=== PATIENT | female | born 1935 | race Caucasian/White ===

== ENCOUNTER → 2016-08-27 | Outpatient (CLI) | payer OTHER ==
[~2016-08-27] MED LIST: AMLO5TAB2 PO; LEVO25TA PO; OMEP20CA9 PO; PRD/1 PO; PRED-301 PO; PRED1SUS3; TRAM-453 PO
--- NOTE | 2016-08-29 08:28 | MAMMOGRAPHY REPORT ---
BILATERAL DIGITAL DIAGNOSTIC MAMMOGRAM TOMOSYNTHESIS AND TARGETED RIGHT ULTRASOUND: 08/27/2016 CLINICAL HISTORY: 80-year-old woman called back from screening mammography for left breast microcalc ifications and right breast nodular asymmetry. TECHNIQUE: Spot compression CC and MLO 2-D digital and tomosynthesis images of the right breast; spo t magnification left CC and ML views were obtained. COMPARISON: Comparison is made to exams dated: 08/20/2016 mammogram, 07/31/2014 mammogram, 08/01/2015 mammogram, 07/27/2013 mammogram, 07/26/2012 mammogram, and 07/21/2011 mammogram - [facility]. BREAST COMPOSITION: There are scattered areas of fibroglandular density in both breasts. FINDINGS: There are moderate vascular calcifications in the breasts. There is near complete effacem ent of the nodular asymmetry in the medial right breast with the additional spot compression tomosyn thesis image. The 2-D spot compression right cc view appears very similar in pattern to the 2014 mammograms, suggesting it represents the patient's baseline. Further evaluation with ult rasound was performed. No focal architectural distortion or suspicious cluster of microcalcificatio ns is identified in the right breast. There is an increasingly conspicuous 2.6 mm cluster of round and punctate microcalcifications in the lower inner posterior left breast. This is indeterminate, and further evaluation with a stereotact ic guided biopsy is recommended. A looser grouping of punctate and linear microcalcifications is se en in the 12:00 middle one third of the left breast measuring up to 2.7 cm. Although this could rep resent early vascular calcification, definitive characterization with tissue sampling is also recomm ended. No obvious new mass or focal architectural distortion is identified in the visualized left b reast. There are a few benign rim calcifications. IMPRESSION: ACR BI-RADS CATEGORY 4B: INTERMEDIATE SUSPICION FOR MALIGNANCY, TARGETED ULTRASOUND ACR BI-RADS CATEGORY 4B: INTERMEDIATE SUSPICION FOR MALIGNANCY 1. Left breast stereotactic guided biopsy x 2 is recommended for a 2.6 mm cluster of punctate and r ound microcalcifications in the lower inner posterior breast, and for a 2.7 cm cluster of punctate a nd linear microcalcifications in the 12:00 breast. 2. Effacement of the nodular asymmetry in the medial right breast, no suspicious sonographic correl ate. This most likely represented normal overlapping fibroglandular tissue. No further close follo w-up is needed at this time. These results and recommendations were discussed with the patient at the time of the exam. She tenta tively scheduled the left breast biopsy prior to leaving our department. Approximately 10% of breast cancers are not detected with mammography. A negative mammographic repor t should not delay biopsy if a clinically suggestive mass is present. Kendal Pearson M.D. ay/:08/27/2016 12:14:12 Molder Hand: Mey Tinoco RT(R)(M), [facility] letter sent: Abnormal 4/5 BI-RADS Code: ACR BI-RADS Category 4B: Intermediate Suspicion For Malignancy Ultrasound BI-RADS: AC R BI-RADS Category 4B: Intermediate Suspicion For Malignancy
== END | disposition home or self-care (01) ==
LOC: C.MAMM 11:18
PROVIDERS: ATTEND Internal Medicine
DX: R92.0 Mammographic microcalcification found on diagnostic imaging of breast (principal)

== ENCOUNTER → 2016-09-03 | Outpatient (CLI) | payer OTHER ==
--- NOTE | 2016-09-03 14:01 | Discharge Instructions ---
Discharge Instructions Procedure Procedure Date: Sep 03, 2016. Reason for visit: Left Calcs X2. Discharge Discharge Date: Sep 03, 2016. Discharge Diagnosis: post left breast stereotactic guided biopsy x 2 Instructions Activity Recommendations: Additional Limitations (see below) Return to School/Work: no limitations Recommended Home Diet: No Limitations Provider Instructions: ACTIVITY RECOMMENDATIONS: * No lifting, pushing, pulling or exercising the affected side for three days. RETURN TO SCHOOL/WORK: * You may return to work/school after the procedure, but do not perform any strenuous activities for 24 to 48 hours. MEDICATIONS: * Tylenol (two 325 mg) every four to six hours if needed for mild pain (if not allergic to Tylenol). DIET: * Resume previous diet. SPECIAL CARE INSTRUCTIONS: * Keep biopsy site dry for 24 hours. May shower after 24 hours, but do not soak (bathe) incision. * May remove Tegaderm (plastic patch) tomorrow AFTER showering. * Leave the steri-strips on for one week. Allow the steri-strips to fall off by themselves. If not off after one week, you may remove them. You may place a Bandaid crosswise over the strips, if desired. * Apply ice 10 minutes on and 10 minutes off as needed. * Wear a bra at bedtime to sleep more comfortably for 2-3 days. * Your referring physician should have the results after approximately 5 to 7 business days. * Call for unusual bleeding, fever, drainage, etc or if you have any questions call [phone] during normal business hours or after hours call Dr Pearson, . FOLLOW UP VISIT: Follow-up with Referring Physician as scheduled. Allergies Coded Allergies: Aspirin (Unverified Allergy, Mild, 06/20/15) Sulfa Drugs (Unverified Allergy, Mild, 06/20/15) Dottie Mondragon Recommendations: Call your doctor if: * Temperature above 101 degrees * Pain not relieved by pain medicine ordered * There is increased drainage or redness from any incision * You have any unanswered questions or concerns. Your Doctors Instructions noted above were prepared by provider Kendal Pearson. Patient Signature Section: Patient Instructions Signature Page Rosi Wills Patient (or Guardian) Signature/Date: I have read and understand the instructions given to me by my caregivers. Caregiver/RN/Doctor Signature/Date: The above-named patient and/or guardian has received patient instructions on this date. + Original Patient Signature Page (only) stays with chart. Please make copy for patient.
--- NOTE | 2016-09-03 15:47 | MAMMOGRAPHY REPORT ---
STEREOTACTIC GUIDED BIOPSY: 09/03/2016 CLINICAL HISTORY: 2 separate groupings of indeterminate microcalcifications within the left breast, in the upper outer middle one third of the breast, and lower inner posterior breast. Patient presen neha for stereotactic biopsy 2. Please refer to the report from left breast stereotactic guided biopsy performed at the same time fo r full detail. IMPRESSION: STEREOTACTIC GUIDED BIOPSY Please refer to the report from left breast stereotactic guided biopsy performed at the same time fo r full detail. Kendal Pearson M.D. ay/:09/03/2016 15:33:47 Cabin Supervisor: Vance RAMIREZ(Delio)(M), [facility]
--- NOTE | 2016-09-03 15:48 | MAMMOGRAPHY REPORT ---
UNILATERAL LEFT DIGITAL DIAGNOSTIC MAMMOGRAM: 09/03/2016 CLINICAL HISTORY: Status post stereotactic guided biopsy 2 within the left breast. Please refer to the report from left breast stereotactic guided biopsy performed at the same time fo r full detail. IMPRESSION: POST PROCEDURE IMAGING FOR MARKER PLACEMENT Please refer to the report from left breast stereotactic guided biopsy performed at the same time fo r full detail. Approximately 10% of breast cancers are not detected with mammography. A negative mammographic repor t should not delay biopsy if a clinically suggestive mass is present. Kendal Pearson M.D. ay/:09/03/2016 15:32:55 Rotary Planer Set Up Operator: Vance Solorzano RT(R)(M), [facility] BI-RADS Code: Post Procedure Imaging For Marker Placement
--- NOTE | 2016-09-03 17:00 | MAMMOGRAPHY REPORT ---
MULTIPLE STEREOTACTIC GUIDED BIOPSIES LEFT BREAST: 09/03/2016 CLINICAL HISTORY: Indeterminate loosely grouped amorphous microcalcifications in the upper outer mid dle one third of the left breast, and grouped punctate microcalcifications in the lower inner doughnut dough mixer ior left breast. Patient presents for left breast stereotactic biopsy 2. PATIENT CONSENT: After explaining the risks, benefits and alternatives of the procedure to the patie nt, informed consent was obtained both verbally and in writing. Specific risks include: Bleeding, i nfection, puncture of adjacent structure, nontarget biopsy, sampling error and medication reaction. PROCEDURE DESCRIPTION: A time-out was performed and the left breast was confirmed as the site of bio psy. The patient was placed prone on the stereotactic biopsy table and the breast was placed in CC f rom below compression. A low altitude air defense gunner image was obtained that demonstrated the clustered microcalcification s in question, within the lower inner posterior breast. They are amenable to sterotactic biopsy. Th en +15 and -15 stereo pair images were obtained. The calcifications were targeted utilizing the co ordinates obtained by the computer. The skin was prepped with Betadine. 1% Lidocaine with and witho ut epinipherine was administered as local anesthesia. A small skin incision was made. Through the i ncision, the needle was inserted to the depth determined by the computer. 10 samples were obtained u sing a [employer] Eviva 9-gauge vacuum-assisted biopsy device. The specimen radiograph demonstrated several underwriting account representative microcalcifications, therefore, a dumbbell shaped metallic marker was placed at the biopsy site. There was no immediate complication. Hemostasis was achieved after several kayode rk of manual compression. The samples were sent to pathology in an appropriately labeled container . Then the left breast was placed in CC from above positioning. A low altitude air defense gunner image was obtained that demon strated the faint, loosely grouped pleomorphic microcalcifications in question, within the upper out er middle one third of the left breast. They are amenable to sterotactic biopsy. Then +15 and -15 stereo pair images were obtained. The calcifications were targeted utilizing the coordinates obtain ed by the computer. The skin was prepped with Betadine. 1% Lidocaine with and without epinipherine was administered as local anesthesia. A small skin incision was made. Through the incision, the nee dle was inserted to the depth determined by the computer. 12 samples were obtained using a [employer] os Eviva 9-gauge vacuum-assisted biopsy device. The specimen radiograph demonstrated several represe ntative microcalcifications, therefore, a dumbbell shaped metallic marker was placed at the biopsy s ite. There was no immediate complication. Hemostasis was achieved after several minutes of manual co mpression. The samples were sent to pathology in an appropriately labeled container. Postprocedure CC and ML views of the left breast demonstrates a new dumbbell shaped metallic biopsy marker in the lower inner posterior breast, and T-shaped biopsy marker in the upper outer middle one third of the left breast. No significant postbiopsy hematoma is seen. Pathology is pending. IMPRESSION: STEREOTACTIC GUIDED BIOPSY Status post stereotactic biopsy 2 in the left breast, with biopsy markers placed at each site. The patient will receive notification of the biopsy results from her referring physician. Kendal Pearson M.D. ay/:09/03/2016 15:54:25 [place] Laborer: Vance THORPE)(Susie), [facility]
== END | disposition home or self-care (01) ==
LOC: C.MAMM 12:25
PROVIDERS: ATTEND Internal Medicine
DX: R92.1 Mammographic calcification found on diagnostic imaging of breast (principal)

== ENCOUNTER → 2017-09-22 | Outpatient (CLI) | payer OTHER ==
--- NOTE | 2017-09-23 15:23 | MAMMOGRAPHY REPORT ---
BILATERAL DIGITAL SCREENING MAMMOGRAM TOMOSYNTHESIS WITH CAD: 09/22/2017 CLINICAL HISTORY: Routine screening. Patient has no complaints. TECHNIQUE: Breast tomosynthesis in addition to standard 2D mammography was performed. Current study was also evaluated with a Computer Aided Detection (CAD) system. COMPARISON: Comparison is made to exams dated: 09/03/2016 mammogram, 08/27/2016 mammogram, 08/20/2016 m ammogram, 08/01/2015 mammogram, 07/31/2014 mammogram, and 07/27/2013 mammogram - [facility] enter. BREAST COMPOSITION: There are scattered areas of fibroglandular density in both breasts. FINDINGS: No suspicious masses, calcifications, or areas of architectural distortion are noted in ei ther breast. There has been no significant interval change compared to prior exams. Scattered bilate ral benign-appearing calcifications are noted. A biopsy marker clip is noted in the left medial post erior breast. IMPRESSION: ACR BI-RADS CATEGORY 2: BENIGN There is no mammographic evidence of malignancy. A 1 year screening mammogram is recommended. The pa tient will receive written notification of the results. Approximately 10% of breast cancers are not detected with mammography. A negative mammographic report should not delay biopsy if a clinically suggestive mass is present. Dalia Ragland M.D. /:09/22/2017 14:52:11 Data Migration Consultant: Audra RAMIREZ(Delio)(Susie)(BD), [facility] letter sent: Normal 1/2 BI-RADS Code: ACR BI-RADS Category 2: Benign
== END | disposition home or self-care (01) ==
LOC: C.MAMM 14:07
PROVIDERS: ATTEND Internal Medicine
DX: Z12.31 Encounter for screening mammogram for malignant neoplasm of breast (principal)

== ENCOUNTER → 2017-11-24 | Outpatient (CLI) | payer OTHER | END | disposition home or self-care (01) | LOC: C.PATHSPEC 17:58 | PROVIDERS: ATTEND Physician Assistant | DX: C44.311 Basal cell carcinoma of skin of nose (principal); C44.320 Squamous cell carcinoma of skin of unspecified parts of face; C44.612 Basal cell carcinoma of skin of right upper limb, including shoulder ==

== ENCOUNTER 2019-01-05 21:47 | Inpatient (IN) ==
[2019-01-05 22:13] LABS: Basophils # (auto) 0.01 K/uL (0-0.2); Basophils % (auto) 0.1 %; Hematocrit (blood only) 30.2 % (37-47); Hemoglobin 10.7 g/dL (12.0-16.0); Immature Granulocytes # (auto) 0.03 K/uL (0.00-0.02); Immature Granulocytes % (auto) 0.4 %; Lymphocytes # (auto) 0.97 K/uL (1.2-3.4); Lymphocytes % (auto) 13.9 %; Mean Corpuscular Hgb Conc 35.4 g/dL (32-36); Mean Platelet Volume 7.9 fL (7.4-10.4); Monocytes # (auto) 0.65 K/uL (0.11-0.59); Monocytes % (auto) 9.3 %; Neutrophils # (auto) 5.31 K/uL (1.4-6.5); Neutrophils % (auto) 76.3 %; Platelet Count 343 K/uL (130-400); RDW Coefficient of Variation 12.3 % (11.5-14.5); RDW Standard Deviation 41.2 fL (36.4-46.3); Red Blood Count 3.32 M/uL (4.2-5.4); White Blood Count 6.97 K/uL (4.8-10.8)
[2019-01-05] MEDS: HYDROmorphone INJ 0.5 MG/0.5 ML SYR IV PRN ×2 (22:16→22:52)
[2019-01-05 22:21] LABS: Partial Thromboplastin Ratio 1.1; Partial Thromboplastin Time 29.5 Seconds (21.0-31.0); Prothrombin Time 10.2 Seconds (9.0-12.0)
[2019-01-05 22:43] LABS: BUN Creatinine Ratio 15.4 (10-20); Calcium 9.1 mg/dl (8.5-10.1); Creatinine Clr Calc Pharmacy 21.1 ml/min; Est GFR (African American) 34.2; Est GFR (Non-African American) 29.5
--- NOTE | 2019-01-05 22:49 | XRay Report ---
XR pelvis 1-2V routine CLINICAL HISTORY: Left hip pain status post trauma COMPARISON: None DISCUSSION: There is a basicervical left hip fracture. The fracture is mildly displaced. There is no dislocation. IMPRESSION: Acute basicervical left hip fracture. Electronically signed by: Alek Daly M.D. 01/05/2019 10:48 PM
--- NOTE | 2019-01-05 22:50 | XRay Report ---
XR femur LT 2V routine CLINICAL HISTORY: Pain status post trauma COMPARISON: None. DISCUSSION: There is displaced basicervical left hip fracture. No additional femoral fractures are ev ident. IMPRESSION: Acute basicervical left hip fracture Electronically signed by: Alek Daly M.D. 01/05/2019 10:49 PM
--- NOTE | 2019-01-05 22:51 | XRay Report ---
XR chest 1V portable CLINICAL HISTORY: Preop chest. Hip fracture. COMPARISON STUDY: No previous studies for comparison. FINDINGS: The heart is at the upper limits of normal in size. The study is rotated. There is no failu re. There is no lobar consolidation. There are no pleural effusions. There is interstitial thickening with a subpleural distribution, likely chronic[ IMPRESSION: 1. Interstitial thickening, likely chronic. 2. No evidence of acute parenchymal consolidation Electronically signed by: Alek Daly M.D. 01/05/2019 10:50 PM
[2019-01-05] MEDS ORDERED: ACETAMINOPHEN 1,000 MG/100 ML VIAL IV STA (22:57)
[2019-01-05] MEDS ORDERED: SODIUM CHLORIDE 0.9% 1000ML 500 ML IV ONE (22:59)
[2019-01-05] MEDS ORDERED: ONDANSETRON INJ 2 MG/ML 2 ML VIAL IV STA (22:59)
[2019-01-05 23:03] LABS: Appearance Urine Clear (Clear); Bilirubin Urine Negative (Negative); Blood Urine Negative (Negative); Color Urine Yellow; Glucose Urine UA Negative (Negative); Ketones Urine Negative (Negative); Leukocyte Esterase Urine Negative (Negative); Nitrite Urine Negative (Negative); Protein Urine Negative (Negative); Specific Gravity Urine 1.019 (1.000-1.030); Urobilinogen Urine Negative (Negative)
[2019-01-05] MEDS ORDERED: dilTIAZem HCL 240 MG CAPCR PO STA (23:25)
[2019-01-06] MEDS: HYDROmorphone INJ 0.5 MG/0.5 ML SYR IV PRN (00:01)
[2019-01-06 00:04] LABS: Magnesium 1.7 mg/dl (1.8-2.4)
--- NOTE | 2019-01-06 00:33 | Emergency Department Note ---
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 The patient is complaining of left hip pain. She rates her pain a 10/10 in severity. She states she did not hit her head and denies loss of consciousness. Home Medications Home Medications Medication Instructions Recorded Confirmed Type Iron Vitamin C 65 - 125 mg PO DAILY 01/05/19 01/05/19 History acetaminophen 500 mg PO BID 01/05/19 01/05/19 History ascorbic acid (vitamin C) [Vitamin 500 mg PO TID 01/05/19 01/05/19 History C] aspirin 81 mg PO DAILY 01/05/19 01/05/19 History calcitriol 0.25 mcg PO 3XWK 01/05/19 01/05/19 History cod liver oil 1 cap PO DAILY 01/05/19 01/05/19 History coenzyme Q10 50 mg PO DAILY 01/05/19 01/05/19 History diltiazem HCl 240 mg PO DAILY 01/05/19 01/05/19 History flaxseed oil 1,000 mg PO BID 01/05/19 01/05/19 History garlic-parsley 1 tab PO BID 01/05/19 01/05/19 History levothyroxine 25 mcg PO DAILY 01/05/19 01/05/19 History multivitamin 1 tab PO DAILY 01/05/19 01/05/19 History omeprazole magnesium [Prilosec OTC] 20 mg PO HS 01/05/19 01/05/19 History prednisone 2 mg PO DAILY 01/05/19 01/05/19 History prednisone 5 mg PO DAILY 01/05/19 01/05/19 History tramadol 50 mg PO Q8H PRN 01/05/19 01/05/19 History Allergies Allergy/AdvReac Type Severity Reaction Status Date / Time aspirin Allergy Mild Unknown Unverified 05/15/19 23:41 Sulfa (Sulfonamide Allergy Mild Rash Unverified 01/05/19 23:41 Antibiotics) Past Med/Surg History Medical History Fibromyalgia Osteoporosis Social History Feels Safe at Home: Yes Smoking Status: Never smoker Review of Systems See HPI for pertinent positives & negatives. and A total of 10 systems reviewed and were otherwise negative Physical Exam Vital Signs Vital Signs - 24 hr 01/05/19 21:49 01/05/19 21:51 01/05/19 21:53 Temperature 36.7 C Temperature Source Oral Sepsis Recent Fever Within 48 Hours No Sepsis Action Taken by Nursing No Action Required Pulse Rate 109 H 109 H 109 H Pulse Rhythm Regular Pulse Strength Normal Respiratory Rate 32 H 19 33 H Respiratory Effort / Characteristics Non-Labored Respiratory Depth Normal Respiratory Pattern Regular Blood Pressure 144/61 H 144/61 H Blood Pressure Mean 88 88 Blood Pressure Position Lying Pulse Oximetry 95 95 95 Oxygen Delivery Method Room Air Oxygen Flow Rate 01/05/19 22:00 01/05/19 22:51 01/05/19 22:55 Temperature Temperature Source Sepsis Recent Fever Within 48 Hours Sepsis Action Taken by Nursing Pulse Rate 107 H 105 H 104 H Pulse Rhythm Regular Pulse Strength Respiratory Rate 21 37 H Respiratory Effort / Characteristics Respiratory Depth Respiratory Pattern Blood Pressure 161/73 H Blood Pressure Mean 102 Blood Pressure Position Pulse Oximetry 95 88 L Oxygen Delivery Method Room Air Oxygen Flow Rate 01/05/19 22:56 01/05/19 23:00 01/05/19 23:30 Temperature Temperature Source Sepsis Recent Fever Within 48 Hours Sepsis Action Taken by Nursing Pulse Rate 104 H 104 H 97 H Pulse Rhythm Pulse Strength Respiratory Rate 26 H 23 24 Respiratory Effort / Characteristics Respiratory Depth Respiratory Pattern Blood Pressure 161/73 H Blood Pressure Mean 102 Blood Pressure Position Pulse Oximetry 100 100 100 Oxygen Delivery Method Nasal Cannula Oxygen Flow Rate 2 01/06/19 00:00 Temperature Temperature Source Sepsis Recent Fever Within 48 Hours Sepsis Action Taken by Nursing Pulse Rate 105 H Pulse Rhythm Pulse Strength Respiratory Rate 12 Respiratory Effort / Characteristics Respiratory Depth Respiratory Pattern Blood Pressure Blood Pressure Mean Blood Pressure Position Pulse Oximetry 97 Oxygen Delivery Method Oxygen Flow Rate GENERAL: Awake, alert, well-appearing, in no acute distress. Obvious discomfort. HENT: Normocephalic, atraumatic. Oropharynx unremarkable. EYES: Normal conjunctiva. Sclera non-icteric. NECK: Supple. No nuchal rigidity. FROM. No JVD. RESPIRATORY: Clear to auscultation. CARDIAC: Regular rate, normal rhythm. Extremities warm and well perfused. Pulses equal. ABDOMEN: Soft, non-distended. No tenderness to palpation. No rebound or guarding. No masses. RECTAL: Deferred. MUSCULOSKELETAL: Chest examination reveals no tenderness. The back is symmetrical on inspection without obvious abnormality. There is no CVA t enderness to palpation. No joint edema. Unable to move left hip. LOWER EXTREMITIES: Calves are equal size bilaterally and non-tender. No edema. No discoloration. NEURO: Normal sensorium. No sensory or motor deficits noted. SKIN: No rash or jaundice noted. Course 2202: Past medical records reviewed. The patient was evaluated in room C4. A co mplete history and physical exam was performed. 5: I discussed the patient's case with Dr. Garcia [facility]. He agrees to evaluate the patient for further management and care. 2305: I spoke with Dr. Quesada, Orthopedics. He is aware of the patient. Consultations Consultation #1: I discussed the patient's case with Dr. Garcia [facility]. He agrees to evaluate the patient for further management and care. Time: 22:55 Consultation #2: I spoke with Dr. Quesada, Orthopedics. He is aware of the patient. Time: 23:05 Administered Medications Hydromorphone HCl (Dilaudid) 0.5 mg IV Q20M PRN PRN Reason: Severe Pain (Rating 7,8,9,10) Stop: 01/19/19 22:04 Last Admin: 01/06/19 00:01 Dose: 0.5 mg Documented by: [id number] Admin: 01/05/19 22:52 Dose: 0.5 mg Documented by: [id number] Admin: 01/05/19 22:16 Dose: 0.5 mg Documented by: [id number] Discontinued Medications Diltiazem HCl (Cardizem Cd) 240 mg PO NOW STA Stop: 01/05/19 23:26 Last Admin: 01/06/19 00:01 Dose: 240 mg Documented by: [id number] Acetaminophen (Ofirmev) 1,000 mg in 100 mls @ 400 mls/hr IV NOW STA Stop: 01/05/19 23:11 Last Infusion: 01/05/19 23:16 Dose: 0 mls/hr Documented by: [id number] Admin: 01/05/19 23:01 Dose: 400 mls/hr Documented by: [id number] Sodium Chloride (Nss 1000ml) 500 mls @ 999 mls/hr IV .Q31M ONE Stop: 01/05/19 23:29 Last Infusion: 01/05/19 23:40 Dose: 0 mls/hr Documented by: [id number] Admin: 01/05/19 23:06 Dose: 999 mls/hr Documented by: [id number] Ondansetron HCl (Zofran) 4 mg IV NOW STA Stop: 01/05/19 23:00 Last Admin: 01/05/19 23:06 Dose: 4 mg Documented by: [id number] Medical Decision Making Differential Diagnosis Etiologies such as fracture, dislocation, intra-abdominal, pneumothorax, intrathoracic , intracranial, neurologic, as well as other traumatic pathologies were entertained. Medical Records Attestation: I reviewed the patient's medical records. Home Medications Current Medication List: was personally reviewed by me Laboratory Data Attestation: I reviewed the patient's lab results. Result diagrams: 01/05/19 22:00 01/05/19 22:00 Lab Results 01/05/19 01/05/19 01/05/19 Range/Units 22:00 22:00 22:00 WBC 6.97 (4.8-10.8) K/uL RBC 3.32 L (4.2-5.4) M/uL Hgb 10.7 L (12.0-16.0) g/dL Hct 30.2 L (37-47) % MCV 91.0 (80-100) fL MCH 32.2 (25-34) pg MCHC 35.4 (32-36) g/dL RDW Std Deviation 41.2 (36.4-46.3) fL RDW Coeff of Caitlin 12.3 (11.5-14.5) % Plt Count 343 (130-400) K/uL MPV 7.9 (7.4-10.4) fL Immature Gran % (Auto) 0.4 % Neut % (Auto) 76.3 % Lymph % (Auto) 13.9 % [place] % (Auto) 9.3 % Eos % (Auto) 0.0 % Baso % (Auto) 0.1 % Immature Gran # (Auto) 0.03 H (0.00-0.02) K/uL Neut # (Auto) 5.31 (1.4-6.5) K/uL Lymph # (Auto) 0.97 L (1.2-3.4) K/uL [place] # (Auto) 0.65 H (0.11-0.59) K/uL Eos # (Auto) 0.00 (0-0.5) K/uL Baso # (Auto) 0.01 (0-0.2) K/uL PT 10.2 (9.0-12.0) Seconds INR 1.0 (0.9-1.1) APTT 29.5 (21.0-31.0) Seconds PTT Ratio 1.1 Sodium 128 L (136-145) mmol/L Potassium 4.0 (3.5-5.1) mmol/L Chloride 97 L (98-107) mmol/L Carbon Dioxide 18 L (21-32) mmol/L Anion Gap 13.0 H (3-11) BUN 25 H (7-18) mg/dl Creatinine 1.60 H (0.6-1.2) mg/dl Est Cr Clr Drug Dosing 21.1 ml/min Est GFR ( Amer) 34.2 Est GFR (Non-Af Amer) 29.5 BUN/Creatinine Ratio 15.4 (10-20) Glucose 112 H (70-99) mg/dl Osmolality (280-300) mOsm/kg Calcium 9.1 (8.5-10.1) mg/dl Magnesium 1.7 L (1.8-2.4) mg/dl TSH 1.200 (0.300-4.500) uIu/ml Urine Color Urine Appearance (Clear) Urine pH (4.5-7.5) Ur Specific [place] (1.000-1.030) Urine Protein (Negative) Urine Glucose (UA) (Negative) Urine Ketones (Negative) Urine Blood (Negative) Urine Nitrite (Negative) Urine Bilirubin (Negative) Urine Urobilinogen (Negative) Ur Leukocyte Esterase (Negative) Blood Type Rho(D) Type Antibody Screen 01/05/19 01/05/19 01/05/19 Range/Units 22:00 22:16 22:55 WBC (4.8-10.8) K/uL RBC (4.2-5.4) M/uL Hgb (12.0-16.0) g/dL Hct (37-47) % MCV (80-100) fL MCH (25-34) pg MCHC (32-36) g/dL RDW Std Deviation (36.4-46.3) fL RDW Coeff of Caitlin (11.5-14.5) % Plt Count (130-400) K/uL MPV (7.4-10.4) fL Immature Gran % (Auto) % Neut % (Auto) % Lymph % (Auto) % [place] % (Auto) % Eos % (Auto) % Baso % (Auto) % Immature Gran # (Auto) (0.00-0.02) K/uL Neut # (Auto) (1.4-6.5) K/uL Lymph # (Auto) (1.2-3.4) K/uL [place] # (Auto) (0.11-0.59) K/uL Eos # (Auto) (0-0.5) K/uL Baso # (Auto) (0-0.2) K/uL PT (9.0-12.0) Seconds INR (0.9-1.1) APTT (21.0-31.0) Seconds PTT Ratio Sodium (136-145) mmol/L Potassium (3.5-5.1) mmol/L Chloride (98-107) mmol/L Carbon Dioxide (21-32) mmol/L Anion Gap (3-11) BUN (7-18) mg/dl Creatinine (0.6-1.2) mg/dl Est Cr Clr Drug Dosing ml/min Est GFR ( Amer) Est GFR (Non-Af Amer) BUN/Creatinine Ratio (10-20) Glucose (70-99) mg/dl Osmolality 316 H (280-300) mOsm/kg Calcium (8.5-10.1) mg/dl Magnesium (1.8-2.4) mg/dl TSH (0.300-4.500) uIu/ml Urine Color Yellow Urine Appearance Clear (Clear) Urine pH 5.0 (4.5-7.5) Ur Specific [place] 1.019 (1.000-1.030) Urine Protein Negative (Negative) Urine Glucose (UA) Negative (Negative) Urine Ketones Negative (Negative) Urine Blood Negative (Negative) Urine Nitrite Negative (Negative) Urine Bilirubin Negative (Negative) Urine Urobilinogen Negative (Negative) Ur Leukocyte Esterase Negative (Negative) Blood Type Cancelled Rho(D) Type Cancelled Antibody Screen Cancelled 01/05/19 Range/Units 23:07 WBC (4.8-10.8) K/uL RBC (4.2-5.4) M/uL Hgb (12.0-16.0) g/dL Hct (37-47) % MCV (80-100) fL MCH (25-34) pg MCHC (32-36) g/dL RDW Std Deviation (36.4-46.3) fL RDW Coeff of Caitlin (11.5-14.5) % Plt Count (130-400) K/uL MPV (7.4-10.4) fL Immature Gran % (Auto) % Neut % (Auto) % Lymph % (Auto) % [place] % (Auto) % Eos % (Auto) % Baso % (Auto) % Immature Gran # (Auto) (0.00-0.02) K/uL Neut # (Auto) (1.4-6.5) K/uL Lymph # (Auto) (1.2-3.4) K/uL [place] # (Auto) (0.11-0.59) K/uL Eos # (Auto) (0-0.5) K/uL Baso # (Auto) (0-0.2) K/uL PT (9.0-12.0) Seconds INR (0.9-1.1) APTT (21.0-31.0) Seconds PTT Ratio Sodium (136-145) mmol/L Potassium (3.5-5.1) mmol/L Chloride (98-107) mmol/L Carbon Dioxide (21-32) mmol/L Anion Gap (3-11) BUN (7-18) mg/dl Creatinine (0.6-1.2) mg/dl Est Cr Clr Drug Dosing ml/min Est GFR ( Amer) Est GFR (Non-Af Amer) BUN/Creatinine Ratio (10-20) Glucose (70-99) mg/dl Osmolality (280-300) mOsm/kg Calcium (8.5-10.1) mg/dl Magnesium (1.8-2.4) mg/dl TSH (0.300-4.500) uIu/ml Urine Color Urine Appearance (Clear) Urine pH (4.5-7.5) Ur Specific [place] (1.000-1.030) Urine Protein (Negative) Urine Glucose (UA) (Negative) Urine Ketones (Negative) Urine Blood (Negative) Urine Nitrite (Negative) Urine Bilirubin (Negative) Urine Urobilinogen (Negative) Ur Leukocyte Esterase (Negative) Blood Type O Positive Rho(D) Type Antibody Screen NEGATIVE Imaging Data Radiologist's Impression: Radiology results as stated below per my review and t he radiologist's interpretation: XR pelvis 1-2V routine CLINICAL HISTORY: Left hip pain status post trauma COMPARISON: None DISCUSSION: There is a basicervical left hip fracture. The fracture is mildly displaced. There is no dislocation. IMPRESSION: Acute basicervical left hip fracture. Electronically signed by: Alek Daly M.D. 01/05/2019 10:48 PM. XR femur LT 2V routine CLINICAL HISTORY: Pain status post trauma COMPARISON: None. DISCUSSION: There is displaced basicervical left hip fracture. No additional femoral fractures are evident. IMPRESSION: Acute basicervical left hip fracture Electronically signed by: Alek Daly M.D. 01/05/2019 10:49 PM. XR chest 1V portable CLINICAL HISTORY: Preop chest. Hip fracture. COMPARISON STUDY: No previous studies for comparison. FINDINGS: The heart is at the upper limits of normal in size. The study is rotated. There is no failure. There is no lobar consolidation. There are no pleural effusions. There is interstitial thickening with a subpleural distribution, likely chronic[ IMPRESSION: 1. Interstitial thickening, likely chronic. 2. No evidence of acute parenchymal consolidation Electronically signed by: Alek Daly M.D. 01/05/2019 10:50 PM ECG Data Attestation: I personally reviewed and interpreted this ECG as follows: Indication: other (fall) Rate (beats per minute): 100 Rhythm: normal sinus Findings: no ST depression and no ST elevation Blood Pressure Blood Pressure Findings: Elevated blood pressure Blood Pressure Disposition: further management by hospitalist FAYE Narrative This is a 83-year-old female who presents emergency department complaining of hip pain. The patient appears to have a left hip deformity. Because of this an IV was established, the patient is given Dilaudid as well as IV Tylenol for her pain. She was sent for x-rays of her chest pelvis and femur. These are concerning for a left hip fracture. Based on this I did discuss the case with the hospitalist service as well as Dr. Lee patient and family were in agreement with the treatment plan.[email or web address]. Impression & Plan Fall, Hip fracture Discharge Plan Visit Data Chief Complaint: Hip Pain Stated Complaint: fall/ L hip pain ED Provider: Kody Gauthier Discharge Problem: Fall, Hip fracture Patient Disposition: Being Evaluated by Hospitalist Forms Stand Alone Forms: My [facility] Prescriptions Prescriptions: No Action levothyroxine 25 mcg Tablet 25 mcg PO DAILY RF: 0 tramadol 50 mg Tablet 50 mg PO Q8H PRN (Reason: Pain) RF: 0 diltiazem HCl 240 mg Capsule,Extended Release 24hr 240 mg PO DAILY RF: 0 prednisone 1 mg Tablet 2 mg PO DAILY RF: 0 calcitriol 0.25 mcg Capsule 0.25 mcg PO 3XWK RF: 0 prednisone 5 mg Tablet 5 mg PO DAILY RF: 0 acetaminophen 500 mg Tablet 500 mg PO BID RF: 0 aspirin 81 mg Tablet,Delayed Release (Dr/Ec) 81 mg PO DAILY RF: 0 coenzyme Q10 50 mg Capsule 50 mg PO DAILY RF: 0 Iron Vitamin C 65 - 125 mg PO DAILY RF: 0 cod liver oil Capsule 1 cap PO DAILY RF: 0 garlic-parsley Tablet 1 tab PO BID RF: 0 ascorbic acid (vitamin C) [Vitamin C] 500 mg Tablet 500 mg PO TID RF: 0 flaxseed oil 1,000 mg Capsule 1,000 mg PO BID RF: 0 multivitamin Tablet 1 tab PO DAILY RF: 0 Prilosec OTC 20 mg Tablet,Delayed Release (Dr/Ec) 20 mg PO HS RF: 0 Referrals Referrals: Irvin Huggins DO [Primary Care Provider] - Discharge Problem: Fall Qualifiers: Encounter type: initial encounter Qualified Code(s): W19.XXXA - Unspecified fall, initial encounter Hip fracture Qualifiers: Encounter type: initial encounter Fracture type: closed Laterality: left Qualified Code(s): S72.002A - Fracture of unspecified part of neck of left femur, initial encounter for closed fracture The scribe's documentation has been prepared under my direction and personally reviewed by me in its entirety. I confirm that the note above accurately reflects all work, treatment, procedures, and medical decision making performed by me.
--- NOTE | 2019-01-06 00:49 | History & Physical Report ---
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 Quesada.) Careful correction of sodium, hyponatremia work-up Analgesia, facilitate home BP meds, may need titration Final preop medical evaluation pending repeat sodium levels and Orthopedics evaluation/management recommendations. Check hemoglobin A1c DT precautions Anemia work-up (NB : Patient is a [employer].) DVT prophylaxis. SCDs RE possible surgery (Recommend pharmacologic anticoagulation pending evaluation by Orthopedics.) Full code Patient son requesting updates from providers. Mr. Manuel Wills, contact #[phone]. History of Present Illness Chief Complaint: Left hip pain Primary Care Provider: Irvin Huggins, History obtained from patient, family, and records. Medical history significant for hypertension, hyperlipidemia, PMR on chronic steroid Rx, CRI baseline creatinine 1.6, GERD, daily alcohol intake. Patient was at home last night when she stumbled and fell landing on her left side. Patient subsequently noted excruciating left hip pain worse on trying to get up. No head trauma, no LOC, no syncope, no chest pain, no S OB. 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, [employer] Functionality: Still able to do light housework without exertional chest pain, S OB Allergies Allergy/AdvReac Type Severity Reaction Status Date / Time aspirin Allergy Mild Unknown Unverified 01/05/19 23:41 Sulfa (Sulfonamide Allergy Mild Rash Unverified 01/05/19 23:41 Antibiotics) Home Medications Home Medications Medication Instructions Recorded Confirmed Type Iron Vitamin C 65 - 125 mg PO DAILY 01/05/19 01/05/19 History acetaminophen 500 mg PO BID 01/05/19 01/05/19 History ascorbic acid (vitamin C) [Vitamin 500 mg PO TID 01/05/19 01/05/19 History C] aspirin 81 mg PO DAILY 01/05/19 01/05/19 History calcitriol 0.25 mcg PO 3XWK 01/05/19 01/05/19 History cod liver oil 1 cap PO DAILY 01/05/19 01/05/19 History coenzyme Q10 50 mg PO DAILY 01/05/19 01/05/19 History diltiazem HCl 240 mg PO DAILY 01/05/19 01/05/19 History flaxseed oil 1,000 mg PO BID 01/05/19 01/05/19 History garlic-parsley 1 tab PO BID 01/05/19 01/05/19 History levothyroxine 25 mcg PO DAILY 01/05/19 01/05/19 History multivitamin 1 tab PO DAILY 01/05/19 01/05/19 History omeprazole magnesium [Prilosec OTC] 20 mg PO HS 01/05/19 01/05/19 History prednisone 2 mg PO DAILY 01/05/19 01/05/19 History prednisone 5 mg PO DAILY 01/05/19 01/05/19 History tramadol 50 mg PO Q8H PRN 01/05/19 01/05/19 History Past Med/Surg History Medical History Fibromyalgia Osteoporosis Anemia GERD (gastroesophageal reflux disease) HTN (hypertension) Hyponatremia Hypothyroid Rheumatoid arthritis Surgical History S/P appendectomy S/P cataract extraction S/P tonsillectomy Social History Preferred Language: [place] Communication Ability: Effective Compliance Mgr Required: No Beliefs That Will Affect Care: Latter-Day Latter-Day Beliefs: Jehovah Witness, No blood products. Current Living Situation: Other Current Living Situation Comment: Son lives w/ patient Other Information That Helps Us Care for You: No Feels Safe at Home: Yes Safety Concerns: Feels Safe At This Time Smoking Status: Former smoker Smoking End Date: Quit 30 plus years ago. Hx Alcohol Use: Yes Alcohol type: hard liquor Hx Substance Use: No Review of Systems Review of Systems: As per HPI, all 10 systems reviewed, all other ROS negative Physical Exam Physical Exam: GENERAL: Comfortable, alcoholic fetor, no respiratory distress SKIN: Pallor, warm HEENT: Pale palpebral conjunctivae, no ptosis, dry buccal mucosa, nasal cannula in place NECK : Supple, no tenderness CHEST : Decreased breath sounds, no tenderness HEART : Tachycardic, no obvious murmurs ABDOMEN: Some distention, nontender EXTREMITIES : Left hip tenderness, no LE swelling, no other conspicuous deformities noted NEUROLOGIC : Coherent, no facial asymmetry, no other gross focality Results & Data Vital Signs (Past 12 Hours) Vital Signs Temp Pulse Resp BP Pulse Ox 01/06/19 00:00 105 H 12 97 01/05/19 23:30 97 H 24 100 01/05/19 23:00 104 H 23 100 01/05/19 22:56 104 H 26 H 161/73 H 100 01/05/19 22:55 104 H 88 L 01/05/19 22:51 105 H 37 H 161/73 H 95 01/05/19 22:00 107 H 21 01/05/19 21:53 109 H 33 H 95 01/05/19 21:51 36.7 C 109 H 19 144/61 H 95 01/05/19 21:49 109 H 32 H 144/61 H 95 Laboratory Results Laboratory Results WBC 6.97 K/uL (4.8-10.8) 01/05/19 22:00 RBC 3.32 M/uL (4.2-5.4) L 01/05/19 22:00 Hgb 10.7 g/dL (12.0-16.0) L 01/05/19 22:00 Hct 30.2 % (37-47) L 01/05/19 22:00 MCV 91.0 fL (80-100) 01/05/19 22:00 MCH 32.2 pg (25-34) 01/05/19 22:00 MCHC 35.4 g/dL (32-36) 01/05/19 22:00 RDW Std Deviation 41.2 fL (36.4-46.3) 01/05/19 22:00 RDW Coeff of Caitlin 12.3 % (11.5-14.5) 01/05/19 22:00 Plt Count 343 K/uL (130-400) 01/05/19 22:00 MPV 7.9 fL (7.4-10.4) 01/05/19 22:00 Immature Gran % (Auto) 0.4 % 01/05/19 22:00 Neut % (Auto) 76.3 % 01/05/19 22:00 Lymph % (Auto) 13.9 % 01/05/19 22:00 [place] % (Auto) 9.3 % 01/05/19 22:00 Eos % (Auto) 0.0 % 01/05/19 22:00 Baso % (Auto) 0.1 % 01/05/19 22:00 Immature Gran # (Auto) 0.03 K/uL (0.00-0.02) H 01/05/19 22:00 Neut # (Auto) 5.31 K/uL (1.4-6.5) 01/05/19 22:00 Lymph # (Auto) 0.97 K/uL (1.2-3.4) L 01/05/19 22:00 [place] # (Auto) 0.65 K/uL (0.11-0.59) H 01/05/19 22:00 Eos # (Auto) 0.00 K/uL (0-0.5) 01/05/19 22:00 Baso # (Auto) 0.01 K/uL (0-0.2) 01/05/19 22:00 PT 10.2 Seconds (9.0-12.0) 01/05/19 22:00 INR 1.0 (0.9-1.1) 01/05/19 22:00 APTT 29.5 Seconds (21.0-31.0) 01/05/19 22:00 PTT Ratio 1.1 01/05/19 22:00 Sodium 128 mmol/L (136-145) L 01/05/19 22:00 Potassium 4.0 mmol/L (3.5-5.1) 01/05/19 22:00 Chloride 97 mmol/L (98-107) L 01/05/19 22:00 Carbon Dioxide 18 mmol/L (21-32) L 01/05/19 22:00 13.0 (3-11) H 01/05/19 22:00 BUN 25 mg/dl (7-18) H 01/05/19 22:00 1.60 mg/dl (0.6-1.2) H 01/05/19 22:00 Est Cr Clr Drug Dosing 21.1 ml/min 01/05/19 22:00 Est GFR ( Amer) 34.2 01/05/19 22:00 Est GFR (Non-Af Amer) 29.5 01/05/19 22:00 15.4 (10-20) 01/05/19 22:00 Glucose 112 mg/dl (70-99) H 01/05/19 22:00 316 mOsm/kg (280-300) H 01/05/19 22:00 Calcium 9.1 mg/dl (8.5-10.1) 01/05/19 22:00 Magnesium 1.7 mg/dl (1.8-2.4) L 01/05/19 22:00 TSH 1.200 uIu/ml (0.300-4.500) 01/05/19 22:00 Yellow 01/05/19 22:55 Clear (Clear) 01/05/19 22:55 5.0 (4.5-7.5) 01/05/19 22:55 Ur Specific [place] 1.019 (1.000-1.030) 01/05/19 22:55 Negative (Negative) 01/05/19 22:55 Negative (Negative) 01/05/19 22:55 Negative (Negative) 01/05/19 22:55 Negative (Negative) 01/05/19 22:55 Negative (Negative) 01/05/19 22:55 Negative (Negative) 01/05/19 22:55 Negative (Negative) 01/05/19 22:55 Ur Leukocyte Esterase Negative (Negative) 01/05/19 22:55 Blood Type O Positive 01/05/19 23:07 Rho(D) Type Cancelled 01/05/19 22:16 Antibody Screen NEGATIVE 01/05/19 23:07 Diagnostic Findings Chest x-ray showed 1. Interstitial thickening, likely chronic. 2. No evidence of acute parenchymal consolidation EKG as per my interpretation : Rate 100 NSR, no ischemia Left femur x-ray: Acute basicervical left hip fracture
[2019-01-06 01:20] LABS: Reticulocyte % 1.2 % (0.5-2.0); Reticulocytes # 0.04 10^6/uL (0.02-0.10)
[2019-01-06 01:43] LABS: Ferritin 41.6 ng/ml (8-388)
[2019-01-06 01:49] LABS: Folate (Folic Acid) 11.82 ng/ml (>5.38)
[2019-01-06] MEDS ORDERED: LORazepam 2 MG/4 ML VIAL IV PRN (02:31)
[2019-01-06] MEDS ORDERED: BISACODYL 10 MG SUPP PR PRN (02:31)
[2019-01-06] MEDS ORDERED: ATIVAN IV ALCOHOL WITHDRAWL IV SCH (02:31)
[2019-01-06] MEDS ORDERED: MAGNESIUM SULFATE / D5W 1 GM/100 ML BAG IV ONE (02:31)
[2019-01-06] MEDS ORDERED: GABAPENTIN 600 MG TAB PO SCH (02:31)
[2019-01-06] MEDS ORDERED: ACETAMINOPHEN 325 MG TAB PO PRN (02:31)
[2019-01-06] MEDS ORDERED: GABAPENTIN 1200MG ALCOHOL WITHDRAWAL LOAD PO STA (02:31)
[2019-01-06] MEDS ORDERED: LORazepam 3 MG/6 ML VIAL IV PRN (02:31)
[2019-01-06] MEDS ORDERED: LORazepam 1 MG/2 ML VIAL IV PRN (02:31)
[2019-01-06] MEDS ORDERED: NALOXONE HCL 0.4 MG/1 ML VIAL/CARP IV PRN ×2 (02:31→17:06)
[2019-01-06] MEDS ORDERED: NITROGLYCERIN SL 0.4 MG/TAB TAB SL PRN (02:31)
[2019-01-06] MEDS ORDERED: THIAMINE HCL 100 MG in SYRINGE 9 ML IV STA (02:31)
[2019-01-06] MEDS ORDERED: MAGNESIUM HYDROXIDE SUSP 30 ML UDC PO PRN (02:31)
[2019-01-06] MEDS ORDERED: HYDROmorphone INJ 0.5 MG/0.5 ML SYR IV PRN ×3 (02:31→17:06)
[2019-01-06] MEDS ORDERED: SODIUM CHLORIDE 0.9% 1000ML 1,000 ML IV SCH (03:15)
[2019-01-06] MEDS: OXYCODONE HCL IR 5 MG TAB (IMMEDIATE RELEASE) PO PRN ×2 (03:20→21:31)
[2019-01-06] MEDS: LEVOTHYROXINE SODIUM 25 MCG TABLET PO SCH (06:13)
[2019-01-06 06:23] LABS: Basophils # (auto) 0.02 K/uL (0-0.2); Basophils % (auto) 0.2 %; Eosinophils # (auto) 0.06 K/uL (0-0.5); Eosinophils % (auto) 0.5 %; Hematocrit (blood only) 29.6 % (37-47); Hemoglobin 10.3 g/dL (12.0-16.0); Immature Granulocytes # (auto) 0.05 K/uL (0.00-0.02); Immature Granulocytes % (auto) 0.4 %; Lymphocytes # (auto) 1.71 K/uL (1.2-3.4); Lymphocytes % (auto) 14.7 %; Mean Corpuscular Hgb Conc 34.8 g/dL (32-36); Mean Corpuscular Volume 91.6 fL (80-100); Mean Platelet Volume 7.8 fL (7.4-10.4); Monocytes # (auto) 1.38 K/uL (0.11-0.59); Monocytes % (auto) 11.8 %; Neutrophils # (auto) 8.44 K/uL (1.4-6.5); Neutrophils % (auto) 72.4 %; Platelet Count 307 K/uL (130-400); RDW Coefficient of Variation 12.2 % (11.5-14.5); RDW Standard Deviation 41.4 fL (36.4-46.3); Red Blood Count 3.23 M/uL (4.2-5.4); White Blood Count 11.66 K/uL (4.8-10.8)
[2019-01-06] MEDS ORDERED: HYDROmorphone INJ 0.5 MG/0.5 ML SYR IV STA (06:41)
--- NOTE | 2019-01-06 06:50 | Anesthesiology Consultation ---
Date of Service January 06, 2019 Assessment & Plan (1) Encounter for pre-operative examination: Chart Review Chart Review: Acceptable Risk for Surgery Consults Requested none History Surgery Operation Date: 01/06/19 07:00 Proposed Procedures p Left Bipolar Hip Prosthesis - Sidney Garcia DO Height/Weight Height: 5 ft 1 in Weight: 53.1 kg Allergies Allergy/AdvReac Type Severity Reaction Status Date / Time aspirin Allergy Mild Unknown Unverified 01/05/19 23:41 Sulfa (Sulfonamide Allergy Mild Rash Unverified 01/05/19 23:41 Antibiotics) Medications Home Medications Medication Instructions Recorded Confirmed Last Taken Iron Vitamin C 65 - 125 mg PO DAILY 01/05/19 01/05/19 Unknown acetaminophen 500 mg PO BID 01/05/19 01/05/19 Unknown ascorbic acid (vitamin C) [Vitamin 500 mg PO TID 01/05/19 01/05/19 Unknown C] aspirin 81 mg PO DAILY 01/05/19 01/05/19 Unknown calcitriol 0.25 mcg PO 3XWK 01/05/19 01/05/19 Unknown cod liver oil 1 cap PO DAILY 01/05/19 01/05/19 Unknown coenzyme Q10 50 mg PO DAILY 01/05/19 01/05/19 Unknown diltiazem HCl 240 mg PO DAILY 01/05/19 01/05/19 Unknown flaxseed oil 1,000 mg PO BID 01/05/19 01/05/19 Unknown garlic-parsley 1 tab PO BID 01/05/19 01/05/19 Unknown levothyroxine 25 mcg PO DAILY 01/05/19 01/05/19 Unknown multivitamin 1 tab PO DAILY 01/05/19 01/05/19 Unknown omeprazole magnesium [Prilosec OTC] 20 mg PO HS 01/05/19 01/05/19 Unknown prednisone 2 mg PO DAILY 01/05/19 01/05/19 Unknown prednisone 5 mg PO DAILY 01/05/19 01/05/19 Unknown tramadol 50 mg PO Q8H PRN 01/05/19 01/05/19 Unknown Active Medications Generic Name Dose Route Start Last Admin Trade Name Freq PRN Reason Stop Dose Admin Sodium Chloride 1,000 mls @ 60 mls/hr 01/06/19 03:15 01/06/19 03:19 Nss 1000ml IV 02/05/19 03:14 60 mls/hr .[id number] DINORA Administration Levothyroxine Sodium 25 mcg 01/06/19 06:30 01/06/19 06:13 Synthroid PO 02/05/19 06:29 25 mcg DAILYBB DINORA Administration Oxycodone HCl 5 mg 01/06/19 02:31 01/06/19 03:20 Roxicodone Immediate Rel PO 01/20/19 02:30 5 mg Q4H PRN Administration Pain Past Medical History Medical History Fibromyalgia Osteoporosis Anemia GERD (gastroesophageal reflux disease) HTN (hypertension) Hyponatremia Hypothyroid Rheumatoid arthritis Exercise / Class Metabolic Activity III < 4 Walking/Shop/Light housework Past Surgical History Surgical History S/P appendectomy S/P cataract extraction S/P tonsillectomy Social History Smoking Status: Former smoker Smoking End Date: Quit 30 plus years ago. Hx Alcohol Use: Yes Alcohol type: hard liquor alcohol intake frequency: 0-2 drinks per day Alcohol Intake Frequency Comment: 2 drinks daily Hx Substance Use: No Physical Exam Vital Signs Last Vital Signs Temp 98.6 F 01/06/19 07:40 Pulse 95 H 01/06/19 07:45 Resp 20 01/06/19 07:40 BP 166/70 H 01/06/19 07:40 Pulse Ox 96 01/06/19 07:40 Testing Electrocardiogram Date: 01/05/19 Normal sinus rhythm, rate [address] abnormality Abnormal ECG No previous ECGs available Chest X-Ray Date: 01/05/19 IMPRESSION: 1. Interstitial thickening, likely chronic. 2. No evidence of acute parenchymal consolidation Echocardiogram Date: 05/12/16 Small LV chamber size with mild concentric LVH. Hyperdynamic LV systolic function, EF >70%. No segmental left ventricular wall motion abnormalities are noted. Grade II diastolic dysfunction. Aortic valve sclerosis mild, without significant aortic valvular stenosis. Laboratory Results 01/06/19 06:04 01/06/19 06:04 PT 10.2 Seconds (9.0-12.0) 01/05/19 22:00 INR 1.0 (0.9-1.1) 01/05/19 22:00 APTT 29.5 Seconds (21.0-31.0) 01/05/19 22:00 5.7 % (4.5-5.6) H 01/06/19 06:04 Yellow 01/05/19 22:55 Clear (Clear) 01/05/19 22:55 5.0 (4.5-7.5) 01/05/19 22:55 Ur Specific [place] 1.019 (1.000-1.030) 01/05/19 22:55 Negative (Negative) 01/05/19 22:55 Negative (Negative) 01/05/19 22:55 Negative (Negative) 01/05/19 22:55 Negative (Negative) 01/05/19 22:55 Ur Leukocyte Esterase Negative (Negative) 01/05/19 22:55 Blood Type O Positive 01/05/19 23:07 Rho(D) Type Cancelled 01/05/19 22:16 Antibody Screen NEGATIVE 01/05/19 23:07
[2019-01-06 06:51] LABS: BUN Creatinine Ratio 15.3 (10-20); Calcium 8.6 mg/dl (8.5-10.1); Creatinine Clr Calc Pharmacy 24.6 ml/min; Est GFR (African American) 43.5; Est GFR (Non-African American) 37.6; Magnesium 2.1 mg/dl (1.8-2.4); Potassium 4.1 mmol/L (3.5-5.1)
[2019-01-06 07:14] LABS: Estimated Average Glucose 117 mg/dl; Hemoglobin A1C 5.7 % (4.5-5.6)
--- NOTE | 2019-01-06 08:46 | Orthopedic Consultation ---
Date of Consultation January 06, 2019 Assessment & Plan (1) Closed left hip fracture: In speaking with the patient, she is a community ambulator and uses a quad cane. She no longer drives but her son does take her to the grocery store etc. She will need a bipolar hemiarthroplasty versus total hip replacement. This will be at the discretion of Dr Garcia. Plan for OR today. The patient is a 83-year-old female with displaced left femoral neck fracture sustained after a fall from standing height. The patient was medically stabilized on 01/06/2019. I indicated the patient for left hip hemiarthroplasty. The patient and family member was informed of the risks and benefits of surgery, which include but not limited to infection, bleeding, blood clots, damage to nerves, vessels, bone and soft tissue, dislocation, leg length discrepancy, need for additional surgery and . The patient and family collectively chose to move forward with surgical intervention and informed consent was obtained. Antibiotics hydro station operator to OR N.p.o. Bedrest Nonweightbearing left lower Hold anticoagulation History of Present Illness Reason for Consultation: Left displaced femoral neck fracture Attending Physician: Quoc Clark MD History of Present Illness Patient is an 83-year-old female who states she had a mechanical fall yesterday evening. She states that she loses her balance often and uses a cane while ambulating. She denies any shortness of breath, chest pain, lightheadedness prior to the fall or after the fall. She denies loss of consciousness. He states that she simply lost her balance while at home and fell onto her left side. She had immediate pain in her left hip and groin and was unable to ambulate. She was brought to the emergency room and x-rays were taken and found that she had a displaced femoral neck fracture. [facility] we have been asked to take care of her hip fracture. Allergies Allergy/AdvReac Type Severity Reaction Status Date / Time aspirin Allergy Mild Unknown Unverified 01/05/19 23:41 Sulfa (Sulfonamide Allergy Mild Rash Unverified 01/05/19 23:41 Antibiotics) Home Medications Home Medications Medication Instructions Recorded Confirmed Type Iron Vitamin C 65 - 125 mg PO DAILY 01/05/19 01/05/19 History acetaminophen 500 mg PO BID 01/05/19 01/05/19 History ascorbic acid (vitamin C) [Vitamin 500 mg PO TID 01/05/19 01/05/19 History C] aspirin 81 mg PO DAILY 01/05/19 01/05/19 History calcitriol 0.25 mcg PO 3XWK 01/05/19 01/05/19 History cod liver oil 1 cap PO DAILY 01/05/19 01/05/19 History coenzyme Q10 50 mg PO DAILY 01/05/19 01/05/19 History diltiazem HCl 240 mg PO DAILY 01/05/19 01/05/19 History flaxseed oil 1,000 mg PO BID 01/05/19 01/05/19 History garlic-parsley 1 tab PO BID 01/05/19 01/05/19 History levothyroxine 25 mcg PO DAILY 01/05/19 01/05/19 History multivitamin 1 tab PO DAILY 01/05/19 01/05/19 History omeprazole magnesium [Prilosec OTC] 20 mg PO HS 01/05/19 01/05/19 History prednisone 2 mg PO DAILY 01/05/19 01/05/19 History prednisone 5 mg PO DAILY 01/05/19 01/05/19 History tramadol 50 mg PO Q8H PRN 01/05/19 01/05/19 History Patient History Medical History Fibromyalgia Osteoporosis Anemia GERD (gastroesophageal reflux disease) HTN (hypertension) Hyponatremia Hypothyroid Rheumatoid arthritis Surgical History S/P appendectomy S/P cataract extraction S/P tonsillectomy Social History Preferred Language: Macedonian Communication Ability: Effective Conveyor Belt Installer Required: No Beliefs That Will Affect Care: Jainism Jainism Beliefs: Jehovah Witness, No blood products. Current Living Situation: Other Current Living Situation Comment: Son lives w/ patient Other Information That Helps Us Care for You: No Feels Safe at Home: Yes Safety Concerns: Feels Safe At This Time Smoking Status: Former smoker Smoking End Date: Quit 30 plus years ago. Hx Alcohol Use: Yes Alcohol type: hard liquor Hx Substance Use: No Review of Systems Review of Systems: All systems reviewed & are unremarkable except as noted in HPI & below Constitutional: as per Subjective / HPI Physical Exam Physical Exam: Upon entering the room, the patient is awake and alert and or iented. She complains of left hip pain at this time. Focusing the exam on the left lower extremity, it is shortened and externally rotated compared to the right. No attempts are made to do range of motion of the left hip due to fracture. Her left knee is nontender on palpation but range of motion is deferred due to fracture in the hip. Left ankle is nontender and has good range of motion at this time. Right lower extremity is unaffected and is nontender at the hip knee and ankle and range of motion is intact. Upper extremities are benign at this time with good range of motion. She is nontender at the shoulders elbows and wrists. She denies neck pain on palpation and range of motion is adequate. She denies thoracic or lumbar pain at this time. Distal pulses are equal bilaterally of the upper and lower extremities. There is no gross motor or sensory loss seen at this time. LLE NVSI +EHL/FHL/TA/GS SILT grossly, +2 DP pulse, compartments soft NT, short, int rot Constitutional: WD/WN, vitals as above Results & Data Vital Signs (Past 12 Hours) Vital Signs Temp Pulse Pulse Resp BP BP Pulse Ox 01/06/19 07:45 95 H 01/06/19 07:40 37.0 C 98 H 20 166/70 H 96 01/06/19 04:23 36.8 C 101 H 20 164/70 H 96 01/06/19 02:47 36.8 C 105 H 101 H 18 173/73 H 91 01/06/19 01:49 101 H 19 137/73 96 01/06/19 00:00 105 H 12 97 01/05/19 23:30 97 H 24 100 01/05/19 23:00 104 H 23 100 01/05/19 22:56 104 H 26 H 161/73 H 100 01/05/19 22:55 104 H 88 L 01/05/19 22:51 105 H 37 H 161/73 H 95 01/05/19 22:00 107 H 21 01/05/19 21:53 109 H 33 H 95 01/05/19 21:51 36.7 C 109 H 19 144/61 H 95 01/05/19 21:49 109 H 32 H 144/61 H 95 Diagnostic Findings XR femur LT 2V routine CLINICAL HISTORY: Pain status post trauma COMPARISON: None. DISCUSSION: There is displaced basicervical left hip fracture. No additional femoral fractures are evident. IMPRESSION: Acute basicervical left hip fracture
[2019-01-06] MEDS ORDERED: LIDOCAINE HCL 2% 2 ML VIAL/AMP(20MG/ML) INFIL ONE (12:11)
[2019-01-06] MEDS ORDERED: PROPOFOL IV EMULSION 10 MG/ML 20 ML VIAL IV ONE (12:11)
[2019-01-06] MEDS ORDERED: MIDAZOLAM HCL 1 MG/ML 2ML VIAL ONE (12:11)
[2019-01-06] MEDS ORDERED: ORTHO JOINT ANESTHETIC ONE (12:13)
[2019-01-06] MEDS ORDERED: POVIDONE-IODINE OP SOLN 30 ML BTL ONE (12:13)
[2019-01-06] MEDS ORDERED: BACITRACIN INJ 50,000 UNIT VIAL ONE (12:14)
[2019-01-06] MEDS ORDERED: HYDROmorphone INJ 1 MG/ML SYRINGE IV PRN (12:57)
[2019-01-06] MEDS ORDERED: ATROPINE SULFATE 0.1 MG/ML 10ML SYR IV PRN (12:57)
[2019-01-06] MEDS ORDERED: ePHEDrine sulfate 50 MG/ML AMP IV PRN (12:57)
[2019-01-06] MEDS ORDERED: ROPIVACAINE 0.5% HCL/PF 150 MG, BUPIVACAINE 0.5% MPF 30 ML, EPINEPHrine 30MG/30ML (OR U... INFIL SCH ×2 (13:00→14:15)
--- NOTE | 2019-01-06 13:00 | History & Physical Bridge Note ---
Date of Service January 06, 2019 History & Physical Bridge Note I have examined the patient, reviewed the History & Physical and in the interval since the performance of the History & Physical I have noted the following changes of clinical significance: no changes noted
[2019-01-06] MEDS: predniSONE 5 MG TAB PO SCH (13:07)
[2019-01-06] MEDS: FOLIC ACID 1 MG TAB PO SCH (13:07)
[2019-01-06] MEDS: predniSONE 1 MG TAB PO SCH (13:07)
[2019-01-06] MEDS: MULTIVITAMIN TAB PO SCH (13:07)
[2019-01-06] MEDS: GABAPENTIN 600 MG TAB PO SCH ×3 (13:07→21:32)
[2019-01-06] MEDS ORDERED: fentaNYL citrate 100 MCG/2 ML VIAL ONE (13:13)
[2019-01-06] MEDS ORDERED: CEFAZOLIN 2,000 MG/15 ML IV PUSH IV ONE (13:19)
[2019-01-06] MEDS ORDERED: BUPIVACAINE 0.5 % 5 MG/1 ML PF 10ML VIAL ONE (13:22)
--- NOTE | 2019-01-06 15:34 | Post Operative Brief Note ---
Immediate Post Op Note v1 Date of Surgery January 06, 2019 Pre & Post Diagnosis Operation Date: 01/06/19 13:00 Pre-Op Diagnosis: Left Hip Fracture Post-Op Diagnosis: Left Hip Fracture Procedure Operation Date: 01/06/19 13:00 Actual Procedures p Left Bipolar Hip Prosthesis, cemented (Left) - Sidney Garcia DO Surgeon Sidney Garcia DO Freelance Writer Alfonzo Alfaro Estimated Blood Loss 150 Findings Consistent with Post-Op Diagnosis Fluids 1000 cc LR Specimens femoral head Drains Hemovac Drain Anesthesia Type Spinal MAC Complications none Disposition Disposition: Recovery Room Overlapping Procedure I was present for: the critical portions of procedure. I was immediately available: during the entire case. Back up surgeon: was not required during procedure.
--- NOTE | 2019-01-06 15:53 | Operative Report ---
Post Operative Report Pre & Post Diagnosis Operation Date: 01/06/19 13:00 Pre-Op Diagnosis: Left Hip Fracture Post-Op Diagnosis: Left Hip Fracture Procedure Operation Date: 01/06/19 13:00 Actual Procedures p Left Bipolar Hip Prosthesis, cemented (Left) - Sidney Garcia DO Surgeon Sidney Garcia DO Child Protective Services Specialist Alfonzo Alfaro Estimated Blood Loss 150 Findings Consistent with Post-Op Diagnosis Fluids 1000 cc LR Specimens femoral head Anesthesia Type Spinal MAC Complications none Disposition Disposition: Recovery Room Indications The patient is a 83-year-old female with displaced left femoral neck fracture sustained after a fall from standing height. The patient was medically stabilized on 01/06/2019. I indicated the patient for left hip hemiarthroplasty. The patient and family was informed of the risks and benefits of surgery, which include but not limited to infection, bleeding, blood clots, damage to nerves, vessels, bone and soft tissue, dislocation, leg length discrepancy, need for ad ditional surgery and . The patient and collectively chose to move forward with surgical intervention and informed consent was obtained. Description of Procedure Following induction of adequate spine anesthesia, the patient was transferred to the OR table and placed in the lateral decubitus position with right hip down. The left hip was prepped and draped in usual sterile manner. A posterior incision was made. Subcutaneous tissue was sharply dissected. Electro cautery was used for hemostasis. Fascia was incised throughout the length of the wound and the piriformis was identified. A #1 Vicryl suture was used to tage the piriformis. The short external rotators were divided from the posterior aspect of the femur and a capsulotomy was performed. A second #1 Vicryl suture was used to tag the capsule. Next, I turned my attention to the femoral neck fracture. The fracture was relatively high on the calcar and decision was made to proceed with the oscillating saw and create the calcar osteotomy. This bone fragment was removed. Following this, tenaculum and cob elevater was utilized to remove the femoral head. The head was measured on the back table and the 44 mm femoral head was chosen as the size to be used. Next, attention was turned to the acetabulum which was found to have no significant arthritis. All bony debris was removed. A sponge was placed in the acetabulum. Attention was then turned to the proximal femur where box osteotome was used to gain access to the femoral canal. A canal finder and power lateralizing reamer were utilized to further open. Sequential raspings were taken up to a size 12, which was sunk completely and trial reduction was carried out and a 28+3.5 mm femoral head was chosen the size to be used with the 44 bipolar cup. Following a trial reduction, the hip was found to be stable to 45 degrees of internal rotation and 90 degrees of flexion with equal leg lengths. The calcar reamer was utilized to smooth the calcar and the instruments and trial components were removed. The hip was thoroughly irrigated with pulsatile irrigation. The canal was irrigated and dried, cement restrictor was placed and [place] cement was mixed. The size 12 low demand fracture stem was placed with a 11 mm centralizer and this was held in position well. All excess cement was removed and cement hardened. Following insertion of final stem component another trial reduction was carried out and again a +3.5 neck size was chosen as the size to be used. The final head and neck was impacted into position and the hip was reduced and stablity assess and was found to be stable to 45 degrees of internal rotation and 90 degrees of flexion. The wound was again irrigated. Gissell-incisional soft tissue was injected with the [place] Orthomix which includes a combination of Ropivicaine 0.5% 150mg, Bupivicaine 0.5%/Epinephrine 1:200,000 30ml, Toradol 30mg, Dexamethasone 4mg, Ketamine 10mg, Clonidine 100mcg and NSS 30ml solution. The capsulebwas repaired using #5 fiberwire sutures through drill holes. Following this, the short external rotators were reapproximated to the posterior aspect of the femur also through drill holes and these were tied. Once again the wound was copiously irrigated with sterile saline solution with bacitracin. Fascia was closed using #1 Vicryl [id number] sutures, subcutaneous tissue was closed using 2-0 vicryl, and skin was closed with ana lilia. Sterile dressings Silverlon and abduction pillow placed between the legs. The patient tolerated the procedure well and was taken to recovery room in stable condition. Due to the complex nature of the procedure, the entire surgery was performed with the operational assistance of Alfonzo Alfaro PA-C. The assistant professor of criminal justice, under direct supervision, was involved in the actual performance of all aspects of the surgical procedure including patient positioning, hemostasis, tissue retraction, instrument management and wound closure. I attest to the content of the Intraoperative Record and any orders documented therein. Any exceptions are noted below.
--- NOTE | 2019-01-06 16:29 | Orthopedic Progress Note ---
Date of Service January 06, 2019 Assessment & Plan (1) Closed left hip fracture: Status post left hip hemiarthroplasty -Ancef x24 -DVT prophylaxis SCDs, teds, Lovenox 30 mg subcu daily -Weight-bear as tolerates left lower extremity -Posterior hip precaution -Abduction pillow in bed -PT/OT when medically stable -Postoperative x-ray pending -A.m. lab Subjective Post Operative Progress Note Patient seen in PACU, comfortable, denies complaints, pain well controlled, no acute issues. Still feeling the effects of spinal anesthesia. Review of Systems Review of Systems: All systems reviewed & are unremarkable except as noted in HPI & below Constitutional: as per Subjective / HPI Physical Exam Physical Exam: Left lower extremity exam limited secondary to spinal anesthesia, +2 dorsalis pedis pulse, compartment soft nontender, dressing clean dry and intact, SCDs in place. Abduction pillow in place. Constitutional: WD/WN, vitals as above Results & Data Vital Signs (Past 12 Hours) Vital Signs Temp Pulse Pulse Pulse Resp BP BP 01/06/19 16:15 99 H 18 153/76 H 01/06/19 16:05 109 H 18 163/65 H 01/06/19 15:55 36.8 C 103 H 13 148/110 H 01/06/19 12:58 36.9 C 117 H 171/81 H 01/06/19 11:28 37.3 C 109 H 20 156/77 H 01/06/19 07:45 95 H 01/06/19 07:40 37.0 C 98 H 20 166/70 H Pulse Ox 01/06/19 16:15 96 01/06/19 16:05 98 01/06/19 15:55 94 01/06/19 12:58 91 01/06/19 11:28 93 01/06/19 07:45 01/06/19 07:40 96
--- NOTE | 2019-01-06 16:29 | Anesthesiology Progress Note ---
Date of Service January 06, 2019 Anesthesia Post Procedure Vital Signs Vital Signs: Temp Pulse Pulse Pulse Resp BP BP 01/06/19 16:15 99 H 18 01/06/19 16:05 109 H 18 01/06/19 15:55 36.8 C 103 H 13 01/06/19 12:58 36.9 C 117 H 171/81 H 01/06/19 11:28 37.3 C 109 H 20 156/77 H 01/06/19 07:45 95 H 01/06/19 07:40 37.0 C 98 H 20 166/70 H 01/06/19 04:23 36.8 C 101 H 20 164/70 H 01/06/19 02:47 36.8 C 105 H 101 H 18 173/73 H 01/06/19 01:49 101 H 19 137/73 01/06/19 00:00 105 H 12 01/05/19 23:30 97 H 24 01/05/19 23:00 104 H 23 01/05/19 22:56 104 H 26 H 161/73 H 01/05/19 22:55 104 H 01/05/19 22:51 105 H 37 H 161/73 H 01/05/19 22:00 107 H 21 01/05/19 21:53 109 H 33 H 01/05/19 21:51 36.7 C 109 H 19 144/61 H 01/05/19 21:49 109 H 32 H 144/61 H BP Pulse Ox 01/06/19 16:15 153/76 H 96 01/06/19 16:05 163/65 H 98 01/06/19 15:55 148/110 H 94 01/06/19 12:58 91 01/06/19 11:28 93 01/06/19 07:45 01/06/19 07:40 96 01/06/19 04:23 96 01/06/19 02:47 91 01/06/19 01:49 96 01/06/19 00:00 97 01/05/19 23:30 100 01/05/19 23:00 100 01/05/19 22:56 100 01/05/19 22:55 88 L 01/05/19 22:51 95 01/05/19 22:00 01/05/19 21:53 95 01/05/19 21:51 95 01/05/19 21:49 95 Pain Intensity Left Hip: Pain Intensity: 3 Transfer of Care Handoff Completed per policy Notes Mental Status: alert / awake / arousable Patient Amnestic to Procedure: Yes Nausea / Vomiting: adequately controlled Pain: adequately controlled Airway Patency, RR, SpO2: stable & adequate BP & HR: stable & adequate Hydration State: stable & adequate Anesthetic Complications: no major complications apparent and Pt Satisfied with anesthetic care
[2019-01-06] MEDS ORDERED: ONDANSETRON INJ 2 MG/ML 2 ML VIAL IV PRN (17:06)
--- NOTE | 2019-01-06 17:14 | XRay Report ---
XR hip LT min 2V CLINICAL HISTORY: Post-Operative implant position COMPARISON: 01/05/2019 DISCUSSION: There are postsurgical changes of a bipolar left hip arthroplasty. There is no dislocatio n. The femoral spike appears well seated. Overlying skin ana lilia are evident. There is air within the soft tissues consistent with recent surgery. IMPRESSION: Bipolar left hip arthroplasty. No evidence of dislocation. Electronically signed by: Alek Daly M.D. 01/06/2019 5:13 PM
[2019-01-06] MEDS: SODIUM CHLORIDE 0.9% 1000ML 1,000 ML IV SCH (17:27)
[2019-01-06] MEDS ORDERED: METOPROLOL TARTRATE 25 MG TAB PO STA (17:45)
--- NOTE | 2019-01-06 17:52 | Hospitalist Progress Note ---
Date of Service January 06, 2019 Assessment & Plan (1) Closed left hip fracture: -Secondary to mechanical fall -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; post-operative state Hyponatremia -serum sodium 128 on admission as opposed to normal serum sodium levels in outpatient labs in 2018 -will continue IV fluids as normal saline -will trend serum sodium levels Tachycardia -continue pain control medications -continue home dose diltiazem -adding metoprolol tartrate BID hypertension -likely due to pain -continue to monitor Polymyalgia rheumatica -continue home dose prednisone -Hemoglobin A1c prior to surgery is 5.7 and shows relatively good glucose control Anemia -Hgb 10 before the surgery -Patient is a Sikhism and would not want blood transfusions -monitor CBC Hypothyroidism -continue home dose Levothyroxine 25 mcg daily Alcohol use -drinks jf wine regularly with dinner at home -continue alcohol withdrawal protocol as precaution while in the hospital DVT prophylaxis SCDs, teds, Lovenox 30 mg subcu daily Full code Patient son Manuel Wills, contact #[phone]. Patient daughter [phone] Subjective Patient seen and examined at the bedside after the left hip surgery. awake and alert and cooperative. patient and family at bedside report they want to try the regular diet. Patient speaking well. denies acute pain. on nasal cannula. left hip in dressing and ice pack. heart rate tachycardic. patient denies p alpitations Physical Exam Constitutional: cooperative Eyes: PERRL, conjunctivae normal, anicteric sclerae EOM intact bilaterally ENMT: external ear and nose normal, oropharynx normal Respiratory: normal respiratory effort, lungs clear to auscultation Cardiovascular: Rate/Rhythm: regular rhythm and + tachycardic Gastrointestinal (Abdomen): normal bowel sounds, soft, nontender, no hepatosplenomegaly Musculoskeletal: Head/Neck/Chest: normocephalic and head atraumatic left hip in dressing and has ice pack, patient able to wiggle the toes bilaterally Neurologic: PERRL, EOMI, accommodation nl, no face palsy, no dysarthria CN's II-XI intact bilaterally Psychiatric: A+Ox3, euthymic affect Results & Data Vital Signs (Past 12 Hours) Vital Signs Temp Pulse Pulse Pulse Pulse Resp BP 01/06/19 17:30 36.5 C 112 H 16 01/06/19 17:00 36.4 C L 108 H 20 01/06/19 16:45 99 H 17 01/06/19 16:35 36.8 C 105 H 16 01/06/19 16:25 111 H 17 01/06/19 16:15 99 H 18 01/06/19 16:05 109 H 18 01/06/19 15:55 36.8 C 103 H 13 01/06/19 12:58 36.9 C 117 H 171/81 H 01/06/19 11:28 37.3 C 109 H 20 156/77 H 01/06/19 07:45 95 H 01/06/19 07:40 37.0 C 98 H 20 166/70 H BP Pulse Ox 01/06/19 17:30 147/51 H 96 01/06/19 17:00 162/77 H 96 01/06/19 16:45 155/72 H 93 01/06/19 16:35 143/80 H 92 01/06/19 16:25 156/82 H 97 01/06/19 16:15 153/76 H 96 01/06/19 16:05 163/65 H 98 01/06/19 15:55 148/110 H 94 01/06/19 12:58 91 01/06/19 11:28 93 01/06/19 07:45 01/06/19 07:40 96
[2019-01-06] MEDS: ACETAMINOPHEN 325 MG TAB PO PRN (18:51)
[2019-01-06] MEDS: SENNA 8.6 MG TAB PO SCH (21:31)
[2019-01-06] MEDS: CEFAZOLIN 1000MG 1,000 MG/7.5 ML SYR IV SCH (21:31)
[2019-01-06] MEDS: PANTOprazole 40 MG TAB PO SCH (21:31)
[2019-01-07] MEDS: SODIUM CHLORIDE 0.9% 1000ML 1,000 ML IV SCH ×3 (04:25→16:41)
[2019-01-07] MEDS: CEFAZOLIN 1000MG 1,000 MG/7.5 ML SYR IV SCH (04:26)
[2019-01-07 06:02] LABS: Hemoglobin 9.2 g/dL (12.0-16.0); Mean Corpuscular Hgb Conc 34.1 g/dL (32-36); Mean Corpuscular Volume 93.4 fL (80-100); Mean Platelet Volume 7.9 fL (7.4-10.4); Platelet Count 275 K/uL (130-400); RDW Coefficient of Variation 12.3 % (11.5-14.5); RDW Standard Deviation 42.3 fL (36.4-46.3); Red Blood Count 2.89 M/uL (4.2-5.4); White Blood Count 14.68 K/uL (4.8-10.8)
[2019-01-07] MEDS: LEVOTHYROXINE SODIUM 25 MCG TABLET PO SCH (06:20)
[2019-01-07] MEDS: GABAPENTIN 600 MG TAB PO SCH ×2 (06:20→12:49)
[2019-01-07 06:36] LABS: Albumin Level 2.5 gm/dl (3.4-5.0); BUN Creatinine Ratio 13.6 (10-20); Calcium 8.3 mg/dl (8.5-10.1); Creatinine Clr Calc Pharmacy 20.2 ml/min; Echinocytes 1+; Eosinophils # (auto) 0.01 K/uL (0-0.5); Eosinophils % (auto) 0.1 %; Est GFR (African American) 34.4; Est GFR (Non-African American) 29.7; Immature Granulocytes # (auto) 0.03 K/uL (0.00-0.02); Immature Granulocytes % (auto) 0.2 %; Lymphocytes # (auto) 0.69 K/uL (1.2-3.4); Lymphocytes % (auto) 4.7 %; Monocytes # (auto) 0.87 K/uL (0.11-0.59); Monocytes % (auto) 5.9 %; Neutrophils # (auto) 13.08 K/uL (1.4-6.5); Neutrophils % (auto) 89.1 %; Potassium 4.9 mmol/L (3.5-5.1)
[2019-01-07 06:43] LABS: Albumin Globulin Ratio 0.7 (0.9-2); Bilirubin,Total 0.3 mg/dl (0.2-1); Globulin 3.4 gm/dl (2.5-4.0); Total Protein 5.9 gm/dl (6.4-8.2)
[2019-01-07] MEDS: predniSONE 1 MG TAB PO SCH (08:47)
[2019-01-07] MEDS: THIAMINE HCL 100 MG TAB PO SCH (08:47)
[2019-01-07] MEDS: MULTIVITAMIN TAB PO SCH (08:47)
[2019-01-07] MEDS: predniSONE 5 MG TAB PO SCH (08:48)
[2019-01-07] MEDS: dilTIAZem HCL 240 MG CAPCR PO SCH (08:48)
[2019-01-07] MEDS: FOLIC ACID 1 MG TAB PO SCH (08:48)
[2019-01-07] MEDS: ENOXAPARIN INJ 30 MG/0.3 ML SYR SQ SCH (08:48)
[2019-01-07] MEDS ORDERED: METOPROLOL TARTRATE 25 MG TAB PO SCH (09:00)
--- NOTE | 2019-01-07 09:07 | Orthopedic Progress Note ---
Date of Service January 07, 2019 Assessment & Plan (1) Closed left hip fracture: Status post left hip hemiarthroplasty -Ancef x24, then dc. -DVT prophylaxis SCDs, teds, Lovenox 30 mg subcu daily -Weight-bear as tolerates left lower extremity -Posterior hip precaution -Abduction pillow in bed -PT/OT when medically stable -A.m. lab as noted above. Patient seen and examined, agree with above assessment plan. Subjective Pt awake and alert this AM. Family present. Pt without complaints this AM. Comfortable. Pain controlled. Denies SOB,CP,LH. States she was up ambulating with a walker in the room last night without difficulty. Review of Systems Review of Systems: All systems reviewed & are unremarkable except as noted in HPI & below Constitutional: as per Subjective / HPI Physical Exam Physical Exam: Silverlon dressing intact. Mild drainage in dressing window. Calves soft, NT. NV intact. Toes mobile. Leg lengths appear equal. LLE NVSI +EHL/FHL/TA/GS SILT grossly, +2 DP pulse, compartments soft NT, dressing cdi. Constitutional: WD/WN, vitals as above Results & Data Vital Signs (Past 12 Hours) Vital Signs Temp Pulse Resp BP Pulse Ox 01/07/19 07:10 36.6 C 91 H 16 154/72 H 90 01/07/19 03:07 36.4 C L 72 16 136/78 97 01/06/19 23:12 36.7 C 80 16 108/66 97 Laboratory Results Laboratory Results WBC 14.68 K/uL (4.8-10.8) H 01/07/19 05:35 RBC 2.89 M/uL (4.2-5.4) L 01/07/19 05:35 Hgb 9.2 g/dL (12.0-16.0) L 01/07/19 05:35 Hct 27.0 % (37-47) L 01/07/19 05:35 MCV 93.4 fL (80-100) 01/07/19 05:35 MCH 31.8 pg (25-34) 01/07/19 05:35 MCHC 34.1 g/dL (32-36) 01/07/19 05:35 RDW Std Deviation 42.3 fL (36.4-46.3) 01/07/19 05:35 RDW Coeff of Caitlin 12.3 % (11.5-14.5) 01/07/19 05:35 Plt Count 275 K/uL (130-400) 01/07/19 05:35 MPV 7.9 fL (7.4-10.4) 01/07/19 05:35 Immature Gran % (Auto) 0.2 % 01/07/19 05:35 Neut % (Auto) 89.1 % 01/07/19 05:35 Lymph % (Auto) 4.7 % 01/07/19 05:35 [place] % (Auto) 5.9 % 01/07/19 05:35 Eos % (Auto) 0.1 % 01/07/19 05:35 Baso % (Auto) 0.0 % 01/07/19 05:35 Reticulocyte % (Auto) 1.2 % (0.5-2.0) 01/06/19 01:01 Immature Gran # (Auto) 0.03 K/uL (0.00-0.02) H 01/07/19 05:35 Neut # (Auto) 13.08 K/uL (1.4-6.5) H 01/07/19 05:35 Lymph # (Auto) 0.69 K/uL (1.2-3.4) L 01/07/19 05:35 [place] # (Auto) 0.87 K/uL (0.11-0.59) H 01/07/19 05:35 Eos # (Auto) 0.01 K/uL (0-0.5) 01/07/19 05:35 Baso # (Auto) 0.00 K/uL (0-0.2) 01/07/19 05:35 Reticulocyte # 0.04 10^6/uL (0.02-0.10) 01/06/19 01:01 1+ 01/07/19 05:35 PT 10.2 Seconds (9.0-12.0) 01/05/19 22:00 INR 1.0 (0.9-1.1) 01/05/19 22:00 APTT 29.5 Seconds (21.0-31.0) 01/05/19 22:00 PTT Ratio 1.1 01/05/19 22:00 Sodium 132 mmol/L (136-145) L 01/07/19 05:35 Potassium 4.9 mmol/L (3.5-5.1) D 01/07/19 05:35 Chloride 104 mmol/L (98-107) 01/07/19 05:35 Carbon Dioxide 22 mmol/L (21-32) 01/07/19 05:35 6.0 (3-11) 01/07/19 05:35 BUN 22 mg/dl (7-18) H 01/07/19 05:35 1.59 mg/dl (0.6-1.2) H 01/07/19 05:35 Est Cr Clr Drug Dosing 20.2 ml/min 01/07/19 05:35 Est GFR ( Amer) 34.4 01/07/19 05:35 Est GFR (Non-Af Amer) 29.7 01/07/19 05:35 13.6 (10-20) 01/07/19 05:35 Glucose 133 mg/dl (70-99) H 01/07/19 05:35 Estimat Average Glucose 117 mg/dl 01/06/19 06:04 5.7 % (4.5-5.6) H 01/06/19 06:04 316 mOsm/kg (280-300) H 01/05/19 22:00 Calcium 8.3 mg/dl (8.5-10.1) L 01/07/19 05:35 Magnesium 2.1 mg/dl (1.8-2.4) 01/06/19 06:04 Iron 28 mcg/dl (35-150) L 01/06/19 01:01 TIBC 292 mcg/dl (250-450) 01/06/19 01:01 233 mg/dl (200-360) 01/06/19 01:01 41.6 ng/ml (8-388) 01/06/19 01:01 0.3 mg/dl (0.2-1) 01/07/19 05:35 AST 24 U/L (15-37) 01/07/19 05:35 ALT 14 U/L (12-78) 01/07/19 05:35 63 U/L (45-117) 01/07/19 05:35 5.9 gm/dl (6.4-8.2) L 01/07/19 05:35 2.5 gm/dl (3.4-5.0) L 01/07/19 05:35 3.4 gm/dl (2.5-4.0) 01/07/19 05:35 0.7 (0.9-2) L 01/07/19 05:35 Vitamin B12 272 pg/ml (211-911) 01/06/19 01:01 11.82 ng/ml (>5.38) 01/06/19 01:01 TSH 1.200 uIu/ml (0.300-4.500) 01/05/19 22:00 Yellow 01/05/19 22:55 Clear (Clear) 01/05/19 22:55 5.0 (4.5-7.5) 01/05/19 22:55 Ur Specific [place] 1.019 (1.000-1.030) 01/05/19 22:55 Negative (Negative) 01/05/19 22:55 Negative (Negative) 01/05/19 22:55 Negative (Negative) 01/05/19 22:55 Negative (Negative) 01/05/19 22:55 Negative (Negative) 01/05/19 22:55 Negative (Negative) 01/05/19 22:55 Negative (Negative) 01/05/19 22:55 Ur Leukocyte Esterase Negative (Negative) 01/05/19 22:55 425 mOsm/kg (500-800) L 01/05/19 23:00 Ur Random Sodium 49 mmol/L 01/05/19 23:00 98.0 mg/dl (0-3) H 01/06/19 01:01 Blood Type O Positive 01/05/19 23:07 Rho(D) Type Cancelled 01/05/19 22:16 Antibody Screen NEGATIVE 01/05/19 23:07
[2019-01-07] MEDS: ACETAMINOPHEN 325 MG TAB PO PRN ×2 (09:36→21:39)
--- NOTE | 2019-01-07 11:45 | Hospitalist Progress Note ---
Date of Service January 07, 2019 Assessment & Plan (1) Closed left hip fracture: -Secondary to mechanical fall -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; post-operative state Hyponatremia -serum sodium 128 on admission as opposed to normal serum sodium levels in outpatient labs in 2018 -will continue IV fluids as normal saline -serum sodium levels improving to 132 while on IV fluids, will continue IV fluids for now Chronic kidney disease stage 3 -outpatient labs in 2018 with creatinine of 1.6 to 1.8 -continue to monitor renal function hypertension -likely due to pain -continue to monitor Tachycardia -heart rate controlled by 01/07/19 -metoprolol was considered on 01/06/19 but not initiated as heart rates were better -continue home dose diltiazem -continue pain control medications Polymyalgia rheumatica -continue home dose prednisone -Hemoglobin A1c prior to surgery is 5.7 and shows relatively good glucose control Anemia -Hgb 10 before the surgery -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 Patient daughter [phone] Subjective Patient reports she feel she is doing well. denies palpitations. no chest pain. no shortness of breath. no abdomen pain. no vomiting. left hip and leg pain controlled. denies lightheadedness or dizziness Physical Exam Constitutional: cooperative Eyes: PERRL, conjunctivae normal, anicteric sclerae EOM intact bilaterally ENMT: external ear and nose normal, oropharynx normal Neck: trachea midline, no thyromegaly normal visual inspection Respiratory: normal respiratory effort, lungs clear to auscultation Cardiovascular: Rate/Rhythm: regular rate and regular rhythm Gastrointestinal (Abdomen): normal bowel sounds, soft, nontender, no hepatosplenomegaly Musculoskeletal: Head/Neck/Chest: normocephalic and head atraumatic dressing over left thigh, ice over left thigh Neurologic: PERRL, EOMI, accommodation nl, no face palsy, no dysarthria CN's II-XI intact bilaterally Psychiatric: A+Ox3, euthymic affect Results & Data Vital Signs (Past 12 Hours) Vital Signs Temp Pulse Resp BP Pulse Ox 01/07/19 10:12 93 01/07/19 07:10 36.6 C 91 H 16 154/72 H 90 01/07/19 03:07 36.4 C L 72 16 136/78 97
[2019-01-07] MEDS: OXYCODONE HCL IR 5 MG TAB (IMMEDIATE RELEASE) PO PRN ×2 (14:17→21:39)
[2019-01-07] MEDS: PANTOprazole 40 MG TAB PO SCH (21:39)
[2019-01-07] MEDS: SENNA 8.6 MG TAB PO SCH (21:40)
[2019-01-08] MEDS: GABAPENTIN 600 MG TAB PO SCH ×2 (03:26→12:41)
[2019-01-08] MEDS: SODIUM CHLORIDE 0.9% 1000ML 1,000 ML IV SCH (04:41)
[2019-01-08] MEDS: OXYCODONE HCL IR 5 MG TAB (IMMEDIATE RELEASE) PO PRN ×4 (05:05→22:12)
[2019-01-08] MEDS: LEVOTHYROXINE SODIUM 25 MCG TABLET PO SCH (05:06)
[2019-01-08 07:33] LABS: BUN Creatinine Ratio 16.3 (10-20); Calcium 8.4 mg/dl (8.5-10.1); Creatinine Clr Calc Pharmacy 21.2 ml/min; Est GFR (African American) 36.4; Est GFR (Non-African American) 31.4; Potassium 4.3 mmol/L (3.5-5.1)
[2019-01-08] MEDS: ACETAMINOPHEN 325 MG TAB PO PRN (07:35)
--- NOTE | 2019-01-08 08:10 | Hospitalist Progress Note ---
Date of Service January 08, 2019 Assessment & Plan (1) Closed left hip fracture: -Secondary to mechanical fall -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; post-operative state Hyponatremia -serum sodium 128 on admission as opposed to normal serum sodium levels in outpatient labs in 2018 -will continue IV fluids as normal saline -serum sodium levels improving to 136 while on IV fluids and will stop IV fluids as of 01/08/19 and monitor serum sodium levels without IV fluids Chronic kidney disease stage 3 -outpatient labs in 2018 with creatinine of 1.6 to 1.8 -renal function stable hypertension -start carvedilol BID on 01/08/19 Tachycardia -fast heart rate with exertion -start carvedilol BID starting on 01/08/19 -continue home dose diltiazem -continue pain control medications Polymyalgia rheumatica -continue home dose prednisone -Hemoglobin A1c prior to surgery is 5.7 and shows relatively good glucose control Anemia -Hgb 10 before the surgery -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 Patient daughter [phone] Disposition: awaiting placement to inpatient physical rehabilitation or long term facility Subjective Patient ambulated from bathroom to the bed for the physical exam. mildly tachycardic with exertion. patient had bowel movement yesterday. denies chest pain. denies shortness of breath. no abdomen pain. no vomiting. continues to have dressing over the left hip Physical Exam Constitutional: cooperative Eyes: PERRL, conjunctivae normal, anicteric sclerae EOM intact bilaterally ENMT: external ear and nose normal, oropharynx normal Neck: trachea midline, no thyromegaly normal visual inspection Respiratory: normal respiratory effort, lungs clear to auscultation Cardiovascular: Rate/Rhythm: regular rate and + tachycardic Gastrointestinal (Abdomen): normal bowel sounds, soft, nontender, no hepatosplenomegaly Musculoskeletal: Head/Neck/Chest: normocephalic and head atraumatic dressing over the left hip Neurologic: PERRL, EOMI, accommodation nl, no face palsy, no dysarthria CN's II-XI intact bilaterally Psychiatric: A+Ox3, euthymic affect Results & Data Vital Signs (Past 12 Hours) Vital Signs Temp Pulse Resp BP Pulse Ox 01/08/19 07:44 36.6 C 102 H 17 171/75 H 96 01/07/19 22:57 36.8 C 93 H 19 133/74 93
[2019-01-08] MEDS: dilTIAZem HCL 240 MG CAPCR PO SCH (08:43)
[2019-01-08] MEDS: predniSONE 1 MG TAB PO SCH (08:43)
[2019-01-08] MEDS: FOLIC ACID 1 MG TAB PO SCH (08:43)
[2019-01-08] MEDS: MULTIVITAMIN TAB PO SCH (08:43)
[2019-01-08] MEDS: predniSONE 5 MG TAB PO SCH (08:43)
[2019-01-08] MEDS: THIAMINE HCL 100 MG TAB PO SCH (08:43)
[2019-01-08] MEDS: ENOXAPARIN INJ 30 MG/0.3 ML SYR SQ SCH (08:43)
[2019-01-08] MEDS: CARVEDILOL 3.125 MG TAB PO SCH ×2 (08:43→20:42)
[2019-01-08] MEDS ORDERED: FERROUS SULFATE 325 MG/7.4 ML UDP PO SCH (09:00)
--- NOTE | 2019-01-08 10:40 | Orthopedic Progress Note ---
Date of Service January 08, 2019 Assessment & Plan (1) Closed left hip fracture: POD 2 Status post left hip hemiarthroplasty -Ancef x24, then dc. -DVT prophylaxis SCDs, teds, Lovenox 30 mg subcu daily -Weight-bear as tolerates left lower extremity -Posterior hip precaution -Abduction pillow in bed -PT/OT when medically stable DC plans - to SNF/Rehab when approved. Patient seen and examined, agree with above assessment plan. Subjective Pt sitting up in her chair at bedside. Family present and state she ambulated 60' this AM. Pt without complaints at the moment. Denies SOB,CP,LH. Pain controlled. Has some mild pain with ambulation. Review of Systems Review of Systems: All systems reviewed & are unremarkable except as noted in HPI & below Constitutional: as per Subjective / HPI Physical Exam Physical Exam: Silverlon dressing intact with mild drainage in window. Calves soft, NT. NV intact. Hip located. Results & Data Vital Signs (Past 12 Hours) Vital Signs Temp Pulse Resp BP Pulse Ox 01/08/19 07:44 36.6 C 102 H 17 171/75 H 96 01/07/19 22:57 36.8 C 93 H 19 133/74 93 Laboratory Results Laboratory Results WBC 14.68 K/uL (4.8-10.8) H 01/07/19 05:35 RBC 2.89 M/uL (4.2-5.4) L 01/07/19 05:35 Hgb 9.2 g/dL (12.0-16.0) L 01/07/19 05:35 Hct 27.0 % (37-47) L 01/07/19 05:35 MCV 93.4 fL (80-100) 01/07/19 05:35 MCH 31.8 pg (25-34) 01/07/19 05:35 MCHC 34.1 g/dL (32-36) 01/07/19 05:35 RDW Std Deviation 42.3 fL (36.4-46.3) 01/07/19 05:35 RDW Coeff of Caitlin 12.3 % (11.5-14.5) 01/07/19 05:35 Plt Count 275 K/uL (130-400) 01/07/19 05:35 MPV 7.9 fL (7.4-10.4) 01/07/19 05:35 Immature Gran % (Auto) 0.2 % 01/07/19 05:35 Neut % (Auto) 89.1 % 01/07/19 05:35 Lymph % (Auto) 4.7 % 01/07/19 05:35 [place] % (Auto) 5.9 % 01/07/19 05:35 Eos % (Auto) 0.1 % 01/07/19 05:35 Baso % (Auto) 0.0 % 01/07/19 05:35 Reticulocyte % (Auto) 1.2 % (0.5-2.0) 01/06/19 01:01 Immature Gran # (Auto) 0.03 K/uL (0.00-0.02) H 01/07/19 05:35 Neut # (Auto) 13.08 K/uL (1.4-6.5) H 01/07/19 05:35 Lymph # (Auto) 0.69 K/uL (1.2-3.4) L 01/07/19 05:35 [place] # (Auto) 0.87 K/uL (0.11-0.59) H 01/07/19 05:35 Eos # (Auto) 0.01 K/uL (0-0.5) 01/07/19 05:35 Baso # (Auto) 0.00 K/uL (0-0.2) 01/07/19 05:35 Reticulocyte # 0.04 10^6/uL (0.02-0.10) 01/06/19 01:01 1+ 01/07/19 05:35 PT 10.2 Seconds (9.0-12.0) 01/05/19 22:00 INR 1.0 (0.9-1.1) 01/05/19 22:00 APTT 29.5 Seconds (21.0-31.0) 01/05/19 22:00 PTT Ratio 1.1 01/05/19 22:00 Sodium 136 mmol/L (136-145) 01/08/19 06:40 Potassium 4.3 mmol/L (3.5-5.1) 01/08/19 06:40 Chloride 108 mmol/L (98-107) H 01/08/19 06:40 Carbon Dioxide 20 mmol/L (21-32) L 01/08/19 06:40 8.0 (3-11) 01/08/19 06:40 BUN 25 mg/dl (7-18) H 01/08/19 06:40 1.52 mg/dl (0.6-1.2) H 01/08/19 06:40 Est Cr Clr Drug Dosing 21.2 ml/min 01/08/19 06:40 Est GFR ( Amer) 36.4 01/08/19 06:40 Est GFR (Non-Af Amer) 31.4 01/08/19 06:40 16.3 (10-20) 01/08/19 06:40 Glucose 116 mg/dl (70-99) H 01/08/19 06:40 Estimat Average Glucose 117 mg/dl 01/06/19 06:04 5.7 % (4.5-5.6) H 01/06/19 06:04 316 mOsm/kg (280-300) H 01/05/19 22:00 Calcium 8.4 mg/dl (8.5-10.1) L 01/08/19 06:40 Magnesium 2.1 mg/dl (1.8-2.4) 01/06/19 06:04 Iron 28 mcg/dl (35-150) L 01/06/19 01:01 TIBC 292 mcg/dl (250-450) 01/06/19 01:01 233 mg/dl (200-360) 01/06/19 01:01 41.6 ng/ml (8-388) 01/06/19 01:01 0.3 mg/dl (0.2-1) 01/07/19 05:35 AST 24 U/L (15-37) 01/07/19 05:35 ALT 14 U/L (12-78) 01/07/19 05:35 63 U/L (45-117) 01/07/19 05:35 5.9 gm/dl (6.4-8.2) L 01/07/19 05:35 2.5 gm/dl (3.4-5.0) L 01/07/19 05:35 3.4 gm/dl (2.5-4.0) 01/07/19 05:35 0.7 (0.9-2) L 01/07/19 05:35 Vitamin B12 272 pg/ml (211-911) 01/06/19 01:01 11.82 ng/ml (>5.38) 01/06/19 01:01 TSH 1.200 uIu/ml (0.300-4.500) 01/05/19 22:00 Yellow 01/05/19 22:55 Clear (Clear) 01/05/19 22:55 5.0 (4.5-7.5) 01/05/19 22:55 Ur Specific [place] 1.019 (1.000-1.030) 01/05/19 22:55 Negative (Negative) 01/05/19 22:55 Negative (Negative) 01/05/19 22:55 Negative (Negative) 01/05/19 22:55 Negative (Negative) 01/05/19 22:55 Negative (Negative) 01/05/19 22:55 Negative (Negative) 01/05/19 22:55 Negative (Negative) 01/05/19 22:55 Ur Leukocyte Esterase Negative (Negative) 01/05/19 22:55 425 mOsm/kg (500-800) L 01/05/19 23:00 Ur Random Sodium 49 mmol/L 01/05/19 23:00 98.0 mg/dl (0-3) H 01/06/19 01:01 Blood Type O Positive 01/05/19 23:07 Rho(D) Type Cancelled 01/05/19 22:16 Antibody Screen NEGATIVE 01/05/19 23:07
[2019-01-08] MEDS: PANTOprazole 40 MG TAB PO SCH (20:42)
[2019-01-08] MEDS: SENNA 8.6 MG TAB PO SCH (20:43)
[2019-01-09 05:41] LABS: Hematocrit (blood only) 22.4 % (37-47); Hemoglobin 7.7 g/dL (12.0-16.0); Mean Corpuscular Hgb Conc 34.4 g/dL (32-36); Mean Corpuscular Volume 94.1 fL (80-100); Mean Platelet Volume 8.1 fL (7.4-10.4); Platelet Count 311 K/uL (130-400); RDW Coefficient of Variation 12.6 % (11.5-14.5); RDW Standard Deviation 43.1 fL (36.4-46.3); Red Blood Count 2.38 M/uL (4.2-5.4); White Blood Count 13.05 K/uL (4.8-10.8)
[2019-01-09] MEDS: LEVOTHYROXINE SODIUM 25 MCG TABLET PO SCH (05:49)
[2019-01-09 06:07] LABS: BUN Creatinine Ratio 17.8 (10-20); Calcium 8.6 mg/dl (8.5-10.1); Creatinine Clr Calc Pharmacy 20.5 ml/min; Est GFR (Non-African American) 30.2; Potassium 4.5 mmol/L (3.5-5.1)
[2019-01-09] MEDS: IRON SUCROSE 200 MG in 0.9 % SODIUM CHLORIDE 100 ML IV SCH (07:45)
[2019-01-09] MEDS: MULTIVITAMIN TAB PO SCH (08:45)
[2019-01-09] MEDS: CARVEDILOL 3.125 MG TAB PO SCH ×2 (08:45→20:18)
[2019-01-09] MEDS: dilTIAZem HCL 240 MG CAPCR PO SCH (08:45)
[2019-01-09] MEDS: predniSONE 5 MG TAB PO SCH (08:45)
[2019-01-09] MEDS: FOLIC ACID 1 MG TAB PO SCH (08:46)
[2019-01-09] MEDS: THIAMINE HCL 100 MG TAB PO SCH (08:46)
[2019-01-09] MEDS: predniSONE 1 MG TAB PO SCH (08:46)
--- NOTE | 2019-01-09 08:58 | Hospitalist Progress Note ---
Date of Service January 09, 2019 Assessment & Plan (1) Closed left hip fracture: -Secondary to mechanical fall -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 Hyponatremia -serum sodium 128 on admission as opposed to normal serum sodium levels in outpatient labs in 2018 -will continue IV fluids as normal saline -serum sodium levels improving to 136 while on IV fluids and stopped IV fluids as of 01/08/19 -serum sodium is 138 on 01/09/19 Chronic kidney disease stage 3 -outpatient labs in 2018 with creatinine of 1.6 to 1.8 -renal function stable hypertension -start carvedilol BID on 01/08/19 Tachycardia -fast heart rate with exertion -start carvedilol BID starting on 01/08/19, continue -continue home dose diltiazem -continue pain control medications Anemia -Hgb 10 before the surgery -Patient is a Faith and would not want blood transfusions -Hgb is 9.2 on 01/07/19 so no acute blood loss anemia at this time -gave oral iron supplements on 01/08/19 -01/09/19: discussed with patient that hemoglobin is low 7.7 and perhaps some contribution to tachycardia and blood pressure. But patient confirm's that as Faith, she would absolutely decline any blood transfusion. Patient already got the IV venofer as ordered today. Lovenox held today. Patient denies blood in stool but agrees to do fecal occult blood testing. The surgical site of left hip in dressing without obvious swelling of hematoma. decrease in blood count may be due to inadequate blood Erythropoiesis and loss of blood from lab draws. Discussed with patient that the plan would be to do CBC tomorrow as repeat unless patient has drop in blood pressure or feels lightheaded. Patient agrees Hypothyroidism -continue home dose Levothyroxine 25 mcg daily Alcohol use -drinks jf wine regularly with dinner at home -continue alcohol withdrawal protocol as precaution while in the hospital Polymyalgia rheumatica -continue home dose prednisone -Hemoglobin A1c prior to surgery is 5.7 and shows relatively good glucose control DVT prophylaxis SCDs, TEDs; hold Lovenox 30 mg on 01/09/19 due to anemia Full code Patient son Manuel Wills, contact #[phone]. Patient daughter [phone] Disposition: awaiting placement to inpatient physical rehabilitation or jail facility Subjective Patient seen and examined at bedside. Mild tachycardia of heart rate 105 bpm. patient denies lightheadedness or dizziness. no chest pain. no shortness of breath. blood pressure noted to be 169/78. but patient reports she feels well. discussed with patient that hemoglobin is low 7.7 and perhaps some contribution to tachycardia and blood pressure. But patient confirm's that as Faith, she would absolutely decline any blood transfusion. Patient already got the IV venofer as ordered today. Lovenox held today. Patient denies blood in stool but agrees to do fecal occult blood testing. The surgical site of left hip in dressing without obvious swelling of hematoma. decrease in blood count may be due to inadequate blood Erythropoiesis and loss of blood from lab draws. Discussed with patient that the plan would be to do CBC tomorrow as repeat unless patient has drop in blood pressure or feels lightheaded. Patient agrees. Physical Exam Constitutional: cooperative Eyes: PERRL, conjunctivae normal, anicteric sclerae EOM intact bilaterally ENMT: external ear and nose normal, oropharynx normal Neck: trachea midline, no thyromegaly normal visual inspection Respiratory: normal respiratory effort, lungs clear to auscultation Cardiovascular: Rate/Rhythm: regular rate and + tachycardic Gastrointestinal (Abdomen): normal bowel sounds, soft, nontender, no hepatosplenomegaly Musculoskeletal: Head/Neck/Chest: normocephalic and head atraumatic Neurologic: PERRL, EOMI, accommodation nl, no face palsy, no dysarthria CN's II-XI intact bilaterally Psychiatric: A+Ox3, euthymic affect Results & Data Vital Signs (Past 12 Hours) Vital Signs Temp Pulse Resp BP Pulse Ox 01/09/19 08:40 105 H 169/78 H 01/09/19 07:18 36.7 C 104 H 19 157/80 H 95 01/08/19 23:31 36.8 C 98 H 15 165/68 H 97 01/08/19 23:04 100 H 18 161/82 H 93
[2019-01-09] MEDS: OXYCODONE HCL IR 5 MG TAB (IMMEDIATE RELEASE) PO PRN (11:06)
--- NOTE | 2019-01-09 11:13 | Orthopedic Progress Note ---
Date of Service January 09, 2019 Assessment & Plan (1) Closed left hip fracture: POD 2 Status post left hip hemiarthroplasty Acute Blood Loss Anemia -patient refusing blood products at this time due to being a Mosque. Patient's hemoglobin was 10 prior to surgery and dropped down to 7.7. Not an unusual amount for surgery. Patient is adamant about receiving blood. -DVT prophylaxis SCDs, teds, Lovenox 30 mg subcu daily -Weight-bear as tolerates left lower extremity -Posterior hip precaution -Abduction pillow in bed -PT/OT when medically stable DC plans - to SNF/Rehab when approved. Orthopedic discharge instructions placed in EMR. Subjective Patient sitting up in chair at the bedside. She has no complaints this morning. He is having her normal discomfort in the operative hip with getting in and out of bed etc. Denies any new complaints. Pain currently is controlled. She denies shortness of breath, chest pain, lightheadedness. Hemoglobin this morning was 7.[address] Clark was hoping to transfuse her. Patient is Mosque and is refusing any kind of blood products. She feels asymptomatic at this time. Latest blood pressure this morning earlier was 169/78 and pulse was 105. Physical Exam Physical Exam: Silverlon dressing is clean, dry and intact. Thigh is soft and has no overt bruising or erythema noted around the incision. Calves are soft nontender. Neurovascular is intact. Toes are mobile. Hip is located. Results & Data Vital Signs (Past 12 Hours) Vital Signs Temp Pulse Resp BP Pulse Ox 01/09/19 08:40 105 H 169/78 H 01/09/19 07:18 36.7 C 104 H 19 157/80 H 95 01/08/19 23:31 36.8 C 98 H 15 165/68 H 97
[2019-01-09] MEDS: ACETAMINOPHEN 325 MG TAB PO PRN (14:13)
[2019-01-09] MEDS ORDERED: GABAPENTIN 600 MG TAB PO SCH (14:30)
[2019-01-09] MEDS: SENNA 8.6 MG TAB PO SCH (20:18)
[2019-01-09] MEDS: PANTOprazole 40 MG TAB PO SCH (20:18)
[2019-01-09 21:51] LABS: Appearance Urine Clear (Clear); Bilirubin Urine Negative (Negative); Blood Urine Negative (Negative); Color Urine Yellow; Glucose Urine UA Negative (Negative); Ketones Urine Negative (Negative); Leukocyte Esterase Urine Negative (Negative); Nitrite Urine Negative (Negative); Protein Urine Negative (Negative); Specific Gravity Urine 1.011 (1.000-1.030); Urobilinogen Urine Negative (Negative); pH Urine 5.5 (4.5-7.5)
[2019-01-10] MEDS ORDERED: cloNIDine HCl 0.1 MG TAB PO ONE (01:15)
[2019-01-10] MEDS: LEVOTHYROXINE SODIUM 25 MCG TABLET PO SCH (06:04)
[2019-01-10 06:33] LABS: Basophils # (auto) 0.04 K/uL (0-0.2); Basophils % (auto) 0.4 %; Eosinophils # (auto) 0.26 K/uL (0-0.5); Eosinophils % (auto) 2.5 %; Hematocrit (blood only) 23.2 % (37-47); Hemoglobin 8.1 g/dL (12.0-16.0); Immature Granulocytes # (auto) 0.13 K/uL (0.00-0.02); Immature Granulocytes % (auto) 1.2 %; Lymphocytes # (auto) 2.61 K/uL (1.2-3.4); Lymphocytes % (auto) 24.6 %; Mean Corpuscular Hgb Conc 34.9 g/dL (32-36); Mean Corpuscular Volume 93.9 fL (80-100); Monocytes # (auto) 1.45 K/uL (0.11-0.59); Monocytes % (auto) 13.7 %; Neutrophils # (auto) 6.11 K/uL (1.4-6.5); Neutrophils % (auto) 57.6 %; Nucleated RBC # (auto) 0.04 K/uL (0-0); Nucleated RBC % (auto) 0.4 %; Platelet Count 349 K/uL (130-400); RDW Coefficient of Variation 12.8 % (11.5-14.5); RDW Standard Deviation 43.4 fL (36.4-46.3); Red Blood Count 2.47 M/uL (4.2-5.4)
[2019-01-10] MEDS: predniSONE 1 MG TAB PO SCH (08:18)
[2019-01-10] MEDS: CARVEDILOL 3.125 MG TAB PO SCH (08:19)
[2019-01-10] MEDS: MULTIVITAMIN TAB PO SCH (08:19)
[2019-01-10] MEDS: FOLIC ACID 1 MG TAB PO SCH (08:19)
[2019-01-10] MEDS: THIAMINE HCL 100 MG TAB PO SCH (08:19)
[2019-01-10] MEDS: dilTIAZem HCL 240 MG CAPCR PO SCH (08:19)
[2019-01-10] MEDS: predniSONE 5 MG TAB PO SCH (08:20)
[2019-01-10] MEDS: OXYCODONE HCL IR 5 MG TAB (IMMEDIATE RELEASE) PO PRN (08:23)
[2019-01-10] MEDS: IRON SUCROSE 200 MG in 0.9 % SODIUM CHLORIDE 100 ML IV SCH (08:23)
[2019-01-10] MEDS: ACETAMINOPHEN 325 MG TAB PO PRN ×2 (11:06→20:09)
--- NOTE | 2019-01-10 11:45 | Hospitalist Progress Note ---
Date of Service January 10, 2019 Assessment & Plan (1) Closed left hip fracture: -Secondary to mechanical fall -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 Hyponatremia -serum sodium 128 on admission as opposed to normal serum sodium levels in outpatient labs in 2018 -will continue IV fluids as normal saline -serum sodium levels improving to 136 while on IV fluids and stopped IV fluids as of 01/08/19 -serum sodium is 138 on 01/09/19 Chronic kidney disease stage 3 -outpatient labs in 2018 with creatinine of 1.6 to 1.8 -renal function stable hypertension -started carvedilol BID on 01/08/19 as 3.125 BID -01/10/19 increase carvedilol to 6.25 mg BID Tachycardia -fast heart rate with exertion -continue home dose diltiazem -continue pain control medications -increase carvedilol to 6.25 mg BID from 3.125 mg BID starting on 01/10/19 Anemia -Hgb 10 before the surgery -Patient is a Am[employer] and would not want blood transfusions -Hgb is 9.2 on 01/07/19 -gave oral iron supplements on 01/08/19 -01/09/19: discussed with patient that hemoglobin is low 7.7 and perhaps some contribution to tachycardia and blood pressure. But patient confirm's that as Amish, she would absolutely decline any blood transfusion. Patient already got the IV venofer as ordered today. Lovenox held today. Patient denies blood in stool but agrees to do fecal occult blood testing. The surgical site of left hip in dressing without obvious swelling of hematoma. decrease in blood count may be due to inadequate blood Erythropoiesis and loss of blood from lab draws. -01/10/19 Hgb vinay as 8.1, will continue with daily iron. will resume Lovenox 30 mg daily Hypothyroidism -continue home dose Levothyroxine 25 mcg daily Alcohol use -drinks jf wine regularly with dinner at home -no evidence of alcohol withdrawal Polymyalgia rheumatica -continue home dose prednisone -Hemoglobin A1c prior to surgery is 5.7 and shows relatively good glucose control DVT prophylaxis SCDs, TEDs; will resume Lovenox 30 mg as anemia is stable Full code Patient son Manuel Wills, contact #[phone]. Patient daughter [phone] Disposition: awaiting placement to inpatient physical rehabilitation or halfway facility Subjective Patient denies chest pain. no palpitations. no shortness of breath. no dizziness. no vomiting. patient comfortable with SCDs Physical Exam Constitutional: cooperative Eyes: PERRL, conjunctivae normal, anicteric sclerae EOM intact bilaterally ENMT: external ear and nose normal, oropharynx normal Neck: trachea midline, no thyromegaly normal visual inspection Respiratory: normal respiratory effort, lungs clear to auscultation Cardiovascular: Rate/Rhythm: regular rate and + tachycardic (mild tacycardia in high 90s to low 100s) Gastrointestinal (Abdomen): normal bowel sounds, soft, nontender, no hepatosplenomegaly Musculoskeletal: Head/Neck/Chest: normocephalic and head atraumatic dressing over left hip intact Neurologic: PERRL, EOMI, accommodation nl, no face palsy, no dysarthria CN's II-XI intact bilaterally Psychiatric: A+Ox3, euthymic affect Results & Data Vital Signs (Past 12 Hours) Vital Signs Temp Pulse Resp BP Pulse Ox Pulse Ox 01/10/19 09:52 157/73 H 01/10/19 08:00 36.9 C 110 H 18 182/84 H 92 01/10/19 02:40 152/74 H 01/10/19 00:05 186/80 H 96
[2019-01-10] MEDS: FERROUS SULFATE 325 MG TAB PO SCH (13:13)
[2019-01-10] MEDS: PANTOprazole 40 MG TAB PO SCH (20:09)
[2019-01-10] MEDS: SENNA 8.6 MG TAB PO SCH (20:09)
[2019-01-10] MEDS: CARVEDILOL 6.25 MG TAB PO SCH (20:09)
[2019-01-11] MEDS: LEVOTHYROXINE SODIUM 25 MCG TABLET PO SCH (05:49)
[2019-01-11 06:05] LABS: Basophils # (auto) 0.03 K/uL (0-0.2); Basophils % (auto) 0.4 %; Eosinophils # (auto) 0.31 K/uL (0-0.5); Eosinophils % (auto) 4.1 %; Hematocrit (blood only) 23.3 % (37-47); Hemoglobin 7.7 g/dL (12.0-16.0); Immature Granulocytes # (auto) 0.17 K/uL (0.00-0.02); Immature Granulocytes % (auto) 2.2 %; Lymphocytes # (auto) 1.74 K/uL (1.2-3.4); Lymphocytes % (auto) 22.7 %; Mean Corpuscular Volume 95.5 fL (80-100); Mean Platelet Volume 8.2 fL (7.4-10.4); Monocytes # (auto) 1.16 K/uL (0.11-0.59); Monocytes % (auto) 15.2 %; Neutrophils # (auto) 4.24 K/uL (1.4-6.5); Neutrophils % (auto) 55.4 %; Nucleated RBC # (auto) 0.04 K/uL (0-0); Nucleated RBC % (auto) 0.5 %; Platelet Count 367 K/uL (130-400); RDW Coefficient of Variation 12.9 % (11.5-14.5); RDW Standard Deviation 44.6 fL (36.4-46.3); Red Blood Count 2.44 M/uL (4.2-5.4); White Blood Count 7.65 K/uL (4.8-10.8)
[2019-01-11 06:35] LABS: RBC Morphology Unremarkable
[2019-01-11] MEDS: OXYCODONE HCL IR 5 MG TAB (IMMEDIATE RELEASE) PO PRN (07:18)
[2019-01-11] MEDS: predniSONE 1 MG TAB PO SCH (08:28)
[2019-01-11] MEDS: dilTIAZem HCL 240 MG CAPCR PO SCH (08:28)
[2019-01-11] MEDS: THIAMINE HCL 100 MG TAB PO SCH (08:28)
[2019-01-11] MEDS: MULTIVITAMIN TAB PO SCH (08:28)
[2019-01-11] MEDS: FOLIC ACID 1 MG TAB PO SCH (08:28)
[2019-01-11] MEDS: IRON SUCROSE 200 MG in 0.9 % SODIUM CHLORIDE 100 ML IV SCH (08:28)
[2019-01-11] MEDS: predniSONE 5 MG TAB PO SCH (08:29)
[2019-01-11] MEDS: CARVEDILOL 6.25 MG TAB PO SCH (08:29)
[2019-01-11] MEDS ORDERED: ENOXAPARIN INJ 30 MG/0.3 ML SYR SQ SCH (09:00)
--- NOTE | 2019-01-11 12:27 | Hospitalist Progress Note ---
Date of Service January 11, 2019 Assessment & Plan (1) Closed left hip fracture: -Secondary to mechanical fall -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 -Discharge to [facility] PDMP was checked and patient has supply of tramadol 50 mg last fi lled on 12/08/18. Patient may continue her home dose of tramadol every 8 hours as need for pain Patient may take acetaminophen 325 mg every 4 hours as needed for mild pain for the next 5 days Patient may take oxycodone 5 mg every 6 hours as needed for severe pain Patient will need to be seen by primary care doctor in 1 week to check repeat CBC and basic metabolic panel as patient is expected to be on Lovenox 30 mg daily for the next 4 weeks Hyponatremia -serum sodium 128 on admission as opposed to normal serum sodium levels in outpatient labs in 2018 -will continue IV fluids as normal saline -serum sodium levels improving to 136 while on IV fluids and stopped IV fluids as of 01/08/19 -serum sodium is 138 on 01/09/19 Chronic kidney disease stage 3 -outpatient labs in 2018 with creatinine of 1.6 to 1.8 -renal function stable hypertension -started carvedilol BID on 01/08/19 as 3.125 BID -01/10/19 increase carvedilol to 6.25 mg BID Tachycardia -fast heart rate with exertion -continue home dose diltiazem -continue pain control medications -increase carvedilol to 6.25 mg BID from 3.125 mg BID starting on 01/10/19 -Patient should continue carvedilol 6.25 mg BID with hold parameters when blood pressure is 90/60 or lower or if heart rate in the 60s Anemia -Hgb 10 before the surgery -Patient is a [employer] and would not want blood transfusions -Hgb is 9.2 on 01/07/19 -gave oral iron supplements on 01/08/19 -01/09/19: discussed with patient that hemoglobin is low 7.7 and perhaps some contribution to tachycardia and blood pressure. But patient confirm's that as [employer], she would absolutely decline any blood transfusion. Patient already got the IV venofer as ordered today. Lovenox held today. Patient denies blood in stool but agrees to do fecal occult blood testing. The surgical site of left hip in dressing without obvious swelling of hematoma. decrease in blood count may be due to inadequate blood Erythropoiesis and loss of blood from lab draws. -01/10/19 Hgb vinay as 8.1, will continue with daily iron. will resume Lovenox 30 mg daily -Patient will need to be seen by primary care doctor in 1 week to check repeat C BC and basic metabolic panel as patient is expected to be on Lovenox 30 mg daily for the next 4 weeks Hypothyroidism -continue home dose Levothyroxine 25 mcg daily Alcohol use -drinks jf wine regularly with dinner at home -no evidence of alcohol withdrawal Polymyalgia rheumatica -continue home dose prednisone -Hemoglobin A1c prior to surgery is 5.7 and shows relatively good glucose control DVT prophylaxis SCDs, TEDs; will resume Lovenox 30 mg as anemia is stable Full code Patient son Manuel Wills, contact #[phone]. Patient daughter [phone] Discharge Instructions: Closed left hip fracture Secondary to mechanical fall, 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; Hyponatremia; Chronic kidney disease stage 3, Anemia, Hypothyrodism, Polymyalgia rheumatica on chronic steroids, Hypertension, Tachycardia Discharge to [facility] was checked and patient has supply of tramadol 50 mg last filled on 12/08/18. Patient may continue her home dose of tramadol every 8 hours as need for pain Patient may take acetaminophen 325 mg every 4 hours as needed for mild pain for the next 5 days Patient may take oxycodone 5 mg every 6 hours as needed for severe pain Patient will need to be seen by primary care doctor in 1 week to check repeat CBC and basic metabolic panel as patient is expected to be on Lovenox 30 mg daily for the next 4 weeks Patient should take iron supplements daily Patient should take daily senna to prevent constipation Patient should continue carvedilol 6.25 mg BID with hold parameters when blood pressure is 90/60 or lower or if heart rate in the 60s ACTIVITY RECOMMENDATIONS: SELF CARE INSTRUCTIONS AFTER TOTAL HIP REPLACEMENT Until the incision and soft tissues around your hip have healed, there is a possibility that the hip prosthesis could dislocate. A. Observe the following precautions to prevent dislocation: 1. Don't bend your hip greater than 90 degrees. 2. Avoid crossing your legs or ankles while standing or lying. 3. Sit with your feet placed 6 inches apart. 4. When sitting, keep your knees below your hips. Sit on a firm surface, avoid deep, soft chairs and couches. Use an elevated toilet seat in the bathroom. 5. Don't bend over at the waist. Use a long handled shoehorn and a sock aid to help you put on your shoes and socks. A gambling broker can help you picking crew supervisor objects that are too high or too low to reach. 6. Keep car riding to a minimum for at least one month after surgery. B. Your balance may be shaky for a while. Use crutches or a walker until directed by your doctor. C. Use hand rails when walking on stairs. D. Wear low heeled shoes with non-slip soles. E. Be sure that your floors are free of things that could trip you - throw rugs, electrical cords, small objects. Avoid wet and waxed floors, especially with crutches and canes. F. Try to walk several times a day with rest periods between. G. Continue with all the exercises taught to you in the hospital. Again, make walking a part of your daily routine. SPECIAL CARE INSTRUCTIONS: VERY IMPORTANT TO READ AND REVIEW A. You may still be at risk for phlebitis and blood clots. 1. Wear surgical stockings (EVAN hose) for 2 weeks after surgery to improve circulation and reduce swelling. 2. Take LOVENOX 30MG SQ daily for 4 weeks or as directed by your doctor. This is your blood thinner. 3. High risk patients may be prescribed a stronger blood thinner if necessary. 4. If you are on Coumadin normally, your family doctor/cut off machine operator should monitor your blood work. Expect a phone call the day of or the day after bloodwork is drawn to adjust your dosage. B. You must take antibiotics before having dental work, bladder, bowel and other surgery. Your doctor will provide you with a permanent card to carry describing precautions. C. Call [facility] [place] if you have a fever, redness or swelling around the incision, cloudy drainage from incision, or sudden increase in pain in your hip, not relieved by your regular pain medication. D. Please call the office at if you have any concerns or questions about your operation or recovery. * YOU MAY SHOWER, NO TUB BATHS UNTIL CLEARED BY YOUR DOCTOR. * WEAR EVAN HOSE 20 HOURS PER DAY FOR 2 WEEKS. * YOU SHOULD USE A WALKER OR CRUTCHES FOR 2-4 WEEKS. THIS WILL HELP PREVENT STRAIN ON YOUR HIP MUSCLE AND ALLOW IT TO HEAL PROPERLY. YOU MAY WEAN TO A CANE TOLERATED. * MOST PATIENTS WILL HAVE HOME NURSING FOR THERAPY. IF YOU DECIDE TO DO OUTPATIENT PHYSICAL THERAPY, PLEASE SCHEDULE THIS 3 TIMES PER WEEK. * Silverlon- This is a large adhesive bandage that contains silver ions. This helps your incision heal by fighting off bacteria and protecting it from the outside environment. You are permitted to shower with this dressing. This will remain on your incision for 7 days and then should be removed. Some visible blood or drainage through the dressing window is normal. If there is significant drainage or leaking noted before the 7 days notify your doctor's office immediately. Once removed, keep incision clean and dry. If there is any drainage or redness noted, please call your surgeon. . FOLLOW UP VISIT: If appointment is not already scheduled: Please call [facility] [place] to make a follow-up appointment for 2 weeks after your surgery at . Subjective Patient's blood pressure and heart rate stable. Patient sitting up in chair. no lightheadedness. no headache. denies chest pain. no shortness of breath. no abdomen pain. left thigh not hurting too much as per patient. we discussed the discharge plans Physical Exam Constitutional: cooperative Eyes: PERRL, conjunctivae normal, anicteric sclerae EOM intact bilaterally ENMT: external ear and nose normal, oropharynx normal Neck: trachea midline, no thyromegaly normal visual inspection Respiratory: normal respiratory effort, lungs clear to auscultation Cardiovascular: Rate/Rhythm: regular rate and regular rhythm Gastrointestinal (Abdomen): normal bowel sounds, soft, nontender, no hepatosplenomegaly Musculoskeletal: Head/Neck/Chest: normocephalic and head atraumatic Neurologic: PERRL, EOMI, accommodation nl, no face palsy, no dysarthria CN's II-XI intact bilaterally Psychiatric: A+Ox3, euthymic affect Results & Data Vital Signs (Past 12 Hours) Vital Signs Temp Pulse Resp BP Pulse Ox 01/11/19 10:21 86 106/63 01/11/19 07:29 36.6 C 108 H 18 175/82 H 94
--- NOTE | 2019-01-11 12:30 | Discharge Summary ---
Date of Service January 11, 2019 Admission HPI Per Admitting Provider History obtained from patient, family, and records. Medical history significant for hypertension, hyperlipidemia, PMR on chronic steroid Rx, CRI baseline creatinine 1.6, GERD, daily alcohol intake. Patient was at home last night when she stumbled and fell landing on her left side. Patient subsequently noted excruciating left hip pain worse on trying to get up. No head trauma, no LOC, no syncope, no chest pain, no S OB. 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, Catholic Functionality: Still able to do light housework without exertional chest pain, S OB Admission Exam Per Admitting Provider GENERAL: Comfortable, alcoholic fetor, no respiratory distress SKIN: Pallor, warm HEENT: Pale palpebral conjunctivae, no ptosis, dry buccal mucosa, nasal cannula in place NECK : Supple, no tenderness CHEST : Decreased breath sounds, no tenderness HEART : Tachycardic, no obvious murmurs ABDOMEN: Some distention, nontender EXTREMITIES : Left hip tenderness, no LE swelling, no other conspicuous deformities noted NEUROLOGIC : Coherent, no facial asymmetry, no other gross focality Principal Diagnosis Closed left hip fracture Secondary to mechanical fall, 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; Hyponatremia; Chronic kidney disease stage 3, Anemia, Hypothyrodism, Polymyalgia rheumatica on chronic steroids, Hypertension, Tachycardia Discharge Exam Constitutional cooperative Eyes PERRL, conjunctivae normal, anicteric sclerae EOM intact bilaterally ENMT external ear and nose normal, oropharynx normal Neck trachea midline, no thyromegaly normal visual inspection Respiratory normal respiratory effort, lungs clear to auscultation Cardiovascular Rate/Rhythm: regular rate and regular rhythm Gastrointestinal (Abdomen) normal bowel sounds, soft, nontender, no hepatosplenomegaly Musculoskeletal Head/Neck/Chest: normocephalic and head atraumatic Neurologic PERRL, EOMI, accommodation nl, no face palsy, no dysarthria CN's II-XI intact bilaterally Psychiatric A+Ox3, euthymic affect Discharge Data Allergies Allergy/AdvReac Type Severity Reaction Status Date / Time aspirin Allergy Mild Unknown Unverified 05/15/19 23:41 Sulfa (Sulfonamide Allergy Mild Rash Unverified 01/05/19 23:41 Antibiotics) Consultations 01/05/19 22:06 Consult Case Management - Discharge Planning Routine 01/05/19 22:57 ED Decision to Admit Stat 01/05/19 23:04 Consult Orthopedic Surgery Stat 01/06/19 02:31 Consult Case Management - Discharge Planning Routine 01/06/19 17:06 Consult Case Management - Discharge Planning Routine Procedures Performed Operation Date: 01/06/19 13:00 Actual Procedures p Left Bipolar Hip Prosthesis, cemented (Left) - Sidney Garcia DO Hospital Course (1) Closed left hip fracture: -Secondary to mechanical fall -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 PDMP was checked and patient has supply of tramadol 50 mg last filled on 12/08/18. Patient may continue her home dose of tramadol every 8 hours as need for pain Patient may take acetaminophen 325 mg every 4 hours as needed for mild pain for the next 5 days Patient may take oxycodone 5 mg every 6 hours as needed for severe pain Patient will need to be seen by primary care doctor in 1 week to check repeat CBC and basic metabolic panel as patient is expected to be on Lovenox 30 mg da [place] for the next 4 weeks Hyponatremia -serum sodium 128 on admission as opposed to normal serum sodium levels in outpatient labs in 2018 -will continue IV fluids as normal saline -serum sodium levels improving to 136 while on IV fluids and stopped IV fluids as of 01/08/19 -serum sodium is 138 on 01/09/19 Chronic kidney disease stage 3 -outpatient labs in 2018 with creatinine of 1.6 to 1.8 -renal function stable hypertension -started carvedilol BID on 01/08/19 as 3.125 BID -01/10/19 increase carvedilol to 6.25 mg BID Tachycardia -fast heart rate with exertion -continue home dose diltiazem -continue pain control medications -increase carvedilol to 6.25 mg BID from 3.125 mg BID starting on 01/10/19 -Patient should continue carvedilol 6.25 mg BID with hold parameters when blood pressure is 90/60 or lower or if heart rate in the 60s Anemia -Hgb 10 before the surgery -Patient is a Catholic and would not want blood transfusions -Hgb is 9.2 on 01/07/19 -gave oral iron supplements on 01/08/19 -01/09/19: discussed with patient that hemoglobin is low 7.7 and perhaps some contribution to tachycardia and blood pressure. But patient confirm's that as Catholic, she would absolutely decline any blood transfusion. Patient already got the IV venofer as ordered today. Lovenox held today. Patient denies blood in stool but agrees to do fecal occult blood testing. The surgical site of left hip in dressing without obvious swelling of hematoma. decrease in blood count may be due to inadequate blood Erythropoiesis and loss of blood from lab draws. -01/10/19 Hgb vinay as 8.1, will continue with daily iron. will resume Lovenox 30 mg daily -Patient will need to be seen by primary care doctor in 1 week to check repeat CBC and basic metabolic panel as patient is expected to be on Lovenox 30 mg daily for the next 4 weeks Hypothyroidism -continue home dose Levothyroxine 25 mcg daily Alcohol use -drinks jf wine regularly with dinner at home -no evidence of alcohol withdrawal Polymyalgia rheumatica -continue home dose prednisone -Hemoglobin A1c prior to surgery is 5.7 and shows relatively good glucose control DVT prophylaxis SCDs, TEDs; will resume Lovenox 30 mg as anemia is stable Full code Patient son Manuel Wills, contact #[phone]. 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 PDMP was checked and patient has supply of tramadol 50 mg last filled on 12/08/18. Patient may continue her home dose of tramadol every 8 hours as need for pain Patient may take acetaminophen 325 mg every 4 hours as needed for mild pain for the next 5 days Patient may take oxycodone 5 mg every 6 hours as needed for severe pain Patient will need to be seen by primary care doctor in 1 week to check repeat CBC and basic metabolic panel as patient is expected to be on Lovenox 30 mg daily for the next 4 weeks Patient should take iron supplements daily Patient should take daily senna to prevent constipation Patient should continue carvedilol 6.25 mg BID with hold parameters when blood pressure is 90/60 or lower or if heart rate in the 60s ACTIVITY RECOMMENDATIONS: SELF CARE INSTRUCTIONS AFTER TOTAL HIP REPLACEMENT Until the incision and soft tissues around your hip have healed, there is a possibility that the hip prosthesis could dislocate. A. Observe the following precautions to prevent dislocation: 1. Don't bend your hip greater than 90 degrees. 2. Avoid crossing your legs or ankles while standing or lying. 3. Sit with your feet placed 6 inches apart. 4. When sitting, keep your knees below your hips. Sit on a firm surface, avoid deep, soft chairs and couches. Use an elevated toilet seat in the bathroom. 5. Don't bend over at the waist. Use a long handled shoehorn and a sock aid to help you put on your shoes and socks. A mobile nurse can help you picker and sorter load and unload objects that are too high or too low to reach. 6. Keep car riding to a minimum for at least one month after surgery. B. Your balance may be shaky for a while. Use crutches or a walker until directed by your doctor. C. Use hand rails when walking on stairs. D. Wear low heeled shoes with non-slip soles. E. Be sure that your floors are free of things that could trip you - throw rugs, electrical cords, small objects. Avoid wet and waxed floors, especially with crutches and canes. F. Try to walk several times a day with rest periods between. G. Continue with all the exercises taught to you in the hospital. Again, make walking a part of your daily routine. SPECIAL CARE INSTRUCTIONS: VERY IMPORTANT TO READ AND REVIEW A. You may still be at risk for phlebitis and blood clots. 1. Wear surgical stockings (EVAN hose) for 2 weeks after surgery to improve circulation and reduce swelling. 2. Take LOVENOX 30MG SQ daily for 4 weeks or as directed by your doctor. This is your blood thinner. 3. High risk patients may be prescribed a stronger blood thinner if necessary. 4. If you are on Coumadin normally, your family doctor/pole framer machine should monitor your blood work. Expect a phone call the day of or the day after bloodwork is drawn to adjust your dosage. B. You must take antibiotics before having dental work, bladder, bowel and o ther surgery. Your doctor will provide you with a permanent card to carry describing precautions. C. Call [facility] if you have a fever, redness or swelling around the incision, cloudy drainage from incision, or sudden increase in pain in your hip, not relieved by your regular pain medication. D. Please call the office at if you have any concerns or questions about your operation or recovery. * YOU MAY SHOWER, NO TUB BATHS UNTIL CLEARED BY YOUR DOCTOR. * WEAR EVAN HOSE 20 HOURS PER DAY FOR 2 WEEKS. * YOU SHOULD USE A WALKER OR CRUTCHES FOR 2-4 WEEKS. THIS WILL HELP PREVENT STRAIN ON YOUR HIP MUSCLE AND ALLOW IT TO HEAL PROPERLY. YOU MAY WEAN TO A CANE TOLERATED. * MOST PATIENTS WILL HAVE HOME NURSING FOR THERAPY. IF YOU DECIDE TO DO OUTPATIENT PHYSICAL THERAPY, PLEASE SCHEDULE THIS 3 TIMES PER WEEK. * Silverlon- This is a large adhesive bandage that contains silver ions. This helps your incision heal by fighting off bacteria and protecting it from the outside environment. You are permitted to shower with this dressing. This will remain on your incision for 7 days and then should be removed. Some visible blood or drainage through the dressing window is normal. If there is significant drainage or leaking noted before the 7 days notify your doctor's office immediately. Once removed, keep incision clean and dry. If there is any drainage or redness noted, please call your surgeon. . FOLLOW UP VISIT: If appointment is not already scheduled: Please call [facility] to make a follow-up appointment for 2 weeks after your surgery at . 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 PDMP was checked and patient has supply of tramadol 50 mg last filled on 12/08/18. Patient may continue her home dose of tramadol every 8 hours as need for pain Patient may take acetaminophen 325 mg every 4 hours as needed for mild pain for the next 5 days Patient may take oxycodone 5 mg every 6 hours as needed for severe pain Patient will need to be seen by primary care doctor in 1 week to check repeat CBC and basic metabolic panel as patient is expected to be on Lovenox 30 mg daily for the next 4 weeks Patient should take iron supplements daily Patient should take daily senna to prevent constipation Patient should continue carvedilol 6.25 mg BID with hold parameters when blood pressure is 90/60 or lower or if heart rate in the 60s ACTIVITY RECOMMENDATIONS: SELF CARE INSTRUCTIONS AFTER TOTAL HIP REPLACEMENT Until the incision and soft tissues around your hip have healed, there is a possibility that the hip prosthesis could dislocate. A. Observe the following precautions to prevent dislocation: 1. Don't bend your hip greater than 90 degrees. 2. Avoid crossing your legs or ankles while standing or lying. 3. Sit with your feet placed 6 inches apart. 4. When sitting, keep your knees below your hips. Sit on a firm surface, avoid deep, soft chairs and couches. Use an elevated toilet seat in the bathroom. 5. Don't bend over at the waist. Use a long handled shoehorn and a sock aid to help you put on your shoes and socks. A mobile nurse can help you picker and sorter load and unload objects that are too high or too low to reach. 6. Keep car riding to a minimum for at least one month after surgery. B. Your balance may be shaky for a while. Use crutches or a walker until directed by your doctor. C. Use hand rails when walking on stairs. D. Wear low heeled shoes with non-slip soles. E. Be sure that your floors are free of things that could trip you - throw rugs, electrical cords, small objects. Avoid wet and waxed floors, especially with crutches and canes. F. Try to walk several times a day with rest periods between. G. Continue with all the exercises taught to you in the hospital. Again, make walking a part of your daily routine. SPECIAL CARE INSTRUCTIONS: VERY IMPORTANT TO READ AND REVIEW A. You may still be at risk for phlebitis and blood clots. 1. Wear surgical stockings (EVAN hose) for 2 weeks after surgery to improve circulation and reduce swelling. 2. Take LOVENOX 30MG SQ daily for 4 weeks or as directed by your doctor. This is your blood thinner. 3. High risk patients may be prescribed a stronger blood thinner if necessary. 4. If you are on Coumadin normally, your family doctor/pole framer machine should monitor your blood work. Expect a phone call the day of or the day after bloodwork is drawn to adjust your dosage. B. You must take antibiotics before having dental work, bladder, bowel and other surgery. Your doctor will provide you with a permanent card to carry describing precautions. C. Call [facility] if you have a fever, redness or swelling around the incision, cloudy drainage from incision, or sudden increase in pain in your hip, not relieved by your regular pain medication. D. Please call the office at if you have any concerns or questions about your operation or recovery. * YOU MAY SHOWER, NO TUB BATHS UNTIL CLEARED BY YOUR DOCTOR. * WEAR EVAN HOSE 20 HOURS PER DAY FOR 2 WEEKS. * YOU SHOULD USE A WALKER OR CRUTCHES FOR 2-4 WEEKS. THIS WILL HELP PREVENT STRAIN ON YOUR HIP MUSCLE AND ALLOW IT TO HEAL PROPERLY. YOU MAY WEAN TO A CANE TOLERATED. * MOST PATIENTS WILL HAVE HOME NURSING FOR THERAPY. IF YOU DECIDE TO DO OUTPATIENT PHYSICAL THERAPY, PLEASE SCHEDULE THIS 3 TIMES PER WEEK. * Silverlon- This is a large adhesive bandage that contains silver ions. This helps your incision heal by fighting off bacteria and protecting it from the outside environment. You are permitted to shower with this dressing. This will remain on your incision for 7 days and then should be removed. Some visible blood or drainage through the dressing window is normal. If there is significant drainage or leaking noted before the 7 days notify your doctor's office immediately. Once removed, keep incision clean and dry. If there is any drainage or redness noted, please call your surgeon. . FOLLOW UP VISIT: If appointment is not already scheduled: Please call [facility] to make a follow-up appointment for 2 weeks after your surgery at . Prescriptions: New sennosides [Senokot] 8.6 mg Tablet 8.6 mg PO DAILY 30 Days Qty: 30 RF: 0 acetaminophen [Mapap (acetaminophen)] 325 mg Tablet 325 mg PO Q4H PRN (Reason: mild pain) 5 Days Qty: 30 RF: 0 carvedilol 6.25 mg Tablet 6.25 mg PO BID 30 Days Qty: 60 RF: 0 ferrous sulfate 325 mg (65 mg iron) Tablet,Delayed Release (Dr/Ec) 325 mg PO DAILY@1100 30 Days Qty: 30 RF: 0 oxycodone 5 mg Tablet 5 mg PO Q6H PRN (Reason: severe pain) 4 Days Qty: 16 RF: 0 enoxaparin [Lovenox] 30 mg/0.3 mL Syringe 30 mg subcut QAM 28 Days Qty: 8.4 RF: 0 Continued levothyroxine 25 mcg Tablet 25 mcg PO DAILY RF: 0 tramadol 50 mg Tablet 50 mg PO Q8H PRN (Reason: Pain) RF: 0 diltiazem HCl 240 mg Capsule,Extended Release 24hr 240 mg PO DAILY RF: 0 prednisone 1 mg Tablet 2 mg PO DAILY RF: 0 calcitriol 0.25 mcg Capsule 0.25 mcg PO 3XWK RF: 0 prednisone 5 mg Tablet 5 mg PO DAILY RF: 0 aspirin 81 mg Tablet,Delayed Release (Dr/Ec) 81 mg PO DAILY RF: 0 coenzyme Q10 50 mg Capsule 50 mg PO DAILY RF: 0 cod liver oil Capsule 1 cap PO DAILY RF: 0 garlic-parsley Tablet 1 tab PO BID RF: 0 ascorbic acid (vitamin C) [Vitamin C] 500 mg Tablet 500 mg PO TID RF: 0 flaxseed oil 1,000 mg Capsule 1,000 mg PO BID RF: 0 multivitamin Tablet 1 tab PO DAILY RF: 0 Prilosec OTC 20 mg Tablet,Delayed Release (Dr/Ec) 20 mg PO HS RF: 0 Discontinued acetaminophen 500 mg Tablet 500 mg PO BID RF: 0 Iron Vitamin C 65 - 125 mg PO DAILY RF: 0 Stand-Alone Forms: [facility]charge Orders: Discharge Order (Routine); Ordered 01/11/19 Ordered By: Quoc Clark Skilled Items Patient informed of condition?: Yes DNR: No Discharge Level of Care: Skilled Communicable Disease: No Discharge Prognosis: Stable Admission Data Admit Date/Time: 01/06/19 00:53 Attending Provider: Quoc Clark Admit Provider: Delbert Garcia Primary Care Provider: Irvin Huggins Other Providers: Delbert Garcia ; Frederick Quesada Service: Surgical Services
[2019-01-11] MEDS: FERROUS SULFATE 325 MG TAB PO SCH (13:10)
[2019-01-11] MEDS: ACETAMINOPHEN 325 MG TAB PO PRN (14:00)
== END 2019-01-11 14:25 | DRG 470 ==
LOC: ED 21:47 → 2N 01-06 00:53 → 3E 01-06 15:37

== ENCOUNTER 2020-08-05 17:49 | Inpatient (IN) ==
[2020-08-05] MEDS ORDERED: ONDANSETRON INJ 2 MG/ML 2 ML VIAL IV STA (17:58)
[2020-08-05] MEDS ORDERED: ACETAMINOPHEN 1,000 MG/100 ML VIAL IV STA (17:58)
[2020-08-05] MEDS ORDERED: dilTIAZem HCl 5 MG/ML 5 ML VIAL IV STA (17:59)
--- NOTE | 2020-08-05 18:06 | Emergency Department Note ---
History of Present Illness General Chief complaint: Cardiac Assessment Stated complaint: AB PAIN, TACHYCARDIA Time Seen by Provider: 08/05/20 17:52 Source: patient, EMS, RN notes reviewed and old records reviewed Mode of arrival: EMS Limitations: no limitations History of Present Illness Provider complaint: Tachycardia Onset (ago): day(s) 3 Location: abdomen Radiation: back Severity: moderate Pain Consistency: + constant Current Pain Intensity: 0 Quality: + aching Relieved By: + immobilization and + other (vomiting) Exacerbated By: + movement Associated symptoms: + nausea/vomiting; no chest pain, no diaphoresis, no fever/chills and no shortness of breath Treatments prior to arrival: other (zofran) This is an 84-year-old female who presents the emergency department complaining of nausea and vomiting as well as abdominal pain that has been ongoing for the past 3 days. The patient reports she has been unable to keep her medicines down for her atrial fibrillation. She has not gotten up off her couch for the past 3 days and EMS was summoned. EMS was directed via medical command to give morphine as well as Zofran for her abdominal pain and rapid heart rate however the patient refused this. Upon arrival to the emergency department the patient is complaining of abdominal pain which she describes as a burning sensation made better volume vomiting. She reports immobilization also makes the pain better. She reports movement and eating makes the pain worse. She has not taken anything for the pain. Home Medications Medication Instructions Recorded Confirmed Type ascorbic acid (vitamin C) [Vitamin 500 mg PO TID 01/05/19 08/05/20 History C] aspirin 81 mg PO DAILY 01/05/19 08/05/20 History cod liver oil 1 cap PO DAILY 01/05/19 08/05/20 History coenzyme Q10 50 mg PO DAILY 01/05/19 08/05/20 History diltiazem HCl 240 mg PO DAILY 01/05/19 08/05/20 History flaxseed oil 1,000 mg PO BID 01/05/19 08/05/20 History garlic-parsley 1 tab PO BID 01/05/19 08/05/20 History levothyroxine 25 mcg PO DAILYBB 01/05/19 08/05/20 History multivitamin 1 tab PO DAILY 01/05/19 08/05/20 History omeprazole magnesium [Prilosec OTC] 20 mg PO QDD 01/05/19 08/05/20 History prednisone 2 mg PO DAILY 01/05/19 08/05/20 History prednisone 5 mg PO DAILY 01/05/19 08/05/20 History tramadol 50 mg PO Q8H PRN 01/05/19 08/05/20 History acetaminophen [Tylenol Extra 500 mg PO BID 08/05/20 08/05/20 History Strength] carvedilol 6.25 mg PO BIDM 08/05/20 08/05/20 History ferrous sulfate [Feosol] 325 mg PO QAM 08/05/20 08/05/20 History mirabegron [Myrbetriq] 25 mg PO DAILY 08/05/20 08/05/20 History syakxwlbgf-qjko-inug-vinegar 1 tab PO DIRECTED 08/05/20 08/05/20 History torsemide 10 mg PO DAILY 08/05/20 08/05/20 History Allergies Allergy/AdvReac Type Severity Reaction Status Date / Time aspirin Allergy Mild Unknown Verified 08/05/20 19:33 Sulfa (Sulfonamide Allergy Mild Rash Verified 08/05/20 19:33 Antibiotics) Past Med/Surg History Medical History (Updated 08/06/20 @ 23:24 by Kody Gauthier MD) Anemia Fibromyalgia GERD (gastroesophageal reflux disease) HTN (hypertension) Hyponatremia Hypothyroid Osteoporosis Rheumatoid arthritis Surgical History S/P appendectomy S/P cataract extraction S/P tonsillectomy Social History Smoking Status: Former smoker Hx Alcohol Use: Yes Alcohol type: hard liquor Hx Substance Use: No Preferred Language: Kazakh Communication Ability: Effective Latex Dipper Required: No Beliefs That Will Affect Care: None marital status: / Current Living Situation: Family Current Living Situation Comment: Son lives w/ patient Other Information That Helps Us Care for You: No Feels Safe at Home: Yes Safety Concerns: Feels Safe At This Time Assistive Devices: None Review of Systems A total of 10 systems reviewed and were otherwise negative Physical Exam VITAL SIGNS - Vital signs and nursing notes were reviewed. GENERAL - 84-year-old female appearing stated age who is in no acute distress. Communicates well with provider and answers questions appropriately. SKIN - Without rashes. HEAD - NC/AT. EYES - PERRL with EOMI bilaterally. Sclera anicteric. Palpebral conjunctiva pink and moist with no injection noted. EARS - No deformities of external structures noted on gross examination bilaterally. No pain elicited with palpation of the tragus bilaterally. External auditory canals without discharge or otorrhea. Tympanic membranes pearly may without retraction or bulging. No fluid or purulent material visualized behind the TM. Handle of malleus, umbo, cone of light, pars tensa/flaccid all easily visualized. NOSE - Midline and without cyanosis. No epistaxis or purulent drainage noted. Septum midline without deviation or septal hematoma noted. MOUTH/OROPHARYNX - Without perioral cyanosis. Buccal mucosa pink and moist and without leukoplakia. Tongue midline with equal elevation of palate bilaterally. No tonsillar hypertrophy, erythema, or exudates noted. dentition noted. NECK - Neck with FROM. Supple to palpation. lymphadenopathy noted. No nuchal rigidity. LUNGS - Chest wall symmetric without accessory muscle use, intercostals retractions, or central cyanosis. Normal vesicular breath sounds CTA B/L. No wheezes, rales, or rhonchi appreciated. CARDIAC - RRR with S1/S2. No murmur, rubs, or gallops appreciated. ABDOMEN - Abdominal contour without pulsations or visible masses. BS normoactive all four quadrants. No tenderness, palpable masses, hepatosplenomegaly, or ascites noted. EXTREMITIES - No clubbing or peripheral cyanosis. No pretibial edema present. +3/5 radial, posterior tibial, and dorsalis pedis pulses palpated throughout. +5/5 strength noted in UE/LE bilaterally. NEUROLOGIC - Cranial nerves II through XII grossly intact. Sensory intact to light touch throughout. Patellar reflexes +2/4. PSYCH - A&Ox3 and cooperates fully with examiner. Pt is very pleasant and interacts well with examiner. Course Administered Medications Acetaminophen (Acetaminophen 500 Mg Tab) 500 mg PO BID [facility] Stop: 09/04/20 22:22 Last Admin: 08/06/20 21:06 Dose: 500 mg Documented by: [id number] Admin: 08/06/20 09:20 Dose: 500 mg Documented by: [id number] Admin: 08/05/20 23:58 Dose: 500 mg Documented by: [id number] Ascorbic Acid (Ascorbic Acid 500 Mg Tab) 500 mg PO TID [facility] Stop: 09/04/20 22:22 Last Admin: 08/06/20 21:07 Dose: Not Given Documented by: [id number] Admin: 08/06/20 14:38 Dose: 500 mg Documented by: [id number] Admin: 08/06/20 09:20 Dose: 500 mg Documented by: [id number] Admin: 08/05/20 23:58 Dose: Not Given Documented by: [id number] Aspirin (Aspirin 81 Mg Ectab) 81 mg PO DAILY [facility] Stop: 09/05/20 08:59 Last Admin: 08/06/20 09:21 Dose: 81 mg Documented by: [id number] Heparin Sodium/Dextrose (Heparin Sodium/Dextrose) 25,000 units in 500 mls @ 11 mls/hr IV .Q24H [facility]; Protocol Stop: 09/04/20 22:22 Last Titration: 08/06/20 19:19 Dose: 550 units/hr, 11 mls/hr Documented by: [id number] Cosigned by: [id number] Titration: 08/06/20 19:14 Dose: 600 units/hr, 12 mls/hr Documented by: [id number] Cosigned by: [id number] Titration: 08/06/20 11:49 Dose: 600 units/hr, 12 mls/hr Documented by: [id number] Cosigned by: [id number] Titration: 08/06/20 07:16 Dose: 0 units/hr, 0 mls/hr Documented by: [id number] Cosigned by: [id number] Titration: 08/06/20 06:24 Dose: 0 units/hr, 0 mls/hr Documented by: [id number] Cosigned by: [id number] Admin: 08/05/20 23:59 Dose: 850 units/hr, 17 mls/hr Documented by: [id number] Cosigned by: [id number] Dextrose/Sodium Chloride (D5w And Nss) 1,000 mls @ 60 mls/hr IV .[id number] [facility] Stop: 09/04/20 22:22 Last Admin: 08/06/20 14:38 Dose: 100 mls/hr Documented by: [id number] Infusion: 08/06/20 14:38 Dose: 100 mls/hr Documented by: [id number] Infusion: 08/06/20 05:59 Dose: 100 mls/hr Documented by: [id number] Admin: 08/06/20 05:08 Dose: 125 mls/hr Documented by: [id number] Infusion: 08/06/20 05:08 Dose: 125 mls/hr Documented by: [id number] Admin: 08/05/20 22:44 Dose: 125 mls/hr Documented by: [id number] Pantoprazole Sodium 40 mg/ (Syringe) 10 mls @ 5 mls/min IV DAILY@1100 [facility] Stop: 09/05/20 10:59 Last Admin: 08/06/20 11:35 Dose: 5 mls/min Documented by: [id number] Methylprednisolone 20 mg/ (Syringe) 0.32 mls @ 1.5 mls/min IV DAILY [facility] Stop: 09/04/20 22:44 Last Admin: 08/06/20 09:20 Dose: 1.5 mls/min Documented by: [id number] Admin: 08/05/20 23:57 Dose: 1.5 mls/min Documented by: [id number] Insulin Aspart (Insulin Aspart 100 Units/Ml 3 Ml Pen) 0 units SC Q6 [facility] Stop: 09/04/20 22:22 Last Admin: 08/06/20 18:27 Dose: 2 units Documented by: [id number] Cosigned by: [id number] Admin: 08/06/20 12:44 Dose: 1 units Documented by: [id number] Cosigned by: [id number] Admin: 08/06/20 06:11 Dose: 1 units Documented by: [id number] Cosigned by: [id number] Admin: 08/06/20 00:17 Dose: Not Given Documented by: [id number] Cosigned by: [id number] Admin: 08/05/20 23:30 Dose: Not Given Documented by: [id number] Cosigned by: [id number] Levothyroxine Sodium (Levothyroxine Sodium 25 Mcg Tablet) 25 mcg PO DAILYBB [facility] Stop: 09/05/20 06:29 Last Admin: 08/06/20 05:53 Dose: 25 mcg Documented by: [id number] Metoprolol Tartrate (Metoprolol Tartrate 1 Mg/Ml Vial) 5 mg IV Q6 [facility] Stop: 09/04/20 20:49 Last Admin: 08/06/20 18:22 Dose: 5 mg Documented by: [id number] Admin: 08/06/20 11:35 Dose: 5 mg Documented by: [id number] Admin: 08/06/20 05:08 Dose: 5 mg Documented by: [id number] Admin: 08/06/20 00:22 Dose: 5 mg Documented by: [id number] Admin: 08/05/20 22:43 Dose: 5 mg Documented by: [id number] Mirabegron (Mirabegron Er 25 Mg Tab) 25 mg PO DAILY [facility] Stop: 09/05/20 08:59 Last Admin: 08/06/20 09:21 Dose: 25 mg Documented by: [id number] Ondansetron HCl (Ondansetron Inj 2 Mg/Ml 2 Ml Vial) 4 mg IV Q6H PRN PRN Reason: Nausea Stop: 09/04/20 22:22 Last Admin: 08/06/20 00:02 Dose: 4 mg Documented by: [id number] Discontinued Medications Al Hydrox/Mg Hydrox/Simethicone (Aluminum/Magnesium/Simeth (Maalox Max) 30 Ml Udc) 30 ml PO NOW STA Stop: 08/06/20 20:50 Last Admin: 08/06/20 21:06 Dose: 30 ml Documented by: [id number] Diltiazem HCl (Diltiazem Hcl 5 Mg/Ml 5 Ml Vial) 20 mg IV NOW STA Stop: 08/05/20 18:00 Last Admin: 08/05/20 18:15 Dose: 20 mg Documented by: [id number] Cosigned by: [id number] Heparin Sodium/Dextrose (Heparin Iv Standard *No* Bolus) 1 ea IV Q15M [facility]; Protocol Stop: 09/04/20 22:22 Last Admin: 08/06/20 00:37 Dose: Not Given Documented by: [id number] Admin: 08/06/20 00:37 Dose: Not Given Documented by: [id number] Admin: 08/06/20 00:37 Dose: Not Given Documented by: [id number] Admin: 08/06/20 00:37 Dose: Not Given Documented by: [id number] Admin: 08/06/20 00:36 Dose: Not Given Documented by: [id number] Admin: 08/06/20 00:35 Dose: 1 ea Documented by: [id number] Acetaminophen (Ofirmev) 1,000 mg in 100 mls @ 400 mls/hr IV NOW STA Stop: 08/05/20 18:12 Last Infusion: 12/13/20 23:18 Dose: 0 mls/hr Documented by: [id number] Admin: 08/05/20 18:18 Dose: 400 mls/hr Documented by: [id number] Sodium Chloride (Nss 1000ml) 1,000 mls @ 999 mls/hr IV .Q1H1M ONE Stop: 08/05/20 20:30 Last Infusion: 08/05/20 23:18 Dose: 0 mls/hr Documented by: [id number] Admin: 08/05/20 20:37 Dose: 999 mls/hr Documented by: [id number] Ondansetron HCl (Ondansetron Inj 2 Mg/Ml 2 Ml Vial) 4 mg IV NOW STA Stop: 08/05/20 17:59 Last Admin: 08/05/20 18:18 Dose: 4 mg Documented by: [id number] Critical Care Time I have personally spent greater than 30 minutes of critical care time in the direct management of this patient. This includes bedside care, interpretation of diagnostic studies, and testing, discussion with consultants, patient, and family members, and other required patient management activities. This 30 minutes is in excess of all separately billable procedures. Medical Decision Making Differential Diagnosis Appendicitis, ovarian cyst, ovarian torsion, ectopic , TOA, PID, infections, diverticulitis, UTI, obstruction, mesenteric ischemia, aortic pathology, inflammatory bowel disease, renal colic, PUD, pancreatitis, biliary pathology, hernia, volvulus, constipation, as well as other pathologies. Medical Records Attestation: I reviewed the patient's medical records. Home Medications Current Medication List: was personally reviewed by me Laboratory Data Attestation: I reviewed the patient's lab results. Result diagrams: 08/06/20 05:21 08/06/20 05:21 Lab Results 08/05/20 08/05/20 08/05/20 Range/Units 18:10 18:10 18:10 WBC 8.56 (4.8-10.8) K/uL RBC 3.98 L (4.2-5.4) M/uL Hgb 13.0 (12.0-16.0) g/dL Hct 39.5 (37-47) % MCV 99.2 (80-100) fL MCH 32.7 (25-34) pg MCHC 32.9 (32-36) g/dL RDW Std Deviation 51.1 H (36.4-46.3) fL RDW Coeff of Caitlin 14.2 (11.5-14.5) % Plt Count 211 (130-400) K/uL MPV 10.7 H (7.4-10.4) fL Immature Gran % (Auto) 0.5 % Neut % (Auto) 72.3 % Lymph % (Auto) 14.3 % Bacon % (Auto) 12.4 % Eos % (Auto) 0.1 % Baso % (Auto) 0.4 % Neut # (Auto) 6.20 (1.4-6.5) K/uL Lymph # (Auto) 1.22 (1.2-3.4) K/uL Bacon # (Auto) 1.06 H (0.11-0.59) K/uL Eos # (Auto) 0.01 (0-0.5) K/uL Baso # (Auto) 0.03 (0-0.2) K/uL Immature Gran # (Auto) 0.04 H (0.00-0.02) K/uL Absolute Nucleated RBC 0.11 H (0-0) K/uL Nucleated RBC % (auto) 1.3 % PT 13.9 H (9.0-12.0) Seconds INR 1.3 H (0.9-1.1) APTT 30.2 (21.0-31.0) Seconds PTT Ratio 1.1 Sodium 142 (136-145) mmol/L Potassium 4.6 (3.5-5.1) mmol/L Chloride 110 H (98-107) mmol/L Carbon Dioxide 20 L (21-32) mmol/L Anion Gap 12.0 H (3-11) BUN 57 H (7-18) mg/dl Creatinine 3.02 H (0.6-1.2) mg/dl Est Cr Clr Drug Dosing 10.3 ml/min Est GFR ( Amer) 15.7 Est GFR (Non-Af Amer) 13.6 BUN/Creatinine Ratio 18.9 (10-20) Glucose 118 H (70-99) mg/dl Calcium 9.4 (8.5-10.1) mg/dl Total Bilirubin 0.9 (0.2-1) mg/dl AST 104 H (15-37) U/L ALT 65 (12-78) U/L Alkaline Phosphatase 194 H (45-117) U/L Total Creatine Kinase 65 (26-192) U/L CK-MB (CK-2) 2.4 (0.5-3.6) ng/ml CK/CKMB % Calc 3.7 H (0-3.0) Troponin I 1.200 H* (0-0.045) ng/ml Total Protein 6.8 (6.4-8.2) gm/dl Albumin 3.2 L (3.4-5.0) gm/dl Globulin 3.6 (2.5-4.0) gm/dl Albumin/Globulin Ratio 0.9 (0.9-2) Lipase 90 (73-393) U/L Random Cortisol mcg/dl Cortisol PM Sample (3.1-16.6) mcg/dl COVID-19 Eval Order SARS-CoV-2, RNA, NAAT (NEGATIVE) 08/05/20 08/05/20 08/05/20 Range/Units 18:10 18:15 18:15 WBC (4.8-10.8) K/uL RBC (4.2-5.4) M/uL Hgb (12.0-16.0) g/dL Hct (37-47) % MCV (80-100) fL MCH (25-34) pg MCHC (32-36) g/dL RDW Std Deviation (36.4-46.3) fL RDW Coeff of Caitlin (11.5-14.5) % Plt Count (130-400) K/uL MPV (7.4-10.4) fL Immature Gran % (Auto) % Neut % (Auto) % Lymph % (Auto) % Bacon % (Auto) % Eos % (Auto) % Baso % (Auto) % Neut # (Auto) (1.4-6.5) K/uL Lymph # (Auto) (1.2-3.4) K/uL Bacon # (Auto) (0.11-0.59) K/uL Eos # (Auto) (0-0.5) K/uL Baso # (Auto) (0-0.2) K/uL Immature Gran # (Auto) (0.00-0.02) K/uL Absolute Nucleated RBC (0-0) K/uL Nucleated RBC % (auto) % PT (9.0-12.0) Seconds INR (0.9-1.1) APTT (21.0-31.0) Seconds PTT Ratio Sodium (136-145) mmol/L Potassium (3.5-5.1) mmol/L Chloride (98-107) mmol/L Carbon Dioxide (21-32) mmol/L Anion Gap (3-11) BUN (7-18) mg/dl Creatinine (0.6-1.2) mg/dl Est Cr Clr Drug Dosing ml/min Est GFR ( Amer) Est GFR (Non-Af Amer) BUN/Creatinine Ratio (10-20) Glucose (70-99) mg/dl Calcium (8.5-10.1) mg/dl Total Bilirubin (0.2-1) mg/dl AST (15-37) U/L ALT (12-78) U/L Alkaline Phosphatase (45-117) U/L Total Creatine Kinase (26-192) U/L CK-MB (CK-2) (0.5-3.6) ng/ml CK/CKMB % Calc (0-3.0) Troponin I (0-0.045) ng/ml Total Protein (6.4-8.2) gm/dl Albumin (3.4-5.0) gm/dl Globulin (2.5-4.0) gm/dl Albumin/Globulin Ratio (0.9-2) Lipase (73-393) U/L Random Cortisol 33.59 mcg/dl Cortisol PM Sample 33.59 H (3.1-16.6) mcg/dl COVID-19 Eval Order Covid19 IDNow [facility] SARS-CoV-2, RNA, NAAT NEGATIVE (NEGATIVE) Imaging Data Radiologist's Impression: [facility], [phone] CT Scan Report Patient: Yazmin PRINCE Date: 08/05/20MR#: [id number]: [address] [facility]:[id number]: [address]: [facility] [id number]: 84Location: 2SSex: FRoom/Bed: [id number] Phy: Navid Arrieta MDDiagnosis: N/V, ABDOMINAL PAINPri Phy: Irvin Huggins, DOService Date: 08/05/20Fa Phy:Interpreting Phy: Milton Jacques [facility] Phy: Zana Evans MD Ordering Phy: Kody Gauthier MD cc: ~ CT OF THE ABDOMEN AND PELVIS WITHOUT CONTRAST CLINICAL HISTORY: Acute renal failure. Abdominal cramping. Vomiting. COMPARISON STUDY: No previous studies for comparison. TECHNIQUE: Axial images of the abdomen and pelvis were obtained without IV contrast. Images were reviewed in the axial, sagittal, and coronal planes. Automated exposure control was utilized for the study. A dose lowering technique was utilized adhering to the principles of ALARA. FINDINGS: Visualized portions of the lower chest reveal small to moderate bilateral pleural effusions with associated airspace opacities favor atelectasis. There is a large hiatal hernia with partially intrathoracic stomach. Evaluation of the abdomen and pelvis is suboptimal on this unenhanced examination. The spleen is irregular. A portion of the spleen extends into the hiatal hernia. There are calcifications within each renal sinus. These could be vascular or reflect nonobstructing renal calculi. There is no biliary or pancreatic ductal dilatation. Equivocal mild gallbladder wall thickening. There is no evidence for a bowel obstruction. Extensive colonic diverticulosis is noted without evidence for acute diverticulitis. Left hip arthroplasty is noted. No lymphadenopathy is present. There is no ascites. There is extensive calcified plaque of the abdominal aorta which is normal in caliber. No biliary or pancreatic ductal dilatation is noted. No acute fracture or suspicious lesion is identified within visualized skeletal structures. IMPRESSION: 1. No acute process within the abdomen or pelvis on unenhanced exam. 2. Extensive colonic diverticulosis without evidence for acute diverticulitis. No bowel obstruction. 3. Small to moderate bilateral pleural effusions, partially imaged on this exam. 4. Large hiatal hernia. 5. Calcifications within each renal sinus. The majority of these reflect vascular calcifications however small nonobstructing renal calculi would be difficult to exclude. No ureteral calculi or hydronephrosis. ACT 112: Negative or not required by law. Electronically signed by: Milton Jacques M.D. 08/06/2020 9:20 AM Dictated: 08/06/20911Transcribed: 08/06/20911 [facility] [id number] CT Scan Report Patient: ALMAZ PRINCEEAdmbibi Date: 08/05/20#: [id number]: Sudheer MIMSAcct ID:[id number]: [address]Birth Date: [birth year]City Zip: [place], [place] [address]Iuj: 84Location: 2SSex: FRoom/Bed: [id number] Phy: Navid Arrieta MDDiagnosis: N/V, ABDOMINAL PAINPri Phy: Irvin Huggins, DOService Date: 08/05/20Fam Phy:Interpreting Phy: Carlos Mario [facility] Phy: Zana Evans MD Ordering Phy: Kody Gauthier MD cc: ~ CT SCAN OF THE BRAIN WITHOUT IV CONTRAST CLINICAL HISTORY: Change in mental status. Vomiting. COMPARISON STUDY: No priors. TECHNIQUE: Unenhanced axial CT scan of the brain is performed from the vertex to the skull base. A dose lowering technique was utilized adhering to the principles of ALARA. FINDINGS: Brain parenchyma: There are age-related involutional changes noting mild to moderate subcortical and periventricular microangiopathic change. There is no hemorrhage, mass effect, or evidence of acute territorial ischemia by CT criteria. May-white matter differentiation is preserved. No extra-axial fluid collection is seen. Mineralization is noted in the basal ganglia. Ventricles, sulci, cisterns: Prominent secondary to involutional change. Intracranial vasculature: There is atherosclerotic calcification of the cavernous carotid and vertebral arteries. Calvarium: Unremarkable. Sinuses and mastoids: The visualized paranasal sinuses are clear. The mastoid air cells are well pneumatized. Orbits: The bony orbits are grossly intact. There are bilateral ocular lens implants. IMPRESSION: There is no hemorrhage, mass effect, or evidence of acute territorial ischemia by CT criteria. ACT 112: Negative or not required by law. Electronically signed by: Carlos Mario M.D. 08/06/2020 7:20 AM Dictated: 08/06/20717Transcribed: 08/06/2018 [facility], [id number] XRay Report Patient: ALMAZ PRINCEEAdmit Date: 08/05/20#: [id number]: [address] [facility]t ID:[id number]: [address] Zip: [place] [address]Lav: 84Location: EDSex: FRoom/Bed:Att Phy:Diagnosis: AB PAIN, TACHYCARDIAPri Phy: Irvin Huggins, DOService Date: 08/05/20Fam Phy:Interpreting Phy: Etienne Redman MDAdmit Phy: Ordering Phy: Kody Gauthier MD cc: ~ XR chest 1V portable HISTORY: Atypical Chest Pain COMPARISON: Chest 01/05/2019. FINDINGS: No pneumothorax. The heart is mildly enlarged. There is mild interstitial and vascular thickening suggestive of congestive change. This is slightly progressed. There are small bilateral pleural effusions. Bibasilar densities favor atelectasis. IMPRESSION: Cardiomegaly, mild congestive change, and small bilateral pleural effusions. ACT 112: Negative or not required by law. Electronically signed by: Etienne Redman M.D. 08/05/2020 7:14 PM Dictated: 08/05/201911Transcribed: 08/05/201911 ECG Data Attestation: I personally reviewed and interpreted this ECG as follows: Indication: + weakness Rate (beats per minute): 163 Rhythm: + atrial fibrillation (with RVR) ECG [place]: + Normal ECG ST segments: no ST depression and no ST elevation Comparison ECG Date: from (01/05/2019) Change: the following changes noted (a fib has replced sinus rythym) MDM Narrative Patient was seen and evaluated as above in room B5. Review was performed of nursing notes and vital signs. I did review pertinent previous visits and patient history. After obtaining a thorough history and physical examination the above work up was performed. This is an 84-year-old female who presents emergency department complaining of generalized weakness. Patient reports she has been unable to keep any of her medicines down for the past 3 days. She is complaining of nausea and vomiting. Here in the emergency department patient had an IV established she was given a normal saline bolus. She was given Cardizem here in the emergency department. Her troponin was found to be elevated. An order was placed for continuous cardiac monitoring. The monitor shows a rate of 150 with Afib rhythm. The patient was evaluated during a period of high volume and high acuity while [facility] was at overcapacity during the global COVID-19 pandemic, and that diagnosis was suspected/considered upon their initial presentation. Their evaluation, treatment and testing was consistent with current guidelines for patients who present with complaints or symptoms that may be related to COVID- 19. Impression & Plan Atrial fibrillation with rapid ventricular response, Acute kidney injury superimposed on CKD, Polymyalgia rheumatica, Elevated troponin Discharge Plan Visit Data Chief Complaint: Cardiac Assessment Stated Complaint: AB PAIN, TACHYCARDIA ED Provider: Kody Gauthier Discharge Problem: Atrial fibrillation with rapid ventricular response, Acute kidney injury superimposed on CKD, Polymyalgia rheumatica, Elevated troponin Patient Disposition: Admitted As Inpatient Discharge Instructions Interventions: ED Discharge Assessment Last Done: 08/05/20 21:41
[2020-08-05 18:38] LABS: Basophils # (auto) 0.03 K/uL (0-0.2); Basophils % (auto) 0.4 %; Eosinophils # (auto) 0.01 K/uL (0-0.5); Eosinophils % (auto) 0.1 %; Hematocrit (blood only) 39.5 % (37-47); Immature Granulocytes # (auto) 0.04 K/uL (0.00-0.02); Immature Granulocytes % (auto) 0.5 %; Lymphocytes # (auto) 1.22 K/uL (1.2-3.4); Lymphocytes % (auto) 14.3 %; Mean Corpuscular Hemoglobin 32.7 pg (25-34); Mean Corpuscular Hgb Conc 32.9 g/dL (32-36); Mean Corpuscular Volume 99.2 fL (80-100); Mean Platelet Volume 10.7 fL (7.4-10.4); Monocytes # (auto) 1.06 K/uL (0.11-0.59); Monocytes % (auto) 12.4 %; Neutrophils % (auto) 72.3 %; Nucleated RBC # (auto) 0.11 K/uL (0-0); Nucleated RBC % (auto) 1.3 %; Platelet Count 211 K/uL (130-400); RDW Coefficient of Variation 14.2 % (11.5-14.5); RDW Standard Deviation 51.1 fL (36.4-46.3); Red Blood Count 3.98 M/uL (4.2-5.4); White Blood Count 8.56 K/uL (4.8-10.8)
[2020-08-05 18:54] LABS: INR 1.3 (0.9-1.1); Partial Thromboplastin Ratio 1.1; Partial Thromboplastin Time 30.2 Seconds (21.0-31.0); Prothrombin Time 13.9 Seconds (9.0-12.0)
[2020-08-05 19:02] LABS: Albumin Level 3.2 gm/dl (3.4-5.0); BUN Creatinine Ratio 18.9 (10-20); Calcium 9.4 mg/dl (8.5-10.1); Creatinine Clr Calc Pharmacy 10.3 ml/min; Est GFR (African American) 15.7; Est GFR (Non-African American) 13.6; Potassium 4.6 mmol/L (3.5-5.1)
[2020-08-05 19:10] LABS: Cortisol Random 33.59 mcg/dl
[2020-08-05 19:14] LABS: Albumin Globulin Ratio 0.9 (0.9-2); Bilirubin,Total 0.9 mg/dl (0.2-1); Creatine Kinase MB 2.4 ng/ml (0.5-3.6); Globulin 3.6 gm/dl (2.5-4.0); Total Protein 6.8 gm/dl (6.4-8.2); Troponin I 1.2 ng/ml (0-0.045)
--- NOTE | 2020-08-05 19:15 | XRay Report ---
XR chest 1V portable HISTORY: Atypical Chest Pain COMPARISON: Chest 01/05/2019. FINDINGS: No pneumothorax. The heart is mildly enlarged. There is mild interstitial and vascular thic kening suggestive of congestive change. This is slightly progressed. There are small bilateral pleura l effusions. Bibasilar densities favor atelectasis. IMPRESSION: Cardiomegaly, mild congestive change, and small bilateral pleural effusions. ACT 112: Negative or not required by law. Electronically signed by: Etienne Rdeman M.D. 08/05/2020 7:14 PM
[2020-08-05] MEDS ORDERED: SODIUM CHLORIDE 0.9% 1000ML 1,000 ML IV ONE (19:30)
[2020-08-05] MEDS ORDERED: ACETAMINOPHEN 325 MG TAB PO PRN (22:23)
[2020-08-05] MEDS ORDERED: NITROGLYCERIN SL 0.4 MG/TAB TAB SL PRN (22:23)
[2020-08-05] MEDS: METOPROLOL TARTRATE 1 MG/ML VIAL IV SCH (22:43)
[2020-08-05] MEDS: D5W AND NSS 1,000 ML IV SCH (22:44)
--- NOTE | 2020-08-05 23:02 | History and Physical Report ---
DATE OF ADMISSION: 08/05/2020 CHIEF COMPLAINT: Nausea, vomiting, abdominal pain. HISTORY OF PRESENT ILLNESS: This 84-year-old female with past medical history significant for hypothyroidism, hyperlipidemia, prediabetes, chronic kidney disease stage IV, polymyalgia rheumatica, general osteoarthrosis, senile osteoporosis, iron deficiency anemia, history of long-term use of systemic steroids, who lives with her son, ambulates without any support, but needs to hold door knobs, comes because of nausea, vomiting and abdominal pain going on for last 3 days. She says she could not take her pills. She could not drink anything. She whatever drinking she is vomiting out. She had a somewhat normal bowel movement, small amount in the morning. Denies any blood in the stool or black stools. Denies any cough, no fever. Denies any chest pain, but she is getting short of breath easily. She could not get up and feeling weak and tired and once in a while feeling palpitations. Denies any headache, no blurred visions, no earache, no runny nose, no sore throat, no dysphagia. No rash. Normal bladder movements. Currently, resting comfortably. ALLERGIES: ASPIRIN, NSAIDS, SULFA ANTIBIOTICS. PAST MEDICAL HISTORY: As mentioned above. PAST SURGICAL HISTORY: Colonoscopy with biopsy, EGD with biopsy, appendectomy, removal of ovarian cyst, tonsillectomy, cataract surgery, small bowel endoscopy with biopsy, left total hip replacement. MEDICATIONS: The patient is on Tylenol 500 mg p.o. b.i.d., vitamin C 500 mg p.o. bid, aspirin 81 mg p.o. daily, Coreg 6.25 mg p.o. b.i.d., cod liver oil 1 capsule p.o. daily, Coenzyme Q10 50 mg p.o. daily, diltiazem 240 mg p.o. daily, ferrous sulfate 325 mg p.o. a.m., flaxseed oil 1000 mg p.o. b.i.d., garlic parsley 1 tablet p.o. b.i.d., levothyroxine 25 mcg p.o. daily, Myrbetriq 25 mg p.o. daily, multivitamin 1 tablet p.o. daily, omeprazole 20 mg p.o. daily, prednisone 7 mg p.o. daily, torsemide 10 mg p.o. daily, tramadol 50 mg p.o. q. 8 hours p.r.n. FAMILY HISTORY: Significant for brother has heart disorder, hypertension. Father has arthritis. Mother has thyroid disease, gallstones. SOCIAL HISTORY: , lives with her son. Former smoker, quit in 1984. Smoked 1 pack a day for 20 years. Alcohol, 2 standard drinks of alcohol per week as per Epic, no drug use. REVIEW OF SYMPTOMS: As per HPI. Rest of review of symptoms negative. PHYSICAL EXAMINATION: GENERAL: The patient is old and frail, not in acute distress. VITAL SIGNS: Temperature 37, pulse 120s, respiratory rate 20, blood pressure 129/92, oxygen 94% room air. HEENT: No pallor, no icterus. Pupils equal, round, reactive to light. Oral mucosa dry. NECK: No neck masses. Supple. CARDIOVASCULAR: S1, S2 heard. Tachycardia. No murmurs. RESPIRATORY SYSTEM: Normal AP diameter. No accessory muscle use. No wheezing, no crackles. ABDOMEN: Soft, bowel sounds present, nontender. No distention. CENTRAL NERVOUS SYSTEM: Cranial nerves II through XII grossly intact, nonfocal. EXTREMITIES: No edema, no erythema. LABORATORY DATA: WBC is 8.5, hemoglobin 13, hematocrit 39.5, platelets 211. PT 13.9, INR 1.3, APTT 30.2. Sodium 142, potassium 4.6, chloride 110, bicarbonate 20, BUN 57, creatinine 3.02, serum glucose 118, calcium 9.4, total bilirubin 0.9, AST 104, ALT 65, alkaline phosphatase 194, total creatinine kinase 65, CK-MB 2.4. Troponin I 1.2, lipase 90. Random cortisol 33.59. Cortisol p.m. 33.59. COVID-19 negative. IMAGING: CT of abdomen and pelvis, small bilateral pleural effusions, large hiatal hernia, colonic diverticulosis without diverticulitis, nonobstructing nephrolithiasis bilaterally. No bowel obstruction. CT of the head, chronic microvascular ischemic changes, no acute findings. Chest x-ray, cardiomegaly, mild congestion and small bilateral pleural effusions. EKG: Atrial fibrillation with rapid ventricular response at a rate of 168, nonspecific ST changes. ASSESSMENT AND PLAN: This is an 84-year-old female who presents with abdominal discomfort, nausea and vomiting going on for last 3 days and found to have rapid atrial fibrillation and also acute kidney injury on chronic kidney disease stage IV, and elevated troponin. 1. Nausea, vomiting, abdominal discomfort going on for last 3 days. Afebrile. Normal bowel movement. CAT scan of the abdomen and pelvis preliminary report unremarkable. COVID negative. Could be viral gastroenteritis. We will keep her n.p.o., except meds, IV fluids, on IV antiemetics prn and closely monitor. 2. Rapid atrial fibrillation, new. The patient is on Coreg and Cardizem at home, not taking for the last 2-3 days. Could be from withdrawal, . Received IV Cardizem 20 mg in the ER, will be started on IV Lopressor 5 mg every 6 hours and monitor as well as IV heparin. We will get echocardiogram and consult cardiology in the a.m. 3. Elevated troponin. Troponin of 1.2, possibly non-ST elevated from demand ischemia from apid atrial fibrillation and also kidney disease. We will follow serial enzymes and start on IV heparin and IV Lopressor. Continue home aspirin. We will monitor the serial enzymes and echocardiogram. Await cardiac input. Monitor in the tele. 4. Acute kidney injury on chronic kidney disease stage IV. Baseline creatinine around 1.5-1.9, presently with creatinine of 3, mostly secondarily from dehydration from not eating and drinking. Getting fluids. Avoid nephrotoxic agents. We will follow the labs in a.m. 5. Metabolic acidosis, pCO2 of 20, most likely from starvation ketosis, getting fluids D5 normal saline. We will follow repeat labs. If any concern, will consult Nephrology. 6. Hypothyroidism. Place on IV Synthroid. 7. Gastroesophageal reflux disease. Placed on IV Protonix. 8. History of iron deficiency anemia. Hemoglobin is 13. We will hold iron supplements for now. 9. Polymyalgia rheumatica. The patient is on 7 mg prednisone at home. We will hold p.o. medication, place on IV Solu-Medrol 20 mg. We will monitor for any adrenal insufficiency. 10. Prediabetes We will follow HbA1c levels. Follow the blood sugars. 11. Deep venous thrombosis prophylaxis, IV heparin. DISPOSITION: Closely monitor in tele floor. Level 1 full code. Expect to discharge home and follow with family doctor. PT and OT prior to discharge. Social service to help with discharge planning. KEARA
[2020-08-05] MEDS: INSULIN ASPART 100 UNITS/ML 3 ML PEN SC SCH (23:30)
[2020-08-05] MEDS: methylPREDNISolone 20 MG in SYRINGE 0 ML IV SCH (23:57)
[2020-08-05] MEDS: ACETAMINOPHEN 500 MG TAB PO SCH (23:58)
[2020-08-05] MEDS: ASCORBIC ACID 500 MG TAB PO SCH (23:58)
[2020-08-05] MEDS: HEPARIN SODIUM/DEXTROSE 25,000 UNITS/500 ML BAG IV SCH (23:59)
[2020-08-06] MEDS: ONDANSETRON INJ 2 MG/ML 2 ML VIAL IV PRN (00:02)
[2020-08-06] MEDS: INSULIN ASPART 100 UNITS/ML 3 ML PEN SC SCH ×4 (00:17→18:27)
[2020-08-06] MEDS: METOPROLOL TARTRATE 1 MG/ML VIAL IV SCH ×4 (00:22→18:22)
[2020-08-06] MEDS: Heparin IV Adult Wt-Based Standard *NO* Bolus Protocol IV SCH ×3 (00:35→00:37)
[2020-08-06 04:29] LABS: Appearance Urine Clear (Clear); Bacteria Urine Automated Negative (Negative); Blood Urine Trace (Negative); Color Urine Dark Yellow; Epithelial Cell Urine Auto >30 /lpf (0-5); Glucose Urine UA Negative (Negative); Ketones Urine Trace (Negative); Leukocyte Esterase Urine 1+ (Negative); Nitrite Urine Negative (Negative); Protein Urine 2+ (Negative); Specific Gravity Urine 1.027 (1.000-1.030); Urobilinogen Urine Negative (Negative)
[2020-08-06] MEDS: D5W AND NSS 1,000 ML IV SCH ×2 (05:08→14:38)
[2020-08-06 05:30] LABS: Bilirubin Urine Negative (Negative); Ictotest Urine Negative (Negative)
[2020-08-06 05:35] LABS: Calcium Oxalate Crystals Urine Present (None Prsent); RBC Urine Automated 0-4 /hpf (0-4)
[2020-08-06 05:35] LABS: Basophils # (auto) 0.02 K/uL (0-0.2); Basophils % (auto) 0.3 %; Hematocrit (blood only) 36.8 % (37-47); Immature Granulocytes # (auto) 0.02 K/uL (0.00-0.02); Immature Granulocytes % (auto) 0.3 %; Lymphocytes # (auto) 0.61 K/uL (1.2-3.4); Mean Corpuscular Hemoglobin 32.5 pg (25-34); Mean Corpuscular Hgb Conc 32.6 g/dL (32-36); Mean Corpuscular Volume 99.7 fL (80-100); Monocytes # (auto) 0.25 K/uL (0.11-0.59); Monocytes % (auto) 3.7 %; Neutrophils # (auto) 5.86 K/uL (1.4-6.5); Neutrophils % (auto) 86.7 %; Nucleated RBC # (auto) 0.06 K/uL (0-0); Nucleated RBC % (auto) 0.9 %; Platelet Count 180 K/uL (130-400); RDW Coefficient of Variation 14.4 % (11.5-14.5); Red Blood Count 3.69 M/uL (4.2-5.4); White Blood Count 6.76 K/uL (4.8-10.8)
[2020-08-06] MEDS: LEVOTHYROXINE SODIUM 25 MCG TABLET PO SCH (05:53)
[2020-08-06 05:55] LABS: BUN Creatinine Ratio 20.4 (10-20); Calcium 8.4 mg/dl (8.5-10.1); Creatinine Clr Calc Pharmacy 10.9 ml/min; Est GFR (African American) 16.5; Est GFR (Non-African American) 14.3; Magnesium 2.2 mg/dl (1.8-2.4); Potassium 4.6 mmol/L (3.5-5.1)
[2020-08-06 05:58] LABS: Partial Thromboplastin Ratio > 5.0
[2020-08-06 06:01] LABS: Troponin I 0.883 ng/ml (0-0.045)
[2020-08-06 06:23] LABS: Partial Thromboplastin Time > 139.0 Seconds (21.0-31.0)
[2020-08-06 06:51] LABS: Estimated Average Glucose 111 mg/dl; Hemoglobin A1C 5.5 % (4.5-5.6)
[2020-08-06 07:09] LABS: Partial Thromboplastin Ratio > 5.0
--- NOTE | 2020-08-06 07:21 | CT Scan Report ---
CT SCAN OF THE BRAIN WITHOUT IV CONTRAST CLINICAL HISTORY: Change in mental status. Vomiting. COMPARISON STUDY: No priors. TECHNIQUE: Unenhanced axial CT scan of the brain is performed from the vertex to the skull base. A do se lowering technique was utilized adhering to the principles of ALARA. FINDINGS: Brain parenchyma: There are age-related involutional changes noting mild to moderate subcortical and periventricular microangiopathic change. There is no hemorrhage, mass effect, or evidence of acute t erritorial ischemia by CT criteria. May-white matter differentiation is preserved. No extra-axial fl uid collection is seen. Mineralization is noted in the basal ganglia. Ventricles, sulci, cisterns: Prominent secondary to involutional change. Intracranial vasculature: There is atherosclerotic calcification of the cavernous carotid and vertebr al arteries. Calvarium: Unremarkable. Sinuses and mastoids: The visualized paranasal sinuses are clear. The mastoid air cells are well pneu matized. Orbits: The bony orbits are grossly intact. There are bilateral ocular lens implants. IMPRESSION: There is no hemorrhage, mass effect, or evidence of acute territorial ischemia by CT dawit leigh. ACT 112: Negative or not required by law. Electronically signed by: Carlos Mario M.D. 08/06/2020 7:20 AM
[2020-08-06 07:41] LABS: Partial Thromboplastin Time > 139.0 Seconds (21.0-31.0)
[2020-08-06] MEDS ORDERED: LEVOTHYROXINE SODIUM 12.5 MCG in SYRINGE 0 ML IV SCH (09:00)
[2020-08-06] MEDS: ASCORBIC ACID 500 MG TAB PO SCH ×3 (09:20→21:07)
[2020-08-06] MEDS: methylPREDNISolone 20 MG in SYRINGE 0 ML IV SCH (09:20)
[2020-08-06] MEDS: ACETAMINOPHEN 500 MG TAB PO SCH ×2 (09:20→21:06)
[2020-08-06] MEDS: MIRABEGRON ER 25 MG TAB PO SCH (09:21)
[2020-08-06] MEDS: ASPIRIN 81 MG ECTAB PO SCH (09:21)
--- NOTE | 2020-08-06 09:22 | CT Scan Report ---
CT OF THE ABDOMEN AND PELVIS WITHOUT CONTRAST CLINICAL HISTORY: Acute renal failure. Abdominal cramping. Vomiting. COMPARISON STUDY: No previous studies for comparison. TECHNIQUE: Axial images of the abdomen and pelvis were obtained without IV contrast. Images were revi ewed in the axial, sagittal, and coronal planes. Automated exposure control was utilized for the antwon dy. A dose lowering technique was utilized adhering to the principles of ALARA. FINDINGS: Visualized portions of the lower chest reveal small to moderate bilateral pleural effusions with associated airspace opacities favor atelectasis. There is a large hiatal hernia with partially intrathoracic stomach. Evaluation of the abdomen and pelvis is suboptimal on this unenhanced examinat ion. The spleen is irregular. A portion of the spleen extends into the hiatal hernia. There are calci fications within each renal sinus. These could be vascular or reflect nonobstructing renal calculi. T here is no biliary or pancreatic ductal dilatation. Equivocal mild gallbladder wall thickening. There is no evidence for a bowel obstruction. Extensive colonic diverticulosis is noted without evidence f or acute diverticulitis. Left hip arthroplasty is noted. No lymphadenopathy is present. There is no a scites. There is extensive calcified plaque of the abdominal aorta which is normal in caliber. No mendez iary or pancreatic ductal dilatation is noted. No acute fracture or suspicious lesion is identified w ithin visualized skeletal structures. IMPRESSION: 1. No acute process within the abdomen or pelvis on unenhanced exam. 2. Extensive colonic diverticulosis without evidence for acute diverticulitis. No bowel obstruction. 3. Small to moderate bilateral pleural effusions, partially imaged on this exam. 4. Large hiatal hernia. 5. Calcifications within each renal sinus. The majority of these reflect vascular calcifications tipton al small nonobstructing renal calculi would be difficult to exclude. No ureteral calculi or hydronep hrosis. ACT 112: Negative or not required by law. Electronically signed by: Milton Jacques M.D. 08/06/2020 9:20 AM
--- NOTE | 2020-08-06 10:20 | Cardiology Consultation ---
Date of Consultation August 06, 2020 Assessment & Plan (1) Atrial fibrillation with rapid ventricular response: (2) Gastroenteritis: (3) Aortic stenosis: (4) Pleural effusion: Currently she appears to be comfortable. I would continue the IV heparin and rate control with IV metoprolol. I would be judicious regarding IV fluids as her chest x-ray shows an incidental finding of a small right pleural effusion. I will cut back on her IV fluids. History of Present Illness Attending Physician: Navid Arrieta MD History of Present Illness This is an 84-year-old female with no significant past cardiac history. She has been followed by her vending machine operator who has treated her for some heart palpitations or tachycardia for which she takes diltiazem and that seems to have been effective for her. Over the past several days she has had nausea vomiting and not feeling well. She has not been able to take her home medications and when she presented to the emergency department she was found to be in atrial fibrillation with RVR. The patient has since been started on IV metoprolol and although she remains in atrial fibrillation it is rate controlled. She has no current cardiac complaints. She denies chest pain or shortness of breath. She has had no orthopnea. She did have an echocardiogram on presentation. She has new onset atrial fibrillation which may have influenced the study negatively. The estimated left ventricular ejection fraction is somewhere around 35% and she has moderate aortic stenosis. We may want to repeat this study in the future. Allergies Allergy/AdvReac Type Severity Reaction Status Date / Time aspirin Allergy Mild Unknown Verified 08/05/20 19:33 Sulfa (Sulfonamide Allergy Mild Rash Verified 08/05/20 19:33 Antibiotics) Home Medications Medication Instructions Recorded Confirmed Type ascorbic acid (vitamin C) [Vitamin 500 mg PO TID 01/05/19 08/05/20 History C] aspirin 81 mg PO DAILY 01/05/19 08/05/20 History cod liver oil 1 cap PO DAILY 01/05/19 08/05/20 History coenzyme Q10 50 mg PO DAILY 01/05/19 08/05/20 History diltiazem HCl 240 mg PO DAILY 01/05/19 08/05/20 History flaxseed oil 1,000 mg PO BID 01/05/19 08/05/20 History garlic-parsley 1 tab PO BID 01/05/19 08/05/20 History levothyroxine 25 mcg PO DAILYBB 01/05/19 08/05/20 History multivitamin 1 tab PO DAILY 01/05/19 08/05/20 History omeprazole magnesium [Prilosec OTC] 20 mg PO QDD 01/05/19 08/05/20 History prednisone 2 mg PO DAILY 01/05/19 08/05/20 History prednisone 5 mg PO DAILY 01/05/19 08/05/20 History tramadol 50 mg PO Q8H PRN 01/05/19 08/05/20 History acetaminophen [Tylenol Extra 500 mg PO BID 08/05/20 08/05/20 History Strength] carvedilol 6.25 mg PO BIDM 08/05/20 08/05/20 History ferrous sulfate [Feosol] 325 mg PO QAM 08/05/20 08/05/20 History mirabegron [Myrbetriq] 25 mg PO DAILY 08/05/20 08/05/20 History kcnwytyhon-foqy-lsoc-vinegar 1 tab PO DIRECTED 08/05/20 08/05/20 History torsemide 10 mg PO DAILY 08/05/20 08/05/20 History Patient History Medical History (Updated 08/06/20 @ 23:24 by Kody Gauthier MD) Anemia Fibromyalgia GERD (gastroesophageal reflux disease) HTN (hypertension) Hyponatremia Hypothyroid Osteoporosis Rheumatoid arthritis Surgical History S/P appendectomy S/P cataract extraction S/P tonsillectomy Social History Smoking Status: Former smoker Hx Alcohol Use: Yes Alcohol type: hard liquor Hx Substance Use: No Preferred Language: Cymraes Communication Ability: Effective Soda Maker Required: No Beliefs That Will Affect Care: None marital status: / Current Living Situation: Family Current Living Situation Comment: Son lives w/ patient Other Information That Helps Us Care for You: No Feels Safe at Home: Yes Safety Concerns: Feels Safe At This Time Assistive Devices: None Review of Systems Review of Systems: All systems reviewed & are unremarkable except as noted in HPI & below Nothing additional to add. Physical Exam Physical Exam: General: no acute distress and stated age Head: normocephalic, no masses, lesions, tenderness or abnormalities Eyes: conjunctiva are pink and non-injected, sclera clear Neck: supple, no adenopathy, no bruits, normal jugular venous pulse, no hepatojugular reflux Chest: normal shape and normal respiratory effort Lungs: clear to auscultation and percussion Cardiac Exam: - irregular rate & rhythm, no murmurs gallops or rubs - normal S1, normal S2 Pulses: 2(+) throughout Abdomen: abdomen soft, non-tender, no abnormal masses and no hepatosplenomegaly Musculoskeletal: no gait disturbance, no joint inflammation, no deforming arthritis Extremities: no edema and no cyanosis Neuro: grossly normal exam Results & Data ([facility]) Vital Signs (Past 12 Hours) Vital Signs Temp Pulse Pulse Resp BP BP Pulse Ox 08/06/20 07:00 36.4 C L 98 H 14 160/100 H 95 08/06/20 05:08 126 H 08/06/20 03:10 36.4 C L 115 H 20 142/91 H 93 08/06/20 02:06 137 H 08/06/20 00:22 118 H 08/05/20 23:22 36.4 C L 101 H 16 145/90 H 94 08/05/20 22:43 128 H 144/105 H 08/05/20 22:34 36.5 C 137 H 22 163/108 H 96 Laboratory Results Laboratory Results - last 24 hr 08/05/20 08/05/20 08/05/20 18:10 18:10 18:10 WBC 8.56 RBC 3.98 L Hgb 13.0 Hct 39.5 MCV 99.2 MCH 32.7 MCHC 32.9 RDW Std Deviation 51.1 H RDW Coeff of Caitlin 14.2 Plt Count 211 MPV 10.7 H Immature Gran % (Auto) 0.5 Neut % (Auto) 72.3 Lymph % (Auto) 14.3 [place] % (Auto) 12.4 Eos % (Auto) 0.1 Baso % (Auto) 0.4 Neut # (Auto) 6.20 Lymph # (Auto) 1.22 [place] # (Auto) 1.06 H Eos # (Auto) 0.01 Baso # (Auto) 0.03 Immature Gran # (Auto) 0.04 H Absolute Nucleated RBC 0.11 H Nucleated RBC % (auto) 1.3 PT 13.9 H INR 1.3 H APTT 30.2 PTT Ratio 1.1 Sodium 142 Potassium 4.6 Chloride 110 H Carbon Dioxide 20 L Anion Gap 12.0 H BUN 57 H Creatinine 3.02 H Est Cr Clr Drug Dosing 10.3 Est GFR ( Amer) 15.7 Est GFR (Non-Af Amer) 13.6 BUN/Creatinine Ratio 18.9 Glucose 118 H POC Glucose Estimat Average Glucose Hemoglobin A1c Calcium 9.4 Magnesium Total Bilirubin 0.9 AST 104 H ALT 65 Alkaline Phosphatase 194 H Total Creatine Kinase 65 CK-MB (CK-2) 2.4 CK/CKMB % Calc 3.7 H Troponin I 1.200 H* Total Protein 6.8 Albumin 3.2 L Globulin 3.6 Albumin/Globulin Ratio 0.9 Lipase 90 Random Cortisol Cortisol PM Sample Urine Color Urine Appearance Urine pH Ur Specific [place] Urine Protein Urine Glucose (UA) Urine Ketones Urine Blood Urine Nitrite Urine Bilirubin Urine Urobilinogen Ur Leukocyte Esterase Urine WBC (Auto) Urine RBC (Auto) U Hyaline Cast (Auto) U Epithel Cells (Auto) Urine Bacteria (Auto) Ur Renal Epithelial Cell Calcium Oxalate Crystal Granular Casts Urine Yeast COVID-19 Eval Order SARS-CoV-2, RNA, NAAT 08/05/20 08/05/20 08/05/20 18:10 18:15 18:15 WBC RBC Hgb Hct MCV MCH MCHC RDW Std Deviation RDW Coeff of Caitlin Plt Count MPV Immature Gran % (Auto) Neut % (Auto) Lymph % (Auto) [place] % (Auto) Eos % (Auto) Baso % (Auto) Neut # (Auto) Lymph # (Auto) [place] # (Auto) Eos # (Auto) Baso # (Auto) Immature Gran # (Auto) Absolute Nucleated RBC Nucleated RBC % (auto) PT INR APTT PTT Ratio Sodium Potassium Chloride Carbon Dioxide Anion Gap BUN Creatinine Est Cr Clr Drug Dosing Est GFR ( Amer) Est GFR (Non-Af Amer) BUN/Creatinine Ratio Glucose POC Glucose Estimat Average Glucose Hemoglobin A1c Calcium Magnesium Total Bilirubin AST ALT Alkaline Phosphatase Total Creatine Kinase CK-MB (CK-2) CK/CKMB % Calc Troponin I Total Protein Albumin Globulin Albumin/Globulin Ratio Lipase Random Cortisol 33.59 Cortisol PM Sample 33.59 H Urine Color Urine Appearance Urine pH Ur Specific [place] Urine Protein Urine Glucose (UA) Urine Ketones Urine Blood Urine Nitrite Urine Bilirubin Urine Urobilinogen Ur Leukocyte Esterase Urine WBC (Auto) Urine RBC (Auto) U Hyaline Cast (Auto) U Epithel Cells (Auto) Urine Bacteria (Auto) Ur Renal Epithelial Cell Calcium Oxalate Crystal Granular Casts Urine Yeast COVID-19 Eval Order Covid19 [facility] SARS-CoV-2, RNA, NAAT NEGATIVE 08/05/20 08/05/20 08/06/20 22:28 23:26 03:15 WBC RBC Hgb Hct MCV MCH MCHC RDW Std Deviation RDW Coeff of Caitlin Plt Count MPV Immature Gran % (Auto) Neut % (Auto) Lymph % (Auto) [place] % (Auto) Eos % (Auto) Baso % (Auto) Neut # (Auto) Lymph # (Auto) [place] # (Auto) Eos # (Auto) Baso # (Auto) Immature Gran # (Auto) Absolute Nucleated RBC Nucleated RBC % (auto) PT INR APTT PTT Ratio Sodium Potassium Chloride Carbon Dioxide Anion Gap BUN Creatinine Est Cr Clr Drug Dosing Est GFR ( Amer) Est GFR (Non-Af Amer) BUN/Creatinine Ratio Glucose POC Glucose 124 H Estimat Average Glucose Hemoglobin A1c Calcium Magnesium Total Bilirubin AST ALT Alkaline Phosphatase Total Creatine Kinase CK-MB (CK-2) CK/CKMB % Calc Troponin I 1.200 H* Total Protein Albumin Globulin Albumin/Globulin Ratio Lipase Random Cortisol Cortisol PM Sample Urine Color Dark Yellow Urine Appearance Clear Urine pH 5.0 Ur Specific [place] 1.027 Urine Protein 2+ H Urine Glucose (UA) Negative Urine Ketones Trace H Urine Blood Trace H Urine Nitrite Negative Urine Bilirubin Negative Urine Urobilinogen Negative Ur Leukocyte Esterase 1+ H Urine WBC (Auto) 10-30 H Urine RBC (Auto) 0-4 U Hyaline Cast (Auto) 5-10 H U Epithel Cells (Auto) >30 H Urine Bacteria (Auto) Negative Ur Renal Epithelial Cell Not Reportable Calcium Oxalate Crystal Present A Granular Casts 1-5 H Urine Yeast Budding A COVID-19 Eval Order SARS-CoV-2, RNA, NAAT 08/06/20 08/06/20 08/06/20 05:21 05:21 05:21 WBC 6.76 RBC 3.69 L Hgb 12.0 Hct 36.8 L MCV 99.7 MCH 32.5 MCHC 32.6 RDW Std Deviation 51.0 H RDW Coeff of Caitlin 14.4 Plt Count 180 MPV 11.0 H Immature Gran % (Auto) 0.3 Neut % (Auto) 86.7 Lymph % (Auto) 9.0 [place] % (Auto) 3.7 Eos % (Auto) 0.0 Baso % (Auto) 0.3 Neut # (Auto) 5.86 Lymph # (Auto) 0.61 L [place] # (Auto) 0.25 Eos # (Auto) 0.00 Baso # (Auto) 0.02 Immature Gran # (Auto) 0.02 Absolute Nucleated RBC 0.06 H Nucleated RBC % (auto) 0.9 PT INR APTT PTT Ratio Sodium 142 Potassium 4.6 Chloride 112 H Carbon Dioxide 21 Anion Gap 9.0 BUN 59 H Creatinine 2.90 H Est Cr Clr Drug Dosing 10.9 Est GFR ( Amer) 16.5 Est GFR (Non-Af Amer) 14.3 BUN/Creatinine Ratio 20.4 H Glucose 213 H POC Glucose Estimat Average Glucose 111 Hemoglobin A1c 5.5 Calcium 8.4 L Magnesium 2.2 Total Bilirubin AST ALT Alkaline Phosphatase Total Creatine Kinase CK-MB (CK-2) CK/CKMB % Calc Troponin I 0.883 H* Total Protein Albumin Globulin Albumin/Globulin Ratio Lipase Random Cortisol Cortisol PM Sample Urine Color Urine Appearance Urine pH Ur Specific [place] Urine Protein Urine Glucose (UA) Urine Ketones Urine Blood Urine Nitrite Urine Bilirubin Urine Urobilinogen Ur Leukocyte Esterase Urine WBC (Auto) Urine RBC (Auto) U Hyaline Cast (Auto) U Epithel Cells (Auto) Urine Bacteria (Auto) Ur Renal Epithelial Cell Calcium Oxalate Crystal Granular Casts Urine Yeast COVID-19 Eval Order SARS-CoV-2, RNA, NAAT 08/06/20 08/06/20 08/06/20 05:21 05:52 06:38 WBC RBC Hgb Hct MCV MCH MCHC RDW Std Deviation RDW Coeff of Caitlin Plt Count MPV Immature Gran % (Auto) Neut % (Auto) Lymph % (Auto) [place] % (Auto) Eos % (Auto) Baso % (Auto) Neut # (Auto) Lymph # (Auto) [place] # (Auto) Eos # (Auto) Baso # (Auto) Immature Gran # (Auto) Absolute Nucleated RBC Nucleated RBC % (auto) PT INR APTT > 139.0 H* > 139.0 H* PTT Ratio > 5.0 > 5.0 Sodium Potassium Chloride Carbon Dioxide Anion Gap BUN Creatinine Est Cr Clr Drug Dosing Est GFR ( Amer) Est GFR (Non-Af Amer) BUN/Creatinine Ratio Glucose POC Glucose 204 H Estimat Average Glucose Hemoglobin A1c Calcium Magnesium Total Bilirubin AST ALT Alkaline Phosphatase Total Creatine Kinase CK-MB (CK-2) CK/CKMB % Calc Troponin I Total Protein Albumin Globulin Albumin/Globulin Ratio Lipase Random Cortisol Cortisol PM Sample Urine Color Urine Appearance Urine pH Ur Specific [place] Urine Protein Urine Glucose (UA) Urine Ketones Urine Blood Urine Nitrite Urine Bilirubin Urine Urobilinogen Ur Leukocyte Esterase Urine WBC (Auto) Urine RBC (Auto) U Hyaline Cast (Auto) U Epithel Cells (Auto) Urine Bacteria (Auto) Ur Renal Epithelial Cell Calcium Oxalate Crystal Granular Casts Urine Yeast COVID-19 Eval Order SARS-CoV-2, RNA, NAAT Medications Administered Current Inpatient Medications Acetaminophen (Acetaminophen 325 Mg Tab) 650 mg PO Q4H PRN PRN Reason: Pain or Fever Stop: 09/04/20 22:22 Acetaminophen (Acetaminophen 500 Mg Tab) 500 mg PO BID [facility] Stop: 09/04/20 22:22 Last Admin: 08/06/20 09:20 Dose: 500 mg Documented by: Ascorbic Acid (Ascorbic Acid 500 Mg Tab) 500 mg PO TID [facility] Stop: 09/04/20 22:22 Last Admin: 08/06/20 09:20 Dose: 500 mg Documented by: Aspirin (Aspirin 81 Mg Ectab) 81 mg PO DAILY [facility] Stop: 09/05/20 08:59 Last Admin: 08/06/20 09:21 Dose: 81 mg Documented by: Heparin Sodium/Dextrose (Heparin Sodium/Dextrose) 25,000 units in 500 mls @ 0 m ls/hr IV .Q0M [facility]; Protocol Stop: 09/04/20 22:22 Last Titration: 08/06/20 07:16 Dose: 0 units/hr, 0 mls/hr Documented by: Dextrose/Sodium Chloride (D5w And Nss) 1,000 mls @ 100 mls/hr IV .Q10H [facility] Stop: 09/04/20 22:22 Last Infusion: 08/06/20 05:59 Dose: 100 mls/hr Documented by: Pantoprazole Sodium 40 mg/ (Syringe) 10 mls @ 5 mls/min IV DAILY@1100 [facility] Stop: 09/05/20 10:59 Methylprednisolone 20 mg/ (Syringe) 0.32 mls @ 1.5 mls/min IV DAILY [facility] Stop: 09/04/20 22:44 Last Admin: 08/06/20 09:20 Dose: 1.5 mls/min Documented by: Insulin Aspart (Insulin Aspart 100 Units/Ml 3 Ml Pen) 0 units SC Q6 [facility] Stop: 09/04/20 22:22 Last Admin: 08/06/20 06:11 Dose: 1 units Documented by: Levothyroxine Sodium (Levothyroxine Sodium 25 Mcg Tablet) 25 mcg PO DAILYBB [facility] Stop: 09/05/20 06:29 Last Admin: 08/06/20 05:53 Dose: 25 mcg Documented by: Metoprolol Tartrate (Metoprolol Tartrate 1 Mg/Ml Vial) 5 mg IV Q6 [facility] Stop: 09/04/20 20:49 Last Admin: 08/06/20 05:08 Dose: 5 mg Documented by: Mirabegron (Mirabegron Er 25 Mg Tab) 25 mg PO DAILY [facility] Stop: 09/05/20 08:59 Last Admin: 08/06/20 09:21 Dose: 25 mg Documented by: Nitroglycerin (Nitroglycerin Sl 0.4 Mg/Tab Tab) 0.4 mg SL UD PRN PRN Reason: Chest Pain Stop: 09/04/20 22:22 Ondansetron HCl (Ondansetron Inj 2 Mg/Ml 2 Ml Vial) 4 mg IV Q6H PRN PRN Reason: Nausea Stop: 09/04/20 22:22 Last Admin: 08/06/20 00:02 Dose: 4 mg Documented by:
[2020-08-06 10:41] LABS: Partial Thromboplastin Ratio 1.3; Partial Thromboplastin Time 36.7 Seconds (21.0-31.0)
[2020-08-06 11:12] LABS: Partial Thromboplastin Ratio 1.3; Partial Thromboplastin Time 35.6 Seconds (21.0-31.0)
[2020-08-06] MEDS: PANTOprazole 40 MG in SYRINGE 0 ML IV SCH (11:35)
--- NOTE | 2020-08-06 16:20 | Hospitalist Progress Note ---
Date of Service August 06, 2020 Assessment & Plan (1) Atrial fibrillation with rapid ventricular response: Admitted with gastroenteritis and noted to have palpitation and EKG did show A. maggie with RVR Was on Coreg and Cardizem at home and has not been taking for the last 2 to 3 days Has been on intravenous heparin and also received intravenous beta-randell and received a dose of iv Cardizem in the ER Heart rate remains elevated at around 120s but getting better Elevated troponin could be secondary to demand ischemia and the serial troponins have been improving Doubt any ACS Appreciate cardiology input and recommendation (2) Gastroenteritis: Has been having nausea, vomiting and abdominal discomfort for the last [address] remains unremarkable Will get cautious amount of intravenous fluid Condition seems to be improving (3) Aortic stenosis: No significant symptoms of stenosis but likely making the heart failure worse (4) Pleural effusion: Small bilateral Has mild congestive heart failure We will observe (5) Acute kidney injury superimposed on CKD: Likely secondary to dehydration from gastroenteritis Cautious amount of intravenous fluid Monitor PRP and electrolytes (6) Polymyalgia rheumatica: No acute arthralgia or arthritis DVT prophylaxis IV heparin CODE STATUS We will Admission and Anticipated Discharge Date Admission Date: August 05, 2020 Subjective 08/06/2020 The patient was seen and examined in telemetry unit She complains to have palpitation with chest tightness and shortness of breath Denies any abdominal pain, nausea and or vomiting Review of Systems Review of Systems: All systems reviewed and are unremarkable except as noted below Respiratory: + dyspnea (Minimal dyspnea at rest) Cardiovascular: + dyspnea (Minimal dyspnea at rest) and + palpitations; no chest pain Gastrointestinal: no abdominal pain, no nausea and no vomiting Physical Exam Physical Exam: Lying in bed comfortably Constitutional: well developed, well nourished and + ill appearing Eyes: PERRL, conjunctivae normal, anicteric sclerae ENMT: external ear and nose normal, oropharynx normal Neck: trachea midline, no thyromegaly Respiratory: no respiratory distress Auscultation: + diminished lung sounds and + crackles (Minimal bibasilar crackles) Cardiovascular: Rate/Rhythm: + irregularly irregular Heart Sounds: + murmur (2/6 ejection systolic murmur over precordium) Extremities: no edema Gastrointestinal (Abdomen): Inspection/Auscultation: normal bowel sounds; abdomen not distended Percussion/Palpation: abdomen soft; abdomen nontender Musculoskeletal: No acute arthritis involving any joint Neurologic: Alert, awake and oriented x3 Psychiatric: A+Ox3, euthymic affect Results & Data Results & Data ([facility]) Vital Signs (Past 12 Hours) Vital Signs Temp Pulse Pulse Resp BP BP Pulse Ox 08/06/20 15:09 36.4 C L 120 H 20 130/87 94 08/06/20 11:35 123 H 136/92 08/06/20 11:00 36.5 C 111 H 14 137/91 93 08/06/20 07:40 116 H 08/06/20 07:00 36.4 C L 98 H 14 160/100 H 95 08/06/20 05:08 126 H Laboratory Results Short CBC 08/05/20 08/06/20 Range/Units 18:10 05:21 WBC 8.56 6.76 (4.8-10.8) K/uL Hgb 13.0 12.0 (12.0-16.0) g/dL Hct 39.5 36.8 L (37-47) % Plt Count 211 180 (130-400) K/uL [facility] 08/05/20 08/06/20 18:10 05:21 Sodium 142 142 Potassium 4.6 4.6 Chloride 110 H 112 H Carbon Dioxide 20 L 21 BUN 57 H 59 H Creatinine 3.02 H 2.90 H Glucose 118 H 213 H Calcium 9.4 8.4 L Cardiac Enzymes 08/05/20 08/05/20 08/06/20 Range/Units 18:10 22:28 05:21 Total Creatine Kinase 65 (26-192) U/L CK-MB (CK-2) 2.4 (0.5-3.6) ng/ml Troponin I 1.200 H* 1.200 H* 0.883 H* (0-0.045) ng/ml 08/06/20 Range/Units 10:48 Total Creatine Kinase (26-192) U/L CK-MB (CK-2) (0.5-3.6) ng/ml Troponin I 0.750 H* (0-0.045) ng/ml Liver Function 08/05/20 Range/Units 18:10 Total Bilirubin 0.9 (0.2-1) mg/dl AST 104 H (15-37) U/L ALT 65 (12-78) U/L Alkaline Phosphatase 194 H (45-117) U/L Albumin 3.2 L (3.4-5.0) gm/dl Urine 08/06/20 Range/Units 03:15 Urine Color Dark Yellow Urine Appearance Clear (Clear) Urine pH 5.0 (4.5-7.5) Ur Specific [place] 1.027 (1.000-1.030) Urine Protein 2+ H (Negative) Urine Glucose (UA) Negative (Negative) Medications Administered Current Inpatient Medications Acetaminophen (Acetaminophen 325 Mg Tab) 650 mg PO Q4H PRN PRN Reason: Pain or Fever Stop: 09/04/20 22:22 Acetaminophen (Acetaminophen 500 Mg Tab) 500 mg PO BID [facility] Stop: 09/04/20 22:22 Last Admin: 08/06/20 09:20 Dose: 500 mg Documented by: Ascorbic Acid (Ascorbic Acid 500 Mg Tab) 500 mg PO TID [facility] Stop: 09/04/20 22:22 Last Admin: 08/06/20 14:38 Dose: 500 mg Documented by: Aspirin (Aspirin 81 Mg Ectab) 81 mg PO DAILY [facility] Stop: 09/05/20 08:59 Last Admin: 08/06/20 09:21 Dose: 81 mg Documented by: Heparin Sodium/Dextrose (Heparin Sodium/Dextrose) 25,000 units in 500 mls @ 12 mls/hr IV .Q24H [facility]; Protocol Stop: 09/04/20 22:22 Last Titration: 08/06/20 11:49 Dose: 600 units/hr, 12 mls/hr Documented by: Dextrose/Sodium Chloride (D5w And Nss) 1,000 mls @ 60 mls/hr IV .[id number] [facility] Stop: 09/04/20 22:22 Last Admin: 08/06/20 14:38 Dose: 100 mls/hr Documented by: Pantoprazole Sodium 40 mg/ (Syringe) 10 mls @ 5 mls/min IV DAILY@1100 [facility] Stop: 09/05/20 10:59 Last Admin: 08/06/20 11:35 Dose: 5 mls/min Documented by: Methylprednisolone 20 mg/ (Syringe) 0.32 mls @ 1.5 mls/min IV DAILY [facility] Stop: 09/04/20 22:44 Last Admin: 08/06/20 09:20 Dose: 1.5 mls/min Documented by: Insulin Aspart (Insulin Aspart 100 Units/Ml 3 Ml Pen) 0 units SC Q6 [facility] Stop: 09/04/20 22:22 Last Admin: 08/06/20 12:44 Dose: 1 units Documented by: Levothyroxine Sodium (Levothyroxine Sodium 25 Mcg Tablet) 25 mcg PO DAILYBB [facility] Stop: 09/05/20 06:29 Last Admin: 08/06/20 05:53 Dose: 25 mcg Documented by: Metoprolol Tartrate (Metoprolol Tartrate 1 Mg/Ml Vial) 5 mg IV Q6 [facility] Stop: 09/04/20 20:49 Last Admin: 08/06/20 11:35 Dose: 5 mg Documented by: Mirabegron (Mirabegron Er 25 Mg Tab) 25 mg PO DAILY [facility] Stop: 09/05/20 08:59 Last Admin: 08/06/20 09:21 Dose: 25 mg Documented by: Nitroglycerin (Nitroglycerin Sl 0.4 Mg/Tab Tab) 0.4 mg SL UD PRN PRN Reason: Chest Pain Stop: 09/04/20 22:22 Ondansetron HCl (Ondansetron Inj 2 Mg/Ml 2 Ml Vial) 4 mg IV Q6H PRN PRN Reason: Nausea Stop: 09/04/20 22:22 Last Admin: 08/06/20 00:02 Dose: 4 mg Documented by:
[2020-08-06 19:14] LABS: Partial Thromboplastin Ratio 2.7
[2020-08-06 19:15] LABS: Partial Thromboplastin Time 75.9 Seconds (21.0-31.0)
--- NOTE | 2020-08-06 19:30 | Electrocardiogram Report ---
Test Reason : Blood Pressure : / mmHG Vent. Rate : 163 BPM Atrial Rate : 131 BPM P-R Int : 000 ms QRS Dur : 072 ms QT Int : 268 ms P-R-T Axes : 000 065 014 degrees QTc Int : 441 ms Poor data quality, interpretation may be adversely affected Atrial fibrillation with rapid ventricular response Nonspecific T wave abnormality Abnormal ECG When compared with ECG of 05-JAN-2019 22:14, Atrial fibrillation has replaced Sinus rhythm Vent. rate has increased BY 63 BPM Nonspecific T wave abnormality, worse in Inferior leads Nonspecific T wave abnormality now evident in Anterior leads Confirmed by Sawyer Ackerman ([id number]) on 08/06/2020 7:30:19 PM Referred By: REFERRED SELF Confirmed By:Sawyer Ackerman
[2020-08-06] MEDS ORDERED: ALUMINUM/MAGNESIUM/SIMETH (MAALOX MAX) 30 ML UDC PO STA (20:49)
[2020-08-07] MEDS: HEPARIN SODIUM/DEXTROSE 25,000 UNITS/500 ML BAG IV SCH (00:07)
[2020-08-07] MEDS: D5W AND NSS 1,000 ML IV SCH (00:09)
[2020-08-07] MEDS: METOPROLOL TARTRATE 1 MG/ML VIAL IV SCH ×4 (00:09→18:21)
[2020-08-07] MEDS: cefTRIAXone SODIUM 1,000 MG in DEXTROSE 5% 50 ML IV SCH ×2 (00:09→23:56)
[2020-08-07] MEDS: INSULIN ASPART 100 UNITS/ML 3 ML PEN SC SCH ×4 (00:17→17:08)
[2020-08-07 01:30] LABS: Basophils # (auto) 0.01 K/uL (0-0.2); Basophils % (auto) 0.1 %; Hematocrit (blood only) 38.2 % (37-47); Hemoglobin 12.1 g/dL (12.0-16.0); Immature Granulocytes # (auto) 0.03 K/uL (0.00-0.02); Immature Granulocytes % (auto) 0.2 %; Lymphocytes # (auto) 1.08 K/uL (1.2-3.4); Lymphocytes % (auto) 8.6 %; Mean Corpuscular Hgb Conc 31.7 g/dL (32-36); Mean Corpuscular Volume 101.1 fL (80-100); Mean Platelet Volume 11.1 fL (7.4-10.4); Monocytes % (auto) 6.4 %; Neutrophils # (auto) 10.63 K/uL (1.4-6.5); Neutrophils % (auto) 84.7 %; Nucleated RBC # (auto) 0.09 K/uL (0-0); Nucleated RBC % (auto) 0.7 %; Platelet Count 181 K/uL (130-400); RDW Coefficient of Variation 14.4 % (11.5-14.5); RDW Standard Deviation 51.9 fL (36.4-46.3); Red Blood Count 3.78 M/uL (4.2-5.4); White Blood Count 12.55 K/uL (4.8-10.8)
[2020-08-07 01:46] LABS: BUN Creatinine Ratio 19.6 (10-20); Calcium 7.9 mg/dl (8.5-10.1); Creatinine Clr Calc Pharmacy 10.2 ml/min; Est GFR (African American) 15.3; Est GFR (Non-African American) 13.2; Phosphorus 4.1 mg/dl (2.5-4.9)
[2020-08-07 01:54] LABS: Partial Thromboplastin Ratio > 5.0
[2020-08-07 02:01] LABS: Partial Thromboplastin Time > 139.0 Seconds (21.0-31.0)
[2020-08-07 03:01] LABS: Partial Thromboplastin Ratio 3.8
[2020-08-07 04:34] LABS: Partial Thromboplastin Ratio 1.9
[2020-08-07 04:41] LABS: Partial Thromboplastin Time 52.4 Seconds (21.0-31.0)
--- NOTE | 2020-08-07 05:19 | Electrocardiogram Report ---
Test Reason : Blood Pressure : / mmHG Vent. Rate : 116 BPM Atrial Rate : 000 BPM P-R Int : 000 ms QRS Dur : 076 ms QT Int : 364 ms P-R-T Axes : 000 058 265 degrees QTc Int : 505 ms Atrial fibrillation with rapid ventricular response Nonspecific T wave abnormality Abnormal ECG When compared with ECG of 05-AUG-2020 18:00, No significant change was found Confirmed by Sawyer Ackerman ([id number]) on 08/07/2020 5:18:47 AM Referred By: REFERRED SELF Confirmed By:Sawyer Ackerman
[2020-08-07] MEDS: LEVOTHYROXINE SODIUM 25 MCG TABLET PO SCH (06:21)
[2020-08-07] MEDS: ACETAMINOPHEN 500 MG TAB PO SCH ×2 (08:34→20:37)
[2020-08-07] MEDS: ASCORBIC ACID 500 MG TAB PO SCH ×3 (08:34→20:37)
[2020-08-07] MEDS: ASPIRIN 81 MG ECTAB PO SCH (08:34)
[2020-08-07] MEDS: methylPREDNISolone 20 MG in SYRINGE 0 ML IV SCH (08:34)
[2020-08-07] MEDS: MIRABEGRON ER 25 MG TAB PO SCH (08:34)
--- NOTE | 2020-08-07 11:09 | Cardiology Progress Note ---
Date of Service August 07, 2020 Assessment & Plan (1) Atrial fibrillation with rapid ventricular response: (2) Gastroenteritis: (3) Aortic stenosis: (4) Pleural effusion: From a cardiac standpoint the patient is stable however she remains in atrial fibrillation with high heart rates. If she is able to take oral medications I would restart her on her diltiazem orally today. Her carvedilol could also be restarted and the IV metoprolol stopped. Admission and Anticipated Discharge Date Admission Date: August 05, 2020 Subjective Patient has no new cardiac complaints today. Review of Systems Review of Systems: All systems reviewed & are unremarkable except as noted in HPI & below Nothing additional to add. Physical Exam Physical Exam: General: no acute distress and stated age Head: normocephalic, no masses, lesions, tenderness or abnormalities Eyes: conjunctiva are pink and non-injected, sclera clear Neck: supple, no adenopathy, no bruits, normal jugular venous pulse, no hepatojugular reflux Chest: normal shape and normal respiratory effort Lungs: clear to auscultation and percussion Cardiac Exam: - irregular rate & rhythm, no murmurs gallops or rubs - normal S1, normal S2 Pulses: 2(+) throughout Abdomen: abdomen soft, non-tender, no abnormal masses and no hepatosplenomegaly Musculoskeletal: no gait disturbance, no joint inflammation, no deforming arthritis Extremities: no edema and no cyanosis Neuro: grossly normal exam Results & Data ([facility]) Vital Signs (Past 12 Hours) Vital Signs Temp Pulse Pulse Resp BP Pulse Ox 08/07/20 07:44 36.6 C 108 H 17 116/80 96 08/07/20 07:15 108 H 08/07/20 06:18 115 H 08/07/20 04:17 36.4 C L 118 H 18 134/95 96 08/07/20 00:09 123 H Laboratory Results Laboratory Results - last 24 hr 08/06/20 08/06/20 08/06/20 10:48 10:48 12:10 WBC RBC Hgb Hct MCV MCH MCHC RDW Std Deviation RDW Coeff of Caitlin Plt Count MPV Immature Gran % (Auto) Neut % (Auto) Lymph % (Auto) Rabun % (Auto) Eos % (Auto) Baso % (Auto) Neut # (Auto) Lymph # (Auto) Rabun # (Auto) Eos # (Auto) Baso # (Auto) Immature Gran # (Auto) Absolute Nucleated RBC Nucleated RBC % (auto) APTT 35.6 H PTT Ratio 1.3 Sodium Potassium Chloride Carbon Dioxide Anion Gap BUN Creatinine Est Cr Clr Drug Dosing Est GFR ( Amer) Est GFR (Non-Af Amer) BUN/Creatinine Ratio Glucose POC Glucose 209 H Calcium Phosphorus Magnesium Troponin I 0.750 H* 08/06/20 08/06/20 08/07/20 17:58 18:12 00:16 WBC RBC Hgb Hct MCV MCH MCHC RDW Std Deviation RDW Coeff of Caitlin Plt Count MPV Immature Gran % (Auto) Neut % (Auto) Lymph % (Auto) Rabun % (Auto) Eos % (Auto) Baso % (Auto) Neut # (Auto) Lymph # (Auto) Rabun # (Auto) Eos # (Auto) Baso # (Auto) Immature Gran # (Auto) Absolute Nucleated RBC Nucleated RBC % (auto) APTT 75.9 H* PTT Ratio 2.7 Sodium Potassium Chloride Carbon Dioxide Anion Gap BUN Creatinine Est Cr Clr Drug Dosing Est GFR ( Amer) Est GFR (Non-Af Amer) BUN/Creatinine Ratio Glucose POC Glucose 214 H 189 H Calcium Phosphorus Magnesium Troponin I 08/07/20 08/07/20 08/07/20 01:21 01:21 01:21 WBC 12.55 H RBC 3.78 L Hgb 12.1 Hct 38.2 MCV 101.1 H MCH 32.0 MCHC 31.7 L RDW Std Deviation 51.9 H RDW Coeff of Caitlin 14.4 Plt Count 181 MPV 11.1 H Immature Gran % (Auto) 0.2 Neut % (Auto) 84.7 Lymph % (Auto) 8.6 Rabun % (Auto) 6.4 Eos % (Auto) 0.0 Baso % (Auto) 0.1 Neut # (Auto) 10.63 H Lymph # (Auto) 1.08 L Rabun # (Auto) 0.80 H Eos # (Auto) 0.00 Baso # (Auto) 0.01 Immature Gran # (Auto) 0.03 H Absolute Nucleated RBC 0.09 H Nucleated RBC % (auto) 0.7 APTT > 139.0 H* PTT Ratio > 5.0 Sodium 143 Potassium 4.0 Chloride 116 H Carbon Dioxide 18 L Anion Gap 9.0 BUN 61 H Creatinine 3.10 H Est Cr Clr Drug Dosing 10.2 Est GFR ( Amer) 15.3 Est GFR (Non-Af Amer) 13.2 BUN/Creatinine Ratio 19.6 Glucose 169 H POC Glucose Calcium 7.9 L Phosphorus 4.1 Magnesium 2.0 Troponin I 08/07/20 08/07/20 08/07/20 02:24 04:02 05:50 WBC RBC Hgb Hct MCV MCH MCHC RDW Std Deviation RDW Coeff of Caitlin Plt Count MPV Immature Gran % (Auto) Neut % (Auto) Lymph % (Auto) Rabun % (Auto) Eos % (Auto) Baso % (Auto) Neut # (Auto) Lymph # (Auto) Rabun # (Auto) Eos # (Auto) Baso # (Auto) Immature Gran # (Auto) Absolute Nucleated RBC Nucleated RBC % (auto) APTT 105.0 H* 52.4 H* PTT Ratio 3.8 1.9 Sodium Potassium Chloride Carbon Dioxide Anion Gap BUN Creatinine Est Cr Clr Drug Dosing Est GFR ( Amer) Est GFR (Non-Af Amer) BUN/Creatinine Ratio Glucose POC Glucose 169 H Calcium Phosphorus Magnesium Troponin I Medications Administered Current Inpatient Medications Acetaminophen (Acetaminophen 325 Mg Tab) 650 mg PO Q4H PRN PRN Reason: Pain or Fever Stop: 09/04/20 22:22 Acetaminophen (Acetaminophen 500 Mg Tab) 500 mg PO BID [facility] Stop: 09/04/20 22:22 Last Admin: 08/07/20 08:34 Dose: 500 mg Documented by: Ascorbic Acid (Ascorbic Acid 500 Mg Tab) 500 mg PO TID [facility] Stop: 09/04/20 22:22 Last Admin: 08/07/20 08:34 Dose: 500 mg Documented by: Aspirin (Aspirin 81 Mg Ectab) 81 mg PO DAILY [facility] Stop: 09/05/20 08:59 Last Admin: 08/07/20 08:34 Dose: 81 mg Documented by: Carvedilol (Carvedilol 6.25 Mg Tab) 6.25 mg PO BIDM [facility] Stop: 09/06/20 16:59 Diltiazem HCl (Diltiazem Hcl 240 Mg Capcr) 240 mg PO DAILY [facility] Stop: 09/06/20 10:29 Heparin Sodium/Dextrose (Heparin Sodium/Dextrose) 25,000 units in 500 mls @ 6 mls/hr IV .Q24H [facility]; Protocol Stop: 09/04/20 22:22 Last Titration: 08/07/20 06:56 Dose: 300 units/hr, 6 mls/hr Documented by: Dextrose/Sodium Chloride (D5w And Nss) 1,000 mls @ 125 mls/hr IV .Q8H [facility] Stop: 08/07/20 13:03 Last Admin: 08/07/20 00:09 Dose: 60 mls/hr Documented by: Pantoprazole Sodium 40 mg/ (Syringe) 10 mls @ 5 mls/min IV DAILY@1100 [facility] Stop: 09/05/20 10:59 Last Admin: 08/06/20 11:35 Dose: 5 mls/min Documented by: Methylprednisolone 20 mg/ (Syringe) 0.32 mls @ 1.5 mls/min IV DAILY [facility] Stop: 09/04/20 22:44 Last Admin: 08/07/20 08:34 Dose: 1.5 mls/min Documented by: Ceftriaxone Sodium 1,000 mg/ (Dextrose) 50 mls @ 100 mls/hr IV Q24H [facility]; Protocol Stop: 08/17/20 00:00 Last Infusion: 08/07/20 01:08 Dose: Infused Documented by: Insulin Aspart (Insulin Aspart 100 Units/Ml 3 Ml Pen) 0 units SC Q6 [facility] Stop: 09/04/20 22:22 Last Admin: 08/07/20 06:13 Dose: Not Given Documented by: Levothyroxine Sodium (Levothyroxine Sodium 25 Mcg Tablet) 25 mcg PO DAILYBB [facility] Stop: 09/05/20 06:29 Last Admin: 08/07/20 06:21 Dose: Not Given Documented by: Metoprolol Tartrate (Metoprolol Tartrate 1 Mg/Ml Vial) 5 mg IV Q6 [facility] Stop: 09/04/20 20:49 Last Admin: 08/07/20 06:18 Dose: 5 mg Documented by: Mirabegron (Mirabegron Er 25 Mg Tab) 25 mg PO DAILY [facility] Stop: 09/05/20 08:59 Last Admin: 08/07/20 08:34 Dose: 25 mg Documented by: Nitroglycerin (Nitroglycerin Sl 0.4 Mg/Tab Tab) 0.4 mg SL UD PRN PRN Reason: Chest Pain Stop: 09/04/20 22:22 Ondansetron HCl (Ondansetron Inj 2 Mg/Ml 2 Ml Vial) 4 mg IV Q6H PRN PRN Reason: Nausea Stop: 09/04/20 22:22 Last Admin: 08/06/20 00:02 Dose: 4 mg Documented by:
[2020-08-07 11:29] LABS: Partial Thromboplastin Ratio 1.6; Partial Thromboplastin Time 43.5 Seconds (21.0-31.0)
[2020-08-07] MEDS: dilTIAZem HCL 240 MG CAPCR PO SCH (11:44)
[2020-08-07] MEDS: PANTOprazole 40 MG in SYRINGE 0 ML IV SCH (11:47)
--- NOTE | 2020-08-07 13:25 | Hospitalist Progress Note ---
Date of Service August 07, 2020 Assessment & Plan (1) Atrial fibrillation with rapid ventricular response: Admitted with gastroenteritis and noted to have palpitation and EKG did show A. maggie with RVR Was on Coreg and Cardizem at home and has not been taking for the last 2 to 3 days Has been on intravenous heparin and also received intravenous beta-randell and received a dose of iv Cardizem in the ER Heart rate remains elevated at around 120s but getting better Elevated troponin could be secondary to demand ischemia (equivalent to Type II NSTEMI) and the serial troponins have been improving Doubt any ACS Appreciate cardiology input and recommendation She is back on her home medications of Cardizem and Coreg We will continue beta-randell for now (2) Gastroenteritis: Has been having nausea, vomiting and abdominal discomfort for the last [address] remains unremarkable Will get cautious amount of intravenous fluid Condition seems to be improving We will give additional intravenous fluid for dehydration (3) Aortic stenosis: No significant symptoms of stenosis but likely making the heart failure worse (4) Pleural effusion: Small bilateral Has mild congestive heart failure We will observe (5) Acute kidney injury superimposed on CKD: Likely secondary to dehydration from gastroenteritis Cautious amount of intravenous fluid Monitor PRP and electrolytes Has not been passing much urine and clinically looks dry with increasing creatinine of more than 3 We will increase intravenous fluid to 125 mL/h for 3 L We will check PRP tomorrow (6) Polymyalgia rheumatica: No acute arthralgia or arthritis DVT prophylaxis IV heparin CODE STATUS We will Admission and Anticipated Discharge Date Admission Date: August 05, 2020 Subjective 08/06/2020 The patient was seen and examined in telemetry unit She complains to have palpitation with chest tightness and shortness of breath Denies any abdominal pain, nausea and or vomiting 08/07/2020 The patient was seen and examined in telemetry unit She complains of extreme tiredness and occasional palpitation Denies any abdominal distention, pain, nausea and or vomiting Denies any chest pain and/or shortness of breath at rest Review of Systems Review of Systems: All systems reviewed and are unremarkable except as noted below Respiratory: + dyspnea (Minimal dyspnea at rest) Cardiovascular: + palpitations; no chest pain and no dyspnea (Minimal dyspnea at rest) Physical Exam Physical Exam: Lying in bed comfortably Constitutional: well developed, well nourished and + ill appearing Eyes: PERRL, conjunctivae normal, anicteric sclerae ENMT: external ear and nose normal, oropharynx normal Neck: trachea midline, no thyromegaly Respiratory: no respiratory distress Auscultation: + diminished lung sounds and + crackles (Minimal bibasilar crackles) Cardiovascular: Rate/Rhythm: + irregularly irregular Heart Sounds: + murmur (2/6 ejection systolic murmur over precordium) Extremities: no edema Gastrointestinal (Abdomen): Inspection/Auscultation: normal bowel sounds; abdomen not distended Percussion/Palpation: abdomen soft; abdomen nontender Musculoskeletal: No acute arthritis in any joint Neurologic: Alert, awake and oriented x3. Generally weak and lethargic Psychiatric: A+Ox3, euthymic affect Results & Data Results & Data ([facility]) Vital Signs (Past 12 Hours) Vital Signs Temp Pulse Pulse Resp BP BP Pulse Ox 08/07/20 12:49 136 H 130/91 08/07/20 12:00 36.5 C 120 H 20 130/91 96 08/07/20 07:44 36.6 C 108 H 17 116/80 96 08/07/20 07:15 108 H 08/07/20 06:18 115 H 08/07/20 04:17 36.4 C L 118 H 18 134/95 96 Laboratory Results Short CBC 08/07/20 Range/Units 01:21 WBC 12.55 H (4.8-10.8) K/uL Hgb 12.1 (12.0-16.0) g/dL Hct 38.2 (37-47) % Plt Count 181 (130-400) K/uL [facility] 08/07/20 01:21 Sodium 143 Potassium 4.0 Chloride 116 H Carbon Dioxide 18 L BUN 61 H Creatinine 3.10 H Glucose 169 H Calcium 7.9 L Medications Administered Current Inpatient Medications Acetaminophen (Acetaminophen 325 Mg Tab) 650 mg PO Q4H PRN PRN Reason: Pain or Fever Stop: 09/04/20 22:22 Acetaminophen (Acetaminophen 500 Mg Tab) 500 mg PO BID [facility] Stop: 09/04/20 22:22 Last Admin: 08/07/20 08:34 Dose: 500 mg Documented by: Ascorbic Acid (Ascorbic Acid 500 Mg Tab) 500 mg PO TID [facility] Stop: 09/04/20 22:22 Last Admin: 08/07/20 08:34 Dose: 500 mg Documented by: Aspirin (Aspirin 81 Mg Ectab) 81 mg PO DAILY [facility] Stop: 09/05/20 08:59 Last Admin: 08/07/20 08:34 Dose: 81 mg Documented by: Carvedilol (Carvedilol 6.25 Mg Tab) 6.25 mg PO BIDM [facility] Stop: 09/06/20 16:59 Diltiazem HCl (Diltiazem Hcl 240 Mg Capcr) 240 mg PO DAILY [facility] Stop: 09/06/20 10:29 Last Admin: 08/07/20 11:44 Dose: 240 mg Documented by: Heparin Sodium/Dextrose (Heparin Sodium/Dextrose) 25,000 units in 500 mls @ 7 mls/hr IV .Q24H [facility]; Protocol Stop: 09/04/20 22:22 Last Titration: 08/07/20 12:07 Dose: 350 units/hr, 7 mls/hr Documented by: Pantoprazole Sodium 40 mg/ (Syringe) 10 mls @ 5 mls/min IV DAILY@1100 [facility] Stop: 09/05/20 10:59 Last Admin: 08/07/20 11:47 Dose: 5 mls/min Documented by: Methylprednisolone 20 mg/ (Syringe) 0.32 mls @ 1.5 mls/min IV DAILY [facility] Stop: 09/04/20 22:44 Last Admin: 08/07/20 08:34 Dose: 1.5 mls/min Documented by: Ceftriaxone Sodium 1,000 mg/ (Dextrose) 50 mls @ 100 mls/hr IV Q24H [facility]; Protocol Stop: 08/17/20 00:00 Last Infusion: 08/07/20 01:08 Dose: Infused Documented by: Insulin Aspart (Insulin Aspart 100 Units/Ml 3 Ml Pen) 0 units SC Q6 [facility] Stop: 09/04/20 22:22 Last Admin: 08/07/20 12:28 Dose: Not Given Documented by: Levothyroxine Sodium (Levothyroxine Sodium 25 Mcg Tablet) 25 mcg PO DAILYBB [facility] Stop: 09/05/20 06:29 Last Admin: 08/07/20 06:21 Dose: Not Given Documented by: Metoprolol Tartrate (Metoprolol Tartrate 1 Mg/Ml Vial) 5 mg IV Q6 [facility] Stop: 09/04/20 20:49 Last Admin: 08/07/20 12:49 Dose: 5 mg Documented by: Mirabegron (Mirabegron Er 25 Mg Tab) 25 mg PO DAILY [facility] Stop: 09/05/20 08:59 Last Admin: 08/07/20 08:34 Dose: 25 mg Documented by: Nitroglycerin (Nitroglycerin Sl 0.4 Mg/Tab Tab) 0.4 mg SL UD PRN PRN Reason: Chest Pain Stop: 09/04/20 22:22 Ondansetron HCl (Ondansetron Inj 2 Mg/Ml 2 Ml Vial) 4 mg IV Q6H PRN PRN Reason: Nausea Stop: 09/04/20 22:22 Last Admin: 08/06/20 00:02 Dose: 4 mg Documented by:
[2020-08-07] MEDS ORDERED: SODIUM CHLORIDE 0.9% 1000ML 250 ML IV ONE (16:11)
[2020-08-07] MEDS: carvediloL 6.25 MG TAB PO SCH (18:21)
[2020-08-07 18:43] LABS: Partial Thromboplastin Ratio 1.4; Partial Thromboplastin Time 38.7 Seconds (21.0-31.0)
[2020-08-07] MEDS ORDERED: ALUMINUM/MAGNESIUM/SIMETH (MAALOX MAX) 30 ML UDC PO STA (19:09)
[2020-08-08] MEDS ORDERED: CALCIUM CARBONATE 500 MG CHEWABLE TAB PO STA ×2 (00:03→19:57)
[2020-08-08] MEDS: HEPARIN SODIUM/DEXTROSE 25,000 UNITS/500 ML BAG IV SCH ×2 (00:03→02:53)
[2020-08-08] MEDS: INSULIN ASPART 100 UNITS/ML 3 ML PEN SC SCH ×4 (00:03→18:33)
[2020-08-08] MEDS: METOPROLOL TARTRATE 1 MG/ML VIAL IV SCH ×5 (00:13→23:59)
[2020-08-08] MEDS ORDERED: HYDROmorphone INJ 0.5 MG/0.5 ML SYR IV STA (01:28)
[2020-08-08] MEDS ORDERED: PIPERACILL/TAZOBAC CONSULT ACTIVE PRN (01:32)
[2020-08-08] MEDS ORDERED: HYDROmorphone INJ 0.5 MG/0.5 ML SYR ONE (01:43)
[2020-08-08] MEDS ORDERED: PIPERACILLIN/TAZOBACTAM 3.375 GM in DEXTROSE 5% 100 ML IV ONE (02:00)
[2020-08-08 02:06] LABS: Basophils # (auto) 0.01 K/uL (0-0.2); Basophils % (auto) 0.1 %; Hemoglobin 11.9 g/dL (12.0-16.0); Immature Granulocytes # (auto) 0.06 K/uL (0.00-0.02); Immature Granulocytes % (auto) 0.4 %; Lymphocytes # (auto) 0.82 K/uL (1.2-3.4); Lymphocytes % (auto) 5.5 %; Mean Corpuscular Hemoglobin 32.6 pg (25-34); Mean Corpuscular Hgb Conc 32.2 g/dL (32-36); Mean Corpuscular Volume 101.4 fL (80-100); Monocytes % (auto) 4.7 %; Neutrophils # (auto) 13.44 K/uL (1.4-6.5); Neutrophils % (auto) 89.3 %; Nucleated RBC # (auto) 0.08 K/uL (0-0); Nucleated RBC % (auto) 0.5 %; Platelet Count 177 K/uL (130-400); RDW Coefficient of Variation 14.4 % (11.5-14.5); RDW Standard Deviation 52.6 fL (36.4-46.3); Red Blood Count 3.65 M/uL (4.2-5.4); White Blood Count 15.03 K/uL (4.8-10.8)
[2020-08-08 02:22] LABS: Albumin Level 2.8 gm/dl (3.4-5.0); BUN Creatinine Ratio 19.8 (10-20); Calcium 8.1 mg/dl (8.5-10.1); Creatinine Clr Calc Pharmacy 10.8 ml/min; Est GFR (African American) 16.4; Est GFR (Non-African American) 14.2; Magnesium 2.2 mg/dl (1.8-2.4)
[2020-08-08 02:25] LABS: Albumin Globulin Ratio 0.8 (0.9-2); Bilirubin,Total 0.4 mg/dl (0.2-1); Globulin 3.3 gm/dl (2.5-4.0); Total Protein 6.1 gm/dl (6.4-8.2)
[2020-08-08 02:28] LABS: Partial Thromboplastin Ratio 1.9
[2020-08-08 02:30] LABS: Partial Thromboplastin Time 54.2 Seconds (21.0-31.0)
[2020-08-08] MEDS ORDERED: FUROSEMIDE 20 MG in SYRINGE 0 ML IV ONE (03:00)
[2020-08-08] MEDS: SODIUM CHLORIDE 0.9% 1000ML 1,000 ML IV SCH ×2 (03:03→15:23)
[2020-08-08 05:00] LABS: Partial Thromboplastin Ratio 2.4
[2020-08-08 05:03] LABS: Partial Thromboplastin Time 66.9 Seconds (21.0-31.0)
--- NOTE | 2020-08-08 05:45 | Electrocardiogram Report ---
Test Reason : Blood Pressure : / mmHG Vent. Rate : 115 BPM Atrial Rate : 000 BPM P-R Int : 000 ms QRS Dur : 076 ms QT Int : 330 ms P-R-T Axes : 000 085 100 degrees QTc Int : 456 ms Atrial fibrillation with rapid ventricular response with premature ventricular or aberrantly conducte d complexes Nonspecific T wave abnormality Abnormal ECG When compared with ECG of 06-AUG-2020 06:27, No significant change was found Confirmed by Sawyer Ackerman ([id number]) on 08/08/2020 5:44:55 AM Referred By: REFERRED SELF Confirmed By:Sawyer Ackerman
[2020-08-08] MEDS: LEVOTHYROXINE SODIUM 25 MCG TABLET PO SCH (05:47)
--- NOTE | 2020-08-08 06:29 | Hospitalist Progress Note ---
Date of Service August 08, 2020 Assessment & Plan Admission and Anticipated Discharge Date Admission Date: August 05, 2020 Subjective Patient complaining of severe abdominal pain. On exam: Abdomen soft. Mild tender to palpation, No rigidity guarding or distension.CT abd/plevis preliminary report showed moderate b/l pleural effusion but no obvious findings in abdomen. Labs showed wbc 15k. lactic acid 2.1. Very low urine output as per nursing staff. Straight cath resulted only 60ml. Given a dose of dilaudid.Started on gentle fluids but also given a dose of lasix because of pleural effusions and EF 35%. Changed abx to zosyn. Follow repeat lactic acid. Consulted nephrology for Macey and low urine output in setting of chf. Results & Data Results & Data ([facility]) Vital Signs (Past 12 Hours) Vital Signs Temp Pulse Pulse Resp BP Pulse Ox 08/08/20 05:48 80 08/08/20 03:11 37.0 C 102 H 20 126/86 94 08/08/20 00:13 93 H 08/07/20 23:40 36.3 C L 96 H 18 121/82 96 08/07/20 19:45 36.6 C 68 18 115/80 95
--- NOTE | 2020-08-08 07:14 | CT Scan Report ---
CT SCAN OF THE ABDOMEN AND PELVIS WITHOUT CONTRAST CLINICAL HISTORY: severe abdominal pain COMPARISON STUDY: 08/05/2020 TECHNIQUE: CT scan of the abdomen and pelvis was performed from the lung bases to the proximal femurs . Images are reviewed in the axial, sagittal, and coronal planes. IV contrast was not administered fo r this examination. A dose lowering technique was utilized adhering to the principles of ALARA. CT DOSE: 317.72 mGy.cm FINDINGS: Lower chest: There are coronary artery calcifications. There are bilateral pleural effusions with ass ociated basilar parenchymal opacities likely representing compressive atelectasis. There are parenchy mal cystic changes at the left lung base. There is a hiatal hernia. Liver: There is a stable hypodensity adjacent to the falciform ligament, likely representing focal fa t. Gallbladder: Unremarkable. Spleen: Normal in size and attenuation. Pancreas: Unremarkable. Adrenal glands: Unremarkable. Kidneys: There are bilateral renal calcifications many of which appear vascular. There is no hydronep hrosis. No ureteral or bladder calculi are visualized Bowel: There are no transition zones to indicate bowel obstruction. There is extensive perales colonic di verticulosis. There is no convincing evidence of acute diverticulitis. Peritoneum: There is no free air. There is no ascites. There is minimal edema within the abdominal an d pelvic fat most pronounced in the presacral region. There is a small fat-containing right inguinal hernia Vasculature: The abdominal aorta is normal in course and caliber. Adenopathy: None. Pelvic viscera: The bladder, and pelvic viscera are unremarkable. Skeletal structures: No destructive osseous lesions are seen. There is a left hip prosthesis. IMPRESSION: 1. Moderate hiatal hernia with a stable organoaxial gastric volvulus 2. Persistent bilateral pleural effusions with basilar parenchymal opacities likely atelectatic 3. No evidence of bowel obstruction. No evidence of free air 4. Extensive perales diverticulosis. No convincing evidence of acute diverticulitis. ACT 112: Negative or not required by law. Electronically signed by: Alek Daly M.D. 08/08/2020 7:13 AM
[2020-08-08] MEDS ORDERED: PIPERACILLIN/TAZOBACTAM 3.375 GM in DEXTROSE 5% 100 ML IV SCH (08:00)
[2020-08-08] MEDS: MIRABEGRON ER 25 MG TAB PO SCH (08:02)
[2020-08-08] MEDS: ASCORBIC ACID 500 MG TAB PO SCH ×3 (08:02→20:42)
[2020-08-08] MEDS: dilTIAZem HCL 240 MG CAPCR PO SCH (08:02)
[2020-08-08] MEDS: ASPIRIN 81 MG ECTAB PO SCH (08:02)
[2020-08-08] MEDS: carvediloL 6.25 MG TAB PO SCH ×2 (08:02→14:48)
[2020-08-08] MEDS: ACETAMINOPHEN 500 MG TAB PO SCH ×2 (08:03→20:42)
[2020-08-08] MEDS: methylPREDNISolone 20 MG in SYRINGE 0 ML IV SCH (08:03)
--- NOTE | 2020-08-08 11:56 | Ultrasound Report ---
US effusion-chest/mediastinum CLINICAL HISTORY: pleural effusion COMPARISON STUDY: Chest x-ray dated 08/05/2020 FINDINGS: There is a right pleural effusion with an estimated volume of 440 cc. There is a left pleural effusion with estimated volume of 210 cc. The right pleural effusion was marked for possible subsequent thoracentesis. IMPRESSION: Bilateral pleural effusions right larger than left. ACT 112: Negative or not required by law. Electronically signed by: Alek Daly M.D. 08/08/2020 11:55 AM
--- NOTE | 2020-08-08 12:22 | Nephrology Consultation ---
Date of Consultation August 08, 2020 Assessment & Plan (1) Acute kidney injury superimposed on CKD: baseline creatinine 1.8-1.9 from 06/2018-03/2020; now w/ BEVERLEY on CKD4. urine studies c/w ATN in setting of severe acute illness though she may well be volume depleted as well. chemistries for most part acceptable though mnild non anion gap acidosis from saline -cont current NS at 75 mL hourly > may need to switch IVF if nagma worsens -agree w/ holding torsemide for now -daily bmp -no indication for urgent dialysis or discussion of it; however if her clinical status takes sudden downturn thsi could change -stopped myrbetriq d/t BEVERLEY; she had rate control meds IV given surgical situatio n but also po meds which may need to be held--defer to surgical team adn gi Present on Admission?: Yes (2) Gastric volvulus: gen surg and gi following; likely not able to transfer to tertiary care d/t weather Present on Admission?: Yes (3) Hiatal hernia: signficant; per gi and surgery Present on Admission?: Yes History of Present Illness Reason for Consultation: oliguria, BEVERLEY Requesting Physician: Dr Evans Attending Physician: Navid Arrieta MD History of Present Illness 84-year-old female whom I am asked to see for acute kidney injury and oliguria was admitted here on August 05 for A. fib with RVR, nausea vomiting and abdominal discomfort for 3 days prior to admission. Found on work up to have large hiatal hernal with gastric volvulus. PMH includes prior large hiatal hernia, hypothyroidism, hyperlipidemia, prediabetes, CKD4, V, polymyalgia rheuma maria a on 7 mg daily prednisone, osteoporosis. Hiatal hernia repair had been planned in [facility] [place] but this was deferred d/t pandemic. She is scheduled for EGD in am. Baseline creatinine per report 1.8-1.9 (follows w/ Dr Saeed in CKD clinic) and presented with creatinine of 3. Her renal function has hovered in this range since admission . Sanchez catheter was placed today. She is getting NS at 75 ml /hr and a heparin gtt. struggling to tolerate po diet on liquids as of midday today when I saw her. denied abd pain at the time I saw her but worried about how little she was tolerating po adn struggling w/ N at the time. Allergies Allergy/AdvReac Type Severity Reaction Status Date / Time aspirin Allergy Mild Unknown Verified 08/05/20 19:33 Sulfa (Sulfonamide Allergy Mild Rash Verified 08/05/20 19:33 Antibiotics) Home Medications Medication Instructions Recorded Confirmed Type ascorbic acid (vitamin C) [Vitamin 500 mg PO TID 01/05/19 08/05/20 History C] aspirin 81 mg PO DAILY 01/05/19 08/05/20 History cod liver oil 1 cap PO DAILY 01/05/19 08/05/20 History coenzyme Q10 50 mg PO DAILY 01/05/19 08/05/20 History diltiazem HCl 240 mg PO DAILY 01/05/19 08/05/20 History flaxseed oil 1,000 mg PO BID 01/05/19 08/05/20 History garlic-parsley 1 tab PO BID 01/05/19 08/05/20 History levothyroxine 25 mcg PO DAILYBB 01/05/19 08/05/20 History multivitamin 1 tab PO DAILY 01/05/19 08/05/20 History omeprazole magnesium [Prilosec OTC] 20 mg PO QDD 01/05/19 08/05/20 History prednisone 2 mg PO DAILY 01/05/19 08/05/20 History prednisone 5 mg PO DAILY 01/05/19 08/05/20 History tramadol 50 mg PO Q8H PRN 01/05/19 08/05/20 History acetaminophen [Tylenol Extra 500 mg PO BID 08/05/20 08/05/20 History Strength] carvedilol 6.25 mg PO BIDM 08/05/20 08/05/20 History ferrous sulfate [Feosol] 325 mg PO QAM 08/05/20 08/05/20 History mirabegron [Myrbetriq] 25 mg PO DAILY 08/05/20 08/05/20 History cmxnxaybil-abrx-pkya-vinegar 1 tab PO DIRECTED 08/05/20 08/05/20 History torsemide 10 mg PO DAILY 08/05/20 08/05/20 History Patient History Medical History Anemia CKD (chronic kidney disease) stage 4, GFR 15-29 ml/min Fibromyalgia GERD (gastroesophageal reflux disease) HTN (hypertension) Hyponatremia Hypothyroid Osteoporosis Rheumatoid arthritis Surgical History S/P appendectomy S/P cataract extraction S/P tonsillectomy Family History (Updated 08/08/20 @ 19:57 by Mey Alford MD, PhD) Sister Cancer Social History Smoking Status: Former smoker Hx Alcohol Use: Yes Alcohol type: hard liquor Hx Substance Use: No Preferred Language: Sammarinese Communication Ability: Effective Transplant Nurse Required: No Beliefs That Will Affect Care: None marital status: / Current Living Situation: Family Current Living Situation Comment: Son lives w/ patient Other Information That Helps Us Care for You: No Feels Safe at Home: Yes Safety Concerns: Feels Safe At This Time Assistive Devices: None Review of Systems Review of Systems: All systems reviewed & are unremarkable except as noted in HPI & below Physical Exam Constitutional: well developed and well nourished; no acute distress sitting up in chair on RA at my eval Eyes: EOM intact bilaterally ENMT: Ears: no external ear abnormality Nose: no external nose abnormality Mouth: + dry oral mucous membranes Neck: no nuchal rigidity Respiratory: normal respiratory effort, + labored breathing (slight) and able to speak in complete sentences (but very slightly sob w/ this); no respiratory distress Auscultation: + diminished lung sounds (markedly so) Cardiovascular: Rate/Rhythm: regular rate Extremities: + edema (trace BL ankles at most) Gastrointestinal (Abdomen): Inspection/Auscultation: normal bowel sounds Percussion/Palpation: abdomen soft; abdomen nontender Musculoskeletal: Extremities: strength 5/5 throughout Skin: no rashes, warm and dry + turgor decreased Neurologic: reid, fluent speech, no tremor Psychiatric: A+Ox3, euthymic affect Results & Data ([facility]) Vital Signs (Past 12 Hours) Vital Signs Temp Pulse Pulse Resp BP Pulse Ox Pulse Ox 08/08/20 12:03 36.6 C 85 19 100/60 98 08/08/20 11:13 96 08/08/20 08:10 36.5 C 99 H 19 108/71 97 08/08/20 07:00 90 08/08/20 05:48 80 08/08/20 03:11 37.0 C 102 H 20 126/86 94 Pulse Ox 08/08/20 12:03 08/08/20 11:13 87 L 08/08/20 08:10 08/08/20 07:00 08/08/20 05:48 08/08/20 03:11 Laboratory Results 08/08/20 01:58 08/08/20 01:58 UA w/ granular casts, budding yeast, dark 1027
[2020-08-08] MEDS: PANTOprazole 40 MG in SYRINGE 0 ML IV SCH (12:23)
[2020-08-08 13:10] LABS: Partial Thromboplastin Ratio 1.8
--- NOTE | 2020-08-08 13:25 | Gastrointestinal Consultation ---
Date of Consultation August 08, 2020 Assessment & Plan (1) Hiatal hernia: Large Hiatal Hernia, with volvulus. Will need to r/o ulcers, ischemic areas, esophagitis, gastritis, masses with EGD. Would benefit from hiatal hernia surgical repair - recommendation for urgent vs planned to be considered after EGD. Clear liquids today, NPO after midnight Supervising Physician Co-Signing Physician Notes I performed a history and physical examination of the patient today, including specifically on physical exam - soft abdomen. I have discussed the patient's management with the advanced practitioner. Please refer to the nurse practitioner's note for the documented findings and plan of care. Large hiatal hernia with suspected volvulus on CT scan however she feels fine now with no vomiting. Plan for EGD tomorrow. History of Present Illness Reason for Consultation: gastric volvulous Requesting Physician: Dr. Arrieta Attending Physician: Navid Arrieta MD History of Present Illness Ms. Rosi Wills is an 84 yr old female pt of Dr. Huggins with a hx of a large hiatal hernia, hypothyroidism, hyperlipidemia, prediabetes, CKD4, V, polymyalgia rheumatica on rodent exterminator steroids, osteoporosis, ZAID. She was brought to the hospital on 08/05/20 for nausea, vomiting, abdominal pain of 3 days duration. Pain continues and CT today with gastric volvulus. She had plans to undergo hiatal hernia repair in [place] earlier this year but it was delayed due to the COVID epidemic. She tells me that she had been well until about a week ago when she began with nausea, vomiting anything that she tried to eat/drink. No hematemesis. She is passing BMs, most recent a few days ago. No blood in BMs. Allergies Allergy/AdvReac Type Severity Reaction Status Date / Time aspirin Allergy Mild Unknown Verified 08/05/20 19:33 Sulfa (Sulfonamide Allergy Mild Rash Verified 08/05/20 19:33 Antibiotics) Home Medications Medication Instructions Recorded Confirmed Type ascorbic acid (vitamin C) [Vitamin 500 mg PO TID 01/05/19 08/05/20 History C] aspirin 81 mg PO DAILY 01/05/19 08/05/20 History cod liver oil 1 cap PO DAILY 01/05/19 08/05/20 History coenzyme Q10 50 mg PO DAILY 01/05/19 08/05/20 History diltiazem HCl 240 mg PO DAILY 01/05/19 08/05/20 History flaxseed oil 1,000 mg PO BID 01/05/19 08/05/20 History garlic-parsley 1 tab PO BID 01/05/19 08/05/20 History levothyroxine 25 mcg PO DAILYBB 01/05/19 08/05/20 History multivitamin 1 tab PO DAILY 01/05/19 08/05/20 History omeprazole magnesium [Prilosec OTC] 20 mg PO QDD 01/05/19 08/05/20 History prednisone 2 mg PO DAILY 01/05/19 08/05/20 History prednisone 5 mg PO DAILY 01/05/19 08/05/20 History tramadol 50 mg PO Q8H PRN 01/05/19 08/05/20 History acetaminophen [Tylenol Extra 500 mg PO BID 08/05/20 08/05/20 History Strength] carvedilol 6.25 mg PO BIDM 08/05/20 08/05/20 History ferrous sulfate [Feosol] 325 mg PO QAM 08/05/20 08/05/20 History mirabegron [Myrbetriq] 25 mg PO DAILY 08/05/20 08/05/20 History jypgbpnykn-uhhp-ituw-vinegar 1 tab PO DIRECTED 08/05/20 08/05/20 History torsemide 10 mg PO DAILY 08/05/20 08/05/20 History Patient History Medical History (Updated 08/08/20 @ 13:43 by Taran Moreno Jr, PA-C) Anemia Fibromyalgia GERD (gastroesophageal reflux disease) HTN (hypertension) Hyponatremia Hypothyroid Osteoporosis Rheumatoid arthritis Surgical History S/P appendectomy S/P cataract extraction S/P tonsillectomy Social History Smoking Status: Former smoker Hx Alcohol Use: Yes Alcohol type: hard liquor Hx Substance Use: No Preferred Language: Tajik Communication Ability: Effective Mexican Food Maker Hand Required: No Beliefs That Will Affect Care: None marital status: / Current Living Situation: Family Current Living Situation Comment: Son lives w/ patient Other Information That Helps Us Care for You: No Feels Safe at Home: Yes Safety Concerns: Feels Safe At This Time Assistive Devices: None Review of Systems Review of Systems: ROS: Gen: Denies weakness, fevers, weight loss Eyes: No eye redness, or pain, no recent vision changes Resp: No SOB, no cough Cardio: No palpitations/irregular beats, no chest pain GI: Per HPI, otherwise negative : Denies pain on urination Skin: No jaundice, itching or new rashes Physical Exam Constitutional: WD/WN, vitals as above + thin (frail appearing) Eyes: PERRL, conjunctivae normal, anicteric sclerae ENMT: external ear and nose normal, oropharynx normal Neck: trachea midline, no thyromegaly Respiratory: Auscultation: lungs clear to auscultation bilaterally Some SOB, briefly with the exertion of pushing herself up in bed. Cardiovascular: RRR, no murmur, no edema Gastrointestinal (Abdomen): Inspection/Auscultation: abdomen normal to inspection; abdomen not distended Percussion/Palpation: + abdomen tender (mild epigastric tenderness) and abdomen soft Results & Data ([facility]) Vital Signs (Past 12 Hours) Vital Signs Temp Pulse Pulse Resp BP BP Pulse Ox 08/08/20 12:34 84 100/68 08/08/20 12:03 36.6 C 85 19 100/60 98 08/08/20 11:13 08/08/20 08:10 36.5 C 99 H 19 108/71 97 08/08/20 07:00 90 08/08/20 05:48 80 08/08/20 03:11 37.0 C 102 H 20 126/86 94 Pulse Ox Pulse Ox 08/08/20 12:34 08/08/20 12:03 08/08/20 11:13 96 87 L 08/08/20 08:10 08/08/20 07:00 08/08/20 05:48 08/08/20 03:11 Laboratory Results WBC 15, Hb 11.9, Hct 37, Plats 177, Na 143, K 4.0, BUN 58, Cr 2.92, glucose [address] abd/pelvis w/o contrast on 08/08/20: 1. Moderate hiatal hernia with a stable organoaxial gastric volvulus 2. Persistent bilateral pleural effusions with basilar parenchymal opacities likely atelectatic 3. No evidence of bowel obstruction. No evidence of free air 4. Extensive perales diverticulosis. No convincing evidence of acute diverticulitis. CT abd/pelvis w/o contrast 08/05/20: 1. No acute process within the abdomen or pelvis on unenhanced exam. 2. Extensive colonic diverticulosis without evidence for acute diverticulitis. No bowel obstruction. 3. Small to moderate bilateral pleural effusions, partially imaged on this exam. 4. Large hiatal hernia. 5. Calcifications within each renal sinus. The majority of these reflect vascular calcifications however small nonobstructing renal calculi would be difficult to exclude. No ureteral calculi or hydronephrosis.
--- NOTE | 2020-08-08 13:40 | Surgery Consultation ---
Date of Consultation August 08, 2020 Assessment & Plan (1) Hiatal hernia: Large hernia with volvulus, would recommend evaluation at tertiary center although weather may be an issue for transfer. Currently she is stable and does not require urgent surgical intervention. It may be helpful to have GI see her for possible endoscopy. We will continue to follow and will make NPO for now. Supervising Physician Co-Signing Physician Notes I personally saw and evaluated the patient with Dutsin Moreno PA-C and agree with the assessment and plan. 84 yo female with large hiatal hernia and questionable gastric volvulus -CT images and results reviewed -Agree with EGD to assess for any ischemia, possibly detorse any volvulus in this stable patient -If she deteriorates or there are any signs of ischemia on EGD, would recommend transfer to tertiary care center for surgical evaluation -Keep NPO until EGD History of Present Illness Attending Physician: Navid Arrieta MD History of Present Illness 84 y/o female admitted 3 days ago for N/V, abdominal pain. She was unable to "keep anything down" for 4 days prior. Thought she had a GI bug. Has a known hiatal hernia, was being referred to surgery this past spring but never had an appt due to the covid situation. Normally eats several small meals during the day, including solid foods. Has been tolerating small amounts of clears while in the hospital, but had some pain last evening and new CT was obtained. Also is on heparin gtt for A-fib. Allergies Allergy/AdvReac Type Severity Reaction Status Date / Time aspirin Allergy Mild Unknown Verified 08/05/20 19:33 Sulfa (Sulfonamide Allergy Mild Rash Verified 08/05/20 19:33 Antibiotics) Home Medications Medication Instructions Recorded Confirmed Type ascorbic acid (vitamin C) [Vitamin 500 mg PO TID 01/05/19 08/05/20 History C] aspirin 81 mg PO DAILY 01/05/19 08/05/20 History cod liver oil 1 cap PO DAILY 01/05/19 08/05/20 History coenzyme Q10 50 mg PO DAILY 01/05/19 08/05/20 History diltiazem HCl 240 mg PO DAILY 01/05/19 08/05/20 History flaxseed oil 1,000 mg PO BID 01/05/19 08/05/20 History garlic-parsley 1 tab PO BID 01/05/19 08/05/20 History levothyroxine 25 mcg PO DAILYBB 01/05/19 08/05/20 History multivitamin 1 tab PO DAILY 01/05/19 08/05/20 History omeprazole magnesium [Prilosec OTC] 20 mg PO QDD 01/05/19 08/05/20 History prednisone 2 mg PO DAILY 01/05/19 08/05/20 History prednisone 5 mg PO DAILY 01/05/19 08/05/20 History tramadol 50 mg PO Q8H PRN 01/05/19 08/05/20 History acetaminophen [Tylenol Extra 500 mg PO BID 08/05/20 08/05/20 History Strength] carvedilol 6.25 mg PO BIDM 08/05/20 08/05/20 History ferrous sulfate [Feosol] 325 mg PO QAM 08/05/20 08/05/20 History mirabegron [Myrbetriq] 25 mg PO DAILY 08/05/20 08/05/20 History myszxrizxu-hrsl-gqgi-vinegar 1 tab PO DIRECTED 08/05/20 08/05/20 History torsemide 10 mg PO DAILY 08/05/20 08/05/20 History Patient History Medical History Anemia CKD (chronic kidney disease) stage 4, GFR 15-29 ml/min Fibromyalgia GERD (gastroesophageal reflux disease) HTN (hypertension) Hyponatremia Hypothyroid Osteoporosis Rheumatoid arthritis Surgical History S/P appendectomy S/P cataract extraction S/P tonsillectomy Family History (Updated 08/08/20 @ 19:57 by Mey Alford MD, PhD) Sister Cancer Social History Smoking Status: Former smoker Hx Alcohol Use: Yes Alcohol type: hard liquor Hx Substance Use: No Preferred Language: Hungarian Communication Ability: Effective Asthma Educator Required: No Beliefs That Will Affect Care: None marital status: / Current Living Situation: Family Current Living Situation Comment: Son lives w/ patient Other Information That Helps Us Care for You: No Feels Safe at Home: Yes Safety Concerns: Feels Safe At This Time Assistive Devices: Oxygen - Continuous Review of Systems Constitutional: no fever and no chills Gastrointestinal: + abdominal pain, + nausea and + vomiting; no diarrhea/loose stools Physical Exam Constitutional: WD/WN, vitals as above Respiratory: normal respiratory effort, lungs clear to auscultation Cardiovascular: Rate/Rhythm: + tachycardic Gastrointestinal (Abdomen): Inspection/Auscultation: abdomen not distended Percussion/Palpation: abdomen soft; abdomen nontender Results & Data ([facility]) Vital Signs (Past 12 Hours) Vital Signs Temp Pulse Pulse Resp BP BP Pulse Ox 08/08/20 12:34 84 100/68 08/08/20 12:03 36.6 C 85 19 100/60 98 08/08/20 11:13 08/08/20 08:10 36.5 C 99 H 19 108/71 97 08/08/20 07:00 90 08/08/20 05:48 80 08/08/20 03:11 37.0 C 102 H 20 126/86 94 Pulse Ox Pulse Ox 08/08/20 12:34 08/08/20 12:03 08/08/20 11:13 96 87 L 08/08/20 08:10 08/08/20 07:00 08/08/20 05:48 08/08/20 03:11 PG Care Time/CCT Total # of Minutes Spent Total Time Spent with Patient: Total time spent is greater than 50% in coordination of care (as documented) at patient's floor/unit and/or counseling patient: Coding Level of Care Code 02191 Initial Inpt Care Lvl 1 Diagnoses Hiatal hernia K44.9
[2020-08-08] MEDS: ONDANSETRON INJ 2 MG/ML 2 ML VIAL IV PRN (14:13)
--- NOTE | 2020-08-08 14:39 | Hospitalist Progress Note ---
Date of Service August 08, 2020 Assessment & Plan (1) Atrial fibrillation with rapid ventricular response: Admitted with gastroenteritis and noted to have palpitation and EKG did show A. maggie with RVR Was on Coreg and Cardizem at home and has not been taking for the last 2 to 3 days Has been on intravenous heparin and also received intravenous beta-randell and received a dose of iv Cardizem in the ER Heart rate remains elevated at around 120s but getting better Elevated troponin could be secondary to demand ischemia (equivalent to Type II NSTEMI) and the serial troponins have been improving Doubt any ACS Appreciate cardiology input and recommendation She is back on her home medications of Cardizem and Coreg Heart rate seems to be controlled below 100-we will continue current medications (2) Gastroenteritis: Has been having nausea, vomiting and abdominal discomfort for the last [address] remains unremarkable Will get cautious amount of intravenous fluid Condition seems to be improving We will give additional intravenous fluid for dehydration Gastric volvulus Has had abdominal pain last evening and a CAT scan of the abdomen pelvis showed gastric volvulus Did not complain any more pain this morning and does not have any distention, nausea and or vomiting Appreciate general surgery input and recommendation Appreciate GI input and recommendation We will continue current management (3) Aortic stenosis: No significant symptoms of stenosis but likely making the heart failure worse (4) Pleural effusion: Small bilateral Has mild congestive heart failure Ultrasound showed only 4 4 0 cc of fluid on the right and 210 on the left pleural effusion (5) Acute kidney injury superimposed on CKD: Likely secondary to dehydration from gastroenteritis Cautious amount of intravenous fluid Monitor PRP and electrolytes Has not been passing much urine and clinically looks dry with increasing creatinine of more than 3 We will increase intravenous fluid to 125 mL/h for 3 L Creatinine has been worsening Appreciate input and recommendation from talent development coordinator (6) Polymyalgia rheumatica: No acute arthralgia or arthritis DVT prophylaxis IV heparin Likely to have definitive anticoagulation as recommended by band attacher Will discuss with the daughter CODE STATUS We will Admission and Anticipated Discharge Date Admission Date: August 05, 2020 Subjective 08/06/2020 The patient was seen and examined in telemetry unit She complains to have palpitation with chest tightness and shortness of breath Denies any abdominal pain, nausea and or vomiting 08/07/2020 The patient was seen and examined in telemetry unit She complains of extreme tiredness and occasional palpitation Denies any abdominal distention, pain, nausea and or vomiting Denies any chest pain and/or shortness of breath at rest 08/08/2020 The patient was seen and examined in telemetry unit She has had abdominal pain with nausea last night and apparent CT of the abdomen and pelvis did show gastric volvulus She has been feeling much better today and her abdominal examination remains benign Still has palpitation but denies any chest pain Review of Systems Review of Systems: All systems reviewed and are unremarkable except as noted below Respiratory: + dyspnea (Minimal dyspnea at rest) Cardiovascular: + palpitations; no chest pain and no dyspnea (Minimal dyspnea at rest) Gastrointestinal: + nausea; no abdominal pain, no bloating and no vomiting Physical Exam Physical Exam: Lying in bed with minimal discomfort Constitutional: well developed, well nourished and + ill appearing Eyes: PERRL, conjunctivae normal, anicteric sclerae ENMT: external ear and nose normal, oropharynx normal Neck: trachea midline, no thyromegaly Respiratory: no respiratory distress Auscultation: + diminished lung sounds (At the bases) and + crackles (Minimal bibasilar crackles) Cardiovascular: Rate/Rhythm: + irregularly irregular Heart Sounds: + murmur (2/6 ejection systolic murmur over precordium) Extremities: no edema Gastrointestinal (Abdomen): Inspection/Auscultation: normal bowel sounds; abdomen not distended Percussion/Palpation: abdomen soft; abdomen nontender Musculoskeletal: No acute arthritis in any joint Neurologic: Alert, awake and oriented x3. Generally very weak and lethargic Psychiatric: A+Ox3, euthymic affect Results & Data Results & Data ([facility]) Vital Signs (Past 12 Hours) Vital Signs Temp Pulse Pulse Resp BP BP Pulse Ox 08/08/20 12:34 84 100/68 08/08/20 12:03 36.6 C 85 19 100/60 98 08/08/20 11:13 08/08/20 08:10 36.5 C 99 H 19 108/71 97 08/08/20 07:00 90 08/08/20 05:48 80 08/08/20 03:11 37.0 C 102 H 20 126/86 94 Pulse Ox Pulse Ox 08/08/20 12:34 08/08/20 12:03 08/08/20 11:13 96 87 L 08/08/20 08:10 08/08/20 07:00 08/08/20 05:48 08/08/20 03:11 Laboratory Results Short CBC 08/08/20 Range/Units 01:58 WBC 15.03 H (4.8-10.8) K/uL Hgb 11.9 L (12.0-16.0) g/dL Hct 37.0 (37-47) % Plt Count 177 (130-400) K/uL BMP 08/08/20 01:58 Sodium 143 Potassium 4.0 Chloride 114 H Carbon Dioxide 20 L BUN 58 H Creatinine 2.92 H Glucose 141 H Calcium 8.1 L Liver Function 08/08/20 Range/Units 01:58 Total Bilirubin 0.4 (0.2-1) mg/dl AST 94 H (15-37) U/L ALT 105 H (12-78) U/L Alkaline Phosphatase 210 H (45-117) U/L Albumin 2.8 L (3.4-5.0) gm/dl Medications Administered Current Inpatient Medications Acetaminophen (Acetaminophen 325 Mg Tab) 650 mg PO Q4H PRN PRN Reason: Pain or Fever Stop: 09/04/20 22:22 Acetaminophen (Acetaminophen 500 Mg Tab) 500 mg PO BID [facility] Stop: 09/04/20 22:22 Last Admin: 08/08/20 08:03 Dose: 500 mg Documented by: Ascorbic Acid (Ascorbic Acid 500 Mg Tab) 500 mg PO TID [facility] Stop: 09/04/20 22:22 Last Admin: 08/08/20 08:02 Dose: 500 mg Documented by: Aspirin (Aspirin 81 Mg Ectab) 81 mg PO DAILY [facility] Stop: 09/05/20 08:59 Last Admin: 08/08/20 08:02 Dose: 81 mg Documented by: Carvedilol (Carvedilol 6.25 Mg Tab) 6.25 mg PO BIDM [facility] Stop: 09/06/20 16:59 Last Admin: 08/08/20 08:02 Dose: 6.25 mg Documented by: Diltiazem HCl (Diltiazem Hcl 240 Mg Capcr) 240 mg PO DAILY [facility] Stop: 09/06/20 10:29 Last Admin: 08/08/20 08:02 Dose: 240 mg Documented by: Heparin Sodium/Dextrose (Heparin Sodium/Dextrose) 25,000 units in 500 mls @ 7 mls/hr IV .Q24H [facility]; Protocol Stop: 09/04/20 22:22 Last Titration: 08/08/20 13:25 Dose: 350 units/hr, 7 mls/hr Documented by: Pantoprazole Sodium 40 mg/ (Syringe) 10 mls @ 5 mls/min IV DAILY@1100 [facility] Stop: 09/05/20 10:59 Last Admin: 08/08/20 12:23 Dose: 5 mls/min Documented by: Methylprednisolone 20 mg/ (Syringe) 0.32 mls @ 1.5 mls/min IV DAILY [facility] Stop: 09/04/20 22:44 Last Admin: 08/08/20 08:03 Dose: 1.5 mls/min Documented by: Sodium Chloride (Nss 1000ml) 1,000 mls @ 75 mls/hr IV .[id number] [facility] Stop: 09/07/20 02:59 Last Admin: 08/08/20 03:03 Dose: 75 mls/hr Documented by: Piperacillin Sod/Tazobactam (Sod 3.375 gm/ Dextrose) 115 mls @ 28.75 mls/hr IV Q12H [facility]; Protocol Stop: 08/18/20 19:59 Insulin Aspart (Insulin Aspart 100 Units/Ml 3 Ml Pen) 0 units SC Q6 [facility] Stop: 09/04/20 22:22 Last Admin: 08/08/20 12:24 Dose: Not Given Documented by: Levothyroxine Sodium (Levothyroxine Sodium 25 Mcg Tablet) 25 mcg PO DAILYBB [facility] Stop: 09/05/20 06:29 Last Admin: 08/08/20 05:47 Dose: 25 mcg Documented by: Metoprolol Tartrate (Metoprolol Tartrate 1 Mg/Ml Vial) 5 mg IV Q6 [facility] Stop: 09/04/20 20:49 Last Admin: 08/08/20 12:34 Dose: Not Given Documented by: Mirabegron (Mirabegron Er 25 Mg Tab) 25 mg PO DAILY [facility] Stop: 09/05/20 08:59 Last Admin: 08/08/20 08:02 Dose: 25 mg Documented by: Miscellaneous Information (Piperacill/Tazobac Consult Active) 1 ea N/A UD PRN PRN Reason: Consult Stop: 09/07/20 01:31 Nitroglycerin (Nitroglycerin Sl 0.4 Mg/Tab Tab) 0.4 mg SL UD PRN PRN Reason: Chest Pain Stop: 09/04/20 22:22 Ondansetron HCl (Ondansetron Inj 2 Mg/Ml 2 Ml Vial) 4 mg IV Q6H PRN PRN Reason: Nausea Stop: 09/04/20 22:22 Last Admin: 08/08/20 14:13 Dose: 4 mg Documented by:
[2020-08-08] MEDS: PIPERACILLIN/TAZOBACTAM 3.375 GM in DEXTROSE 5% 100 ML IV SCH (20:42)
[2020-08-09] MEDS: SODIUM CHLORIDE 0.9% 1000ML 1,000 ML IV SCH ×2 (00:11→10:12)
[2020-08-09] MEDS: INSULIN ASPART 100 UNITS/ML 3 ML PEN SC SCH ×5 (00:12→21:26)
[2020-08-09] MEDS: LEVOTHYROXINE SODIUM 25 MCG TABLET PO SCH (05:52)
[2020-08-09] MEDS: METOPROLOL TARTRATE 1 MG/ML VIAL IV SCH (05:52)
--- NOTE | 2020-08-09 08:36 | Anesthesiology Consultation ---
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 Surgery Operation Date: 08/09/20 16:15 Proposed Procedures p Esophagogastroduodenoscopy Dr Leos - Robe Leos MD Height/Weight Height: 5 ft 1 in Weight: 57.7 kg Allergies Allergy/AdvReac Type Severity Reaction Status Date / Time aspirin Allergy Mild Unknown Verified 08/05/20 19:33 Sulfa (Sulfonamide Allergy Mild Rash Verified 08/05/20 19:33 Antibiotics) Medications Home Medications Medication Instructions Recorded Confirmed Last Taken ascorbic acid (vitamin C) [Vitamin 500 mg PO TID 01/05/19 08/05/20 08/05/20 C] aspirin 81 mg PO DAILY 01/05/19 08/05/20 08/05/20 cod liver oil 1 cap PO DAILY 01/05/19 08/05/20 08/05/20 coenzyme Q10 50 mg PO DAILY 01/05/19 08/05/20 08/05/20 diltiazem HCl 240 mg PO DAILY 01/05/19 08/05/20 08/05/20 flaxseed oil 1,000 mg PO BID 01/05/19 08/05/20 08/05/20 garlic-parsley 1 tab PO BID 01/05/19 08/05/20 08/05/20 levothyroxine 25 mcg PO DAILYBB 01/05/19 08/05/20 08/05/20 multivitamin 1 tab PO DAILY 01/05/19 08/05/20 08/05/20 omeprazole magnesium [Prilosec OTC] 20 mg PO QDD 01/05/19 08/05/20 08/05/20 prednisone 2 mg PO DAILY 01/05/19 08/05/20 08/05/20 prednisone 5 mg PO DAILY 01/05/19 08/05/20 08/05/20 tramadol 50 mg PO Q8H PRN 01/05/19 08/05/20 Unknown acetaminophen [Tylenol Extra 500 mg PO BID 08/05/20 08/05/20 08/05/20 Strength] carvedilol 6.25 mg PO BIDM 08/05/20 08/05/20 08/05/20 ferrous sulfate [Feosol] 325 mg PO QAM 08/05/20 08/05/20 08/05/20 mirabegron [Myrbetriq] 25 mg PO DAILY 08/05/20 08/05/20 08/05/20 ggzeiioxkr-hsne-klnx-vinegar 1 tab PO DIRECTED 08/05/20 08/05/20 08/05/20 torsemide 10 mg PO DAILY 08/05/20 08/05/20 08/05/20 Active Medications Generic Name Dose Route Start Last Admin Trade Name Sergio PRN Reason Stop Dose Admin Acetaminophen 500 mg 08/05/20 22:23 08/08/20 20:42 Acetaminophen 500 Mg Tab PO 09/04/20 22:22 500 mg BID DINORA Administration Ascorbic Acid 500 mg 08/05/20 22:23 08/08/20 20:42 Ascorbic Acid 500 Mg Tab PO 09/04/20 22:22 500 mg TID DINORA Administration Aspirin 81 mg 08/06/20 09:00 08/08/20 08:02 Aspirin 81 Mg Ectab PO 09/05/20 08:59 81 mg DAILY [facility]IN[facility]A Administration Carvedilol 6.25 mg 08/07/20 17:00 08/08/20 14:48 Carvedilol 6.25 Mg Tab PO 09/06/20 16:59 Not Given BIDM DINORA Diltiazem HCl 240 mg 08/07/20 10:30 08/08/20 08:02 Diltiazem Hcl 240 Mg Capcr PO 09/06/20 10:29 240 mg DAILY [facility]A Administration Heparin Sodium/Dextrose 25,000 units in 500 mls @ 7 mls/hr 08/05/20 22:23 08/09/20 07:16 Heparin Sodium/Dextrose IV 09/04/20 22:22 350 units/hr .Q24H DINORA 7 mls/hr Titration Protocol 350 UNITS/HR Pantoprazole Sodium 40 mg/ 10 mls @ 5 mls/min 08/06/20 11:00 08/08/20 12:23 Syringe IV 09/05/20 10:59 5 mls/min DAILY@1100 [facility] Administration Methylprednisolone 20 mg/ 0.32 mls @ 1.5 mls/min 08/05/20 22:45 08/08/20 08:03 Syringe IV 09/04/20 22:44 1.5 mls/min DAILY [facility] Administration Sodium Chloride 1,000 mls @ 75 mls/hr 08/08/20 03:00 08/09/20 00:11 Nss 1000ml IV 09/07/20 02:59 100 mls/hr .[id number] [facility] Administration Piperacillin Sod/Tazobactam 115 mls @ 28.75 mls/hr 08/08/20 20:00 08/09/20 02:04 Sod 3.375 gm/ Dextrose IV 08/18/20 19:59 Infused Q12H [facility] Infusion Protocol Insulin Aspart 0 units 08/05/20 22:23 08/09/20 05:52 Insulin Aspart 100 Units/Ml 3 Ml Pen SC 09/04/20 22:22 Not Given Q6 [facility] Levothyroxine Sodium 25 mcg 08/06/20 06:30 08/09/20 05:52 Levothyroxine Sodium 25 Mcg Tablet PO 09/05/20 06:29 25 mcg DAILYBB [facility] Administration Metoprolol Tartrate 5 mg 08/05/20 20:50 08/09/20 05:52 Metoprolol Tartrate 1 Mg/Ml Vial IV 09/04/20 20:49 5 mg Q6 [facility] Administration Ondansetron HCl 4 mg 08/05/20 22:23 08/08/20 14:13 Ondansetron Inj 2 Mg/Ml 2 Ml Vial IV 09/04/20 22:22 4 mg Q6H PRN Administration Nausea Past Medical History Medical History Anemia CKD (chronic kidney disease) stage 4, GFR 15-29 ml/min Fibromyalgia GERD (gastroesophageal reflux disease) HTN (hypertension) Hyponatremia Hypothyroid Osteoporosis Rheumatoid arthritis Past Family History Family History Sister Cancer Past Surgical History Surgical History S/P appendectomy S/P cataract extraction S/P tonsillectomy Social History Smoking Status: Former smoker Hx Alcohol Use: Yes Alcohol type: hard liquor alcohol intake frequency: 0-2 drinks per day Hx Substance Use: No Physical Exam Vital Signs Last Vital Signs Temp 97.7 F 08/09/20 07:27 Pulse 81 08/09/20 07:27 Resp 18 08/09/20 01:16 BP 120/73 08/09/20 07:27 Pulse Ox 99 08/09/20 07:27 Testing Laboratory Results 08/08/20 01:58 08/08/20 01:58 PT 13.9 Seconds (9.0-12.0) H 08/05/20 18:10 INR 1.3 (0.9-1.1) H 08/05/20 18:10 APTT 51.0 Seconds (21.0-31.0) H* 08/08/20 12:37 Hemoglobin A1c 5.5 % (4.5-5.6) 08/06/20 05:21 Urine Color Dark Yellow 08/06/20 03:15 Urine Appearance Clear (Clear) 08/06/20 03:15 Urine pH 5.0 (4.5-7.5) 08/06/20 03:15 Ur Specific [place] 1.027 (1.000-1.030) 08/06/20 03:15 Urine Protein 2+ (Negative) H 08/06/20 03:15 Urine Glucose (UA) Negative (Negative) 08/06/20 03:15 Urine Ketones Trace (Negative) H 08/06/20 03:15 Urine Nitrite Negative (Negative) 08/06/20 03:15 Ur Leukocyte Esterase 1+ (Negative) H 08/06/20 03:15 Urine WBC (Auto) 10-30 /hpf (0-5) H 08/06/20 03:15 Urine RBC (Auto) 0-4 /hpf (0-4) 08/06/20 03:15 U Hyaline Cast (Auto) 5-10 /lpf (0-5) H 08/06/20 03:15 U Epithel Cells (Auto) >30 /lpf (0-5) H 08/06/20 03:15 Urine Bacteria (Auto) Negative (Negative) 08/06/20 03:15 08/06/20 03:15 Urine Culture - Final Urine,Clean Catch Escherichia coli 08/09/20 08/09/20 08/08/20 05:48 00:25 23:55 POC Glucose 118 H 136 H 174 H 08/08/20 20:34 POC Glucose 141 H Electrocardiogram Date: 08/07/20 Atrial fibrillation with rapid ventricular response with premature ventricular or aberrantly conducted complexes, rate 115 bpm Nonspecific T wave abnormality Abnormal ECG When compared with ECG of 06-AUG-2020 06:27, No significant change was found Confirmed by Sawyer Ackerman ([id number]) on 08/08/2020 5:44:55 AM Chest X-Ray Date: 08/05/20 IMPRESSION: Cardiomegaly, mild congestive change, and small bilateral pleural effusions. Echocardiogram Date: 08/06/20 LV is grossly normal size LV systolic function is moderately reduced EF 35-40% RV systolic function is normal LA/RA is moderately dilated Mod valvular Mild TR Mod to severe TR
[2020-08-09] MEDS: PIPERACILLIN/TAZOBACTAM 3.375 GM in DEXTROSE 5% 100 ML IV SCH ×2 (08:39→21:29)
[2020-08-09] MEDS: methylPREDNISolone 20 MG in SYRINGE 0 ML IV SCH (08:42)
[2020-08-09 09:18] LABS: Hematocrit (blood only) 35.6 % (37-47); Hemoglobin 11.3 g/dL (12.0-16.0); Immature Granulocytes # (auto) 0.02 K/uL (0.00-0.02); Immature Granulocytes % (auto) 0.2 %; Lymphocytes # (auto) 0.51 K/uL (1.2-3.4); Lymphocytes % (auto) 4.8 %; Mean Corpuscular Hemoglobin 32.1 pg (25-34); Mean Corpuscular Hgb Conc 31.7 g/dL (32-36); Mean Corpuscular Volume 101.1 fL (80-100); Mean Platelet Volume 10.9 fL (7.4-10.4); Monocytes # (auto) 0.54 K/uL (0.11-0.59); Monocytes % (auto) 5.1 %; Neutrophils # (auto) 9.61 K/uL (1.4-6.5); Neutrophils % (auto) 89.9 %; Nucleated RBC # (auto) 0.09 K/uL (0-0); Nucleated RBC % (auto) 0.9 %; Platelet Count 180 K/uL (130-400); RDW Coefficient of Variation 14.4 % (11.5-14.5); RDW Standard Deviation 52.4 fL (36.4-46.3); Red Blood Count 3.52 M/uL (4.2-5.4); White Blood Count 10.68 K/uL (4.8-10.8)
[2020-08-09 09:40] LABS: Partial Thromboplastin Ratio 1.7
[2020-08-09 09:44] LABS: Partial Thromboplastin Time 47.3 Seconds (21.0-31.0)
[2020-08-09 09:48] LABS: Albumin Level 2.6 gm/dl (3.4-5.0); BUN Creatinine Ratio 20.5 (10-20); Calcium 8.4 mg/dl (8.5-10.1); Creatinine Clr Calc Pharmacy 11.9 ml/min; Est GFR (African American) 16.7; Est GFR (Non-African American) 14.4; Potassium 4.2 mmol/L (3.5-5.1)
--- NOTE | 2020-08-09 09:50 | Gastroenterology Progress Note ---
Date of Service August 09, 2020 Assessment & Plan (1) Hiatal hernia: Large Hiatal Hernia, with volvulus. EGD today, further recommendations to follow endoscopy. Admission and Anticipated Discharge Date Admission Date: August 05, 2020 Supervising Physician Co-Signing Physician Notes I performed a history and physical examination of the patient today, including specifically on physical exam - soft abdomen. I have discussed the patient's management with the advanced practitioner. Please refer to the nurse practitioner's note for the documented findings and plan of care. Subjective 84, female, hx of a large hiatal hernia, hypothyroidism, hyperlipidemia, prediabetes, CKD4, V, polymyalgia rheumatica on mcfp steroids, osteoporosis, ZAID. Admitted 08/05/20 for nausea, vomiting, abdominal pain of [address] w gastric volvulus. In BEVERLEY - now improving. Slept well. No vomiting today or yesterday. Has some exertional SOB other no breathing difficulties and is hemodynamically stable. Has some upper abd/lower chest pressure, "like I need to burp," but no current significant abd pain. No gross GI bleeding. Hb 11.9. BUN 58, Cr 2.9 Has been NPO. Review of Systems Review of Systems: ROS: Gen: Denies weakness, fevers, weight loss Eyes: No eye redness, or pain, no recent vision changes Resp: No SOB, no cough Cardio: No palpitations/irregular beats, no chest pain GI: Per HPI, otherwise negative : Denies pain on urination Skin: No jaundice, itching or new rashes Physical Exam Constitutional: WD/WN, vitals as above + thin (frail appearing) Eyes: PERRL, conjunctivae normal, anicteric sclerae ENMT: external ear and nose normal, oropharynx normal Neck: trachea midline, no thyromegaly Respiratory: Auscultation: lungs clear to auscultation bilaterally Cardiovascular: RRR, no murmur, no edema Gastrointestinal (Abdomen): Inspection/Auscultation: abdomen normal to inspection; abdomen not distended Percussion/Palpation: + abdomen tender (mild epigastric tenderness) and abdomen soft Results & Data ([facility]) Vital Signs (Past 12 Hours) Vital Signs Temp Pulse Pulse Resp BP Pulse Ox 08/09/20 07:27 36.5 C 81 120/73 99 08/09/20 05:52 87 08/09/20 04:26 36.4 C L 79 102/67 99 08/09/20 01:16 36.3 C L 96 H 18 115/79 97 08/08/20 23:59 88
[2020-08-09 09:51] LABS: Albumin Globulin Ratio 0.9 (0.9-2); Bilirubin,Total 0.4 mg/dl (0.2-1); Total Protein 5.6 gm/dl (6.4-8.2)
[2020-08-09] MEDS: PANTOprazole 40 MG in SYRINGE 0 ML IV SCH (10:41)
[2020-08-09] MEDS ORDERED: Nursing to Pharmacy Communication SCH ×2 (11:00→16:45)
[2020-08-09] MEDS ORDERED: LIDOCAINE HCL 2% 2 ML VIAL/AMP(20MG/ML) INFIL ONE (11:31)
[2020-08-09] MEDS ORDERED: PROPOFOL IV EMULSION 10 MG/ML 20 ML VIAL IV ONE (11:31)
--- NOTE | 2020-08-09 11:37 | Nephrology Progress Note ---
Date of Service August 09, 2020 Assessment & Plan (1) Acute kidney injury superimposed on CKD: baseline creatinine 1.8-1.9 from 06/2018-03/2020; now w/ BEVERLEY on CKD4. urine studies c/w ATN in setting of severe acute illness though she may well be volume depleted as well. AF w/ RVR may have a role as well. chemistries for most part acceptable though mnild non anion gap acidosis from saline -I/O's are incomplete. had chest u/s showing [address] effusion and 210 mL L one yesterday >will stop IVF for now -agree w/ holding torsemide for now -daily bmp -no indication for urgent dialysis or discussion of it; however if her clinical status takes sudden downturn thsi could change -cont to hold myrbetriq d/t [place]; >> monitor for urinary retention (2) Hiatal hernia: signficant; per gi and surgery; starting on liquid diet now Admission and Anticipated Discharge Date Admission Date: August 05, 2020 Subjective notes exertional dyspnea and sob w/ speech; ongoing mild epigastric pain; some liquid stools; EGD w/ hiatal hernia adn no evidence of gastric volvulus; no current transfer plans or surgical plans. Review of Systems Review of Systems: All systems reviewed & are unremarkable except as noted in HPI & below Physical Exam Constitutional: well developed, well nourished, + thin and cooperative Eyes: EOM intact bilaterally ENMT: Ears: no external ear abnormality Nose: no external nose abnormality Mouth: + dry oral mucous membranes Neck: no nuchal rigidity Respiratory: normal respiratory effort, + labored breathing (slight) and able to speak in complete sentences (and today more sob w/ this); no respiratory distress Auscultation: + diminished lung sounds (markedly so) Cardiovascular: Rate/Rhythm: + tachycardic and + irregularly irregular Extremities: + edema (trace BL ankles at most) Gastrointestinal (Abdomen): Inspection/Auscultation: normal bowel sounds Percussion/Palpation: abdomen soft; abdomen nontender Musculoskeletal: Extremities: strength 5/5 throughout Skin: no rashes, warm and dry + turgor decreased Neurologic: reid, fluent speech, no tremor Psychiatric: A+Ox3, euthymic affect Results & Data ([facility]) Vital Signs (Past 12 Hours) Vital Signs Temp Pulse Pulse Resp BP Pulse Ox 12/17/20 07:27 36.5 C 81 120/73 99 08/09/20 05:52 87 08/09/20 04:26 36.4 C L 79 102/67 99 08/09/20 01:16 36.3 C L 96 H 18 115/79 97 08/08/20 23:59 88 Laboratory Results 08/09/20 09:01 08/09/20 09:01
--- NOTE | 2020-08-09 12:21 | GI REPORT ---
Patient Name: Rosi Wills Procedure Date: 08/09/2020 11:46 AM Date of : 1935 Admit Type: Inpatient Age: 84 Gender: Female Attending MD: Robe eLos MD Procedure: Upper GI endoscopy Providers: Robe Leos MD Referring MD: Lance Ford Md Indications: Abnormal CT of the GI tract Medicines: Propofol per Anesthesia Complications: No immediate complications. Estimated Blood Loss: Estimated blood loss: none. Procedure: Pre-Anesthesia Assessment: - Prior to the procedure, a History and Physical was performed, and patient medications, allergies and sensitivities were reviewed. The patient's tolerance of previous anesthesia was reviewed. - The risks and benefits of the procedure and the sedation options and risks were discussed with the patient. All questions were answered and informed consent was obtained. - Patient identification and proposed procedure were verified prior to the procedure by the physician and the nurse. The procedure was verified in the procedure room. - Pre-procedure physical examination revealed no contraindications to sedation. After obtaining informed consent, the endoscope was passed under direct vision. Throughout the procedure, the patient's blood pressure, pulse, and oxygen saturations were monitored continuously. The Endoscope was introduced through the mouth, and advanced to the second part of duodenum. The upper GI endoscopy was accomplished without difficulty. The patient tolerated the procedure well. Findings: The Z-line was regular and was found 30 cm from the incisors. A large hiatal hernia was present. No evidence of gastric volvulus. The duodenal bulb and second portion of the duodenum were normal. Impression: - Z-line regular, 30 cm from the incisors. - Large hiatal hernia. No evidence of gastric volvulus. - Normal duodenal bulb and second portion of the duodenum. - No specimens collected. Recommendation: - [facility]. - Advance diet as tolerated. - Recall GI if needed. Robe Leos MD 08/09/2020 12:21:48 PM This report has been signed electronically. Note Initiated On: 08/09/2020 11:46 AM Number of Addenda: 0 I attest to the content of the Intraoperative Record and orders documented therein, exceptions below {[id number]}
[2020-08-09] MEDS ORDERED: PHENYLEPHRINE 100MCG/ML 5ML SYR ONE (12:41)
--- NOTE | 2020-08-09 12:41 | Anesthesiology Progress Note ---
Date of Service August 09, 2020 Anesthesia Post Procedure Vital Signs Vital Signs: Temp Pulse Pulse Resp BP Pulse Ox 08/09/20 12:39 86 14 96/62 L 97 08/09/20 11:39 97.9 F 97 H 20 117/87 97 08/09/20 07:27 97.7 F 81 120/73 99 08/09/20 05:52 87 08/09/20 04:26 97.5 F L 79 102/67 99 08/09/20 01:16 97.3 F L 96 H 18 115/79 97 08/08/20 23:59 88 08/08/20 19:50 97.2 F L 76 16 110/76 92 08/08/20 15:39 97.5 F L 72 18 94/63 L 100 08/08/20 14:00 67 Pain Intensity Abdomen: Pain Intensity: 4 Transfer of Care Handoff Completed per policy Notes Mental Status: alert / awake / arousable and participated in evaluation Patient Amnestic to Procedure: Yes Nausea / Vomiting: adequately controlled Pain: adequately controlled Airway Patency, RR, SpO2: stable & adequate BP & HR: stable & adequate Hydration State: stable & adequate Anesthetic Complications: no major complications apparent and Pt Satisfied with anesthetic care
[2020-08-09] MEDS: ACETAMINOPHEN 500 MG TAB PO SCH ×2 (13:36→21:30)
[2020-08-09] MEDS: carvediloL 6.25 MG TAB PO SCH ×2 (13:37→16:58)
[2020-08-09] MEDS: ASCORBIC ACID 500 MG TAB PO SCH ×3 (13:37→21:30)
[2020-08-09] MEDS: THIAMINE HCL 100 MG TAB PO SCH (13:44)
[2020-08-09] MEDS: FOLIC ACID 1 MG TAB PO SCH (13:44)
[2020-08-09] MEDS: ASPIRIN 81 MG ECTAB PO SCH (13:44)
[2020-08-09] MEDS: dilTIAZem HCL 240 MG CAPCR PO SCH (13:44)
--- NOTE | 2020-08-09 16:56 | Cardiology Progress Note ---
Date of Service August 09, 2020 Assessment & Plan (1) Atrial fibrillation with rapid ventricular response: (2) Gastroenteritis: (3) Aortic stenosis: (4) Pleural effusion: Unfortunately, the EGD did not provide any additional answers as to why the patient has nausea and vomiting and presented with dehydration. She remains in atrial fibrillation. If she starts a diet and is able to tolerate then I would switch her over to oral medications, including diltiazem and carvedilol. Admission and Anticipated Discharge Date Admission Date: August 05, 2020 Subjective The patient completed an EGD today. The report is on the chart. Review of Systems Review of Systems: All systems reviewed & are unremarkable except as noted in Subjective Physical Exam Physical Exam: General: no acute distress and stated age Head: normocephalic, no masses, lesions, tenderness or abnormalities Eyes: conjunctiva are pink and non-injected, sclera clear Neck: supple, no adenopathy, no bruits, normal jugular venous pulse, no hepatojugular reflux Chest: normal shape and normal respiratory effort Lungs: clear to auscultation and percussion Cardiac Exam: - irregular rate & rhythm, no murmurs gallops or rubs - normal S1, normal S2 Pulses: 2(+) throughout Abdomen: abdomen soft, non-tender, no abnormal masses and no hepatosplenomegaly Musculoskeletal: no gait disturbance, no joint inflammation, no deforming arthritis Extremities: no edema and no cyanosis Neuro: grossly normal exam Results & Data ([facility]) Vital Signs (Past 12 Hours) Vital Signs Temp Pulse Pulse Resp BP Pulse Ox 08/09/20 15:42 36.3 C L 103 H 20 145/87 H 97 08/09/20 14:00 98 H 16 139/83 98 08/09/20 13:30 36.4 C L 88 16 137/77 96 08/09/20 12:53 84 16 114/74 97 08/09/20 12:38 96 H 14 103/63 95 08/09/20 12:23 86 14 96/62 L 97 08/09/20 11:39 36.6 C 97 H 20 117/87 97 08/09/20 07:27 36.5 C 81 120/73 99 08/09/20 05:52 87 Laboratory Results Laboratory Results - last 24 hr 08/08/20 08/08/20 08/08/20 18:00 20:34 23:55 WBC RBC Hgb Hct MCV MCH MCHC RDW Std Deviation RDW Coeff of Caitlin Plt Count MPV Immature Gran % (Auto) Neut % (Auto) Lymph % (Auto) [place] % (Auto) Eos % (Auto) Baso % (Auto) Neut # (Auto) Lymph # (Auto) [place] # (Auto) Eos # (Auto) Baso # (Auto) Immature Gran # (Auto) Absolute Nucleated RBC Nucleated RBC % (auto) APTT PTT Ratio Sodium Potassium Chloride Carbon Dioxide Anion Gap BUN Creatinine Est Cr Clr Drug Dosing Est GFR ( Amer) Est GFR (Non-Af Amer) BUN/Creatinine Ratio Glucose POC Glucose 155 H 141 H 174 H Calcium Total Bilirubin AST ALT Alkaline Phosphatase Total Protein Albumin Globulin Albumin/Globulin Ratio 08/09/20 08/09/20 08/09/20 00:25 05:48 09:01 WBC RBC Hgb Hct MCV MCH MCHC RDW Std Deviation RDW Coeff of Caitlin Plt Count MPV Immature Gran % (Auto) Neut % (Auto) Lymph % (Auto) [place] % (Auto) Eos % (Auto) Baso % (Auto) Neut # (Auto) Lymph # (Auto) [place] # (Auto) Eos # (Auto) Baso # (Auto) Immature Gran # (Auto) Absolute Nucleated RBC Nucleated RBC % (auto) APTT 47.3 H* PTT Ratio 1.7 Sodium Potassium Chloride Carbon Dioxide Anion Gap BUN Creatinine Est Cr Clr Drug Dosing Est GFR ( Amer) Est GFR (Non-Af Amer) BUN/Creatinine Ratio Glucose POC Glucose 136 H 118 H Calcium Total Bilirubin AST ALT Alkaline Phosphatase Total Protein Albumin Globulin Albumin/Globulin Ratio 08/09/20 08/09/20 08/09/20 09:01 09:01 13:30 WBC 10.68 RBC 3.52 L Hgb 11.3 L Hct 35.6 L MCV 101.1 H MCH 32.1 MCHC 31.7 L RDW Std Deviation 52.4 H RDW Coeff of Caitlin 14.4 Plt Count 180 MPV 10.9 H Immature Gran % (Auto) 0.2 Neut % (Auto) 89.9 Lymph % (Auto) 4.8 [place] % (Auto) 5.1 Eos % (Auto) 0.0 Baso % (Auto) 0.0 Neut # (Auto) 9.61 H Lymph # (Auto) 0.51 L [place] # (Auto) 0.54 Eos # (Auto) 0.00 Baso # (Auto) 0.00 Immature Gran # (Auto) 0.02 Absolute Nucleated RBC 0.09 H Nucleated RBC % (auto) 0.9 APTT PTT Ratio Sodium 143 Potassium 4.2 Chloride 114 H Carbon Dioxide 19 L Anion Gap 10.0 BUN 59 H Creatinine 2.87 H Est Cr Clr Drug Dosing 11.9 Est GFR ( Amer) 16.7 Est GFR (Non-Af Amer) 14.4 BUN/Creatinine Ratio 20.5 H Glucose 124 H POC Glucose 127 H Calcium 8.4 L Total Bilirubin 0.4 AST 53 H ALT 85 H Alkaline Phosphatase 143 H Total Protein 5.6 L Albumin 2.6 L Globulin 3.0 Albumin/Globulin Ratio 0.9 08/09/20 16:06 WBC RBC Hgb Hct MCV MCH MCHC RDW Std Deviation RDW Coeff of Caitlin Plt Count MPV Immature Gran % (Auto) Neut % (Auto) Lymph % (Auto) [place] % (Auto) Eos % (Auto) Baso % (Auto) Neut # (Auto) Lymph # (Auto) [place] # (Auto) Eos # (Auto) Baso # (Auto) Immature Gran # (Auto) Absolute Nucleated RBC Nucleated RBC % (auto) APTT PTT Ratio Sodium Potassium Chloride Carbon Dioxide Anion Gap BUN Creatinine Est Cr Clr Drug Dosing Est GFR ( Amer) Est GFR (Non-Af Amer) BUN/Creatinine Ratio Glucose POC Glucose 182 H Calcium Total Bilirubin AST ALT Alkaline Phosphatase Total Protein Albumin Globulin Albumin/Globulin Ratio Medications Administered Current Inpatient Medications Acetaminophen (Acetaminophen 325 Mg Tab) 650 mg PO Q4H PRN PRN Reason: Pain or Fever Stop: 09/04/20 22:22 Acetaminophen (Acetaminophen 500 Mg Tab) 500 mg PO BID [facility] Stop: 09/04/20 22:22 Last Admin: 08/09/20 13:36 Dose: Not Given Documented by: Ascorbic Acid (Ascorbic Acid 500 Mg Tab) 500 mg PO TID [facility] Stop: 09/04/20 22:22 Last Admin: 08/09/20 13:44 Dose: 500 mg Documented by: Aspirin (Aspirin 81 Mg Ectab) 81 mg PO DAILY [facility] Stop: 09/05/20 08:59 Last Admin: 08/09/20 13:44 Dose: 81 mg Documented by: Carvedilol (Carvedilol 6.25 Mg Tab) 6.25 mg PO BIDM [facility] Stop: 09/06/20 16:59 Last Admin: 08/09/20 13:37 Dose: Not Given Documented by: Diltiazem HCl (Diltiazem Hcl 240 Mg Capcr) 240 mg PO DAILY [facility] Stop: 09/06/20 10:29 Last Admin: 08/09/20 13:44 Dose: 240 mg Documented by: Folic Acid (Folic Acid 1 Mg Tab) 1 mg PO QAM [facility] Stop: 09/08/20 09:29 Last Admin: 08/09/20 13:44 Dose: 1 mg Documented by: Heparin Sodium/Dextrose (Heparin Sodium/Dextrose) 25,000 units in 500 mls @ 7 mls/hr IV .Q24H [facility]; Protocol Stop: 09/04/20 22:22 Last Titration: 08/09/20 14:09 Dose: 350 units/hr, 7 mls/hr Documented by: Pantoprazole Sodium 40 mg/ (Syringe) 10 mls @ 5 mls/min IV DAILY@1100 [facility] Stop: 09/05/20 10:59 Last Admin: 08/09/20 10:41 Dose: 5 mls/min Documented by: Methylprednisolone 20 mg/ (Syringe) 0.32 mls @ 1.5 mls/min IV DAILY [facility] Stop: 09/04/20 22:44 Last Admin: 08/09/20 08:42 Dose: 1.5 mls/min Documented by: Sodium Chloride (Nss 1000ml) 1,000 mls @ 75 mls/hr IV .[id number] [facility] Stop: 09/07/20 02:59 Last Admin: 08/09/20 10:12 Dose: 100 mls/hr Documented by: Piperacillin Sod/Tazobactam (Sod 3.375 gm/ Dextrose) 115 mls @ 28.75 mls/hr IV Q12H [facility]; Protocol Stop: 08/18/20 19:59 Last Infusion: 08/09/20 12:39 Dose: Infused Documented by: Insulin Aspart (Insulin Aspart 100 Units/Ml 3 Ml Pen) 0 units SC ACHS [facility] Stop: 09/04/20 22:22 Levothyroxine Sodium (Levothyroxine Sodium 25 Mcg Tablet) 25 mcg PO DAILYBB [facility] Stop: 09/05/20 06:29 Last Admin: 08/09/20 05:52 Dose: 25 mcg Documented by: Miscellaneous Information (Piperacill/Tazobac Consult Active) 1 ea N/A UD PRN PRN Reason: Consult Stop: 09/07/20 01:31 Nitroglycerin (Nitroglycerin Sl 0.4 Mg/Tab Tab) 0.4 mg SL UD PRN PRN Reason: Chest Pain Stop: 09/04/20 22:22 Ondansetron HCl (Ondansetron Inj 2 Mg/Ml 2 Ml Vial) 4 mg IV Q6H PRN PRN Reason: Nausea Stop: 09/04/20 22:22 Last Admin: 08/08/20 14:13 Dose: 4 mg Documented by: Thiamine HCl (Thiamine Hcl 100 Mg Tab) 100 mg PO [facility] Stop: 09/08/20 09:29 Last Admin: 08/09/20 13:44 Dose: 100 mg Documented by:
--- NOTE | 2020-08-09 18:16 | Hospitalist Progress Note ---
Date of Service August 09, 2020 Assessment & Plan (1) Atrial fibrillation with rapid ventricular response: A. fib RVR Elevated troponin--likely demand ischemia, Type II HI Missed home meds--Coreg, Cardizem for 2 to 3 days prior to admission Continue IV heparin Continue carvedilol, diltiazem Appreciate cardiology input Monitor (2) Gastroenteritis: --CT ABD: Moderate hiatal hernia with a stable organoaxial gastric volvulus. Persistent bilateral pleural effusions with basilar parenchymal opacities likely atelectatic. No evidence of bowel obstruction. No evidence of free air. Extensive perales diverticulosis. No convincing evidence of acute diverticulitis. --S/P EGD: Z line regular, 30 cm from the incisors. Large hiatal hernia. No evidence of gastric volvulus. Normal duodenal bulb and second portion of the duodenum. No specimens collected. --Received IV fluids --Appreciate GI Input Gastric volvulus CT As above EGD showed no evidence of gastric volvulus Appreciate GI, Surgery Input Clear liquid diet (3) Aortic stenosis: No significant symptoms of stenosis but likely making the heart failure worse (4) Pleural effusion: B/L pleural Effusions Mild acute systolic congestive heart failure ECHO: EF 35 to 40%. Moderate aortic stenosis. Mild MR. Moderate to severe TR. Chest USD:Bilateral pleural effusions right larger than left. 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 Baseline Cr:1.8-1.9 Likely ATN/prerenal Cr:2.8 Received IV fluids -Hold torsemide for now -No indication for emergent dialysis -Continue to hold myrbetriq -Bladder Scan PRN Elevation of volume per Monitor renal function (6) Polymyalgia rheumatica: No acute arthralgia or arthritis Alcohol use disorder ETOH level:98 Monitor for withdrawal Continue thiamine, folic acid [employer] to quit drinking DVT Px: on IV Heparin V heparin CODE STATUS Full code Disposition PT OT prior to discharge Admission and Anticipated Discharge Date Admission Date: August 05, 2020 Subjective Patient is seen and examined at bedside Had EGD earlier today States having dyspnea with minimal exertion Also states having nausea, intermittent dysuria Had bowel movement today Offers no other complaints Review of Systems Review of Systems: All systems reviewed & are unremarkable except as noted in HPI & below Physical Exam Physical Exam: Physical Exam: Vitals signs as noted above General Appearance:Chronic ill appearing, no apparent distress Head: normocephalic, Atraumatic Eyes: normal inspection, EOMI Neck: supple, Trachea midline Respiratory/Chest: Decreased breath sounds, basal crackles Cardiovascular: Irregularly irregular, No murmur Abdomen/GI:Soft, Non tender, Bowel sounds present Extremities/Musculoskelatal:normal inspection, 1+ edema Neurologic/Psych:AAOX3, grossly no focal neurological deficits Skin: normal color, warm Results & Data Results & Data ([facility]) Vital Signs (Past 12 Hours) Vital Signs Temp Pulse Resp BP Pulse Ox 08/09/20 15:42 36.3 C L 103 H 20 145/87 H 97 08/09/20 14:00 98 H 16 139/83 98 08/09/20 13:30 36.4 C L 88 16 137/77 96 08/09/20 12:53 84 16 114/74 97 08/09/20 12:38 96 H 14 103/63 95 08/09/20 12:23 86 14 96/62 L 97 08/09/20 11:39 36.6 C 97 H 20 117/87 97 08/09/20 07:27 36.5 C 81 120/73 99 Laboratory Results Short CBC 08/09/20 Range/Units 09:01 WBC 10.68 (4.8-10.8) K/uL Hgb 11.3 L (12.0-16.0) g/dL Hct 35.6 L (37-47) % Plt Count 180 (130-400) K/uL BMP 08/09/20 09:01 Sodium 143 Potassium 4.2 Chloride 114 H Carbon Dioxide 19 L BUN 59 H Creatinine 2.87 H Glucose 124 H Calcium 8.4 L Liver Function 08/09/20 Range/Units 09:01 Total Bilirubin 0.4 (0.2-1) mg/dl AST 53 H (15-37) U/L ALT 85 H (12-78) U/L Alkaline Phosphatase 143 H (45-117) U/L Albumin 2.6 L (3.4-5.0) gm/dl
[2020-08-09 20:38] LABS: Partial Thromboplastin Ratio 1.7
[2020-08-09 20:42] LABS: Partial Thromboplastin Time 47.9 Seconds (21.0-31.0)
[2020-08-10] MEDS: LEVOTHYROXINE SODIUM 25 MCG TABLET PO SCH (04:40)
[2020-08-10 06:13] LABS: Hematocrit (blood only) 35.5 % (37-47); Hemoglobin 11.3 g/dL (12.0-16.0); Mean Corpuscular Hemoglobin 32.2 pg (25-34); Mean Corpuscular Hgb Conc 31.8 g/dL (32-36); Mean Corpuscular Volume 101.1 fL (80-100); Nucleated RBC # (auto) 0.08 K/uL (0-0); Nucleated RBC % (auto) 0.7 %; Platelet Count 208 K/uL (130-400); RDW Coefficient of Variation 14.3 % (11.5-14.5); RDW Standard Deviation 52.6 fL (36.4-46.3); Red Blood Count 3.51 M/uL (4.2-5.4); White Blood Count 10.65 K/uL (4.8-10.8)
[2020-08-10 06:35] LABS: Albumin Level 2.6 gm/dl (3.4-5.0); BUN Creatinine Ratio 19.9 (10-20); Calcium 8.3 mg/dl (8.5-10.1); Creatinine Clr Calc Pharmacy 12.4 ml/min; Est GFR (African American) 17.3; Magnesium 2.2 mg/dl (1.8-2.4); Potassium 3.6 mmol/L (3.5-5.1)
[2020-08-10 06:38] LABS: Albumin Globulin Ratio 0.8 (0.9-2); Bilirubin,Total 0.6 mg/dl (0.2-1); Globulin 3.2 gm/dl (2.5-4.0); Total Protein 5.8 gm/dl (6.4-8.2)
[2020-08-10] MEDS: INSULIN ASPART 100 UNITS/ML 3 ML PEN SC SCH ×4 (07:49→22:29)
[2020-08-10] MEDS: HEPARIN SODIUM/DEXTROSE 25,000 UNITS/500 ML BAG IV SCH (07:51)
[2020-08-10] MEDS: carvediloL 6.25 MG TAB PO SCH ×2 (08:09→17:11)
[2020-08-10] MEDS: PIPERACILLIN/TAZOBACTAM 3.375 GM in DEXTROSE 5% 100 ML IV SCH (08:09)
[2020-08-10] MEDS: methylPREDNISolone 20 MG in SYRINGE 0 ML IV SCH (08:11)
[2020-08-10] MEDS: ASPIRIN 81 MG ECTAB PO SCH (08:11)
[2020-08-10] MEDS: ACETAMINOPHEN 500 MG TAB PO SCH ×2 (08:11→21:26)
[2020-08-10] MEDS: FOLIC ACID 1 MG TAB PO SCH (08:11)
[2020-08-10] MEDS: dilTIAZem HCL 240 MG CAPCR PO SCH (08:11)
[2020-08-10] MEDS: THIAMINE HCL 100 MG TAB PO SCH (08:12)
[2020-08-10] MEDS: ASCORBIC ACID 500 MG TAB PO SCH ×3 (08:12→21:26)
[2020-08-10 08:43] LABS: Partial Thromboplastin Ratio 1.7
[2020-08-10 08:51] LABS: Partial Thromboplastin Time 46.8 Seconds (21.0-31.0)
--- NOTE | 2020-08-10 11:05 | Surgery Progress Note ---
Date of Service August 10, 2020 Assessment & Plan (1) Hiatal hernia: Large hernia with volvulus. EGD negative for ulceration/ischemia. May still need eval by thoracic or foregut surgery if not able to advance diet. [facility] service (Dr. Fleming) covering the weekend for any questions. Admission and Anticipated Discharge Date Admission Date: August 05, 2020 Supervising Physician Co-Signing Physician Notes I personally saw and evaluated the patient with Dustin Moreno PA-C and agree with the assessment and plan. 84 yo female with large hiatal hernia -EGD images and results reviewed -Can advance diet as tolerated -If she deteriorates or cannot advance diet, would recommend transfer/evaluation to tertiary care center for thoracic or MIS eval Subjective c/o fatigue, some dyspnea, no appetite and still taking only small amounts of clears Physical Exam Gastrointestinal (Abdomen): Inspection/Auscultation: abdomen not distended Percussion/Palpation: abdomen soft; abdomen nontender Results & Data ([facility]) Vital Signs (Past 12 Hours) Vital Signs Temp Pulse Resp BP BP Pulse Ox 08/10/20 08:15 36.4 C L 107 H 20 152/88 H 97 08/10/20 06:25 36.4 C L 100 H 19 160/88 H 96 08/10/20 04:57 144/87 H 08/10/20 04:28 36.3 C L 106 H 22 163/100 H 92 08/10/20 00:08 36.2 C L 94 H 16 129/78 97 PG Care Time/CCT Total # of Minutes Spent Total Time Spent with Patient: Total time spent is greater than 50% in coordination of care (as documented) at patient's floor/unit and/or counseling patient: Coding Level of Care Code 28456 Inpt Consult Level 1 Diagnoses Hiatal hernia K44.9
[2020-08-10] MEDS: PANTOprazole 40 MG in SYRINGE 0 ML IV SCH (11:09)
--- NOTE | 2020-08-10 11:33 | XRay Report ---
SINGLE VIEW CHEST CLINICAL HISTORY: Pleural effusions. FINDINGS: An AP, portable, upright chest radiograph is compared to study dated 08/05/2020. Correlatio n is made with abdominal CT dated 08/08/2020. The heart is enlarged noting atherosclerotic calcificat ion of the thoracic aorta. There is mild pulmonary vascular congestion. There are right larger than l eft pleural effusions with bibasilar consolidation. No pneumothorax is seen. The skeletal structures are osteopenic. There is chronic posttraumatic deformity of the left proximal humerus. Calcific tendi nopathy is seen in the right shoulder. IMPRESSION: 1. Cardiomegaly with evidence of mild congestive failure. 2. Right larger left pleural effusions with bibasilar consolidation. This is similar in appearance to recent prior studies. ACT 112: Negative or not required by law. Electronically signed by: Carlos Mario M.D. 08/10/2020 11:32 AM
--- NOTE | 2020-08-10 13:01 | Cardiology Progress Note ---
Date of Service August 10, 2020 Assessment & Plan (1) Atrial fibrillation with rapid ventricular response: (2) Gastroenteritis: (3) Aortic stenosis: (4) Pleural effusion: The patient's chest x-ray shows a small right pleural effusion that was present on her admission chest x-ray and is unchanged. There are vascular markings suggesting possible congestive heart failure. She has received a lot of IV fluids during her hospital admission. She has a history of aortic stenosis, atrial fibrillation and poor LV function on her most recent echocardiogram. I think it would be worthwhile to diurese her and I have given her 40 mg of IV Lasix today. In regard to the atrial fibrillation I would continue the carvedilol and diltiazem for rate control. Admission and Anticipated Discharge Date Admission Date: August 05, 2020 Subjective The patient's complaints today are some mild tachypnea and a fullness whenever she takes a deep breath. She remains on clear liquids. GI and surgery are still evaluating her without a clear reason for her nausea and vomiting which brought her to the hospital. Review of Systems Review of Systems: All systems reviewed & are unremarkable except as noted in Subjective Physical Exam Physical Exam: General: no acute distress and stated age Head: normocephalic, no masses, lesions, tenderness or abnormalities Eyes: conjunctiva are pink and non-injected, sclera clear Neck: supple, no adenopathy, no bruits, normal jugular venous pulse, no hepatojugular reflux Chest: normal shape and normal respiratory effort Lungs: clear to auscultation and percussion Cardiac Exam: - irregular rate & rhythm, no murmurs gallops or rubs - normal S1, normal S2 Pulses: 2(+) throughout Abdomen: abdomen soft, non-tender, no abnormal masses and no hepatosplenomegaly Musculoskeletal: no gait disturbance, no joint inflammation, no deforming arthritis Extremities: no edema and no cyanosis Neuro: grossly normal exam Results & Data ([facility]) Vital Signs (Past 12 Hours) Vital Signs Temp Pulse Resp BP BP Pulse Ox 08/10/20 12:47 36.3 C L 91 H 20 123/77 96 08/10/20 08:15 36.4 C L 107 H 20 152/88 H 97 08/10/20 06:25 36.4 C L 100 H 19 160/88 H 96 08/10/20 04:57 144/87 H 08/10/20 04:28 36.3 C L 106 H 22 163/100 H 92 Laboratory Results Laboratory Results - last 24 hr 08/09/20 08/09/20 08/09/20 13:30 16:06 20:07 WBC RBC Hgb Hct MCV MCH MCHC RDW Std Deviation RDW Coeff of Caitlin Plt Count MPV Absolute Nucleated RBC Nucleated RBC % (auto) APTT 47.9 H* PTT Ratio 1.7 Sodium Potassium Chloride Carbon Dioxide Anion Gap BUN Creatinine Est Cr Clr Drug Dosing Est GFR ( Amer) Est GFR (Non-Af Amer) BUN/Creatinine Ratio Glucose POC Glucose 127 H 182 H Calcium Magnesium Total Bilirubin AST ALT Alkaline Phosphatase Total Protein Albumin Globulin Albumin/Globulin Ratio 08/09/20 08/10/20 08/10/20 20:56 05:31 05:31 WBC 10.65 RBC 3.51 L Hgb 11.3 L Hct 35.5 L MCV 101.1 H MCH 32.2 MCHC 31.8 L RDW Std Deviation 52.6 H RDW Coeff of Caitlin 14.3 Plt Count 208 MPV 11.0 H Absolute Nucleated RBC 0.08 H Nucleated RBC % (auto) 0.7 APTT PTT Ratio Sodium 143 Potassium 3.6 Chloride 114 H Carbon Dioxide 20 L Anion Gap 9.0 BUN 55 H Creatinine 2.79 H Est Cr Clr Drug Dosing 12.4 Est GFR ( Amer) 17.3 Est GFR (Non-Af Amer) 15.0 BUN/Creatinine Ratio 19.9 Glucose 128 H POC Glucose 129 H Calcium 8.3 L Magnesium 2.2 Total Bilirubin 0.6 AST 45 H ALT 84 H Alkaline Phosphatase 130 H Total Protein 5.8 L Albumin 2.6 L Globulin 3.2 Albumin/Globulin Ratio 0.8 L 08/10/20 08/10/20 08/10/20 07:29 08:00 11:45 WBC RBC Hgb Hct MCV MCH MCHC RDW Std Deviation RDW Coeff of Caitlin Plt Count MPV Absolute Nucleated RBC Nucleated RBC % (auto) APTT 46.8 H* PTT Ratio 1.7 Sodium Potassium Chloride Carbon Dioxide Anion Gap BUN Creatinine Est Cr Clr Drug Dosing Est GFR ( Amer) Est GFR (Non-Af Amer) BUN/Creatinine Ratio Glucose POC Glucose 121 H 144 H Calcium Magnesium Total Bilirubin AST ALT Alkaline Phosphatase Total Protein Albumin Globulin Albumin/Globulin Ratio Diagnostic Findings Chest x-ray reveals a persistent small right pleural effusion and increased vascular markings suggesting congestive heart failure Medications Administered Current Inpatient Medications Acetaminophen (Acetaminophen 325 Mg Tab) 650 mg PO Q4H PRN PRN Reason: Pain or Fever Stop: 09/04/20 22:22 Acetaminophen (Acetaminophen 500 Mg Tab) 500 mg PO BID [facility] Stop: 09/04/20 22:22 Last Admin: 08/10/20 08:11 Dose: 500 mg Documented by: Ascorbic Acid (Ascorbic Acid 500 Mg Tab) 500 mg PO TID [facility] Stop: 09/04/20 22:22 Last Admin: 08/10/20 08:12 Dose: 500 mg Documented by: Aspirin (Aspirin 81 Mg Ectab) 81 mg PO DAILY [facility] Stop: 09/05/20 08:59 Last Admin: 08/10/20 08:11 Dose: 81 mg Documented by: Carvedilol (Carvedilol 6.25 Mg Tab) 6.25 mg PO BIDM [facility] Stop: 09/06/20 16:59 Last Admin: 08/10/20 08:09 Dose: 6.25 mg Documented by: Diltiazem HCl (Diltiazem Hcl 240 Mg Capcr) 240 mg PO DAILY [facility] Stop: 09/06/20 10:29 Last Admin: 08/10/20 08:11 Dose: 240 mg Documented by: Folic Acid (Folic Acid 1 Mg Tab) 1 mg PO QAM [facility] Stop: 09/08/20 09:29 Last Admin: 08/10/20 08:11 Dose: 1 mg Documented by: Heparin Sodium/Dextrose (Heparin Sodium/Dextrose) 25,000 units in 500 mls @ 7 mls/hr IV .Q24H [facility]; Protocol Stop: 09/04/20 22:22 Last Admin: 08/10/20 07:51 Dose: 350 units/hr, 7 mls/hr Documented by: Pantoprazole Sodium 40 mg/ (Syringe) 10 mls @ 5 mls/min IV DAILY@1100 [facility] Stop: 09/05/20 10:59 Last Admin: 08/10/20 11:09 Dose: 5 mls/min Documented by: Methylprednisolone 20 mg/ (Syringe) 0.32 mls @ 1.5 mls/min IV DAILY [facility] Stop: 09/04/20 22:44 Last Admin: 08/10/20 08:11 Dose: 1.5 mls/min Documented by: Piperacillin Sod/Tazobactam (Sod 3.375 gm/ Dextrose) 115 mls @ 28.75 mls/hr IV Q12H [facility]; Protocol Stop: 08/18/20 19:59 Last Infusion: 08/10/20 12:09 Dose: Infused Documented by: Furosemide 40 mg/ Syringe 4 mls @ 4 mls/min IV ONE ONE Stop: 08/10/20 13:16 Insulin Aspart (Insulin Aspart 100 Units/Ml 3 Ml Pen) 0 units SC ACHS [facility] Stop: 09/04/20 22:22 Last Admin: 08/10/20 12:52 Dose: Not Given Documented by: Levothyroxine Sodium (Levothyroxine Sodium 25 Mcg Tablet) 25 mcg PO DAILYBB [facility] Stop: 09/05/20 06:29 Last Admin: 08/10/20 04:40 Dose: 25 mcg Documented by: Miscellaneous Information (Piperacill/Tazobac Consult Active) 1 ea N/A UD PRN PRN Reason: Consult Stop: 09/07/20 01:31 Nitroglycerin (Nitroglycerin Sl 0.4 Mg/Tab Tab) 0.4 mg SL UD PRN PRN Reason: Chest Pain Stop: 09/04/20 22:22 Ondansetron HCl (Ondansetron Inj 2 Mg/Ml 2 Ml Vial) 4 mg IV Q6H PRN PRN Reason: Nausea Stop: 09/04/20 22:22 Last Admin: 08/08/20 14:13 Dose: 4 mg Documented by: Potassium Chloride (Potassium Chloride Crtab 20 Meq Tabcr) 20 meq PO NOW STA Stop: 08/10/20 13:05 Thiamine HCl (Thiamine Hcl 100 Mg Tab) 100 mg PO QAM [facility] Stop: 09/08/20 09:29 Last Admin: 08/10/20 08:12 Dose: 100 mg Documented by:
[2020-08-10] MEDS ORDERED: POTASSIUM CHLORIDE CRTAB 20 MEQ TABCR PO STA (13:04)
[2020-08-10] MEDS ORDERED: FUROSEMIDE 40 MG in SYRINGE 0 ML IV ONE (13:15)
--- NOTE | 2020-08-10 17:54 | Hospitalist Progress Note ---
Date of Service August 10, 2020 Assessment & Plan (1) Atrial fibrillation with rapid ventricular response: A. fib RVR Elevated troponin--likely demand ischemia, Type II DC Aortic Stenosis Missed home meds--Coreg, Cardizem for 2 to 3 days prior to admission Continue IV heparin Continue carvedilol, diltiazem Appreciate cardiology input Heart rate is controlled (2) Gastroenteritis: --CT ABD: Moderate hiatal hernia with a stable organoaxial gastric volvulus. Persistent bilateral pleural effusions with basilar parenchymal opacities likely atelectatic. No evidence of bowel obstruction. No evidence of free air. Extensive perales diverticulosis. No convincing evidence of acute diverticulitis. --S/P EGD: Z line regular, 30 cm from the incisors. Large hiatal hernia. No evidence of gastric volvulus. Normal duodenal bulb and second portion of the duodenum. No specimens collected. --Received IV fluids --Appreciate GI Input -on Zosyn Day #3 Likely Partial Gastric volvulus-POA Large Hiatal Hernia CT As above EGD showed no evidence of gastric volvulus Appreciate GI, Surgery Input Not tolerated Clear liquid diet Plan to transfer to [facility] for possible surgery (3) Aortic stenosis: No significant symptoms of stenosis but likely making the heart failure worse (4) Pleural effusion: B/L pleural Effusions Mild acute systolic congestive heart failure ECHO: EF 35 to 40%. Moderate aortic stenosis. Mild MR. Moderate to severe TR. Chest USD:Bilateral pleural effusions right larger than left. 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 Right larger left pleural effusions with bibasilar consolidation. This is similar in appearance to recent prior studies. COVID screen: Negative ? Aspiration given large hiatal hernia Received Zosyn Day #3 consider repeating COVID screen if necessary check Procalcitonin in AM DVT Px: on IV Heparin CODE STATUS Full code Disposition [facility] Accepting Physician: Dr.Kyle Aquino Admission and Anticipated Discharge Date Admission Date: August 05, 2020 Subjective Patient is seen and examined at bedside States having nausea, generalized abdominal pain with food intake Also states having dry cough, shortness of breath Poor oral intake secondary to nausea and abdominal pain Discussed with gastroenterology, nephrology today Also discussed with patient's daughter over the phone Chest x-ray showed findings suggestive of bibasilar consolidation with mild congestive failure. Feels very weak and tired. Review of Systems Review of Systems: All systems reviewed & are unremarkable except as noted in HPI & below Physical Exam Physical Exam: Physical Exam: Vitals signs as noted above General Appearance:Chronic ill appearing, no apparent distress Head: normocephalic, Atraumatic Eyes: normal inspection, EOMI Neck: supple, Trachea midline Respiratory/Chest: Decreased breath sounds, basal crackles Cardiovascular: Irregularly irregular, No murmur Abdomen/GI:Soft, mild generalized tender, Bowel sounds present Extremities/Musculoskelatal:normal inspection, 1+ edema Neurologic/Psych:AAOX3, grossly no focal neurological deficits Skin: normal color, warm Results & Data Results & Data ([facility]) Vital Signs (Past 12 Hours) Vital Signs Temp Pulse Resp BP Pulse Ox 08/10/20 16:16 36.5 C 95 H 18 129/83 97 08/10/20 12:47 36.3 C L 91 H 20 123/77 96 08/10/20 08:15 36.4 C L 107 H 20 152/88 H 97 08/10/20 06:25 36.4 C L 100 H 19 160/88 H 96 Laboratory Results Short CBC 08/10/20 Range/Units 05:31 WBC 10.65 (4.8-10.8) K/uL Hgb 11.3 L (12.0-16.0) g/dL Hct 35.5 L (37-47) % Plt Count 208 (130-400) K/uL BMP 08/10/20 05:31 Sodium 143 Potassium 3.6 Chloride 114 H Carbon Dioxide 20 L BUN 55 H Creatinine 2.79 H Glucose 128 H Calcium 8.3 L Liver Function 08/10/20 Range/Units 05:31 Total Bilirubin 0.6 (0.2-1) mg/dl AST 45 H (15-37) U/L ALT 84 H (12-78) U/L Alkaline Phosphatase 130 H (45-117) U/L Albumin 2.6 L (3.4-5.0) gm/dl
--- NOTE | 2020-08-10 18:14 | Nephrology Progress Note ---
Date of Service August 10, 2020 Assessment & Plan (1) Acute kidney injury superimposed on CKD: baseline creatinine 1.8-1.9 from 06/2018-03/2020; now w/ BEVERLEY on CKD4 w/ creat plateau'd at 2.9 or so 08/06-08/10. urine studies c/w ATN in setting of severe acute illness though she may well be volume depleted as well. AF santos w/ RVR may have a role as well. chemistries for most part acceptable though mnild non anion gap acidosis from saline -I/O's are incomplete. had chest u/s showing [address] effusion and 210 mL L one > cont to hold IVF for now -agree w/ holding torsemide for now -daily bmp -no indication for urgent dialysis or discussion of it; however if her clinical status takes sudden downturn thsi could change -cont to hold myrbetriq d/t BEVERLEY; >> monitor for urinary retention (2) Hiatal hernia: signficant/very symptomatic; per gi and surgery; remains on clear liquid diet now Admission and Anticipated Discharge Date Admission Date: August 05, 2020 Subjective feeling sick again this am (GI) -- dry heaves, crampy epigastric abd pain; fecal urgency and loose BM; generalized weakness; still w/ marked exertional dyspnea; marked HTN this am Review of Systems Review of Systems: All systems reviewed & are unremarkable except as noted in HPI & below Physical Exam Constitutional: well developed, well nourished, + thin and cooperative Eyes: EOM intact bilaterally ENMT: Ears: no external ear abnormality Nose: no external nose abnormality Mouth: + dry oral mucous membranes Neck: no nuchal rigidity Respiratory: normal respiratory effort, + labored breathing (slight) and able to speak in complete sentences (again sob w/ this); no respiratory distress Auscultation: + diminished lung sounds (markedly so) Cardiovascular: Rate/Rhythm: + tachycardic and + irregularly irregular Extremities: + edema (trace BL ankles at most) Gastrointestinal (Abdomen): Inspection/Auscultation: normal bowel sounds Percussion/Palpation: abdomen soft; abdomen nontender Musculoskeletal: Extremities: strength 5/5 throughout Skin: no rashes, warm and dry + turgor decreased Neurologic: reid, fluent speech, no tremor Psychiatric: A+Ox3, euthymic affect Results & Data ([facility]) Vital Signs (Past 12 Hours) Vital Signs Temp Pulse Resp BP Pulse Ox 08/10/20 16:16 36.5 C 95 H 18 129/83 97 08/10/20 12:47 36.3 C L 91 H 20 123/77 96 08/10/20 08:15 36.4 C L 107 H 20 152/88 H 97 08/10/20 06:25 36.4 C L 100 H 19 160/88 H 96 Laboratory Results 08/10/20 05:31 08/10/20 05:31
--- NOTE | 2020-08-10 18:23 | Discharge Summary ---
Date of Service August 10, 2020 Admission HPI Per Admitting Provider DATE OF ADMISSION: 08/05/2020 CHIEF COMPLAINT: Nausea, vomiting, abdominal pain. HISTORY OF PRESENT ILLNESS: This 84-year-old female with past medical history significant for hypothyroidism, hyperlipidemia, prediabetes, chronic kidney disease stage IV, polymyalgia rheumatica, general osteoarthrosis, senile osteoporosis, iron deficiency anemia, history of long-term use of systemic steroids, who lives with her son, ambulates without any support, but needs to hold door knobs, comes because of nausea, vomiting and abdominal pain going on for last 3 days. She says she could not take her pills. She could not drink anything. She whatever drinking she is vomiting out. She had a somewhat normal bowel movement, small amount in the morning. Denies any blood in the stool or black stools. Denies any cough, no fever. Denies any chest pain, but she is getting short of breath easily. She could not get up and feeling weak and tired and once in a while feeling palpitations. Denies any headache, no blurred visions, no earache, no runny nose, no sore throat, no dysphagia. No rash. Normal bladder movements. Currently, resting comfortably. Admission Exam Per Admitting Provider PHYSICAL EXAMINATION: GENERAL: The patient is old and frail, not in acute distress. VITAL SIGNS: Temperature 37, pulse 120s, respiratory rate 20, blood pressure 129/92, oxygen 94% room air. HEENT: No pallor, no icterus. Pupils equal, round, reactive to light. Oral mucosa dry. NECK: No neck masses. Supple. CARDIOVASCULAR: S1, S2 heard. Tachycardia. No murmurs. RESPIRATORY SYSTEM: Normal AP diameter. No accessory muscle use. No wheezing, no crackles. ABDOMEN: Soft, bowel sounds present, nontender. No distention. CENTRAL NERVOUS SYSTEM: Cranial nerves II through XII grossly intact, nonfocal. EXTREMITIES: No edema, no erythema. Principal Diagnosis A. fib RVR Partial gastric volvulus BEVERLEY on CKD Mild acute CHF Bilateral pleural effusion Alcohol use disorder Aortic stenosis Polymyalgia rheumatica ? Aspiration Pneumonia Large Hiatal Hernia E.Coli UTI- Pansensitive Discharge Data Allergies Allergy/AdvReac Type Severity Reaction Status Date / Time aspirin Allergy Mild Unknown Verified 08/05/20 19:33 Sulfa (Sulfonamide Allergy Mild Rash Verified 08/05/20 19:33 Antibiotics) Consultations 08/05/20 19:51 ED Decision to Admit Stat 08/05/20 22:23 Consult Case Management - Discharge Planning Routine 08/06/20 08:00 Consult Cardiology Routine 08/08/20 08:00 Consult Nephrology Routine 08/08/20 11:15 Consult General Surgery Routine 08/08/20 11:59 Consult Gastroenterology Routine 08/10/20 17:52 Burn CD for patient Stat Procedures Performed Operation Date: 08/09/20 16:15 Actual Procedures p Esophagogastroduodenoscopy - Robe Leos MD CT Head: There is no hemorrhage, mass effect, or evidence of acute territorial ischemia by CT criteria. ABD CT: 1. Moderate hiatal hernia with a stable organoaxial gastric volvulus 2. Persistent bilateral pleural effusions with basilar parenchymal opacities likely atelectatic 3. No evidence of bowel obstruction. No evidence of free air 4. Extensive perales diverticulosis. No convincing evidence of acute diverticulitis. Chest USD: FINDINGS: There is a right pleural effusion with an estimated volume of 440 cc. There is a left pleural effusion with estimated volume of 210 cc. The right pleural effusion was marked for possible subsequent thoracentesis. IMPRESSION: Bilateral pleural effusions right larger than left. CXR: 1. Cardiomegaly with evidence of mild congestive failure. 2. Right larger left pleural effusions with bibasilar consolidation. This is similar in appearance to recent prior studies. Ordered Studies 08/05/20 17:58 CT head/brain wo con Stat 08/05/20 19:21 CT abd pelvis wo con Stat 08/08/20 01:28 CT abd pelvis wo con Urgent 08/08/20 10:30 US effusion-chest/mediastinum Routine Hospital Course (1) Atrial fibrillation with rapid ventricular response: A. fib RVR Elevated troponin--likely demand ischemia, Type II [place] Aortic Stenosis Missed home meds--Coreg, Cardizem for 2 to 3 days prior to admission Continue IV heparin Continue carvedilol, diltiazem Appreciate cardiology input Heart rate is controlled (2) Gastroenteritis: --CT ABD: Moderate hiatal hernia with a stable organoaxial gastric volvulus. Persistent bilateral pleural effusions with basilar parenchymal opacities likely atelectatic. No evidence of bowel obstruction. No evidence of free air. Extensive perales diverticulosis. No convincing evidence of acute diverticulitis. --S/P EGD: Z line regular, 30 cm from the incisors. Large hiatal hernia. No evidence of gastric volvulus. Normal duodenal bulb and second portion of the duodenum. No specimens collected. 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 Moderate aortic stenosis. Mild MR. Moderate to severe TR. Chest USD:Bilateral pleural effusions right larger than left. Monitor volume status closely Received Lasix 40mg today Home diuretics currently on hold (5) Acute kidney injury superimposed on CKD: BEVERLEY on CKD IV Baseline Cr:1.8-1.9 Likely ATN/prerenal Cr:2.8> 2.79 Received IV fluids -Held torsemide -No indication for emergent dialysis -Continue to hold myrbetriq -Bladder Scan PRN -Monitor renal function (6) Polymyalgia rheumatica: No acute arthralgia or arthritis On chronic Prednisone Alcohol use disorder ETOH level:98 Monitor for withdrawal Continue thiamine, folic acid Wind Site Manager to quit drinking No signs of withdrawal currently Possible Aspiration Pneumonia-POA CXR:Cardiomegaly with evidence of mild congestive failure. Right larger left pleural effusions with bibasilar consolidation. This is similar in appearance to recent prior studies. COVID screen: Negative ? Aspiration given large hiatal hernia Received Zosyn Day #3 consider repeating COVID screen if necessary check Procalcitonin in AM UTI-POA Urine Cx: E.Coli--Pansensitive IV Rocephin transitioned to Zosyn DVT Px: on IV Heparin CODE STATUS Full code Disposition [facility] Accepting Physician: Dr.Kyle Aquino Total Time Total Time Spent Total Time Spent (In Minutes): 55 minutes Total Time Includes: Examination of the Patient, Discharge Planning, Medication Reconciliation, Communication With Other Providers and Other Discharge Plan Discharge Items Patient Disposition: Transfer Acute Care Hospital Reason For Visit: N/V, ABDOMINAL PAIN Discharge Diagnosis: A. fib RVR Partial gastric volvulus BEVERLEY on CKD Mild acute CHF Bilateral pleural effusion Alcohol use disorder Aortic stenosis Polymyalgia rheumatica ? Aspiration Pneumonia Large Hiatal Hernia E.Coli UTI- Pansensitive Activity: Per Instructions section Sexual Activity: Wait until after follow-up appointment Non-emergency contact: Primary Care Provider, Surgeon, Middleware Consultant, Dismantler and Manager Spa Call non-emergency contact if: you have any medication questions, your symptoms worsen, your pain is not controlled, your pain is worsening, your pain is unusual for you, your pain is concerning for you and you have a fever Follow-up/Referrals: Irvin Huggins DO [Primary Care Provider] - Diet: Clear liquid Addtl Attending Provider Instructions: Follow up with Dr.Kyle Aquino at [facility] for further evaluation and amanagement Pending Studies at Discharge: No Stand-Alone Forms: My [facility] Skilled Items Patient informed of condition?: Yes DNR: No Discharge Level of Care: Other Communicable Disease: No Discharge Prognosis: Stable Lines: Peripheral IV Urinary Catheter: No Medications and DC Order Prescriptions: New folic acid 1 mg Tablet 1 mg PO QAM Qty: 0 RF: 0 thiamine HCl (vitamin B1) [Vitamin B-1] 100 mg Tablet 100 mg PO QAM Qty: 0 RF: 0 Continued levothyroxine 25 mcg Tablet 25 mcg PO DAILYBB RF: 0 tramadol 50 mg Tablet 50 mg PO Q8H PRN (Reason: Pain) RF: 0 diltiazem HCl 240 mg Capsule,Extended Release 24hr 240 mg PO DAILY RF: 0 prednisone 1 mg Tablet 2 mg PO DAILY RF: 0 prednisone 5 mg Tablet 5 mg PO DAILY RF: 0 aspirin 81 mg Tablet,Delayed Release (Dr/Ec) 81 mg PO DAILY RF: 0 coenzyme Q10 50 mg Capsule 50 mg PO DAILY RF: 0 cod liver oil Capsule 1 cap PO DAILY RF: 0 garlic-parsley Tablet 1 tab PO BID RF: 0 ascorbic acid (vitamin C) [Vitamin C] 500 mg Tablet 500 mg PO TID RF: 0 flaxseed oil 1,000 mg Capsule 1,000 mg PO BID RF: 0 multivitamin Tablet 1 tab PO DAILY RF: 0 omeprazole magnesium [Prilosec OTC] 20 mg Tablet,Delayed Release (Dr/Ec) 20 mg PO QDD RF: 0 carvedilol 6.25 mg Tablet 6.25 mg PO BIDM RF: 0 torsemide 10 mg Tablet 10 mg PO DAILY RF: 0 acetaminophen [Tylenol Extra Strength] 500 mg Tablet 500 mg PO BID RF: 0 ferrous sulfate [Feosol] 325 mg (65 mg iron) Tablet 325 mg PO QAM RF: 0 [id number] Tablet 1 tab PO DIRECTED RF: 0 Myrbetriq 25 mg Tablet Extended Release 24 Hr 25 mg PO DAILY RF: 0 Discharge Orders: Discharge Order (Routine); Ordered 08/10/20 Ordered By: Lance Ford Admission Data Admit Date/Time: 08/05/20 20:36 Attending Provider: Lance Ford Admit Provider: Zana Evans Primary Care Provider: Irvin Huggins Other Providers: Zana Evans ; Blair Sanders ; Hamilton De ; Isiah Peñaloza ; Ray Carroll ; Guanako Rockwell ; Michelet Hernandez ; Janessa Wiggins ; Marie Michel ; Marvin Ravi ; Roberto Blevins at [place] ; Mey Alford ; Michelet Holden ; Kayla Hough ; Jerri Fleming ; Ady Rojo ; Guanako Forrest ; Cydney Carmona ; Angie Garrett ; Joshua Painter Jr ; Becca Messina ; Chance Martins ; Kristyn Shirley ; Barney Bell ; Agnie Shea ; Reinaldo Grant ; Josephine Krishna ; Angelito Mariano ; Bulmaro Fleming ; Siobhan Arreola ; Reg Lucas ; Russ Michael ; Brenda Grayson ; Gisela Lynne ; Abril Bowen ; Kristyn Cho ; Robe Leos Other Interventions: Discharge Summary Assessment (RN) Last Done: 08/09/20 12:53
[2020-08-10] MEDS ORDERED: cephALEXin 250 MG CAP PO SCH (21:00)
[2020-08-11] MEDS ORDERED: predniSONE 5 MG TAB PO SCH (09:00)
[2020-08-11] MEDS ORDERED: predniSONE 1 MG TAB PO SCH (09:00)
[2020-08-11] MEDS ORDERED: PANTOprazole 40 MG TAB PO SCH (09:00)
== END 2020-08-11 00:15 | disposition short-term general hospital (02) | DRG 280 ==
LOC: ED 17:49 → 2S 20:36 → SUATTDRO 20:36 → 2S 21:41

== ENCOUNTER 2020-08-31 10:17 | Inpatient (IN) ==
[2020-08-31] MEDS ORDERED: cefTRIAXone SODIUM 1,000 MG/50 ML BAG IV STA (10:31)
[2020-08-31] MEDS ORDERED: AZITHROMYCIN 500 MG in DEXTROSE 5% 250 ML IV STA (10:31)
[2020-08-31] MEDS ORDERED: SODIUM CHLORIDE 0.9% 500 ML IV SCH (10:45)
--- NOTE | 2020-08-31 11:05 | Emergency Department Note ---
History of Present Illness General Chief complaint: Shortness of Breath/Dyspnea Stated complaint: SOB, WEAKNESS Time Seen by Provider: 08/31/20 10:18 Source: patient Mode of arrival: EMS Limitations: no limitations History of Present Illness Provider complaint: Shortness of breath and weakness This is an 84-year-old female who presents to the ED with a chief complaint of shortness of breath and weakness. The patient states that she was diagnosed with Covid around 15 August. The patient has had a nonproductive cough. Her cough has been increasing. She has had increasing shortness of breath that is worse with exertion. She was evaluated by home health nursing today and felt to have pneumonia and sent here for further evaluation. EMS reported to oxygen saturations in the mid 80s. She does not use oxygen at home. She has no additional complaints at this time Home Medications Medication Instructions Recorded Confirmed Type ascorbic acid (vitamin C) [Vitamin 500 mg PO TID 01/05/19 08/31/20 History C] aspirin 81 mg PO DAILY 01/05/19 08/31/20 History diltiazem HCl 240 mg PO DAILY 01/05/19 08/31/20 History levothyroxine 25 mcg PO DAILYBB 01/05/19 08/31/20 History multivitamin 1 tab PO DAILY 01/05/19 08/31/20 History omeprazole magnesium [Prilosec OTC] 20 mg PO HS 01/05/19 08/31/20 History prednisone 2 mg PO DAILY 01/05/19 08/31/20 History prednisone 5 mg PO DAILY 01/05/19 08/31/20 History tramadol 50 mg PO Q8H PRN 01/05/19 08/31/20 History Myrbetriq 25 mg PO DAILY 08/05/20 08/31/20 History acetaminophen [Tylenol Extra 500 mg PO BID 08/05/20 08/31/20 History Strength] carvedilol 6.25 mg PO BIDM 08/05/20 08/31/20 History kxedjajngu-kqld-ndxe-vinegar 1 tab PO BID PRN 08/05/20 08/31/20 History torsemide 10 mg PO DAILY 08/05/20 08/31/20 History folic acid 1 mg PO QAM #0 tab 08/10/20 08/31/20 Rx thiamine HCl (vitamin B1) [Vitamin 100 mg PO QAM #0 tab 08/10/20 08/31/20 Rx B-1] benzonatate [Tessalon Perles] 100 mg PO TID PRN 08/31/20 08/31/20 History dextromethorphan-guaifenesin 1 tab PO Q12H 08/31/20 08/31/20 History [Mucinex DM] famotidine 20 mg PO DAILY 08/31/20 08/31/20 History Allergies Allergy/AdvReac Type Severity Reaction Status Date / Time aspirin Allergy Mild Unknown Verified 08/31/20 11:17 Sulfa (Sulfonamide Allergy Mild Rash Verified 08/31/20 11:17 Antibiotics) Past Med/Surg History Medical History Anemia CKD (chronic kidney disease) stage 4, GFR 15-29 ml/min Fibromyalgia GERD (gastroesophageal reflux disease) HTN (hypertension) Hyponatremia Hypothyroid Osteoporosis Rheumatoid arthritis Surgical History S/P appendectomy S/P cataract extraction S/P tonsillectomy Family History Sister Cancer Social History Smoking Status: Former smoker Hx Alcohol Use: Yes Alcohol type: hard liquor Hx Substance Use: No Preferred Language: Mosotho Communication Ability: Effective Field Observer Required: No Beliefs That Will Affect Care: None marital status: / Current Living Situation: Family Current Living Situation Comment: Son lives w/ patient Feels Safe at Home: Yes Assistive Devices: None Review of Systems A total of 10 systems reviewed and were otherwise negative Physical Exam Vital Signs Vital Signs - 24 hr 08/31/20 10:28 08/31/20 10:41 Temperature 36.5 C Temperature Source Oral Pulse Rate 96 H Pulse Rhythm Regular Pulse Strength Normal Respiratory Rate 18 Respiratory Effort / Characteristics Labored Short of Breath SOB on Exertion Respiratory Depth Shallow Respiratory Pattern Regular Blood Pressure 123/63 Blood Pressure Mean 83 Blood Pressure Position Lying Pulse Oximetry 90 96 Oxygen Delivery Method Room Air Nasal Cannula Oxygen Flow Rate 2 Sepsis Recent Fever Within 48 Hours No Sepsis New/Unexplained Change in Mental Status No Sepsis Action Taken by Nursing No Action Required CONSTITUTIONAL/VITAL SIGNS: Reviewed / noted above. GENERAL: Non-toxic in appearance. Generalized weakness. Chronically ill-a ppearing. INTEGUMENTARY: Warm, dry, and [place]. HEAD: Normocephalic. EYES: without scleral icterus or trauma. ENT/OROPHARYNX: clear and moist. LYMPHADENOPATHY/NECK: Is supple without lymphadenopathy or meningismus. RESPIRATORY: Lungs reveal some rhonchi right greater than left, mainly in the bases. CARDIOVASCULAR: Regular rate and rhythm. GI/ABDOMEN: Soft and nontender. No organomegaly or pulsatile mass. No rebound or guarding. Normal bowel sounds. EXTREMITIES: Warm and well perfused. BACK: No CVA tenderness. NEUROLOGICAL: Intact without focal deficits. PSYCHIATRIC: normal affect. MUSCULOSKELETAL: Normally developed with average to poor muscle tone. TRIAGE NURSING DOCUMENTATION REVIEWED. Medical Decision Making Differential Diagnosis Differential includes acute coronary syndrome, myocardial infarction, CVA, TIA, anemia, infection, pneumonia, UTI, pyelonephritis, poor nutrition, dehydration, electrolyte disturbance,hypoglycemia. Medical Records Attestation: I reviewed the patient's medical records. Home Medications Current Medication List: was personally reviewed by me Laboratory Data Attestation: I reviewed the patient's lab results. Result diagrams: 08/31/20 11:25 08/31/20 11:25 Lab Results 08/31/20 08/31/20 08/31/20 Range/Units 06:45 11:25 11:25 WBC (4.8-10.8) K/uL RBC (4.2-5.4) M/uL Hgb (12.0-16.0) g/dL Hct (37-47) % MCV (80-100) fL MCH (25-34) pg MCHC (32-36) g/dL RDW Std Deviation (36.4-46.3) fL RDW Coeff of Caitlin (11.5-14.5) % Plt Count (130-400) K/uL MPV (7.4-10.4) fL Immature Gran % (Auto) % Neut % (Auto) % Lymph % (Auto) % Benzie % (Auto) % Eos % (Auto) % Baso % (Auto) % Neut # (Auto) (1.4-6.5) K/uL Lymph # (Auto) (1.2-3.4) K/uL Benzie # (Auto) (0.11-0.59) K/uL Eos # (Auto) (0-0.5) K/uL Baso # (Auto) (0-0.2) K/uL Immature Gran # (Auto) (0.00-0.02) K/uL PT (9.0-12.0) Seconds INR (0.9-1.1) APTT (21.0-31.0) Seconds PTT Ratio VBG pH 7.41 (7.36-7.41) VBG pCO2 35 L (38-50) mmHg VBG pO2 34 mmHg VBG HCO3 22 mmol/L VBG O2 Saturation 63.4 % VBG Base Excess -2.3 mEq/L Barometric Pressure 735.2 mm/Hg Sodium 143 (136-145) mmol/L Potassium 4.0 (3.5-5.1) mmol/L Chloride 112 H (98-107) mmol/L Carbon Dioxide 23 (21-32) mmol/L Anion Gap 8.0 (3-11) BUN 94 H (7-18) mg/dl Creatinine 3.38 H (0.6-1.2) mg/dl Est Cr Clr Drug Dosing 9.8 ml/min Est GFR ( Amer) 13.7 Est GFR (Non-Af Amer) 11.9 BUN/Creatinine Ratio 27.9 H (10-20) Glucose 135 H (70-99) mg/dl Calcium 8.1 L (8.5-10.1) mg/dl Total Bilirubin 0.7 (0.2-1) mg/dl AST 16 (15-37) U/L ALT 24 (12-78) U/L Alkaline Phosphatase 106 (45-117) U/L CK-MB (CK-2) 1.5 (0.5-3.6) ng/ml Troponin I 0.067 H* (0-0.045) ng/ml NT-Pro-B Natriuret Pep 39092 H (0-1800) pg/ml Total Protein 5.8 L (6.4-8.2) gm/dl Albumin 2.4 L (3.4-5.0) gm/dl Globulin 3.4 (2.5-4.0) gm/dl Albumin/Globulin Ratio 0.7 L (0.9-2) Urine Color Dark Yellow Urine Appearance Turbid A (Clear) Urine pH 5.0 (4.5-7.5) Ur Specific Ernul 1.018 (1.000-1.030) Urine Protein 1+ H (Negative) Urine Glucose (UA) Negative (Negative) Urine Ketones Negative (Negative) Urine Blood 3+ H (Negative) Urine Nitrite Negative (Negative) Urine Bilirubin Negative (Negative) Urine Urobilinogen Negative (Negative) Ur Leukocyte Esterase 1+ H (Negative) Urine WBC (Auto) 5-10 H (0-5) /hpf Urine RBC (Auto) 10-30 H (0-4) /hpf U Hyaline Cast (Auto) 1-5 (0-5) /lpf U Epithel Cells (Auto) 20-30 H (0-5) /lpf Urine Bacteria (Auto) Negative (Negative) Urine Yeast Not Reportable COVID-19 Eval Order SARS-CoV-2, RNA, NAAT (NEGATIVE) 08/31/20 08/31/20 08/31/20 Range/Units 11:25 11:25 Unknown WBC 10.89 H (4.8-10.8) K/uL RBC 3.43 L (4.2-5.4) M/uL Hgb 10.8 L (12.0-16.0) g/dL Hct 32.9 L (37-47) % MCV 95.9 (80-100) fL MCH 31.5 (25-34) pg MCHC 32.8 (32-36) g/dL RDW Std Deviation 49.9 H (36.4-46.3) fL RDW Coeff of Caitlin 14.3 (11.5-14.5) % Plt Count 236 (130-400) K/uL MPV 10.6 H (7.4-10.4) fL Immature Gran % (Auto) 0.6 % Neut % (Auto) 88.9 % Lymph % (Auto) 5.1 % Benzie % (Auto) 4.8 % Eos % (Auto) 0.6 % Baso % (Auto) 0.0 % Neut # (Auto) 9.70 H (1.4-6.5) K/uL Lymph # (Auto) 0.55 L (1.2-3.4) K/uL Benzie # (Auto) 0.52 (0.11-0.59) K/uL Eos # (Auto) 0.06 (0-0.5) K/uL Baso # (Auto) 0.00 (0-0.2) K/uL Immature Gran # (Auto) 0.06 H (0.00-0.02) K/uL PT 39.2 H (9.0-12.0) Seconds INR 4.0 H (0.9-1.1) APTT 49.0 H* (21.0-31.0) Seconds PTT Ratio 1.8 VBG pH (7.36-7.41) VBG pCO2 (38-50) mmHg VBG pO2 mmHg VBG HCO3 mmol/L VBG O2 Saturation % VBG Base Excess mEq/L Barometric Pressure mm/Hg Sodium (136-145) mmol/L Potassium (3.5-5.1) mmol/L Chloride (98-107) mmol/L Carbon Dioxide (21-32) mmol/L Anion Gap (3-11) BUN (7-18) mg/dl Creatinine (0.6-1.2) mg/dl Est Cr Clr Drug Dosing ml/min Est GFR ( Amer) Est GFR (Non-Af Amer) BUN/Creatinine Ratio (10-20) Glucose (70-99) mg/dl Calcium (8.5-10.1) mg/dl Total Bilirubin (0.2-1) mg/dl AST (15-37) U/L ALT (12-78) U/L Alkaline Phosphatase (45-117) U/L CK-MB (CK-2) (0.5-3.6) ng/ml Troponin I (0-0.045) ng/ml NT-Pro-B Natriuret Pep (0-1800) pg/ml Total Protein (6.4-8.2) gm/dl Albumin (3.4-5.0) gm/dl Globulin (2.5-4.0) gm/dl Albumin/Globulin Ratio (0.9-2) Urine Color Urine Appearance (Clear) Urine pH (4.5-7.5) Ur Specific Ernul (1.000-1.030) Urine Protein (Negative) Urine Glucose (UA) (Negative) Urine Ketones (Negative) Urine Blood (Negative) Urine Nitrite (Negative) Urine Bilirubin (Negative) Urine Urobilinogen (Negative) Ur Leukocyte Esterase (Negative) Urine WBC (Auto) (0-5) /hpf Urine RBC (Auto) (0-4) /hpf U Hyaline Cast (Auto) (0-5) /lpf U Epithel Cells (Auto) (0-5) /lpf Urine Bacteria (Auto) (Negative) Urine Yeast COVID-19 Eval [facility] SARS-[facility]-2, RNA, NAAT (NEGATIVE) 08/31/20 Range/Units Unknown WBC (4.8-10.8) K/uL RBC (4.2-5.4) M/uL Hgb (12.0-16.0) g/dL Hct (37-47) % MCV (80-100) fL MCH (25-34) pg MCHC (32-36) g/dL RDW Std Deviation (36.4-46.3) fL RDW Coeff of Caitlin (11.5-14.5) % Plt Count (130-400) K/uL MPV (7.4-10.4) fL Immature Gran % (Auto) % Neut % (Auto) % Lymph % (Auto) % Benzie % (Auto) % Eos % (Auto) % Baso % (Auto) % Neut # (Auto) (1.4-6.5) K/uL Lymph # (Auto) (1.2-3.4) K/uL Benzie # (Auto) (0.11-0.59) K/uL Eos # (Auto) (0-0.5) K/uL Baso # (Auto) (0-0.2) K/uL Immature Gran # (Auto) (0.00-0.02) K/uL PT (9.0-12.0) Seconds INR (0.9-1.1) APTT (21.0-31.0) Seconds PTT Ratio VBG pH (7.36-7.41) VBG pCO2 (38-50) mmHg VBG pO2 mmHg VBG HCO3 mmol/L VBG O2 Saturation % VBG Base Excess mEq/L Barometric Pressure mm/Hg Sodium (136-145) mmol/L Potassium (3.5-5.1) mmol/L Chloride (98-107) mmol/L Carbon Dioxide (21-32) mmol/L Anion Gap (3-11) BUN (7-18) mg/dl Creatinine (0.6-1.2) mg/dl Est Cr Clr Drug Dosing ml/min Est GFR ( Amer) Est GFR (Non-Af Amer) BUN/Creatinine Ratio (10-20) Glucose (70-99) mg/dl Calcium (8.5-10.1) mg/dl Total Bilirubin (0.2-1) mg/dl AST (15-37) U/L ALT (12-78) U/L Alkaline Phosphatase (45-117) U/L CK-MB (CK-2) (0.5-3.6) ng/ml Troponin I (0-0.045) ng/ml NT-Pro-B Natriuret Pep (0-1800) pg/ml Total Protein (6.4-8.2) gm/dl Albumin (3.4-5.0) gm/dl Globulin (2.5-4.0) gm/dl Albumin/Globulin Ratio (0.9-2) Urine Color Urine Appearance (Clear) Urine pH (4.5-7.5) Ur Specific Ernul (1.000-1.030) Urine Protein (Negative) Urine Glucose (UA) (Negative) Urine Ketones (Negative) Urine Blood (Negative) Urine Nitrite (Negative) Urine Bilirubin (Negative) Urine Urobilinogen (Negative) Ur Leukocyte Esterase (Negative) Urine WBC (Auto) (0-5) /hpf Urine RBC (Auto) (0-4) /hpf U Hyaline Cast (Auto) (0-5) /lpf U Epithel Cells (Auto) (0-5) /lpf Urine Bacteria (Auto) (Negative) Urine Yeast COVID-19 Eval Order SARS-CoV-2, RNA, NAAT POSITIVE A* (NEGATIVE) Imaging Data Radiologist's Impression: XR chest 1V portable CLINICAL HISTORY: Resp sx c/w COVID-19 COMPARISON STUDY: Chest radiograph August 10, 2020. FINDINGS: There is no pneumothorax. Emphysema is noted. A hiatal hernia is present. Cardiomegaly is unchanged. Olcvz-nx-mmciqbqe bilateral effusions and bibasilar opacities persist. Asymmetric right lung airspace opacity is again noted. IMPRESSION: 1. Persistent small to moderate bilateral pleural effusions with bibasilar opacities which may reflect pneumonia or atelectasis. Asymmetric right lung airspace opacity which favors an infectious process. Asymmetric pulmonary edema is considered less likely. 2. Emphysema. ECG Data Attestation: I personally reviewed and interpreted this ECG as follows: Indication: + weakness Rate (beats per minute): 96 Rhythm: + atrial fibrillation ECG ST segments: no ST elevation ECG Findings: no PVCs MDM Narrative Patient presents with generalized weakness and shortness of breath. She had a positive Covid test in late July around 15 August. She has a cough that is nonproductive. She was reportedly hypoxic with saturations in the mid 80s at home. She does not use oxygen at home. The patient's test results show an EKG with A. fib rate of 96. CBC is unremarkable. BUN is 94. Creatinine is 3.38. These are up from her baseline. She has a positive Covid test. Urine appears contaminated but no obvious infection. To be GB was unremarkable. Troponin is slightly elevated. Chest x-ray suggest bilateral lower lobe infiltrates. INR is 4.0. The patient was treated with IV Rocephin as well as IV Zithromax and some IV fluids. She will be seen by the hospitalist for further inpatient evaluation and care. Impression & Plan Pneumonia, Acute kidney injury superimposed on chronic kidney disease, Elevated troponin, Hypoxia, COVID-19 Discharge Plan Visit Data Chief Complaint: Shortness of Breath/Dyspnea Stated Complaint: SOB, WEAKNESS ED Provider: Kody Martinez Discharge Problem: Pneumonia, Acute kidney injury superimposed on chronic kidney disease, Elevated troponin, Hypoxia, COVID-19 Patient Disposition: Being Evaluated by Hospitalist Forms Stand Alone Forms: My [facility] [place] Query Hunter Prescriptions Prescriptions: No Action levothyroxine 25 mcg Tablet 25 mcg PO DAILYBB RF: 0 tramadol 50 mg Tablet 50 mg PO Q8H PRN (Reason: Pain) RF: 0 diltiazem HCl 240 mg Capsule,Extended Release 24hr 240 mg PO DAILY RF: 0 prednisone 1 mg Tablet 2 mg PO DAILY RF: 0 prednisone 5 mg Tablet 5 mg PO DAILY RF: 0 aspirin 81 mg Tablet,Delayed Release (Dr/Ec) 81 mg PO DAILY RF: 0 ascorbic acid (vitamin C) [Vitamin C] 500 mg Tablet 500 mg PO TID RF: 0 multivitamin Tablet 1 tab PO DAILY RF: 0 omeprazole magnesium [Prilosec OTC] 20 mg Tablet,Delayed Release (Dr/Ec) 20 mg PO HS RF: 0 carvedilol 6.25 mg Tablet 6.25 mg PO BIDM RF: 0 torsemide 10 mg Tablet 10 mg PO DAILY RF: 0 acetaminophen [Tylenol Extra Strength] 500 mg Tablet 500 mg PO BID RF: 0 roudbballn-etlh-cezc-vinegar Tablet 1 tab PO BID PRN (Reason: Diarrhea) RF: 0 Myrbetriq 25 mg Tablet Extended Release 24 Hr 25 mg PO DAILY RF: 0 thiamine HCl (vitamin B1) [Vitamin B-1] 100 mg Tablet 100 mg PO QAM Qty: 0 RF: 0 folic acid 1 mg Tablet 1 mg PO QAM Qty: 0 RF: 0 famotidine 20 mg Tablet 20 mg PO DAILY RF: 0 benzonatate [Tessalon Perles] 100 mg Capsule 100 mg PO TID PRN (Reason: Cough) RF: 0 dextromethorphan-guaifenesin [Mucinex DM] 60-1,200 mg Tablet Extended Release 12 Hr 1 tab PO Q12H RF: 0 Referrals Referrals: Irvin Huggins DO [Primary Care Provider] -
[2020-08-31 11:09] LABS: Appearance Urine Turbid (Clear); Bacteria Urine Automated Negative (Negative); Bilirubin Urine Negative (Negative); Blood Urine 3+ (Negative); Color Urine Dark Yellow; Epithelial Cell Urine Auto 20-30 /lpf (0-5); Glucose Urine UA Negative (Negative); Ketones Urine Negative (Negative); Leukocyte Esterase Urine 1+ (Negative); Nitrite Urine Negative (Negative); Protein Urine 1+ (Negative); Specific Gravity Urine 1.018 (1.000-1.030); Urobilinogen Urine Negative (Negative)
--- NOTE | 2020-08-31 11:10 | XRay Report ---
XR chest 1V portable CLINICAL HISTORY: Resp sx c/w COVID-19 COMPARISON STUDY: Chest radiograph August 10, 2020. FINDINGS: There is no pneumothorax. Emphysema is noted. A hiatal hernia is present. Cardiomegaly is u nchanged. Kukuy-iz-yjfeeppv bilateral effusions and bibasilar opacities persist. Asymmetric right anam g airspace opacity is again noted. IMPRESSION: 1. Persistent small to moderate bilateral pleural effusions with bibasilar opacities which may reflec t pneumonia or atelectasis. Asymmetric right lung airspace opacity which favors an infectious process . Asymmetric pulmonary edema is considered less likely. 2. Emphysema. ACT 112: Negative or not required by law. Electronically signed by: Milton Jacques M.D. 08/31/2020 11:09 AM
[2020-08-31 11:38] LABS: Base Excess VBG -2.3 mEq/L; Oxygen Saturation VBG 63.4 %; pH VBG 7.41 (7.36-7.41)
[2020-08-31 11:40] LABS: Eosinophils # (auto) 0.06 K/uL (0-0.5); Eosinophils % (auto) 0.6 %; Hematocrit (blood only) 32.9 % (37-47); Hemoglobin 10.8 g/dL (12.0-16.0); Immature Granulocytes # (auto) 0.06 K/uL (0.00-0.02); Immature Granulocytes % (auto) 0.6 %; Lymphocytes # (auto) 0.55 K/uL (1.2-3.4); Lymphocytes % (auto) 5.1 %; Mean Corpuscular Hemoglobin 31.5 pg (25-34); Mean Corpuscular Hgb Conc 32.8 g/dL (32-36); Mean Corpuscular Volume 95.9 fL (80-100); Mean Platelet Volume 10.6 fL (7.4-10.4); Monocytes # (auto) 0.52 K/uL (0.11-0.59); Monocytes % (auto) 4.8 %; Neutrophils % (auto) 88.9 %; Platelet Count 236 K/uL (130-400); RDW Coefficient of Variation 14.3 % (11.5-14.5); RDW Standard Deviation 49.9 fL (36.4-46.3); Red Blood Count 3.43 M/uL (4.2-5.4); White Blood Count 10.89 K/uL (4.8-10.8)
[2020-08-31 11:56] LABS: Alanine Aminotransferase 24 U/L (12-78); Albumin Level 2.4 gm/dl (3.4-5.0); Aspartate Aminotransferase 16 U/L (15-37); BUN Creatinine Ratio 27.9 (10-20); Blood Urea Nitrogen 94 mg/dl (7-18); Calcium 8.1 mg/dl (8.5-10.1); Carbon Dioxide 23 mmol/L (21-32); Chloride 112 mmol/L (98-107); Creatinine Clr Calc Pharmacy 9.8 ml/min; Est GFR (African American) 13.7; Est GFR (Non-African American) 11.9; Glucose 135 mg/dl (70-99); Sodium 143 mmol/L (136-145)
[2020-08-31 12:02] LABS: Partial Thromboplastin Ratio 1.8; Prothrombin Time 39.2 Seconds (9.0-12.0)
[2020-08-31 12:09] LABS: Albumin Globulin Ratio 0.7 (0.9-2); Alkaline Phosphatase 106 U/L (45-117); Bilirubin,Total 0.7 mg/dl (0.2-1); Creatine Kinase MB 1.5 ng/ml (0.5-3.6); Globulin 3.4 gm/dl (2.5-4.0); NT Pro B Type Natriuretic Pept 13459 pg/ml (0-1800); Total Protein 5.8 gm/dl (6.4-8.2); Troponin I 0.067 ng/ml (0-0.045)
--- NOTE | 2020-08-31 12:12 | Electrocardiogram Report ---
Test Reason : Blood Pressure : / mmHG Vent. Rate : 096 BPM Atrial Rate : 147 BPM P-R Int : 000 ms QRS Dur : 070 ms QT Int : 346 ms P-R-T Axes : 000 038 131 degrees QTc Int : 437 ms Atrial fibrillation with premature ventricular or aberrantly conducted complexes Abnormal ECG When compared with ECG of 07-AUG-2020 06:49, ST now depressed in Lateral leads Confirmed by Reg Garza ([id number]) on 08/31/2020 12:11:49 PM Referred By: Confirmed By:Reg Garza
[2020-08-31] MEDS ORDERED: FUROSEMIDE 40 MG/4 ML VIAL IV STA (13:33)
--- NOTE | 2020-08-31 14:46 | History & Physical Report ---
Date of Service August 31, 2020 Assessment & Plan (1) Pneumonia: (2) History of COVID-19: (3) Chronic respiratory failure with hypoxia: -Admit to [facility] with telemetry -Patient presenting from home with reports of shortness of breath, generalized weakness, collapse -Refer to [facility] for details on recent hospitalizations -Tested positive for COVID-19 on 08/13 at [facility]. Treated with dexamethasone. -CXR today showing bibasilar opacities suggestive of pneumonia -Likely superimposed bacterial pneumonia after COVID-19 infection. No treatment for COVID-19 given that positive test was 18 days ago. -S/p IV ceftriaxone and IV azithromycin in ED, continue -Saturating well on chronic 2 L of oxygen -Does not appear septic -Follow blood and sputum cultures (4) Acute kidney injury superimposed on chronic kidney disease: (5) CKD (chronic kidney disease) stage 4, GFR 15-29 ml/min: -Previous baseline creatinine ran in the high 1s however with recent hospitalization new baseline seems to be the mid to high 2s -Creatinine peaked to 3.1 on 08/18 at [facility] and improved to 2.5 on 08/22 on discharge -Creatinine today 3.3 -Nephrology consult, case discussed with Dr. Schneider -Examines to be volume overloaded with lower extremity edema and elevated proB ACUTE CARE PHYSICIAN, will give Lasix 40 mg IV x1 dose (6) Acute on chronic systolic CHF (congestive heart failure): (7) Aortic stenosis: -EF 30%, moderate aortic stenosis, mild mitral regurgitation, moderate to severe tricuspid regurgitation on echo 07/2020 -Lasix 40 mg IV x1 as above -Continue beta-randell (8) Collapse: (9) Elevated troponin: -Daughter reports collapse and possible syncopal event today -Monitor on telemetry for arrhythmias -Initial troponin 0.067, continue to trend -Limited echo to evaluate for wall motion abnormality (10) Abnormal urinalysis: (11) Hematuria: -Reports of hematuria in the setting of supratherapeutic INR -UA suggest possible UTI -On IV ceftriaxone as above -Hgb stable -Urology consult for evaluation of hematuria (12) Polymyalgia rheumatica: -Continue chronic prednisone (13) Atrial fibrillation: -Rate controlled on Carvedilol, will continue -Anticoagulated on Coumadin, INR 4.0. Hold Coumadin today, check daily INR (14) DVT prophylaxis: -On Coumadin, INR 4.0 History of Present Illness Chief Complaint: Shortness of breath, collapse, weakness Primary Care Provider: Irvin Huggins DO 84-year-old female with PMH hypothyroidism, CKD stage IV, chronic systolic CHF, atrial fibrillation anticoagulated on Coumadin, aortic stenosis, PMR on chronic steroids, and other problems listed below who presents to the ED for evaluation of shortness of breath, collapse, generalized weakness. Patient recently admitted to [facility] 08/05 through 08/10 for atrial fibrillation with RVR, BEVERLEY, and possible gastric volvulus for which she was transferred to [facility] for further evaluation. While at [facility], patient was evaluated by general surgery who did not recommend intervention given that patient symptoms resolved and there was low clinical suspicion for gastric volvulus. Patient developed acute on chronic systolic heart failure and was given IV diuretics. She then developed BEVERLEY on CKD secondary to aggressive diuresis. BEVERLEY resolved with hydration. Pat ient's home dose of torsemide was restarted at discharge. On 08/13, patient developed cough and generalized weakness and was found to be COVID-19 positive. She was treated with IV dexamethasone and transition to p.o. to complete course. Patient required oxygen to maintain saturation > 92%. She was discharged on 2 L of oxygen at rest and night and 3 L while ambulating. Patient was also started on warfarin due to new onset A. fib. Patient was discharged home on 08/22. Patient presents to [facility] today for evaluation of shortness of breath. Some history was obtained from patient's daughter, Dinah, over the telephone. Patient has remained generally weak since her last hospitalization and was planning on being admitted to [facility] today for rehab needs. When patient was ambulating to the car, daughter reports that patient collapsed and had a brief loss of consciousness. EMS was called and patient was brought to the ED for further evaluation. Yesterday, patient developed hematuria with occasional clots. She has had a moist nonproductive cough. No fevers or chills. Denies chest pain and palpitations. No abdominal pain, nausea, vomiting, diarrhea. In the ED, CXR shows Persistent small to moderate bilateral pleural effusions with bibasilar opacities which may reflect pneumonia or atelectasis. Patient is saturating well on 2 L of oxygen via nasal cannula. Troponin mildly elevated 0.067, EKG shows atrial fibrillation with ST depression in the lateral leads. Creatinine 3.3 (recent baseline mid 2's). Patient was given IV azithromycin, IV ceftriaxone, IVF. Allergies Allergy/AdvReac Type Severity Reaction Status Date / Time aspirin Allergy Mild Unknown Verified 08/31/20 11:17 Sulfa (Sulfonamide Allergy Mild Rash Verified 08/31/20 11:17 Antibiotics) Home Medications Medication Instructions Recorded Confirmed Type ascorbic acid (vitamin C) [Vitamin 500 mg PO TID 01/05/19 08/31/20 History C] aspirin 81 mg PO DAILY 01/05/19 08/31/20 History diltiazem HCl 240 mg PO DAILY 01/05/19 08/31/20 History levothyroxine 25 mcg PO DAILYBB 01/05/19 08/31/20 History multivitamin 1 tab PO DAILY 01/05/19 08/31/20 History omeprazole magnesium [Prilosec OTC] 20 mg PO HS 01/05/19 08/31/20 History prednisone 2 mg PO DAILY 01/05/19 08/31/20 History prednisone 5 mg PO DAILY 01/05/19 08/31/20 History tramadol 50 mg PO Q8H PRN 01/05/19 08/31/20 History Myrbetriq 25 mg PO DAILY 08/05/20 08/31/20 History acetaminophen [Tylenol Extra 500 mg PO BID 08/05/20 08/31/20 History Strength] carvedilol 6.25 mg PO BIDM 08/05/20 08/31/20 History pqigsekhfs-kfiq-hell-vinegar 1 tab PO BID PRN 08/05/20 08/31/20 History torsemide 10 mg PO DAILY 08/05/20 08/31/20 History folic acid 1 mg PO QAM #0 tab 08/10/20 08/31/20 Rx thiamine HCl (vitamin B1) [Vitamin 100 mg PO QAM #0 tab 08/10/20 08/31/20 Rx B-1] albuterol sulfate 2 puff INHALATION Q4H PRN 08/31/20 08/31/20 History benzonatate [Tessalon Perles] 100 mg PO TID PRN 08/31/20 08/31/20 History famotidine 20 mg PO DAILY 08/31/20 08/31/20 History warfarin 1 mg PO DAILY 08/31/20 08/31/20 History Past Med/Surg History Medical History (Updated 08/31/20 @ 15:23 by NYLA Russell) Anemia Atrial fibrillation Chronic respiratory failure with hypoxia Chronic systolic CHF (congestive heart failure) CKD (chronic kidney disease) stage 4, GFR 15-29 ml/min Closed left hip fracture Fibromyalgia GERD (gastroesophageal reflux disease) History of COVID-19 HTN (hypertension) Hyponatremia Hypothyroid Osteoporosis Polymyalgia rheumatica Refusal of blood transfusions as patient is Roman Catholic Rheumatoid arthritis Surgical History S/P appendectomy S/P cataract extraction S/P tonsillectomy Family History Sister Cancer Social History Smoking Status: Former smoker Hx Alcohol Use: Yes Alcohol type: hard liquor Hx Substance Use: No Preferred Language: Russian Communication Ability: Effective Superintendent Circus Required: No Beliefs That Will Affect Care: None marital status: / Current Living Situation: Family Current Living Situation Comment: Son lives w/ patient Feels Safe at Home: Yes Assistive Devices: None Review of Systems Review of Systems: ROS per HPI, all other systems reviewed and negative Physical Exam Physical Exam: please refer to Dr. Murphy's addendum for physical exam. Results & Data Results & Data ([facility]) Vital Signs (Past 12 Hours) Vital Signs Temp Pulse Resp BP Pulse Ox 08/31/20 11:31 18 95 08/31/20 10:41 96 08/31/20 10:28 36.5 C 96 H 18 123/63 90 Laboratory Results Short CBC 08/31/20 Range/Units 11:25 WBC 10.89 H (4.8-10.8) K/uL Hgb 10.8 L (12.0-16.0) g/dL Hct 32.9 L (37-47) % Plt Count 236 (130-400) K/uL BMP 08/31/20 11:25 Sodium 143 Potassium 4.0 Chloride 112 H Carbon Dioxide 23 BUN 94 H Creatinine 3.38 H Glucose 135 H Calcium 8.1 L Cardiac Enzymes 08/31/20 Range/Units 11:25 CK-MB (CK-2) 1.5 (0.5-3.6) ng/ml Troponin I 0.067 H* (0-0.045) ng/ml Liver Function 08/31/20 Range/Units 11:25 Total Bilirubin 0.7 (0.2-1) mg/dl AST 16 (15-37) U/L ALT 24 (12-78) U/L Alkaline Phosphatase 106 (45-117) U/L Albumin 2.4 L (3.4-5.0) gm/dl Urine 08/31/20 Range/Units 06:45 Urine Color Dark Yellow Urine Appearance Turbid A (Clear) Urine pH 5.0 (4.5-7.5) Ur Specific [place] 1.018 (1.000-1.030) Urine Protein 1+ H (Negative) Urine Glucose (UA) Negative (Negative) Diagnostic Findings CXR IMPRESSION: 1. Persistent small to moderate bilateral pleural effusions with bibasilar opacities which may reflect pneumonia or atelectasis. Asymmetric right lung airspace opacity which favors an infectious process. Asymmetric pulmonary edema is considered less likely. 2. Emphysema. Code Status & VTE Plan Code Status Patient is a full code as per my discussion with her. VTE Prophylaxis Plan VTE Prophylaxis will be ordered: No Supervising Physician Co-Signing Physician Notes I saw this patient with the Nurse Practitioner, I participated in the history, physical, review of systems, and physical exam. I reviewed the medications with the patient and the Nurse Practitioner and helped reconcile the medications. I helped take a detailed family and social history as well. I formulated the assessment and plan personally with the Nurse Practitioner went over it with the patient. Physical Exam Gen-AAO x 3, NAD, Afebrile, cachectic, frail, cough Head-NCAT, EOMI, PERRLA, Anicteric Sclera, No Posterior Pharyngeal Erythema Neck-Supple, No JVD, No Thyromegaly, No Masses, No LAD, No Bruits Lungs-B/L Rales R>L, No Rhonchi, No Wheezing, No Crepitus, +cough Chest-No S4, +S1, +S2, No S3, No Murmurs, No Rubs, No Gallops, No Ectopy Abdomen-Soft, Bowel Sounds Present, Non Tender, Non Distended, No Hepatomegaly, No Splenomegaly, No Palpable Masses, No Rebound, No Rigidity, No Guarding Musculoskeletal-Full Range of Motion Bilaterally, No CVAT Extremities-No Cyanosis, No Clubbing, No Edema Nuero-Cranial Nerves II-XII grossly intact, Motor WNL, DTRs WNL, Strength WNL, Non Focal Psych-Normal Mood (1) Pneumonia Laterality: bilateral Lung location: lower lobe of lung Pneumonia type: due to unspecified organism Qualified Code(s): J18.9 - Pneumonia, unspecified organism
[2020-08-31] MEDS ORDERED: traMADol HCL 50 MG TABLET PO PRN (17:23)
[2020-08-31] MEDS ORDERED: ACETAMINOPHEN 325 MG TAB PO PRN (17:23)
[2020-08-31] MEDS: ALBUT/IPRATROP 3MG/0.5MG NEB 3 ML VIAL NEB SCH ×2 (18:04)
[2020-08-31] MEDS: PANTOprazole 40 MG TAB PO SCH (19:41)
[2020-08-31] MEDS: ASCORBIC ACID 500 MG TAB PO SCH ×2 (19:42→20:28)
[2020-08-31] MEDS: carvediloL 6.25 MG TAB PO SCH (19:42)
--- NOTE | 2020-08-31 20:16 | Nephrology Consultation ---
Date of Consultation August 31, 2020 Assessment & Plan (1) Acute on chronic renal failure: nonoliguric stage 1 BEVERLEY suspect from cardiorenal syndrome/ volume overload in the setting of advanced and progressive baseline CKD 4/5. presenting creatinine 3.3, up from 2.5 on 08/22. Her baseline creatinine prior to serial hospitalizations this winter had in summer 2019 been 1.8-1.9 and stable. she is too weak to do standing daily weights at this time and would not put her on fluid limit at this time. kidneys unremarkable on CT last month, apart from many BL vascular calcifications. no indication at this time to discuss dialysis but cannot rule out need this admission. UA w/ protein and blood and no infection: however hard to interpret in setting of elevated INR, LUTS, dior. -volume overloaded on exam/imaging > will start her on 30 mg IV tid lasix -daily bmp; added mag and TFTs for am -stopped myrbetriq > d/t worse renal function and dior -consider repeat renal imaging if no improvement Present on Admission?: Yes (2) Hematuria: gross hematuria prior to admission in setting of supratherapeutic INR -irrigate dior frequently to ensure no blockage by clots -agree w/ urology eval Present on Admission?: Yes (3) Chronic respiratory failure with hypoxia: no formal dx of COPD and no smoking hx but imaging suggests it. she had BL pleural effusions last admission and still has them -trial of diuresis as above -antibiotics per primary service -?indication for chest CT Present on Admission?: Yes History of Present Illness Reason for Consultation: Acute on chronic renal failure Requesting Physician: Dr. Murphy Attending Physician: Quoc Murphy, DO History of Present Illness 84-year-old female whom I am asked to evaluate for acute on chronic renal failure after she was admitted here this afternoon for weakness and collapse in the setting of worsening shortness of breath and cough with concern for bacterial pneumonia superimposed on recent C 19 infection. Her past medical history includes chronic systolic heart failure diagnosed July 2020 with an ejection fraction of 30%, newly diagnosed A. fib on Coumadin, polymyalgia rheumatica on 7 mg daily prednisone, aortic stenosis, preexisting CKD 4 as above, large hiatal hernia, hypothyroid, chronic lower urinary tract symptoms. She follows with my partner Dr. Saeed. She was admitted here for 5 days in mid July for new onset A. fib with RVR, acute renal insufficiency, concern for gastric volvulus. She was transferred to [facility] on August 10 for surgical evaluation but ultimately managed conservatively. While in [place], the patient developed worsening systolic heart failure and received IV diuretics. She also tested positive for Covid on August 13 and was treated with IV dexamethasone. She developed a new oxygen requirement needing 2 L of oxygen at rest and 3 with ambulation. She was anticoagulated for her A. fib. She did also later in the admission develop prerenal acute on chronic kidney injury with peak creatinine of 3.1 improving improving to 2.5 by discharge. She was started on her customary home regimen of torsemide 10 mg daily at discharge from [place]. The patient collapsed today getting out of her vehicle; she also had gross hematuria yesterday and passed occasional clots. Her most recent creatinine at recent hospital discharge on August 22 had been in the mid twos for 3 days. Her presenting creatinine today is 3.3. Her baseline creatinine prior to serial hospitalizations this winter had in summer 2019 been 1.8-1.9 and stable. In the ER she received 1/2 L of normal saline and was started on ceftriaxone and azithromycin. I discussed her care with the admitting team and because of pitting edema crackles and cough with ongoing oxygen needs, we of her 40 mg IV Lasix x1. A Dior was placed. Allergies Allergy/AdvReac Type Severity Reaction Status Date / Time aspirin Allergy Mild Unknown Verified 08/31/20 11:17 Sulfa (Sulfonamide Allergy Mild Rash Verified 08/31/20 11:17 Antibiotics) Home Medications Medication Instructions Recorded Confirmed Type ascorbic acid (vitamin C) [Vitamin 500 mg PO TID 01/05/19 08/31/20 History C] aspirin 81 mg PO DAILY 01/05/19 08/31/20 History diltiazem HCl 240 mg PO DAILY 01/05/19 08/31/20 History levothyroxine 25 mcg PO DAILYBB 01/05/19 08/31/20 History multivitamin 1 tab PO DAILY 01/05/19 08/31/20 History omeprazole magnesium [Prilosec OTC] 20 mg PO HS 01/05/19 08/31/20 History prednisone 2 mg PO DAILY 01/05/19 08/31/20 History prednisone 5 mg PO DAILY 01/05/19 08/31/20 History tramadol 50 mg PO Q8H PRN 01/05/19 08/31/20 History Myrbetriq 25 mg PO DAILY 08/05/20 08/31/20 History acetaminophen [Tylenol Extra 500 mg PO BID 08/05/20 08/31/20 History Strength] carvedilol 6.25 mg PO BIDM 08/05/20 08/31/20 History pubhmnfdau-ager-scbv-vinegar 1 tab PO BID PRN 08/05/20 08/31/20 History torsemide 10 mg PO DAILY 08/05/20 08/31/20 History folic acid 1 mg PO QAM #0 tab 08/10/20 08/31/20 Rx thiamine HCl (vitamin B1) [Vitamin 100 mg PO QAM #0 tab 08/10/20 08/31/20 Rx B-1] albuterol sulfate 2 puff INHALATION Q4H PRN 08/31/20 08/31/20 History benzonatate [Tessalon Perles] 100 mg PO TID PRN 08/31/20 08/31/20 History famotidine 20 mg PO DAILY 08/31/20 08/31/20 History warfarin 1 mg PO DAILY 08/31/20 08/31/20 History Patient History Medical History Anemia Atrial fibrillation Chronic respiratory failure with hypoxia Chronic systolic CHF (congestive heart failure) CKD (chronic kidney disease) stage 4, GFR 15-29 ml/min Closed left hip fracture Fibromyalgia GERD (gastroesophageal reflux disease) History of COVID-19 HTN (hypertension) Hypothyroid Lower urinary tract symptoms (LUTS) Osteoarthritis Osteoporosis Polymyalgia rheumatica Refusal of blood transfusions as patient is [employer] Surgical History S/P appendectomy S/P cataract extraction S/P tonsillectomy Family History Sister Cancer Social History Smoking Status: Never smoker Second Hand Exposure: No; Do You Dip or Chew Tobacco: No; Tobacco Cessation Education Requested by Patient: No Hx Alcohol Use: No Hx Substance Use: No Preferred Language: Urdu Communication Ability: Effective Civil Design Technician Required: No Beliefs That Will Affect Care: Taoism Taoism Beliefs: Jehovah Witness - NO BLOOD OR BLOOD PRODUCTS PER PATIENT marital status: / Current Living Situation: Family Current Living Situation Comment: Son lives w/ patient Other Information That Helps Us Care for You: No Feels Safe at Home: Yes Safety Concerns: Feels Safe At This Time Assistive Devices: Oxygen - Continuous Review of Systems Review of Systems: All systems reviewed & are unremarkable except as noted in HPI & below Constitutional: + chills, + fatigue and + weakness; no fever Respiratory: + cough, + dyspnea, + dyspnea on exertion and + pain with cough Cardiovascular: + dyspnea on exertion and + edema Genitourinary: as per Subjective / HPI Physical Exam Constitutional: well developed, well nourished, + ill appearing (Looks exhausted and chronically ill) and cooperative Eyes: EOM intact bilaterally ENMT: Ears: no external ear abnormality Nose: no external nose abnormality Mouth: + dry oral mucous membranes Neck: no nuchal rigidity Respiratory: normal respiratory effort, + labored breathing (Slight), able to speak in complete sentences, + tachypneic and + paradoxical thoraco-abdominal movement; no respiratory distress Auscultation: + diminished lung sounds and + crackles Cardiovascular: Extremities: + edema (1+) Gastrointestinal (Abdomen): Inspection/Auscultation: normal bowel sounds Percussion/Palpation: abdomen soft; abdomen nontender Musculoskeletal: Extremities: + abnormal strength (Generalized weakness) Skin: no rashes, warm and dry Neurologic: reid, fluent speech, no tremor Psychiatric: Orientation: oriented x 3 Genitourinary: Dior with ample cloudy bueno urine Results & Data ([facility]) Vital Signs (Past 12 Hours) Vital Signs Temp Pulse Pulse Pulse Resp BP BP 08/31/20 19:32 36.4 C L 84 18 118/75 08/31/20 18:10 71 22 08/31/20 16:58 36.3 C L 88 22 94/53 L 08/31/20 14:00 76 18 112/56 L 08/31/20 12:00 18 117/58 L 08/31/20 11:31 18 08/31/20 10:41 08/31/20 10:28 36.5 C 96 H 18 123/63 Pulse Ox 08/31/20 19:32 95 08/31/20 18:10 96 08/31/20 16:58 90 08/31/20 14:00 96 08/31/20 12:00 96 08/31/20 11:31 95 08/31/20 10:41 96 08/31/20 10:28 90 Laboratory Results 08/31/20 11:25 08/31/20 11:25 Admission UA: Turbid dark yellow urine with a pH of 5.0 specific gravity 1018, 1+ protein, 3+ blood; 1+ leukocyte Estrace 5-10 white cells 10-30 red cells and 20-30 epithelial cells per high-powered field note no bacteria and other indices negative INR 4 BNP [id number] Diagnostic Findings Chest x-ray 1. Persistent small to moderate bilateral pleural effusions with bibasilar opacities which may reflect pneumonia or atelectasis. Asymmetric right lung airspace opacity which favors an infectious process. Asymmetric pulmonary edema is considered less likely. 2. Emphysema.
[2020-08-31] MEDS: FUROSEMIDE 30 MG in SYRINGE 0 ML IV SCH (21:26)
[2020-09-01] MEDS: LEVOTHYROXINE SODIUM 25 MCG TABLET PO SCH (05:46)
[2020-09-01 06:16] LABS: Hematocrit (blood only) 27.9 % (37-47); Hemoglobin 9.2 g/dL (12.0-16.0); Mean Corpuscular Hemoglobin 31.4 pg (25-34); Mean Corpuscular Volume 95.2 fL (80-100); Mean Platelet Volume 10.6 fL (7.4-10.4); Platelet Count 205 K/uL (130-400); RDW Coefficient of Variation 14.3 % (11.5-14.5); RDW Standard Deviation 49.1 fL (36.4-46.3); Red Blood Count 2.93 M/uL (4.2-5.4); White Blood Count 8.97 K/uL (4.8-10.8)
[2020-09-01 06:33] LABS: INR 4.2 (0.9-1.1); Prothrombin Time 41.3 Seconds (9.0-12.0)
[2020-09-01 07:12] LABS: BUN Creatinine Ratio 26.9 (10-20); Calcium 8.1 mg/dl (8.5-10.1); Creatinine Clr Calc Pharmacy 9.3 ml/min; Est GFR (African American) 13.5; Est GFR (Non-African American) 11.6; Magnesium 1.6 mg/dl (1.8-2.4); Potassium 3.9 mmol/L (3.5-5.1); Thyroid Stimulating Hormone 1.16 uIu/ml (0.300-4.500)
[2020-09-01] MEDS: dilTIAZem HCL 240 MG CAPCR PO SCH (07:45)
[2020-09-01] MEDS: FUROSEMIDE 30 MG in SYRINGE 0 ML IV SCH (07:45)
[2020-09-01] MEDS: ASCORBIC ACID 500 MG TAB PO SCH ×3 (07:45→20:46)
[2020-09-01] MEDS: MULTIVITAMIN TAB PO SCH (07:46)
[2020-09-01] MEDS: THIAMINE HCL 100 MG TAB PO SCH (07:46)
[2020-09-01] MEDS: ASPIRIN 81 MG ECTAB PO SCH (07:46)
[2020-09-01] MEDS: FOLIC ACID 1 MG TAB PO SCH (07:46)
[2020-09-01] MEDS: FAMOTIDINE 20 MG TAB PO SCH (07:47)
[2020-09-01] MEDS: predniSONE 5 MG TAB PO SCH (07:47)
[2020-09-01] MEDS: predniSONE 1 MG TAB PO SCH (07:47)
[2020-09-01] MEDS: carvediloL 6.25 MG TAB PO SCH ×2 (07:48→17:37)
[2020-09-01] MEDS: ALBUT/IPRATROP 3MG/0.5MG NEB 3 ML VIAL NEB SCH ×4 (08:37→19:21)
[2020-09-01] MEDS ORDERED: MIRABEGRON ER 25 MG TAB PO SCH (09:00)
--- NOTE | 2020-09-01 09:04 | Hospitalist Progress Note ---
Date of Service September 01, 2020 Assessment & Plan (1) Pneumonia: (2) History of COVID-19: (3) Chronic respiratory failure with hypoxia: -Patient presenting from home with reports of shortness of breath, generalized weakness, collapse -Refer to HPI for details on recent hospitalizations -Tested positive for COVID-19 on 08/13 at [facility]. Treated with dexamethasone. -CXR today showing bibasilar opacities suggestive of pneumonia -Likely superimposed bacterial pneumonia after COVID-19 infection. No treatment for COVID-19 given that positive test was 18 days ago. -s/p IV ceftriaxone and IV azithromycin in ED, continue -on 5 L of oxygen, now -Somnolent today, VBG -Follow blood and sputum cultures (4) Acute kidney injury superimposed on chronic kidney disease: (5) CKD (chronic kidney disease) stage 4, GFR 15-29 ml/min: -Previous baseline creatinine ran in the high 1s however with recent hospitalization new baseline seems to be the mid to high 2s -Creatinine peaked to 3.1 on 08/18 at [facility] and improved to 2.5 on 08/22 on discharge -Creatinine today 3.43 -Nephrology Dr. Schneider on case -Examines to be volume overloaded with lower extremity edema and elevated proBNP on Lasix per Dr Schneider (6) Acute on chronic systolic CHF (congestive heart failure): (7) Aortic stenosis: -EF 30%, moderate aortic stenosis, mild mitral regurgitation, moderate to severe tricuspid regurgitation on echo 07/2020 -Continue beta-randell (8) Collapse: (9) Elevated troponin: -Daughter reports collapse and possible syncopal -Monitor on telemetry for arrhythmias -Initial troponin 0.067, continue to trend -Limited echo to evaluate for wall motion abnormality (10) Abnormal urinalysis: (11) Hematuria: -Reports of hematuria in the setting of supratherapeutic INR -UA suggest possible UTI -On IV ceftriaxone as above -Hgb stable -Urology consult for evaluation of hematuria (12) Polymyalgia rheumatica: -Continue chronic prednisone (13) Atrial fibrillation: -Rate controlled on Carvedilol, will continue -Anticoagulated on Coumadin, INR 4.0. Hold Coumadin today, check daily INR (14) DVT prophylaxis: -On Coumadin, INR elevated ROS-Somnolent today, Offered no history Physical Exam Gen-NAD, Afebrile Head-NCAT, EOMI, PERRLA, Anicteric Sclera, No Posterior Pharyngeal Erythema Neck-Supple, No JVD, No Thyromegaly, No Masses, No LAD, No Bruits Lungs-+Rales, No Rhonchi, No Wheezing, No Crepitus Chest-No S4, +S1, +S2, No S3, No Murmurs, No Rubs, No Gallops, No Ectopy Abdomen-Soft, Bowel Sounds Present, Non Tender, Non Distended, No Hepatomegaly, No Splenomegaly, No Palpable Masses, No Rebound, No Rigidity, No Guarding Musculoskeletal-Full Range of Motion Bilaterally, No CVAT Extremities-No Cyanosis, No Clubbing, No Edema Nuero-Cranial Nerves II-XII grossly intact, Motor WNL, DTRs WNL, Strength WNL, Non Focal Psych-Somnolent Admission and Anticipated Discharge Date Admission Date: August 31, 2020 Results & Data Results & Data ([facility]) Vital Signs (Past 12 Hours) Vital Signs Temp Pulse Resp BP Pulse Ox 09/01/20 08:37 89 22 95 09/01/20 07:36 36.8 C 88 16 111/71 98 09/01/20 03:32 36.4 C L 80 18 114/69 94 08/31/20 23:17 34.7 C L 82 18 112/78 97 (1) Pneumonia Laterality: bilateral Lung location: lower lobe of lung Pneumonia type: due to unspecified organism Qualified Code(s): J18.9 - Pneumonia, unspecified organism
--- NOTE | 2020-09-01 10:04 | Urology Consultation ---
Date of Consultation September 01, 2020 Assessment & Plan (1) Hematuria: Painless gross hematuria in the setting of a supratherapeutic INR in addition to numerous other acute and chronic problems Hematuria seems to have resolved with improvement of her INR Continue Sanchez catheter Imaging reviewed I do not see any easily identifiable cause of the hematuria aside from her supratherapeutic INR There is no need for any further acute work-up for this If her catheter were clogged, flush it as needed, however I suspect this will not be an issue We will plan for follow-up as an outpatientno further inpatient evaluation required from a urological standpoint History of Present Illness Attending Physician: Quoc Murphy DO History of Present Illness 84-year-old female with a long history of CKD who is currently admitted with Covid pneumoniain the Covid unit gradually recovering In the midst of her 2 hospitalizations related to Covid she has been noted to have an increase in creatinine beyond baseline She is followed by nephrology She is also anticoagulated for atrial fibrillation In the midst of the hospitalization or just prior to this current hospitalization she experienced painless, gross hematuria She was found to have a supratherapeutic INR of nearly 5 She denies seeing hematuria in the past She has seen a urologist in the past although she is uncertain who that was She had a CT in mid JulyI reviewed these images. It appears that she may have small calculi in each kidney, no hydronephrosis, no clear bladder masses although there is some limitation to visualization of the bladder secondary to her prior left hip replacement Allergies Allergy/AdvReac Type Severity Reaction Status Date / Time aspirin Allergy Mild Unknown Verified 08/31/20 11:17 Sulfa (Sulfonamide Allergy Mild Rash Verified 08/31/20 11:17 Antibiotics) Home Medications Medication Instructions Recorded Confirmed Type ascorbic acid (vitamin C) [Vitamin 500 mg PO TID 01/05/19 08/31/20 History C] aspirin 81 mg PO DAILY 01/05/19 08/31/20 History diltiazem HCl 240 mg PO DAILY 01/05/19 08/31/20 History levothyroxine 25 mcg PO DAILYBB 01/05/19 08/31/20 History multivitamin 1 tab PO DAILY 01/05/19 08/31/20 History omeprazole magnesium [Prilosec OTC] 20 mg PO HS 01/05/19 08/31/20 History prednisone 2 mg PO DAILY 01/05/19 08/31/20 History prednisone 5 mg PO DAILY 01/05/19 08/31/20 History tramadol 50 mg PO Q8H PRN 01/05/19 08/31/20 History Myrbetriq 25 mg PO DAILY 08/05/20 08/31/20 History acetaminophen [Tylenol Extra 500 mg PO BID 08/05/20 08/31/20 History Strength] carvedilol 6.25 mg PO BIDM 08/05/20 08/31/20 History brckswcqws-fkex-acou-vinegar 1 tab PO BID PRN 08/05/20 08/31/20 History torsemide 10 mg PO DAILY 08/05/20 08/31/20 History folic acid 1 mg PO QAM #0 tab 08/10/20 08/31/20 Rx thiamine HCl (vitamin B1) [Vitamin 100 mg PO QAM #0 tab 08/10/20 08/31/20 Rx B-1] albuterol sulfate 2 puff INHALATION Q4H PRN 08/31/20 08/31/20 History benzonatate [Tessalon Perles] 100 mg PO TID PRN 08/31/20 08/31/20 History famotidine 20 mg PO DAILY 08/31/20 08/31/20 History warfarin 1 mg PO DAILY 08/31/20 08/31/20 History Patient History Medical History Anemia Atrial fibrillation Chronic respiratory failure with hypoxia Chronic systolic CHF (congestive heart failure) CKD (chronic kidney disease) stage 4, GFR 15-29 ml/min Closed left hip fracture Fibromyalgia GERD (gastroesophageal reflux disease) History of COVID-19 HTN (hypertension) Hypothyroid Lower urinary tract symptoms (LUTS) Osteoarthritis Osteoporosis Polymyalgia rheumatica Refusal of blood transfusions as patient is [employer] Surgical History S/P appendectomy S/P cataract extraction S/P tonsillectomy Family History Sister Cancer Social History Smoking Status: Never smoker Second Hand Exposure: No; Do You Dip or Chew Tobacco: No; Tobacco Cessation Education Requested by Patient: No Hx Alcohol Use: No Hx Substance Use: No Preferred Language: Malaysian Communication Ability: Effective Die Maker Stamping Required: No Beliefs That Will Affect Care: Anabaptism Anabaptism Beliefs: Jehovah Witness - NO BLOOD OR BLOOD PRODUCTS PER PATIENT marital status: / Current Living Situation: Family Current Living Situation Comment: Son lives w/ patient Other Information That Helps Us Care for You: No Feels Safe at Home: Yes Safety Concerns: Feels Safe At This Time Assistive Devices: Oxygen - Continuous Review of Systems Constitutional: no fever, no chills and no fatigue Eyes: no worsening vision Ear, Nose, Mouth, Throat: no facial pain and no pain with swallowing Respiratory: + cough, + dyspnea and + problem reported COVID-19 positive test (U07.1, COVID-19) with Acute Pneumonia (J12.89, Other viral pneumonia) (If respiratory failure or sepsis present, add as separate assessment) Cardiovascular: no chest pain and no palpitations Gastrointestinal: no abdominal pain, no nausea and no vomiting Genitourinary: + hematuria; no dysuria, no difficulty urinating and no urinary frequency Musculoskeletal: no back pain Integumentary: no rash and no urticaria Neurologic: no gait abnormality and no unsteadiness Psychiatric: no behavioral changes and no depression Endocrine: no fatigue Physical Exam Constitutional: Somewhat cachectic and frail-appearing Neck: neck nontender Respiratory: normal respiratory effort; no respiratory distress and does not use accessory muscles Cardiovascular: Rate/Rhythm: regular rate and + irregularly irregular Vessels: radial pulses present Extremities: + edema Gastrointestinal (Abdomen): Inspection/Auscultation: abdomen normal to inspection Percussion/Palpation: abdomen soft; abdomen nontender and no guarding Musculoskeletal: Head/Neck/Chest: normocephalic and head atraumatic Extremities: extremities normal to inspection Skin: no rashes and no lesions Trauma: no evidence of skin trauma Neurologic: awake; not obtunded Speech / Cognition: normal speech Motor/Sensory: no tremor Psychiatric: Orientation: alert and oriented x 3 Genitourinary: Urine predominantly clear with several small clotsnot a s ignificant amount of blood within the urine Lymphatic: no lymphadenopathy Results & Data ([facility]) Vital Signs (Past 12 Hours) Vital Signs Temp Pulse Resp BP Pulse Ox 09/01/20 08:37 89 22 95 09/01/20 07:36 36.8 C 88 16 111/71 98 09/01/20 03:32 36.4 C L 80 18 114/69 94 08/31/20 23:17 34.7 C L 82 18 112/78 97 PG Care Time/CCT Total # of Minutes Spent Total Time Spent with Patient: Total time spent is greater than 50% in coordination of care (as documented) at patient's floor/unit and/or counseling patient: Coding Level of Care Code 72409 Inpt Consult Level 4 Diagnoses Hematuria R31.9
[2020-09-01 10:18] LABS: Base Excess VBG -2.5 mEq/L; HCO3 VBG 22 mmol/L; PCO2 VBG 38 mmHg (38-50); PO2 VBG 21 mmHg; pH VBG 7.39 (7.36-7.41)
[2020-09-01 10:31] LABS: Oxygen Saturation VBG < 60.0 %
--- NOTE | 2020-09-01 10:38 | Nephrology Progress Note ---
Date of Service September 01, 2020 Assessment & Plan (1) Acute on chronic renal failure: nonoliguric stage 1 BEVERLEY suspect from cardiorenal syndrome/ volume overload in the setting of advanced and progressive baseline CKD 4/5. presenting creatinine 3.3, up from 2.5 on 08/22. Her baseline creatinine prior to serial hospitalizations this winter had in summer 2019 been 1.8-1.9 and stable. she is too weak to do standing daily weights at this time and would not put her on fluid limit at this time. kidneys unremarkable on CT last month, apart from many BL vascular calcifications. no indication at this time to discuss dialysis but cannot rule out need this admission. UA w/ protein and blood and no infection: however hard to interpret in setting of elevated INR, LUTS, dior. Creatinine today 3.4 -Hold Lasix -daily bmp; added mag and TFTs for am (2) Hematuria: gross hematuria prior to admission in setting of supratherapeutic INR -irrigate dior frequently to ensure no blockage by clots -agree w/ urology eval (3) Chronic respiratory failure with hypoxia: no formal dx of COPD and no smoking hx but imaging suggests it. She now has Covid pneumonitis. She had BL pleural effusions last admission and still has them -antibiotics per primary service -Titrate oxygen to maintain sats above 90. Admission and Anticipated Discharge Date Admission Date: August 31, 2020 Subjective Seen in follow-up for acute kidney injury. Main complaint is weakness. She remains hypoxic on oxygen nasal cannula. She made about a liter of urine on Lasix and was about even Review of Systems Review of Systems: All systems reviewed & are unremarkable except as noted in HPI & below Physical Exam Physical Exam: General exam: Appears comfortable, no acute distress on oxygen nasal cannula HEENT: Pupils are equal and reactive to light Neck: No JVD, neck is supple trachea is midline Respiratory system: Clear breath sounds bilaterally. Gastrointestinal: Abdomen is soft, non distended, non tender, bowel sounds are present CVS: Regular rate and rhythm. No murmurs, rubs or gallops Musculoskeletal: No joint or muscle tenderness Extremities: Non tender, no edema, peripheral pulses are present Neuro: Oriented, no tremors, no focal neurological deficits Skin: No rashes Results & Data ([facility]) Vital Signs (Past 12 Hours) Vital Signs Temp Pulse Resp BP Pulse Ox 09/01/20 08:37 89 22 95 09/01/20 07:36 36.8 C 88 16 111/71 98 09/01/20 03:32 36.4 C L 80 18 114/69 94 08/31/20 23:17 34.7 C L 82 18 112/78 97 Laboratory Results 09/01/20 05:39 08/31/20 08/31/20 09/01/20 11:25 11:25 05:39 WBC 10.89 H 8.97 RBC 3.43 L 2.93 L MCV 95.9 95.2 MCH 31.5 31.4 MCHC 32.8 33.0 RDW Std Deviation 49.9 H 49.1 H RDW Coeff of Caitlin 14.3 14.3 Plt Count 236 205 MPV 10.6 H 10.6 H Albumin 2.4 L
[2020-09-01] MEDS: cefTRIAXone SODIUM 1,000 MG in DEXTROSE 5% 50 ML IV SCH (12:22)
[2020-09-01] MEDS: AZITHROMYCIN 500 MG in DEXTROSE 5% 250 ML IV SCH (12:27)
[2020-09-01] MEDS: PANTOprazole 40 MG TAB PO SCH (20:46)
[2020-09-02] MEDS: LEVOTHYROXINE SODIUM 25 MCG TABLET PO SCH (06:10)
[2020-09-02 08:09] LABS: Eosinophils # (auto) 0.18 K/uL (0-0.5); Eosinophils % (auto) 2.3 %; Hematocrit (blood only) 28.3 % (37-47); Hemoglobin 9.3 g/dL (12.0-16.0); Immature Granulocytes # (auto) 0.08 K/uL (0.00-0.02); Lymphocytes # (auto) 0.82 K/uL (1.2-3.4); Lymphocytes % (auto) 10.4 %; Mean Corpuscular Hemoglobin 31.4 pg (25-34); Mean Corpuscular Hgb Conc 32.9 g/dL (32-36); Mean Corpuscular Volume 95.6 fL (80-100); Mean Platelet Volume 10.4 fL (7.4-10.4); Monocytes # (auto) 0.25 K/uL (0.11-0.59); Monocytes % (auto) 3.2 %; Neutrophils # (auto) 6.53 K/uL (1.4-6.5); Neutrophils % (auto) 83.1 %; Platelet Count 190 K/uL (130-400); RDW Coefficient of Variation 14.5 % (11.5-14.5); RDW Standard Deviation 49.6 fL (36.4-46.3); Red Blood Count 2.96 M/uL (4.2-5.4); White Blood Count 7.86 K/uL (4.8-10.8)
[2020-09-02 08:19] LABS: INR 2.8 (0.9-1.1); Prothrombin Time 28.3 Seconds (9.0-12.0)
[2020-09-02] MEDS: ALBUT/IPRATROP 3MG/0.5MG NEB 3 ML VIAL NEB SCH ×4 (08:40→19:40)
[2020-09-02 08:42] LABS: Calcium 8.2 mg/dl (8.5-10.1); Creatinine Clr Calc Pharmacy 8.5 ml/min; Est GFR (African American) 12.2; Est GFR (Non-African American) 10.5; Potassium 3.5 mmol/L (3.5-5.1)
[2020-09-02 08:45] LABS: Albumin Globulin Ratio 0.7 (0.9-2); Bilirubin,Total 0.5 mg/dl (0.2-1)
[2020-09-02] MEDS: carvediloL 6.25 MG TAB PO SCH ×2 (08:45→16:25)
[2020-09-02] MEDS: FAMOTIDINE 20 MG TAB PO SCH (08:46)
[2020-09-02] MEDS: ASCORBIC ACID 500 MG TAB PO SCH ×3 (08:46→22:25)
[2020-09-02] MEDS: THIAMINE HCL 100 MG TAB PO SCH (08:46)
[2020-09-02] MEDS: ASPIRIN 81 MG ECTAB PO SCH (08:46)
[2020-09-02] MEDS: FOLIC ACID 1 MG TAB PO SCH (08:46)
[2020-09-02] MEDS: MULTIVITAMIN TAB PO SCH (08:47)
[2020-09-02] MEDS: dilTIAZem HCL 240 MG CAPCR PO SCH (08:47)
[2020-09-02] MEDS: predniSONE 1 MG TAB PO SCH (08:47)
[2020-09-02] MEDS: predniSONE 5 MG TAB PO SCH (08:48)
--- NOTE | 2020-09-02 09:11 | Hospitalist Progress Note ---
Date of Service September 02, 2020 Assessment & Plan (1) Pneumonia: (2) History of COVID-19: (3) Chronic respiratory failure with hypoxia: -Patient presenting from home with reports of shortness of breath, generalized weakness, collapse -Refer to HPI for details on recent hospitalizations -Tested positive for COVID-19 on 08/13 at [facility] [place]. Treated with dexamethasone. -CXR today showing bibasilar opacities suggestive of pneumonia -Likely superimposed bacterial pneumonia after COVID-19 infection. No treatment for COVID-19 given that positive test was 18 days ago. -s/p IV ceftriaxone and IV azithromycin in ED, continue -on 4 L of oxygen, now -Alert and pleasant today -Cultures NGTD (4) Acute kidney injury superimposed on chronic kidney disease: (5) CKD (chronic kidney disease) stage 4, GFR 15-29 ml/min: -Previous baseline creatinine ran in the high 1s however with recent hospitalization new baseline seems to be the mid to high 2s -Creatinine peaked to 3.1 on 08/18 at [facility] [place] and improved to 2.5 on 08/22 on discharge -Monitor Creatinine -Nephrology on case -Examines to be volume overloaded with lower extremity edema and elevated proBNP on Lasix per Dr Schneider (6) Acute on chronic systolic CHF (congestive heart failure): (7) Aortic stenosis: -EF 30%, moderate aortic stenosis, mild mitral regurgitation, moderate to severe tricuspid regurgitation on echo 07/2020 -Continue beta-randell (8) Collapse: (9) Elevated troponin: -Daughter reports collapse and possible syncopal -Monitor on telemetry for arrhythmias -Initial troponin 0.067, continue to trend -Limited echo to evaluate for wall motion abnormality (10) Abnormal urinalysis: (11) Hematuria: -Reports of hematuria in the setting of supratherapeutic INR-Resolved -UA suggest possible UTI -On IV ceftriaxone as above -Hgb stable -Urology eval completed (12) Polymyalgia rheumatica: -Continue chronic prednisone (13) Atrial fibrillation: -Rate controlled on Carvedilol, will continue -Anticoagulated on Coumadin, INR 2.8 today. Resume Coumadin today, check daily INR (14) DVT prophylaxis: -On Coumadin, INR elevated ROS-No Headache, No Visual Changes, No Nausea, No Vomiting, No Fever, No Chills, No Neck Pain or Stiffness, No Chest Pain, No Palpitations, No SOB, No SNOW, No Cough, No Sputum, No Wheezing, No Abdominal Pain, No Diarrhea, No Hematemesis, No Hemoptysis, No Unexpected Weight Loss, No Flank pain, No Melena, No Hematochezia, No Frequency, No Urgency, No Burning, No Hematuria, No Rashes, No Diaphoresis. Appetite is Normal, Still very weak Physical Exam Gen-AAO x 3, NAD, Afebrile Head-NCAT, EOMI, PERRLA, Anicteric Sclera, No Posterior Pharyngeal Erythema Neck-Supple, No JVD, No Thyromegaly, No Masses, No LAD, No Bruits Lungs-Clear to Auscultation Bilaterally, No Rales, No Rhonchi, No Wheezing, No Crepitus Chest-No S4, +S1, +S2, No S3, No Murmurs, No Rubs, No Gallops, No Ectopy Abdomen-Soft, Bowel Sounds Present, Non Tender, Non Distended, No Hepatomegaly, No Splenomegaly, No Palpable Masses, No Rebound, No Rigidity, No Guarding Musculoskeletal-Full Range of Motion Bilaterally, No CVAT Extremities-No Cyanosis, No Clubbing, No Edema Nuero-Cranial Nerves II-XII grossly intact, Motor WNL, DTRs WNL, Strength WNL, Non Focal Psych-Normal Mood Admission and Anticipated Discharge Date Admission Date: August 31, 2020 Results & Data Results & Data ([facility]) Vital Signs (Past 12 Hours) Vital Signs Temp Pulse Resp BP Pulse Ox 09/02/20 08:40 98 H 22 92 09/02/20 07:26 36.3 C L 92 H 20 120/72 91 09/02/20 03:09 36.6 C 88 20 118/76 95 09/01/20 23:52 36.6 C 103 H 20 126/79 95 (1) Pneumonia Laterality: bilateral Lung location: lower lobe of lung Pneumonia type: due to unspecified organism Qualified Code(s): J18.9 - Pneumonia, unspecified organism
--- NOTE | 2020-09-02 11:07 | Nephrology Progress Note ---
Date of Service September 02, 2020 Assessment & Plan (1) Acute on chronic renal failure: nonoliguric stage 1 BEVERLEY suspect from cardiorenal syndrome/ volume overload in the setting of advanced and progressive baseline CKD 4/5. presenting creatinine 3.3, up from 2.5 on 08/22. Her baseline creatinine prior to serial hospitalizations this winter had in summer 2019 been 1.8-1.9 and stable. she is too weak to do standing daily weights at this time and would not put her on fluid limit at this time. kidneys unremarkable on CT last month, apart from many BL vascular calcifications. no indication at this time to discuss dialysis but cannot rule out need this admission. UA w/ protein and blood and no infection: however hard to interpret in setting of elevated INR, LUTS, dior. Creatinine today 3.7 up from 3.4. No indication for dialysis -Holding Lasix -daily bmp; (2) Hematuria: gross hematuria prior to admission in setting of supratherapeutic INR -irrigate dior frequently to ensure no blockage by clots -agree w/ urology eval (3) Chronic respiratory failure with hypoxia: no formal dx of COPD and no smoking hx but imaging suggests it. She now has Covid pneumonitis. She had BL pleural effusions last admission and still has them -antibiotics per primary service -Titrate oxygen to maintain sats above 90. Admission and Anticipated Discharge Date Admission Date: August 31, 2020 Subjective Seen for BEVERLEY. She complains of weakness. She is still on 4 L nasal cannula. Review of Systems Review of Systems: All systems reviewed & are unremarkable except as noted in HPI & below Physical Exam Physical Exam: General exam: Appears comfortable, no acute distress on 4 L nasal cannula, lethargic HEENT: Pupils are equal and reactive to light Neck: No JVD, neck is supple trachea is midline Respiratory system: Crackles bilaterally. Gastrointestinal: Abdomen is soft, non distended, non tender, bowel sounds are present CVS: Regular rate and rhythm. No murmurs, rubs or gallops Musculoskeletal: No joint or muscle tenderness Extremities: Non tender, no edema, peripheral pulses are present Neuro: Oriented, no tremors, no focal neurological deficits Skin: No rashes Results & Data ([facility]) Vital Signs (Past 12 Hours) Vital Signs Temp Pulse Pulse Resp BP Pulse Ox 09/02/20 10:18 89 09/02/20 08:40 98 H 22 92 09/02/20 07:26 36.3 C L 92 H 20 120/72 91 09/02/20 03:09 36.6 C 88 20 118/76 95 09/01/20 23:52 36.6 C 103 H 20 126/79 95 Laboratory Results 09/02/20 07:28 09/02/20 09/02/20 07:28 07:28 WBC 7.86 RBC 2.96 L MCV 95.6 MCH 31.4 MCHC 32.9 RDW Std Deviation 49.6 H RDW Coeff of Caitlin 14.5 Plt Count 190 MPV 10.4 Albumin 2.0 L
[2020-09-02] MEDS: cefTRIAXone SODIUM 1,000 MG in DEXTROSE 5% 50 ML IV SCH (11:41)
[2020-09-02] MEDS: AZITHROMYCIN 500 MG in DEXTROSE 5% 250 ML IV SCH (12:21)
[2020-09-02] MEDS: PANTOprazole 40 MG TAB PO SCH (22:25)
[2020-09-03] MEDS: LEVOTHYROXINE SODIUM 25 MCG TABLET PO SCH (06:06)
[2020-09-03 07:28] LABS: Hematocrit (blood only) 27.6 % (37-47); Hemoglobin 8.9 g/dL (12.0-16.0); Mean Corpuscular Hemoglobin 30.8 pg (25-34); Mean Corpuscular Hgb Conc 32.2 g/dL (32-36); Mean Corpuscular Volume 95.5 fL (80-100); Mean Platelet Volume 10.4 fL (7.4-10.4); Platelet Count 183 K/uL (130-400); RDW Coefficient of Variation 14.5 % (11.5-14.5); RDW Standard Deviation 49.6 fL (36.4-46.3); Red Blood Count 2.89 M/uL (4.2-5.4); White Blood Count 8.64 K/uL (4.8-10.8)
[2020-09-03] MEDS: ALBUT/IPRATROP 3MG/0.5MG NEB 3 ML VIAL NEB SCH ×4 (07:46→19:40)
[2020-09-03 07:49] LABS: INR 2.1 (0.9-1.1); Prothrombin Time 20.9 Seconds (9.0-12.0)
[2020-09-03 08:05] LABS: BUN Creatinine Ratio 23.2 (10-20); Calcium 8.1 mg/dl (8.5-10.1); Est GFR (African American) 11.3; Est GFR (Non-African American) 9.7; Potassium 3.8 mmol/L (3.5-5.1)
--- NOTE | 2020-09-03 08:07 | Hospitalist Progress Note ---
Date of Service September 03, 2020 Assessment & Plan (1) Pneumonia: (2) History of COVID-19: (3) Chronic respiratory failure with hypoxia: -Patient presenting from home with reports of shortness of breath, generalized weakness, collapse -Refer to HPI for details on recent hospitalizations -Tested positive for COVID-19 on 08/13 at [facility] [place]. Treated with dexamethasone. -CXR today showing bibasilar opacities suggestive of pneumonia -Likely superimposed bacterial pneumonia after COVID-19 infection. No treatment for COVID-19 given that positive test was 18 days ago. -s/p IV ceftriaxone and IV azithromycin in ED, continue -on 4 L of oxygen, now -Alert and pleasant today -Cultures NGTD (4) Acute kidney injury superimposed on chronic kidney disease: (5) CKD (chronic kidney disease) stage 4, GFR 15-29 ml/min: -Previous baseline creatinine ran in the high 1s however with recent hospitalization new baseline seems to be the mid to high 2s -Creatinine peaked to 3.1 on 08/18 at [facility] [place] and improved to 2.5 on 08/22 on discharge -Monitor Creatinine -Nephrology on case -Examines to be volume overloaded with lower extremity edema and elevated proBNP on Lasix per Dr Schneider (6) Acute on chronic systolic CHF (congestive heart failure): (7) Aortic stenosis: -EF 30%, moderate aortic stenosis, mild mitral regurgitation, moderate to severe tricuspid regurgitation on echo 07/2020 -Continue beta-randell (8) Collapse: (9) Elevated troponin: -Daughter reports collapse and possible syncopal -Monitor on telemetry for arrhythmias -Initial troponin 0.067, continue to trend -Limited echo to evaluate for wall motion abnormality (10) Abnormal urinalysis: (11) Hematuria: -Reports of hematuria in the setting of supratherapeutic INR-Resolved -UA suggest possible UTI -On IV ceftriaxone as above -Hgb stable -Urology eval completed (12) Polymyalgia rheumatica: -Continue chronic prednisone (13) Atrial fibrillation: -Rate controlled on Carvedilol, will continue -Anticoagulated on Coumadin, INR 2.8 today. Resume Coumadin, check daily INR (14) DVT prophylaxis: On Coumadin, INR 2.1 PT/OT ROS-No Headache, No Visual Changes, No Nausea, No Vomiting, No Fever, No Chills, No Neck Pain or Stiffness, No Chest Pain, No Palpitations, No SOB, No SNOW, No Cough, No Sputum, No Wheezing, No Abdominal Pain, No Diarrhea, No Hematemesis, No Hemoptysis, No Unexpected Weight Loss, No Flank pain, No Melena, No Hematochezia, No Frequency, No Urgency, No Burning, No Hematuria, No Rashes, No Diaphoresis. Appetite is Normal, Still very weak, but feeling better Physical Exam Gen-AAO x 3, NAD, Afebrile Head-NCAT, EOMI, PERRLA, Anicteric Sclera, No Posterior Pharyngeal Erythema Neck-Supple, No JVD, No Thyromegaly, No Masses, No LAD, No Bruits Lungs-Clear to Auscultation Bilaterally, No Rales, No Rhonchi, No Wheezing, No Crepitus Chest-No S4, +S1, +S2, No S3, No Murmurs, No Rubs, No Gallops, No Ectopy Abdomen-Soft, Bowel Sounds Present, Non Tender, Non Distended, No Hepatomegaly, No Splenomegaly, No Palpable Masses, No Rebound, No Rigidity, No Guarding Musculoskeletal-Full Range of Motion Bilaterally, No CVAT Extremities-No Cyanosis, No Clubbing, No Edema Nuero-Cranial Nerves II-XII grossly intact, Motor WNL, DTRs WNL, Strength WNL, Non Focal Psych-Normal Mood Admission and Anticipated Discharge Date Admission Date: August 31, 2020 Results & Data Results & Data ([facility]) Vital Signs (Past 12 Hours) Vital Signs Temp Pulse Resp BP BP Pulse Ox 09/03/20 07:46 94 H 20 92 09/03/20 07:34 36.4 C L 96 H 18 133/73 89 L 09/03/20 03:44 36.6 C 99 H 21 123/74 92 09/02/20 23:36 36.3 C L 97 H 20 116/65 90 (1) Pneumonia Laterality: bilateral Lung location: lower lobe of lung Pneumonia type: due to unspecified organism Qualified Code(s): J18.9 - Pneumonia, unspecified organism
--- NOTE | 2020-09-03 08:55 | Communication Note ---
Date of Service: September 03, 2020 Consult for black, blood tinged BMs Noted in chart is hematuria Admitted w/ COVID PNA Supratherapeutic INR [place] held but remains on ASA PO PPI once daily EGD in July with large HH Prior imaging reviewed ? intrathoracic stomach 84 year old w/ covid PNA, supratherapeutic INR, hematuria, dark stools per chart reviewed. EGD in July w/ Z-line regular, Large hiatal hernia. DDX to include oozing from supratherpeutic INR vs edwin erosin vs other. No current indication to repeat EGD Hold anticoagulation IV PPI BID x 72 hours Then PO PPI BID Trend HGB Transfuse PRN Thank you for allowing us to participate in the care of this patient. Please call with any acute changes, questions or concerns. Please see addendum below with additional recommendation from my supervising physician. Patient not seen today given her active Covid infection. 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 Patient did have a supratherapeutic INR at admission which could certainly cause the hematuria for which she presented. Please let us know if any questions or concerns, would highly recommend a referral to thoracic surgery as an outpatient for evaluation of her intrathoracic stomach please call with any questions or concern
[2020-09-03] MEDS: predniSONE 5 MG TAB PO SCH (09:04)
[2020-09-03] MEDS: FAMOTIDINE 20 MG TAB PO SCH (09:05)
[2020-09-03] MEDS: THIAMINE HCL 100 MG TAB PO SCH (09:05)
[2020-09-03] MEDS: carvediloL 6.25 MG TAB PO SCH ×2 (09:05→16:10)
[2020-09-03] MEDS: ASCORBIC ACID 500 MG TAB PO SCH ×3 (09:05→19:32)
[2020-09-03] MEDS: MULTIVITAMIN TAB PO SCH (09:05)
[2020-09-03] MEDS: predniSONE 1 MG TAB PO SCH (09:06)
[2020-09-03] MEDS: dilTIAZem HCL 240 MG CAPCR PO SCH (09:06)
[2020-09-03] MEDS: ASPIRIN 81 MG ECTAB PO SCH (09:06)
[2020-09-03] MEDS: FOLIC ACID 1 MG TAB PO SCH (09:06)
[2020-09-03] MEDS: cefTRIAXone SODIUM 1,000 MG in DEXTROSE 5% 50 ML IV SCH (11:28)
[2020-09-03] MEDS: AZITHROMYCIN 500 MG in DEXTROSE 5% 250 ML IV SCH (12:29)
--- NOTE | 2020-09-03 16:43 | Nephrology Progress Note ---
Date of Service September 03, 2020 Assessment & Plan (1) Acute on chronic renal failure: nonoliguric stage 1 BEVERLEY suspect from cardiorenal syndrome/ volume overload in the setting of advanced and progressive baseline CKD 4/5. presenting creatinine 3.3, up from 2.5 on 08/22. Her baseline creatinine prior to serial hospitalizations this winter had in summer 2019 been 1.8-1.9 and stable. she is too weak to do standing daily weights at this time and would not put her on fluid limit at this time. kidneys unremarkable on CT last month, apart from many BL vascular calcifications. no indication at this time to discuss dialysis but cannot rule out need this admission. UA w/ protein and blood and no infection: however hard to interpret in setting of elevated INR, LUTS, dior. Creatinine today 4 up from 3.7. No indication for dialysis -Holding Lasix -daily bmp >will repeat CXR in am to recheck pleural effusions and need for lasix if any; for now monitor/ diuretics prn abruptly worsened respiratory status only (2) Hematuria: gross hematuria prior to admission in setting of supratherapeutic INR -irrigate dior frequently to ensure no blockage by clots -agree w/ urology eval (3) Chronic respiratory failure with hypoxia: no formal dx of COPD and no smoking hx but imaging suggests it. She now has Covid pneumonitis. She had BL pleural effusions last admission and still has them -antibiotics per primary service -Titrate oxygen to maintain sats above 90 -needing 3-4L 02 Admission and Anticipated Discharge Date Admission Date: August 31, 2020 Subjective seen on rounds at 1220 this afternoon. still very tired even w/ chewing her food; breathing a bit better but still worsens fast. no N. some trouble swallowing just when I saw her today Review of Systems Review of Systems: All systems reviewed & are unremarkable except as noted in Subjective Physical Exam Constitutional: well developed, well nourished, + ill appearing (Looks exha usted and chronically ill; less than a few days back but worse ) and cooperative Eyes: EOM intact bilaterally ENMT: Ears: no external ear abnormality Nose: no external nose abnormality Mouth: + dry oral mucous membranes Neck: no nuchal rigidity Respiratory: normal respiratory effort and able to speak in complete sentences; no respiratory distress, no labored breathing, not tachypneic and no paradoxical thoraco-abdominal movemnt Auscultation: + diminished lung sounds and + crackles Cardiovascular: Rate/Rhythm: regular rate and regular rhythm Extremities: no edema Gastrointestinal (Abdomen): Inspection/Auscultation: normal bowel sounds Percussion/Palpation: abdomen soft; abdomen nontender Musculoskeletal: Extremities: + abnormal strength (Generalized weakness) Skin: no rashes, warm and dry Neurologic: reid, fluent speech, no tremor, strength abnormal Psychiatric: Orientation: oriented x 3 Genitourinary: dior w/ ample light yellow urine Results & Data ([facility]) Vital Signs (Past 12 Hours) Vital Signs Temp Pulse Pulse Resp BP BP Pulse Ox 09/03/20 15:39 36.4 C L 87 18 112/72 91 09/03/20 14:56 75 18 94 09/03/20 11:29 93 H 18 93 09/03/20 11:24 36.4 C L 85 18 113/74 92 09/03/20 08:00 78 09/03/20 07:46 94 H 20 92 09/03/20 07:34 36.4 C L 96 H 18 133/73 89 L Laboratory Results 09/03/20 06:30 09/03/20 06:30
[2020-09-03] MEDS: PANTOprazole 40 MG TAB PO SCH (19:32)
--- NOTE | 2020-09-03 20:52 | XRay Report ---
XR chest 1V portable HISTORY: follow up pleural effusions COMPARISON: Chest 08/31/2020. FINDINGS: No pneumothorax. The heart remains enlarged. Small bilateral pleural effusions and bibasila r densities have slightly progressed. Slight progression of the right upper lobe peripheral airspace opacities. IMPRESSION: Slight progression of the small bilateral pleural effusions, bibasilar densities, and right upper lob e peripheral airspace opacity. ACT 112: Negative or not required by law. Electronically signed by: Etienne Redman M.D. 09/03/2020 8:51 PM
[2020-09-04] MEDS: LEVOTHYROXINE SODIUM 25 MCG TABLET PO SCH (06:13)
[2020-09-04] MEDS: ALBUT/IPRATROP 3MG/0.5MG NEB 3 ML VIAL NEB SCH ×4 (07:21→20:58)
[2020-09-04 08:25] LABS: Hematocrit (blood only) 26.3 % (37-47); Hemoglobin 8.8 g/dL (12.0-16.0); Mean Corpuscular Hemoglobin 31.8 pg (25-34); Mean Corpuscular Hgb Conc 33.5 g/dL (32-36); Mean Corpuscular Volume 94.9 fL (80-100); Mean Platelet Volume 10.6 fL (7.4-10.4); Platelet Count 168 K/uL (130-400); RDW Coefficient of Variation 14.5 % (11.5-14.5); RDW Standard Deviation 49.5 fL (36.4-46.3); Red Blood Count 2.77 M/uL (4.2-5.4); White Blood Count 7.62 K/uL (4.8-10.8)
[2020-09-04] MEDS: ASPIRIN 81 MG ECTAB PO SCH (08:42)
[2020-09-04] MEDS: dilTIAZem HCL 240 MG CAPCR PO SCH (08:42)
[2020-09-04] MEDS: THIAMINE HCL 100 MG TAB PO SCH (08:42)
[2020-09-04] MEDS: FAMOTIDINE 20 MG TAB PO SCH (08:42)
[2020-09-04] MEDS: predniSONE 5 MG TAB PO SCH (08:42)
[2020-09-04] MEDS: carvediloL 6.25 MG TAB PO SCH ×2 (08:42→16:31)
[2020-09-04] MEDS: MULTIVITAMIN TAB PO SCH (08:43)
[2020-09-04] MEDS: predniSONE 1 MG TAB PO SCH (08:43)
[2020-09-04] MEDS: FOLIC ACID 1 MG TAB PO SCH (08:43)
[2020-09-04] MEDS: ASCORBIC ACID 500 MG TAB PO SCH ×3 (08:43→20:49)
[2020-09-04 08:46] LABS: INR 1.5 (0.9-1.1); Prothrombin Time 15.6 Seconds (9.0-12.0)
[2020-09-04 08:53] LABS: Albumin Level 1.9 gm/dl (3.4-5.0); BUN Creatinine Ratio 21.3 (10-20); Calcium 8.3 mg/dl (8.5-10.1); Creatinine Clr Calc Pharmacy 7.9 ml/min; Est GFR (African American) 11.1; Est GFR (Non-African American) 9.6; Potassium 3.8 mmol/L (3.5-5.1)
[2020-09-04 08:57] LABS: Albumin Globulin Ratio 0.6 (0.9-2); Bilirubin,Total 0.4 mg/dl (0.2-1); Total Protein 4.9 gm/dl (6.4-8.2)
--- NOTE | 2020-09-04 09:02 | Hospitalist Progress Note ---
Date of Service September 04, 2020 Assessment & Plan (1) Pneumonia: (2) History of COVID-19: (3) Chronic respiratory failure with hypoxia: -Patient presenting from home with reports of shortness of breath, generalized weakness, collapse -Refer to HPI for details on recent hospitalizations -[place] [facility] Treated with dexamethasone. -CXR today showing bibasilar opacities suggestive of pneumonia -Likely superimposed bacterial pneumonia after COVID-19 infection. No treatment for COVID-19 given that positive test was 18 days ago. -s/p IV ceftriaxone and IV azithromycin in ED, continued -on 4 L of oxygen, try to titrate down -Alert and pleasant today -Cultures NGTD (4) Acute kidney injury superimposed on chronic kidney disease: (5) CKD (chronic kidney disease) stage 4, GFR 15-29 ml/min: -Previous baseline creatinine ran in the high 1s however with recent hospitalization new baseline seems to be the mid to high 2s -Creatinine peaked to 3.1 on 08/18 at [facility] and improved to 2.5 on 08/22 on discharge -Monitor Creatinine which is rising -Nephrology on case -Examines to be volume overloaded with lower extremity edema and elevated proBNP on Lasix per Dr Schneider (6) Acute on chronic systolic CHF (congestive heart failure): (7) Aortic stenosis: -EF 30%, moderate aortic stenosis, mild mitral regurgitation, moderate to severe tricuspid regurgitation on echo 07/2020 -Continue beta-randell (8) Collapse: (9) Elevated troponin: -Daughter reports collapse and possible syncopal -Monitor on telemetry for arrhythmias -Initial troponin 0.067, continue to trend which was decreasing (10) Abnormal urinalysis: (11) Hematuria: -Reports of hematuria in the setting of supratherapeutic INR-Resolved -UA suggest possible UTI -On IV ceftriaxone as above -Hgb stable -Urology eval completed (12) Polymyalgia rheumatica: -Continue chronic prednisone (13) Atrial fibrillation: -Rate controlled on Carvedilol, will continue -Anticoagulated on Coumadin, INR 1.5 today. Resume Coumadin, check daily INR (14) DVT prophylaxis: Resume Coumadin 1 mg, INR 1.5 today PT/OT ROS-No Headache, No Visual Changes, No Nausea, No Vomiting, No Fever, No Chills, No Neck Pain or Stiffness, No Chest Pain, No Palpitations, No SOB, No SNOW, No Cough, No Sputum, No Wheezing, No Abdominal Pain, No Diarrhea, No Hematemesis, No Hemoptysis, No Unexpected Weight Loss, No Flank pain, No Melena, No Hematochezia, No Frequency, No Urgency, No Burning, No Hematuria, No Rashes, No Diaphoresis. Appetite is Normal, Still weak, but feeling better, Prefers rehab on DC Physical Exam Gen-AAO x 3, NAD, Afebrile Head-NCAT, EOMI, PERRLA, Anicteric Sclera, No Posterior Pharyngeal Erythema Neck-Supple, No JVD, No Thyromegaly, No Masses, No LAD, No Bruits Lungs-Clear to Auscultation Bilaterally, No Rales, No Rhonchi, No Wheezing, No Crepitus Chest-No S4, +S1, +S2, No S3, No Murmurs, No Rubs, No Gallops, No Ectopy Abdomen-Soft, Bowel Sounds Present, Non Tender, Non Distended, No Hepatomegaly, No Splenomegaly, No Palpable Masses, No Rebound, No Rigidity, No Guarding Musculoskeletal-Full Range of Motion Bilaterally, No CVAT Extremities-No Cyanosis, No Clubbing, No Edema Nuero-Cranial Nerves II-XII grossly intact, Motor WNL, DTRs WNL, Strength WNL, Non Focal Psych-Normal Mood Admission and Anticipated Discharge Date Admission Date: August 31, 2020 Results & Data Results & Data ([facility]) Vital Signs (Past 12 Hours) Vital Signs Temp Pulse Resp BP Pulse Ox 09/04/20 07:23 98 H 18 94 09/04/20 05:05 36.4 C L 94 H 20 118/77 94 09/04/20 00:13 36.4 C L 95 H 18 135/71 90 (1) Pneumonia Laterality: bilateral Lung location: lower lobe of lung Pneumonia type: due to unspecified organism Qualified Code(s): J18.9 - Pneumonia, unspecified organism
--- NOTE | 2020-09-04 10:19 | Nephrology Progress Note ---
Date of Service September 04, 2020 Assessment & Plan (1) Acute on chronic renal failure: nonoliguric now stage 2 BEVERLEY suspect from cardiorenal syndrome/ volume overload in the setting of advanced and progressive baseline CKD 4/5. EF 35% and valvular heart dz/biatrial dilatation 07/2020 TTE. presenting creatinine 3.3, up from 2.5 on 08/22. Her baseline creatinine prior to serial hospitaliza tions this winter had in summer 2019 been 1.8-1.9 and stable. she is too weak to do standing daily weights at this time and would not put her on fluid limit yet either. kidneys unremarkable on CT last month, apart from many BL vascular calcifications. no indication at this time to discuss dialysis but cannot rule out need this admission. UA w/ protein and blood and no infection: however hard to interpret in setting of elevated INR, LUTS, dior. Creatinine plateau'd today 4 up from 3.7 on 09/02. No indication for dialysis but labs/course worrisome -did mention to her that we may at least need to discuss dialysis this admission potentially -recheck uacm ordered -started lasix 30 mg iv bid -daily bmp (2) Hematuria: gross hematuria prior to admission in setting of supratherapeutic INR; resolved; for prn urology f/u (3) Chronic respiratory failure with hypoxia: no formal dx of COPD and no smoking hx but imaging suggests it. She now has Covid pneumonitis. She had BL pleural effusions last admission and still has them -- a bit worse on labs today -antibiotics per primary service -Titrate oxygen to maintain sats above 90 -needing 3-4L 02 Admission and Anticipated Discharge Date Admission Date: August 31, 2020 Subjective seen on rounds about 1215; still extremely tired -states she slept poorly; no n/v, no confusion; just tired, weak Review of Systems Review of Systems: All systems reviewed & are unremarkable except as noted in Subjective Physical Exam Constitutional: well developed, well nourished, + ill appearing (stlll exhausted) and cooperative Eyes: EOM intact bilaterally ENMT: Ears: no external ear abnormality Nose: no external nose abnormality Mouth: + dry oral mucous membranes Neck: no nuchal rigidity Respiratory: normal respiratory effort and able to speak in complete sentences; no respiratory distress, no labored breathing, not tachypneic and no paradoxical thoraco-abdominal movemnt Auscultation: + diminished lung sounds and + crackles Cardiovascular: Rate/Rhythm: regular rate and regular rhythm Extremities: no edema Gastrointestinal (Abdomen): Inspection/Auscultation: normal bowel sounds Percussion/Palpation: abdomen soft; abdomen nontender Musculoskeletal: Extremities: + abnormal strength (Generalized weakness) Skin: no rashes, warm and dry Neurologic: reid, fluent speech, no tremor Psychiatric: Orientation: oriented x 3 Genitourinary: dior w/ ample urine Results & Data ([facility]) Vital Signs (Past 12 Hours) Vital Signs Temp Pulse Resp BP Pulse Ox 09/04/20 09:02 36.3 C L 90 20 118/72 90 09/04/20 07:23 98 H 18 94 09/04/20 05:05 36.4 C L 94 H 20 118/77 94 09/04/20 00:13 36.4 C L 95 H 18 135/71 90 Laboratory Results 09/04/20 07:39 09/04/20 07:39 Diagnostic Findings cxr Slight progression of the small bilateral pleural effusions, bibasilar densities, and right upper lobe peripheral airspace opacity.
[2020-09-04] MEDS: FUROSEMIDE 30 MG in SYRINGE 0 ML IV SCH ×2 (11:45→20:49)
[2020-09-04] MEDS: cefTRIAXone SODIUM 1,000 MG in DEXTROSE 5% 50 ML IV SCH (11:45)
[2020-09-04] MEDS: AZITHROMYCIN 500 MG in DEXTROSE 5% 250 ML IV SCH (12:34)
[2020-09-04] MEDS: WARFARIN SOD 1 MG TAB PO SCH (16:30)
[2020-09-04] MEDS ORDERED: POLYETHYLENE (MIRALAX) 17 GM PACK PO PRN (20:12)
[2020-09-04] MEDS: PANTOprazole 40 MG TAB PO SCH (20:49)
[2020-09-05 02:10] LABS: Appearance Urine Clear (Clear); Bacteria Urine Automated Negative (Negative); Bilirubin Urine Negative (Negative); Blood Urine 3+ (Negative); Color Urine Yellow; Glucose Urine UA Negative (Negative); Ketones Urine Negative (Negative); Leukocyte Esterase Urine 1+ (Negative); Nitrite Urine Negative (Negative); Protein Urine Negative (Negative); RBC Urine Automated >30 /hpf (0-4); Specific Gravity Urine 1.013 (1.000-1.030); Urobilinogen Urine Negative (Negative); WBC Urine Automated >30 /hpf (0-5)
[2020-09-05] MEDS: LEVOTHYROXINE SODIUM 25 MCG TABLET PO SCH (05:54)
[2020-09-05] MEDS: ALBUT/IPRATROP 3MG/0.5MG NEB 3 ML VIAL NEB SCH (07:00)
[2020-09-05 07:10] LABS: Hematocrit (blood only) 27.2 % (37-47); Mean Corpuscular Hemoglobin 31.3 pg (25-34); Mean Corpuscular Hgb Conc 33.1 g/dL (32-36); Mean Corpuscular Volume 94.4 fL (80-100); Mean Platelet Volume 9.9 fL (7.4-10.4); Platelet Count 145 K/uL (130-400); RDW Coefficient of Variation 14.5 % (11.5-14.5); RDW Standard Deviation 48.8 fL (36.4-46.3); Red Blood Count 2.88 M/uL (4.2-5.4); White Blood Count 7.64 K/uL (4.8-10.8)
[2020-09-05 07:16] LABS: INR 1.4 (0.9-1.1); Prothrombin Time 14.4 Seconds (9.0-12.0)
[2020-09-05 07:41] LABS: BUN Creatinine Ratio 19.8 (10-20); Calcium 8.4 mg/dl (8.5-10.1); Creatinine Clr Calc Pharmacy 7.7 ml/min; Est GFR (African American) 10.3; Est GFR (Non-African American) 8.9; Potassium 3.6 mmol/L (3.5-5.1)
[2020-09-05 07:44] LABS: Albumin Globulin Ratio 0.6 (0.9-2); Bilirubin,Total 0.4 mg/dl (0.2-1); Globulin 3.2 gm/dl (2.5-4.0); Total Protein 5.2 gm/dl (6.4-8.2)
[2020-09-05] MEDS: predniSONE 1 MG TAB PO SCH (08:20)
[2020-09-05] MEDS: ASPIRIN 81 MG ECTAB PO SCH (08:21)
[2020-09-05] MEDS: THIAMINE HCL 100 MG TAB PO SCH (08:21)
[2020-09-05] MEDS: MULTIVITAMIN TAB PO SCH (08:21)
[2020-09-05] MEDS: carvediloL 6.25 MG TAB PO SCH ×2 (08:21→17:04)
[2020-09-05] MEDS: dilTIAZem HCL 240 MG CAPCR PO SCH (08:22)
[2020-09-05] MEDS: FOLIC ACID 1 MG TAB PO SCH (08:22)
[2020-09-05] MEDS: predniSONE 5 MG TAB PO SCH (08:23)
[2020-09-05] MEDS: ASCORBIC ACID 500 MG TAB PO SCH ×3 (08:23→20:48)
[2020-09-05] MEDS: FAMOTIDINE 20 MG TAB PO SCH (08:23)
--- NOTE | 2020-09-05 08:32 | Nephrology Progress Note ---
Date of Service September 05, 2020 Assessment & Plan (1) Acute on chronic renal failure: nonoliguric now stage 2 BEVERLEY suspect from cardiorenal syndrome/ volume overload in the setting of advanced and progressive baseline CKD 4/5. EF 35% and valvular heart dz/biatrial dilatation 07/2020 TTE. presenting creatinine 3.3, up from 2.5 on 08/22. Her baseline creatinine prior to serial hospitaliza tions this winter had in summer 2019 been 1.8-1.9 and stable. she is too weak to do standing daily weights at this time and would not put her on fluid limit yet either. kidneys unremarkable on CT last month, apart from many BL vascular calcifications. UA w/ protein and blood and no infection: however hard to interpret in setting of elevated INR, LUTS, dior. recheck uacm remarkable for resolution of proteinuria but ongoing microhematuria and inflammation w/o much suggestion of uti persists. Creatinine w/ resumption of lasix on 09/04 increased to 4.3 up from 3.7 on 09/02. No indication for dialysis but labs/course worrisome -did mention to her that we may at least need to discuss dialysis this admission potentially - no indication for urgent tx; she is aware and would do dialysis as long as we "have tried everything else first" -cont lasix 30 mg iv bid > with this dose she is barely negative but at least negative and that's for now acceptable -daily bmp (2) Chronic respiratory failure with hypoxia: no formal dx of COPD and no smoking hx but imaging suggests it. She now has Covid pneumonitis. She had BL pleural effusions last admission and still has them -- a bit worse on labs today -antibiotics per primary service -Titrate oxygen to maintain sats above 90 -needing 3-4L 02 >>did update RN and advised call to Dr Estiven espino chest pain Admission and Anticipated Discharge Date Admission Date: August 31, 2020 Subjective seen on rounds at about 1320; moved out of telemetry >> more tired today , more sob; tells me she has chest pain ant chest w/ breathing Review of Systems Review of Systems: All systems reviewed & are unremarkable except as noted in Subjective Physical Exam Constitutional: well developed, well nourished, + ill appearing (stlll exhausted) and cooperative Eyes: EOM intact bilaterally ENMT: Ears: no external ear abnormality Nose: no external nose abnormality Mouth: + dry oral mucous membranes Neck: no nuchal rigidity Respiratory: normal respiratory effort and able to speak in complete sentences; no respiratory distress, no labored breathing, not tachypneic and no paradoxical thoraco-abdominal movemnt Auscultation: + diminished lung sounds and + crackles Cardiovascular: Rate/Rhythm: regular rate and regular rhythm Extremities: no edema Gastrointestinal (Abdomen): Inspection/Auscultation: normal bowel sounds Percussion/Palpation: abdomen soft; abdomen nontender Musculoskeletal: Extremities: + abnormal strength (Generalized weakness) Skin: no rashes, warm and dry Neurologic: reid, fluent speech Psychiatric: Orientation: oriented x 3 Genitourinary: dior w/ ample urine Results & Data ([facility]) Vital Signs (Past 12 Hours) Vital Signs Temp Pulse Pulse Resp BP BP Pulse Ox 09/05/20 07:45 36.2 C L 98 H 16 121/74 94 09/05/20 07:31 99 H 09/05/20 07:01 97 H 18 94 09/05/20 04:31 36.2 C L 103 H 20 117/71 95 09/05/20 04:24 83 L 09/05/20 01:44 36.2 C L 78 16 121/79 93 09/04/20 23:14 91 H 09/04/20 23:11 101 H 09/04/20 22:44 36.4 C L 102 H 22 125/75 90 09/04/20 20:59 109 H 20 89 L Laboratory Results 09/05/20 06:41 09/05/20 06:41
[2020-09-05] MEDS ORDERED: ALBUT/IPRATROP 3MG/0.5MG NEB 3 ML VIAL NEB PRN (10:05)
[2020-09-05] MEDS: cefTRIAXone SODIUM 1,000 MG in DEXTROSE 5% 50 ML IV SCH (11:17)
[2020-09-05] MEDS: FUROSEMIDE 30 MG in SYRINGE 0 ML IV SCH ×2 (11:18→20:48)
[2020-09-05] MEDS: AZITHROMYCIN 500 MG in DEXTROSE 5% 250 ML IV SCH (12:01)
[2020-09-05] MEDS: WARFARIN SOD 1 MG TAB PO SCH (16:37)
--- NOTE | 2020-09-05 20:42 | Hospitalist Progress Note ---
Date of Service September 05, 2020 Assessment & Plan (1) Pneumonia: (2) History of COVID-19: (3) Chronic respiratory failure with hypoxia: Present to the ER with SOB and weakness Patient presenting from home with reports of shortness of breath, generalized weakness, collapse Tested positive for COVID-19 on 08/13 at [facility] [place] and was treated with dexamethasone. CXR on admission showed bibasilar opacities suggestive of pneumonia Likely superimposed bacterial pneumonia after COVID-19 infection. No treatment for COVID-19 since pt was tested positive about 18 days ago. Continue IV abx with IV ceftriaxone and IV azithromycin Blood cx no growth Continue oxygen supplement (4) Acute kidney injury superimposed on chronic kidney disease: (5) CKD (chronic kidney disease) stage 4, GFR 15-29 ml/min: Previous baseline creatinine ran in the high 1s however with recent hospitalization new baseline seems to be the mid to high 2s Creatinine continues to increase to 4.28 Nephrology on board that recommended to continue the Lasix IV 30mg BID Continue monitor BMP (6) Acute on chronic systolic CHF (congestive heart failure): CXR on admission showed persistent small to moderate bilateral pleural effusions with bibasilar opacities which may reflect pneumonia or atelectasis. Elevated ProBNP [id number] Most recent echo on 08/12 showed EF 30%, moderate aortic stenosis, mild mitral regurgitation, moderate to severe tricuspid regurgitation Continue IV 30mg BID Will repeat CXR in am Monitor I/O (7) Aortic stenosis: Continue beta-randell stable (8) Collapse: (9) Elevated troponin: Troponin 0.067 on admission, then trending down to 0.05 Mostly demand ischemia due to respiratory failure Continue Cavedilol, aspirin Stable (10) Abnormal urinalysis: (11) Hematuria: Reports of hematuria in the setting of supratherapeutic INR Continue IV ceftriaxone Hgb stable at 9 Urology on board no need for any further acute work-up or intervention If her catheter were clogged, flush it as needed Follow-up as an outpatientno further inpatient evaluation required from a urological standpoint (12) Polymyalgia rheumatica: Continue chronic prednisone (13) Atrial fibrillation: Rate controlled on Carvedilol, will continue Anticoagulated on Coumadin, INR 1.4 Stable (14) DVT prophylaxis: On Coumadin with INR 1.4 Admission and Anticipated Discharge Date Admission Date: August 31, 2020 Subjective Pt was seen and examined for follow up shortness of breath due to COVID 19 Lying in bed with no distress Pt said that she continues to cough and continues to have a hard time to bring the phlegm She said that when she is having a hard time to breath, she feels a pressure in her chest Currently she denies any chest pain, palpitation, dizziness and fever Physical Exam Physical Exam: General- No acute distress Head- atraumatic Eyes- PERRL, EOMI, ENT- oropharynx clear Neck- supple, no JVD Lungs- +diminished BS Heart- regular rhythm; no murmur Abdomen- normal bowel sounds, soft, nontender Extremities- no calf tenderness Neuro- alert, oriented x 3; PERRL, EOMI; no facial palsy; no dysarthria Skin- warm & dry Results & Data Results & Data ([facility]) Vital Signs (Past 12 Hours) Vital Signs Temp Pulse Pulse Resp BP BP Pulse Ox 09/05/20 15:49 36.1 C L 65 22 106/64 96 09/05/20 14:58 88 09/05/20 11:24 36.2 C L 86 18 105/74 99 (1) Pneumonia Laterality: bilateral Lung location: lower lobe of lung Pneumonia type: due to unspecified organism Qualified Code(s): J18.9 - Pneumonia, unspecified organism
[2020-09-05] MEDS: PANTOprazole 40 MG TAB PO SCH (20:47)
[2020-09-06 01:17] LABS: Basophils # (auto) 0.01 K/uL (0-0.2); Basophils % (auto) 0.1 %; Eosinophils # (auto) 0.09 K/uL (0-0.5); Eosinophils % (auto) 1.2 %; Hematocrit (blood only) 25.2 % (37-47); Hemoglobin 8.4 g/dL (12.0-16.0); Immature Granulocytes # (auto) 0.06 K/uL (0.00-0.02); Immature Granulocytes % (auto) 0.8 %; Lymphocytes # (auto) 0.71 K/uL (1.2-3.4); Lymphocytes % (auto) 9.7 %; Mean Corpuscular Hemoglobin 31.1 pg (25-34); Mean Corpuscular Hgb Conc 33.3 g/dL (32-36); Mean Corpuscular Volume 93.3 fL (80-100); Mean Platelet Volume 9.9 fL (7.4-10.4); Monocytes # (auto) 0.22 K/uL (0.11-0.59); Neutrophils # (auto) 6.23 K/uL (1.4-6.5); Neutrophils % (auto) 85.2 %; Platelet Count 128 K/uL (130-400); RDW Coefficient of Variation 14.5 % (11.5-14.5); RDW Standard Deviation 49.4 fL (36.4-46.3); White Blood Count 7.32 K/uL (4.8-10.8)
[2020-09-06 01:28] LABS: INR 1.4 (0.9-1.1); Partial Thromboplastin Ratio 1.1; Partial Thromboplastin Time 31.6 Seconds (21.0-31.0); Prothrombin Time 14.7 Seconds (9.0-12.0)
[2020-09-06 01:35] LABS: Albumin Level 1.9 gm/dl (3.4-5.0); BUN Creatinine Ratio 20.2 (10-20); Calcium 7.6 mg/dl (8.5-10.1); Creatinine Clr Calc Pharmacy 7.6 ml/min; Est GFR (African American) 10.2; Est GFR (Non-African American) 8.8; Potassium 3.7 mmol/L (3.5-5.1)
[2020-09-06 01:38] LABS: Allen Test POS (Pos); Base Excess ABG -3.6 mEq/L (-9-1.8); HCO3 ABG 20 mmol/L (19-24); Oxygen Saturation ABG 95.1 % (90-95); PCO2 ABG 29 mmHg (35-46); PO2 ABG 82 mmHg (80-95); pH ABG 7.45 (7.35-7.45)
[2020-09-06 01:39] LABS: Albumin Globulin Ratio 0.6 (0.9-2); Bilirubin,Total 0.2 mg/dl (0.2-1); Globulin 3.1 gm/dl (2.5-4.0); Troponin I 0.029 ng/ml (0-0.045)
[2020-09-06] MEDS: FUROSEMIDE 30 MG in SYRINGE 0 ML IV SCH ×2 (02:05→20:07)
[2020-09-06] MEDS ORDERED: LORazepam 0.5 MG TAB PO STA (02:15)
[2020-09-06] MEDS: LEVOTHYROXINE SODIUM 25 MCG TABLET PO SCH (05:05)
--- NOTE | 2020-09-06 07:57 | XRay Report ---
XR chest 1V portable CLINICAL HISTORY: sob COMPARISON STUDY: 09/03/2020 FINDINGS: The heart remains enlarged. There are progressive multifocal airspace opacities. There are small pleural effusions.[ IMPRESSION: Cardiomegaly, small pleural effusions, and progressive multifocal airspace opacities ACT 112: Negative or not required by law. Electronically signed by: Alek Daly M.D. 09/06/2020 7:55 AM
--- NOTE | 2020-09-06 08:22 | XRay Report ---
XR chest 1V portable HISTORY: Pneumonia. Shortness of breath. Follow-up. COMPARISON: Chest 09/06/2020. FINDINGS: No pneumothorax. Bibasilar and peripheral airspace opacities, right greater than the left, persist. Suspect trace bilateral pleural effusions. The heart remains enlarged. No evidence for pulmo nary edema. Emphysema is again noted. IMPRESSION: No change in the bilateral airspace opacities. This likely represents a pneumonia. ACT 112: Negative or not required by law. Electronically signed by: Etienne Redman M.D. 09/06/2020 8:21 AM
[2020-09-06] MEDS: carvediloL 6.25 MG TAB PO SCH ×2 (08:23→16:57)
[2020-09-06] MEDS: THIAMINE HCL 100 MG TAB PO SCH (08:23)
[2020-09-06] MEDS: ASPIRIN 81 MG ECTAB PO SCH (08:23)
[2020-09-06] MEDS: predniSONE 1 MG TAB PO SCH (08:23)
[2020-09-06] MEDS: dilTIAZem HCL 240 MG CAPCR PO SCH (08:23)
[2020-09-06] MEDS: predniSONE 5 MG TAB PO SCH (08:23)
[2020-09-06] MEDS: ASCORBIC ACID 500 MG TAB PO SCH ×3 (08:23→20:08)
[2020-09-06] MEDS: FAMOTIDINE 20 MG TAB PO SCH (08:24)
[2020-09-06] MEDS: MULTIVITAMIN TAB PO SCH (08:24)
[2020-09-06] MEDS: FOLIC ACID 1 MG TAB PO SCH (08:24)
[2020-09-06] MEDS: cefTRIAXone SODIUM 1,000 MG in DEXTROSE 5% 50 ML IV SCH (12:25)
[2020-09-06] MEDS: AZITHROMYCIN 500 MG in DEXTROSE 5% 250 ML IV SCH (13:25)
[2020-09-06] MEDS: WARFARIN SOD 2 MG TAB PO SCH (16:53)
--- NOTE | 2020-09-06 18:26 | Nephrology Progress Note ---
Date of Service September 06, 2020 Assessment & Plan (1) Acute on chronic renal failure: nonoliguric now stage 2 BEVERLEY suspect from cardiorenal syndrome/ volume overload in the setting of advanced and progressive baseline CKD 4/5. EF 35% and valvular heart dz/biatrial dilatation 07/2020 TTE. presenting creatinine 3.3, up from 2.5 on 08/22. Her baseline creatinine prior to serial hospitaliza tions this winter had in summer 2019 been 1.8-1.9 and stable. she is too weak to do standing daily weights at this time and would not put her on fluid limit yet either. kidneys unremarkable on CT last month, apart from many BL vascular calcifications. UA w/ protein and blood and no infection: however hard to interpret in setting of elevated INR, LUTS, dior. recheck uacm remarkable for resolution of proteinuria but ongoing microhematuria and inflammation w/o much suggestion of uti persists. Creatinine w/ resumption of lasix on 09/04 increased to 4.3 up from 3.7 on 09/02. No indication for dialysis but labs/course worrisome -did mention to her that we may at least need to discuss dialysis this admission potentially - no indication for urgent tx; she is aware and would do dialysis as long as we "have tried everything else first;" reaffirms this today -cont lasix 30 mg iv bid > with this dose she is barely negative but at least negative and that's for now acceptable -daily bmp (2) Chronic respiratory failure with hypoxia: no formal dx of COPD and no smoking hx but imaging suggests it. She now has Covid pneumonitis. She had BL pleural effusions last admission and still has them -- a bit worse on labs today -antibiotics per primary service -Titrate oxygen to maintain sats above 90 -needing 4L 02NC consistently Admission and Anticipated Discharge Date Admission Date: August 31, 2020 Subjective her cc today is FATIGUE; maybe a bit more sob too Review of Systems Review of Systems: All systems reviewed & are unremarkable except as noted in Subjective Physical Exam Constitutional: well developed, well nourished, + ill appearing (if anything more exhausted) and cooperative Eyes: EOM intact bilaterally ENMT: Ears: no external ear abnormality Nose: no external nose abnormality Mouth: + dry oral mucous membranes Neck: no nuchal rigidity Respiratory: normal respiratory effort, + cough (frequent and if possible wetter than before), able to speak in complete sentences and + tachypneic; no respiratory distress, no labored breathing and no paradoxical thoraco-abdominal movemnt Auscultation: + diminished lung sounds and + crackles Cardiovascular: Rate/Rhythm: regular rate and regular rhythm Extremities: no edema Gastrointestinal (Abdomen): Inspection/Auscultation: normal bowel sounds Percussion/Palpation: abdomen soft; abdomen nontender Musculoskeletal: Extremities: + abnormal strength (Generalized weakness) Skin: no rashes, warm and dry Neurologic: reid, fluent speech, notremor Psychiatric: Orientation: oriented x 3 Genitourinary: dior w/ ample urine Results & Data ([facility]) Vital Signs (Past 12 Hours) Vital Signs Temp Pulse Pulse Resp BP BP Pulse Ox 09/06/20 17:37 66 09/06/20 16:57 36.4 C L 68 20 93/58 L 91 09/06/20 16:06 95 09/06/20 12:00 36.5 C 68 20 115/76 90 09/06/20 08:00 86 09/06/20 07:34 36.3 C L 70 18 131/73 94 Laboratory Results 09/06/20 01:08 09/06/20 01:08
--- NOTE | 2020-09-06 19:48 | Hospitalist Progress Note ---
Date of Service September 06, 2020 Assessment & Plan (1) Pneumonia: (2) History of COVID-19: (3) Chronic respiratory failure with hypoxia: Present to the ER with SOB and weakness Patient presenting from home with reports of shortness of breath, generalized weakness, collapse Tested positive for COVID-19 on 08/13 at [facility] [place] and was treated with dexamethasone. CXR on admission showed bibasilar opacities suggestive of pneumonia Likely superimposed bacterial pneumonia after COVID-19 infection. No treatment for COVID-19 since pt was tested positive about 18 days ago. Continue IV abx with IV ceftriaxone and IV azithromycin Blood cx no growth Continue oxygen supplement Will do chest PT BID (4) Acute kidney injury superimposed on chronic kidney disease: (5) CKD (chronic kidney disease) stage 4, GFR 15-29 ml/min: Previous baseline creatinine ran in the high 1s however with recent hospitalization new baseline seems to be the mid to high 2s Creatinine continues 4.28 Nephrology on board that recommended to continue the Lasix IV 30mg BID Continue monitor BMP (6) Acute on chronic systolic CHF (congestive heart failure): CXR on admission showed persistent small to moderate bilateral pleural effusions with bibasilar opacities which may reflect pneumonia or atelectasis. Elevated ProBNP 07131 Most recent echo on 08/12 showed EF 30%, moderate aortic stenosis, mild mitral regurgitation, moderate to severe tricuspid regurgitation Continue IV 30mg BID Repeat CXR showed cardiomegaly, small pleural effusions, and progressive multifocal airspace opacities Monitor I/O (7) Aortic stenosis: Continue beta-randell stable (8) Collapse: (9) Elevated troponin: Troponin 0.067 on admission, then trending down to 0.05 Mostly demand ischemia due to respiratory failure Continue Cavedilol, aspirin Stable (10) Abnormal urinalysis: (11) Hematuria: Reports of hematuria in the setting of supratherapeutic INR Continue IV ceftriaxone Hgb 8.4 today Urology on board no need for any further acute work-up or intervention If her catheter were clogged, flush it as needed Follow-up as an outpatientno further inpatient evaluation required from a urological standpoint (12) Polymyalgia rheumatica: Continue chronic prednisone (13) Atrial fibrillation: Rate controlled on Carvedilol, will continue Anticoagulated on Coumadin, INR 1.4 Stable (14) DVT prophylaxis: On Coumadin with INR 1.4 Admission and Anticipated Discharge Date Admission Date: August 31, 2020 Subjective Pt was seen and examined for follow of respiratory failure Lying in bed with no acute distress Pt said that that she continues to have difficulty to bring her phlegm out Denies any chest pain,palpitation, dizziness and fever Physical Exam Physical Exam: General- No acute distress Head- atraumatic Eyes- PERRL, EOMI, ENT- oropharynx clear Neck- supple, no JVD Lungs- +diminished BS Heart- regular rhythm; no murmur Abdomen- normal bowel sounds, soft, nontender Extremities- no calf tenderness Neuro- alert, oriented x 3; PERRL, EOMI; no facial palsy; no dysarthria Skin- warm & dry Results & Data Results & Data ([facility]) Vital Signs (Past 12 Hours) Vital Signs Temp Pulse Pulse Resp BP Pulse Ox 09/06/20 17:37 66 09/06/20 16:57 36.4 C L 68 20 93/58 L 91 09/06/20 16:06 95 09/06/20 12:00 36.5 C 68 20 115/76 90 09/06/20 08:00 86 (1) Pneumonia Laterality: bilateral Lung location: lower lobe of lung Pneumonia type: due to unspecified organism Qualified Code(s): J18.9 - Pneumonia, unspecified organism
[2020-09-06] MEDS: PANTOprazole 40 MG TAB PO SCH (20:08)
[2020-09-07] MEDS: LEVOTHYROXINE SODIUM 25 MCG TABLET PO SCH (05:44)
[2020-09-07 07:05] LABS: Hemoglobin 9.3 g/dL (12.0-16.0); Mean Corpuscular Hemoglobin 31.4 pg (25-34); Mean Corpuscular Hgb Conc 33.2 g/dL (32-36); Mean Corpuscular Volume 94.6 fL (80-100); Platelet Count 131 K/uL (130-400); RDW Coefficient of Variation 14.6 % (11.5-14.5); RDW Standard Deviation 49.5 fL (36.4-46.3); Red Blood Count 2.96 M/uL (4.2-5.4); White Blood Count 6.13 K/uL (4.8-10.8)
[2020-09-07 07:17] LABS: INR 1.4 (0.9-1.1); Prothrombin Time 14.2 Seconds (9.0-12.0)
[2020-09-07 07:55] LABS: BUN Creatinine Ratio 19.2 (10-20); Calcium 7.9 mg/dl (8.5-10.1); Creatinine Clr Calc Pharmacy 7.1 ml/min; Est GFR (African American) 9.5; Est GFR (Non-African American) 8.2; Potassium 3.7 mmol/L (3.5-5.1)
[2020-09-07] MEDS: ASCORBIC ACID 500 MG TAB PO SCH ×3 (08:26→19:43)
[2020-09-07] MEDS: FAMOTIDINE 20 MG TAB PO SCH (08:27)
[2020-09-07] MEDS: predniSONE 5 MG TAB PO SCH (08:27)
[2020-09-07] MEDS: dilTIAZem HCL 240 MG CAPCR PO SCH (08:27)
[2020-09-07] MEDS: MULTIVITAMIN TAB PO SCH (08:27)
[2020-09-07] MEDS: FOLIC ACID 1 MG TAB PO SCH (08:27)
[2020-09-07] MEDS: THIAMINE HCL 100 MG TAB PO SCH (08:28)
[2020-09-07] MEDS: ASPIRIN 81 MG ECTAB PO SCH (08:28)
[2020-09-07] MEDS: predniSONE 1 MG TAB PO SCH (08:28)
[2020-09-07] MEDS: carvediloL 6.25 MG TAB PO SCH ×2 (08:29→16:47)
[2020-09-07] MEDS: HEPARIN SOD 5,000 UNIT/0.5 ML VIAL SQ SCH ×2 (08:37→19:43)
--- NOTE | 2020-09-07 09:29 | Nephrology Progress Note ---
Date of Service September 07, 2020 Assessment & Plan (1) Acute on chronic renal failure: nonoliguric now stage 2 BEVERLEY suspect from cardiorenal syndrome/ volume overload in the setting of advanced and progressive baseline CKD 4/5. EF 35% and valvular heart dz/biatrial dilatation 07/2020 TTE. presenting creatinine 3.3, up from 2.5 on 08/22. Her baseline creatinine prior to serial hospitaliza tions this winter had in summer 2019 been 1.8-1.9 and stable. she is too weak to do standing daily weights at this time and would not put her on fluid limit yet either. kidneys unremarkable on CT last month, apart from many BL vascular calcifications. UA w/ protein and blood and no infection: however hard to interpret in setting of elevated INR, LUTS, dior. recheck uacm remarkable for resolution of proteinuria but ongoing microhematuria and inflammation w/o much suggestion of uti persists. Creatinine w/ resumption of lasix on 09/04 increased to 4.6 up from 3.7 on 09/02. No indication for dialysis but labs/course worrisome -did mention to her that we may at least need to discuss dialysis this admission potentially - no indication for urgent tx; she is aware and would do dialysis as long as we "have tried everything else first;" reaffirmed this 09/06 -lasix 30 mg iv bid of which she 's had 2 doses, currently on hold which is ok for now> resume if needing >4L 02 or other worsening respiratory findings -daily bmp (2) Chronic respiratory failure with hypoxia: no formal dx of COPD and no smoking hx but imaging suggests it. She now has Covid pneumonitia. -antibiotics per primary service -Titrate oxygen to maintain sats above 90 -needing 4L 02NC consistently for the most part though down to 3L this am Admission and Anticipated Discharge Date Admission Date: August 31, 2020 Subjective remains exhausted; denies worse sob or cough or n Review of Systems Review of Systems: All systems reviewed & are unremarkable except as noted in Subjective Physical Exam Constitutional: well developed, well nourished, + ill appearing (exhausted) and cooperative Eyes: EOM intact bilaterally ENMT: Ears: no external ear abnormality Nose: no external nose abnormality Mouth: + dry oral mucous membranes Neck: no nuchal rigidity Respiratory: normal respiratory effort, + cough (frequent ), able to speak in complete sentences and + tachypneic; no respiratory distress, no labored breathing and no paradoxical thoraco-abdominal movemnt Auscultation: + diminished lung sounds and + crackles Cardiovascular: Rate/Rhythm: regular rate and regular rhythm Extremities: no edema Gastrointestinal (Abdomen): Inspection/Auscultation: normal bowel sounds Percussion/Palpation: abdomen soft; abdomen nontender Musculoskeletal: Extremities: + abnormal strength (Generalized weakness) Skin: no rashes, warm and dry Neurologic: reid, fluent speech, no tremor Psychiatric: Orientation: oriented x 3 Results & Data ([facility]) Vital Signs (Past 12 Hours) Vital Signs Temp Pulse Pulse Resp BP Pulse Ox 09/07/20 08:12 36.3 C L 64 18 116/66 91 09/07/20 03:41 36.7 C 64 18 107/70 95 09/07/20 00:20 18 95 09/07/20 00:19 36.5 C 88 18 108/69 98 09/07/20 00:00 84 Laboratory Results 09/07/20 06:47 09/07/20 06:47
[2020-09-07] MEDS: cefTRIAXone SODIUM 1,000 MG in DEXTROSE 5% 50 ML IV SCH (12:39)
--- NOTE | 2020-09-07 13:37 | Electrocardiogram Report ---
Test Reason : Blood Pressure : / mmHG Vent. Rate : 081 BPM Atrial Rate : 267 BPM P-R Int : 000 ms QRS Dur : 078 ms QT Int : 426 ms P-R-T Axes : 000 052 081 degrees QTc Int : 494 ms Atrial fibrillation with premature ventricular or aberrantly conducted complexes Nonspecific ST and T wave abnormality Abnormal ECG When compared with ECG of 31-AUG-2020 10:28, T wave inversion no longer evident in Anterolateral leads Confirmed by Tenzin Jacques ([id number]) on 09/07/2020 1:37:08 PM Referred By: REFERRED SELF Confirmed By:Tenzin Jacques
[2020-09-07] MEDS: AZITHROMYCIN 500 MG in DEXTROSE 5% 250 ML IV SCH (13:53)
--- NOTE | 2020-09-07 15:41 | Electrocardiogram Report ---
Test Reason : Blood Pressure : / mmHG Vent. Rate : 090 BPM Atrial Rate : 357 BPM P-R Int : 000 ms QRS Dur : 080 ms QT Int : 374 ms P-R-T Axes : 000 012 151 degrees QTc Int : 457 ms Atrial fibrillation Abnormal ECG When compared with ECG of 05-SEP-2020 14:06, (unconfirmed) Inverted T waves have replaced nonspecific T wave abnormality in Lateral leads Confirmed by Tenzin Jacques ([id number]) on 09/07/2020 3:41:09 PM Referred By: REFERRED SELF Confirmed By:Tenzin Jacques
[2020-09-07] MEDS: WARFARIN SOD 2 MG TAB PO SCH (16:54)
--- NOTE | 2020-09-07 19:20 | Hospitalist Progress Note ---
Date of Service September 07, 2020 Assessment & Plan (1) Pneumonia: (2) History of COVID-19: (3) Chronic respiratory failure with hypoxia: Present to the ER with SOB and weakness Patient presenting from home with reports of shortness of breath, generalized weakness, collapse Tested positive for COVID-19 on 08/13 at [facility] [place] and was treated with dexamethasone. CXR on admission showed bibasilar opacities suggestive of pneumonia Likely superimposed bacterial pneumonia after COVID-19 infection. No treatment for COVID-19 since pt was tested positive about 18 days ago. Continue IV abx with IV ceftriaxone and IV azithromycin Blood cx no growth Continue oxygen supplement Will do chest PT BID (4) Acute kidney injury superimposed on chronic kidney disease: (5) CKD (chronic kidney disease) stage 4, GFR 15-29 ml/min: Previous baseline creatinine ran in the high 1s however with recent hospitalization new baseline seems to be the mid to high 2s Creatinine continues to increase to 4.5 Nephrology on board Will hold Lasix today Continue monitor BMP (6) Acute on chronic systolic CHF (congestive heart failure): CXR on admission showed persistent small to moderate bilateral pleural effusions with bibasilar opacities which may reflect pneumonia or atelectasis. Elevated ProBNP 99553 Most recent echo on 08/12 showed EF 30%, moderate aortic stenosis, mild mitral regurgitation, moderate to severe tricuspid regurgitation Repeat CXR showed cardiomegaly, small pleural effusions, and progressive multifocal airspace opacities Will hold lasix today Monitor I/O (7) Aortic stenosis: Continue beta-randell stable (8) Collapse: (9) Elevated troponin: Troponin 0.067 on admission, then trending down to 0.05 Mostly demand ischemia due to respiratory failure Continue Cavedilol, aspirin Stable (10) Abnormal urinalysis: (11) Hematuria: Reports of hematuria in the setting of supratherapeutic INR Continue IV ceftriaxone Hgb 8.4 today Urology on board no need for any further acute work-up or intervention If her catheter were clogged, flush it as needed Follow-up as an outpatientno further inpatient evaluation required from a urological standpoint (12) Polymyalgia rheumatica: Continue chronic prednisone (13) Atrial fibrillation: Rate controlled on Carvedilol, will continue Anticoagulated on Coumadin, INR 1.4 Stable (14) DVT prophylaxis: On Coumadin with INR 1.4 Continue heparin subq until INR 2 Admission and Anticipated Discharge Date Admission Date: August 31, 2020 Subjective Pt was seen and examined for follow of SOB Lying in bed with no distress Pt said that her breathing slightly improves Denies any chest pain, palpitation, dizziness and fever Physical Exam Physical Exam: General- No acute distress Head- atraumatic Eyes- PERRL, EOMI, ENT- oropharynx clear Neck- supple, no JVD Lungs- +diminished BS Heart- regular rhythm; no murmur Abdomen- normal bowel sounds, soft, nontender Extremities- no calf tenderness Neuro- alert, oriented x 3; PERRL, EOMI; no facial palsy; no dysarthria Skin- warm & dry Results & Data Results & Data ([facility]) Vital Signs (Past 12 Hours) Vital Signs Temp Pulse Pulse Resp BP BP Pulse Ox 09/07/20 16:45 36.3 C L 76 18 99/65 L 93 09/07/20 16:00 88 09/07/20 15:46 94 09/07/20 08:12 36.3 C L 64 18 116/66 91 09/07/20 08:00 101 H (1) Pneumonia Laterality: bilateral Lung location: lower lobe of lung Pneumonia type: due to unspecified organism Qualified Code(s): J18.9 - Pneumonia, unspecified organism
[2020-09-07] MEDS: PANTOprazole 40 MG TAB PO SCH (19:43)
[2020-09-08] MEDS: LEVOTHYROXINE SODIUM 25 MCG TABLET PO SCH (05:42)
[2020-09-08] MEDS: FOLIC ACID 1 MG TAB PO SCH (08:40)
[2020-09-08] MEDS: ASPIRIN 81 MG ECTAB PO SCH (08:40)
[2020-09-08] MEDS: ASCORBIC ACID 500 MG TAB PO SCH ×3 (08:40→20:11)
[2020-09-08] MEDS: predniSONE 1 MG TAB PO SCH (08:40)
[2020-09-08] MEDS: carvediloL 6.25 MG TAB PO SCH ×2 (08:40→17:15)
[2020-09-08] MEDS: predniSONE 5 MG TAB PO SCH (08:40)
[2020-09-08] MEDS: HEPARIN SOD 5,000 UNIT/0.5 ML VIAL SQ SCH ×2 (08:40→20:11)
[2020-09-08] MEDS: THIAMINE HCL 100 MG TAB PO SCH (08:40)
[2020-09-08] MEDS: MULTIVITAMIN TAB PO SCH (08:40)
[2020-09-08] MEDS: dilTIAZem HCL 240 MG CAPCR PO SCH (08:40)
[2020-09-08] MEDS: FAMOTIDINE 20 MG TAB PO SCH (08:40)
[2020-09-08 09:38] LABS: INR 1.6 (0.9-1.1); Prothrombin Time 16.7 Seconds (9.0-12.0)
[2020-09-08 10:16] LABS: BUN Creatinine Ratio 18.1 (10-20); Calcium 8.5 mg/dl (8.5-10.1); Creatinine Clr Calc Pharmacy 6.9 ml/min; Est GFR (African American) 9.1; Est GFR (Non-African American) 7.8; Potassium 3.4 mmol/L (3.5-5.1)
--- NOTE | 2020-09-08 10:27 | Nephrology Progress Note ---
Date of Service September 08, 2020 Assessment & Plan (1) Acute on chronic renal failure: nonoliguric now stage 2 BEVERLEY suspect from cardiorenal syndrome/ volume overload in the setting of advanced and progressive baseline CKD 4/5. EF 35% and valvular heart dz/biatrial dilatation 07/2020 TTE. presenting creatinine 3.3, up from 2.5 on 08/22. Her baseline creatinine,in summer 2019 been 1.8-1.9 and stable. she is too weak to do standing daily weights at this time and would not put her on fluid limit yet either. kidneys unremarkable on CT last month, apart from many BL vascular calcifications. UA w/ protein and blood and no infection: however hard to interpret in setting of elevated INR, LUTS, dior. recheck uacm remarkable for resolution of proteinuria but ongoing microhematuria and inflammation w/o much suggestion of uti persists. Creatinine w/ resumption of lasix on 09/04 increased to 4.6 up from 3.7 on 09/02, presently 4.5 No indication for dialysis but labs/course worrisome -Discussed dialysis this admission potentially - no indication for urgent tx; she is aware and would do dialysis as long as we "have tried everything else first;" reaffirmed this 09/06 - Continue to hold lasix again today, daily assesment of fluid status, regarding lasix dosing. -daily bmp (2) Chronic respiratory failure with hypoxia: no formal dx of COPD and no smoking hx but imaging suggests it. She now has Covid pneumonitia. -antibiotics per primary service -Titrate oxygen to maintain sats above 90 Admission and Anticipated Discharge Date Admission Date: August 31, 2020 Subjective Pt was seen and examined for follow of SOB Lying in bed with no distress Review of Systems Review of Systems: All systems reviewed & are unremarkable except as noted in HPI & below Physical Exam Physical Exam: General: no distress, WDWN Head: normocephalic, atraumatic Eyes: PERRL, EOM's intact, conjunctiva non-injected, anicteric ENT: normal inspection external ears, nose, mucous membranes moist Neck: supple, trachea midline Lungs: clear, no respiratory distress, no wheezing/rhonchi/rales CV: bradycardia, rate 52, regular rhythm, no JVD, no pretibial edema Abd: normal BS, soft, non-tender Ext: no cyanosis, no calf tenderness Neuro: A&O x 3 Results & Data ([facility]) Vital Signs (Past 12 Hours) Vital Signs Temp Pulse Pulse Resp BP BP Pulse Ox 09/08/20 08:02 35.8 C L 82 20 121/58 L 94 09/08/20 07:39 93 H 09/08/20 04:41 36.6 C 66 20 110/69 97 09/07/20 23:42 36.5 C 73 21 101/63 95 09/07/20 23:41 87
[2020-09-08] MEDS ORDERED: POTASSIUM CHLORIDE CRTAB 20 MEQ TABCR PO STA (16:16)
--- NOTE | 2020-09-08 16:43 | Hospitalist Progress Note ---
Date of Service September 08, 2020 Assessment & Plan (1) Pneumonia: (2) History of COVID-19: (3) Chronic respiratory failure with hypoxia: Present to the ER with SOB and weakness Patient presenting from home with reports of shortness of breath, generalized weakness, collapse Tested positive for COVID-19 on 08/13 at [facility] [place] and was treated with dexamethasone. CXR on admission showed bibasilar opacities suggestive of pneumonia Likely superimposed bacterial pneumonia after COVID-19 infection. No treatment for COVID-19 since pt was tested positive about 18 days ago. Will complete course IV ceftriaxone and IV azithromycin today Blood cx no growth Continue oxygen supplement Continue chest PT BID Hypertonic saline neb BID to do with the chest PT (4) Acute kidney injury superimposed on chronic kidney disease: (5) CKD (chronic kidney disease) stage 4, GFR 15-29 ml/min: Previous baseline creatinine ran in the high 1s however with recent hospitalization new baseline seems to be the mid to high 2s Creatinine continues to increase to 4.7 Nephrology on board case discussed with nephrology that recommended to continue to hold Lasix today Continue monitor BMP (6) Acute on chronic systolic CHF (congestive heart failure): CXR on admission showed persistent small to moderate bilateral pleural effusions with bibasilar opacities which may reflect pneumonia or atelectasis. Elevated ProBNP 09438 Most recent echo on 08/12 showed EF 30%, moderate aortic stenosis, mild mitral regurgitation, moderate to severe tricuspid regurgitation Repeat CXR showed cardiomegaly, small pleural effusions, and progressive multifocal airspace opacities Will hold lasix today Monitor I/O (7) Aortic stenosis: Continue beta-randell stable (8) Collapse: (9) Elevated troponin: Troponin 0.067 on admission, then trending down to 0.05 Mostly demand ischemia due to respiratory failure Continue Cavedilol, aspirin Stable (10) Abnormal urinalysis: (11) Hematuria: Reports of hematuria in the setting of supratherapeutic INR Continue IV ceftriaxone Hgb 9.3 stable Urology on board no need for any further acute work-up or intervention If her catheter were clogged, flush it as needed Follow-up as an outpatientno further inpatient evaluation required from a urological standpoint (12) Polymyalgia rheumatica: Continue chronic prednisone (13) Atrial fibrillation: Rate controlled on Carvedilol, will continue Anticoagulated on Coumadin, INR 1.6 Stable (14) DVT prophylaxis: On Coumadin with INR 1.6 Continue heparin subq until INR 2 Disposition Will discharge once medically stable Update provided to daughter Kristyn ([phone]) and answered all questions Admission and Anticipated Discharge Date Admission Date: August 31, 2020 Subjective Pt was seen and examined for follow up of respiratory distress Lying in bed with no distress Pt said that her cough starting to get lose She said that the chest percussion helps I spoke to her daughter Kristyn and provided updates and answered all the questions Denies any chest pain, palpitation, dizziness and fever Physical Exam Physical Exam: General- No acute distress Head- atraumatic Eyes- PERRL, EOMI, ENT- oropharynx clear Neck- supple, no JVD Lungs- +diminished BS Heart- regular rhythm; no murmur Abdomen- normal bowel sounds, soft, nontender Extremities- no calf tenderness Neuro- alert, oriented x 3; PERRL, EOMI; no facial palsy; no dysarthria Skin- warm & dry Results & Data Results & Data ([facility]) Vital Signs (Past 12 Hours) Vital Signs Temp Pulse Pulse Resp BP BP Pulse Ox 09/08/20 14:54 90 09/08/20 14:00 37.1 C 85 18 96/61 L 91 09/08/20 11:53 35.5 C L 80 20 92/61 L 95 09/08/20 08:02 35.8 C L 82 20 121/58 L 94 09/08/20 07:39 93 H 09/08/20 04:41 36.6 C 66 20 110/69 97 (1) Pneumonia Laterality: bilateral Lung location: lower lobe of lung Pneumonia type: due to unspecified organism Qualified Code(s): J18.9 - Pneumonia, unspecified organism
[2020-09-08] MEDS: predniSONE 20 MG TAB PO SCH (17:15)
[2020-09-08] MEDS: WARFARIN SOD 2 MG TAB PO SCH (17:15)
[2020-09-08] MEDS: SODIUM CHLOR 7% 4 ML NEB NEB SCH (19:36)
[2020-09-08] MEDS: PANTOprazole 40 MG TAB PO SCH (20:11)
[2020-09-09 06:11] LABS: INR 1.9 (0.9-1.1); Prothrombin Time 19.8 Seconds (9.0-12.0)
[2020-09-09] MEDS: LEVOTHYROXINE SODIUM 25 MCG TABLET PO SCH (06:12)
[2020-09-09 06:45] LABS: BUN Creatinine Ratio 19.8 (10-20); Creatinine Clr Calc Pharmacy 7.1 ml/min; Est GFR (African American) 9.2; Potassium 4.6 mmol/L (3.5-5.1)
[2020-09-09] MEDS: SODIUM CHLOR 7% 4 ML NEB NEB SCH ×2 (07:23→20:02)
[2020-09-09] MEDS: ASCORBIC ACID 500 MG TAB PO SCH ×3 (08:24→20:36)
[2020-09-09] MEDS: carvediloL 6.25 MG TAB PO SCH ×2 (08:24→15:58)
[2020-09-09] MEDS: THIAMINE HCL 100 MG TAB PO SCH (08:24)
[2020-09-09] MEDS: dilTIAZem HCL 240 MG CAPCR PO SCH (08:24)
[2020-09-09] MEDS: predniSONE 20 MG TAB PO SCH (08:24)
[2020-09-09] MEDS: MULTIVITAMIN TAB PO SCH (08:24)
[2020-09-09] MEDS: FAMOTIDINE 20 MG TAB PO SCH (08:24)
[2020-09-09] MEDS: FOLIC ACID 1 MG TAB PO SCH (08:24)
[2020-09-09] MEDS: ASPIRIN 81 MG ECTAB PO SCH (08:24)
[2020-09-09] MEDS: HEPARIN SOD 5,000 UNIT/0.5 ML VIAL SQ SCH ×2 (08:25→20:36)
--- NOTE | 2020-09-09 10:44 | Nephrology Progress Note ---
Date of Service September 09, 2020 Assessment & Plan (1) Acute on chronic renal failure: -Acute kidney injury -Nonoliguric now stage 2 BEVERLEY suspect from cardiorenal syndrome/ volume overload in the setting of advanced and progressive baseline CKD 4/5. EF 35% and valvular heart dz/biatrial dilatation 07/2020 TTE. presenting creatinine 3.3, up from 2.5 on 08/22. Her baseline creatinine,in [place] 2019 been 1.8-1.9 and stable. she is too weak to do standing daily weights at this time and would not put her on fluid limit yet either. kidneys unremarkable on CT last month, apart from many BL vascular calcifications. UA w/ protein and blood and no infection: however hard to interpret in setting of elevated INR, LUTS, dior. recheck uacm remarkable for resolution of proteinuria but ongoing microhematuria and inflammation w/o much suggestion of uti persists. Creatinine w/ resumption of lasix on 09/04 increased to 4.6 up from 3.7 on 09/02, presently 4.5 No indication for dialysis but labs/course worrisome -Discussed dialysis this admission by Dr. Schneider, potentially - no indication for urgent tx; she is aware and would do dialysis as long as we "have tried everything else first;" - Continue to hold lasix again today, daily assesment of fluid status, regarding lasix dosing, as oxygen requirements have not changed much. -Renal functions marginally improved, urine output has been variable, uremic symptoms, electrolytes are safe - daily bmp (2) Chronic respiratory failure with hypoxia: no formal dx of COPD and no smoking hx but imaging suggests it. She now has Covid pneumonitia. -antibiotics per primary service -Titrate oxygen to maintain sats above 90 Admission and Anticipated Discharge Date Admission Date: August 31, 2020 Subjective Pt was for BEVERLEY . Admitted for acute on chronic respiratory failure , secondary to Covid pneumonia. Lying in bed with no distress , cough better Denies any chest pain, palpitation, dizziness and fever Review of Systems Review of Systems: All systems reviewed & are unremarkable except as noted in HPI & below Physical Exam Physical Exam: General: no distress, WDWN Head: normocephalic, atraumatic Eyes: PERRL, EOM's intact, conjunctiva non-injected, anicteric ENT: normal inspection external ears, nose, mucous membranes moist Neck: supple, trachea midline Lungs: clear, no respiratory distress, no wheezing/rhonchi/rales CV: bradycardia, rate 52, regular rhythm, no JVD, no pretibial edema Abd: normal BS, soft, non-tender Ext: no cyanosis, no calf tenderness Neuro: A&O x 3 Results & Data ([facility]) Vital Signs (Past 12 Hours) Vital Signs Temp Pulse Pulse Resp BP Pulse Ox 09/09/20 09:24 36.1 C L 111 H 16 116/69 90 09/09/20 07:23 101 H 20 98 09/09/20 07:15 82 09/09/20 05:09 36.4 C L 68 18 109/64 98 09/08/20 23:10 81 Laboratory Results 09/07/20 06:47 09/09/20 05:40
--- NOTE | 2020-09-09 15:21 | Hospitalist Progress Note ---
Date of Service September 09, 2020 Assessment & Plan (1) Pneumonia: (2) History of COVID-19: (3) Chronic respiratory failure with hypoxia: Present to the ER with SOB and weakness Patient presenting from home with reports of shortness of breath, generalized weakness, collapse Tested positive for [place]19 on [place]13 [place] [facility] [place] treated with dexamethasone. CXR on admission showed bibasilar opacities suggestive of pneumonia Likely superimposed bacterial pneumonia after COVID-19 infection. No treatment for COVID-19 since pt was tested positive about 18 days ago. Will complete course IV ceftriaxone and IV azithromycin today Blood cx no growth Continue oxygen supplement chest PT BID and Hypertonic saline neb BID to do with the chest PT Continue monitor closely (4) Acute kidney injury superimposed on chronic kidney disease: (5) CKD (chronic kidney disease) stage 4, GFR 15-29 ml/min: Previous baseline creatinine ran in the high 1s however with recent hospitalization new baseline seems to be the mid to high 2s Creatinine decreased slightly to 4.6 Nephrology on board case discussed with nephrology that recommended to continue to hold Lasix today Continue monitor BMP (6) Acute on chronic systolic CHF (congestive heart failure): CXR on admission showed persistent small to moderate bilateral pleural effusions with bibasilar opacities which may reflect pneumonia or atelectasis. Elevated ProBNP 72928 Most recent echo on 08/12 showed EF 30%, moderate aortic stenosis, mild mitral regurgitation, moderate to severe tricuspid regurgitation Repeat CXR showed cardiomegaly, small pleural effusions, and progressive multifocal airspace opacities Continue to hold Lasix Monitor I/O (7) Aortic stenosis: Continue beta-randell stable (8) Collapse: (9) Elevated troponin: Troponin 0.067 on admission, then trending down to 0.05 Mostly demand ischemia due to respiratory failure Continue Cavedilol, aspirin Stable (10) Abnormal urinalysis: (11) Hematuria: Reports of hematuria in the setting of supratherapeutic INR Continue IV ceftriaxone Hgb 9.3 stable Urology on board no need for any further acute work-up or intervention If her catheter were clogged, flush it as needed Follow-up as an outpatientno further inpatient evaluation required from a ur ological standpoint (12) Polymyalgia rheumatica: Continue chronic prednisone (13) Atrial fibrillation: Rate controlled on Carvedilol, will continue Anticoagulated on Coumadin, INR 1.9 Stable (14) DVT prophylaxis: On Coumadin with INR 1.9 Will d/c heparin subq since INR close to 2 (1.9 today ) Disposition Will discharge once medically stable Update provided to daughter Kristyn ([phone]) and answered all questions Admission and Anticipated Discharge Date Admission Date: August 31, 2020 Subjective Pt was seen and examined for follow up of respiratory distress and BEVERLEY Lying in bed with no distress Pt said that the breathing treatment helps because his cough is getting loosen I spoke to her daughter Kristyn yesterday and provided updates and answered all the questions Denies any chest pain, palpitation, dizziness and fever Physical Exam Physical Exam: General- No acute distress Head- atraumatic Eyes- PERRL, EOMI, ENT- oropharynx clear Neck- supple, no JVD Lungs- +diminished BS Heart- regular rhythm; no murmur Abdomen- normal bowel sounds, soft, nontender Extremities- no calf tenderness Neuro- alert, oriented x 3; PERRL, EOMI; no facial palsy; no dysarthria Skin- warm & dry Results & Data Results & Data ([facility]) Vital Signs (Past 12 Hours) Vital Signs Temp Pulse Pulse Resp BP BP Pulse Ox 09/09/20 15:10 89 18 105/64 93 09/09/20 14:50 68 09/09/20 12:18 36.7 C 104 H 18 111/80 92 09/09/20 09:24 36.1 C L 111 H 16 116/69 90 09/09/20 07:23 101 H 20 98 09/09/20 07:15 82 09/09/20 05:09 36.4 C L 68 18 109/64 98 (1) Pneumonia Laterality: bilateral Lung location: lower lobe of lung Pneumonia type: due to unspecified organism Qualified Code(s): J18.9 - Pneumonia, unspecified organism
[2020-09-09] MEDS: WARFARIN SOD 2 MG TAB PO SCH (15:58)
[2020-09-09] MEDS: PANTOprazole 40 MG TAB PO SCH (20:36)
[2020-09-10] MEDS: LEVOTHYROXINE SODIUM 25 MCG TABLET PO SCH (05:53)
[2020-09-10] MEDS: SODIUM CHLOR 7% 4 ML NEB NEB SCH ×2 (07:27→19:27)
[2020-09-10 08:40] LABS: INR 2.7 (0.9-1.1); Prothrombin Time 26.8 Seconds (9.0-12.0)
[2020-09-10] MEDS: carvediloL 6.25 MG TAB PO SCH ×2 (08:52→16:55)
[2020-09-10] MEDS: ASCORBIC ACID 500 MG TAB PO SCH ×3 (08:53→21:03)
[2020-09-10] MEDS: predniSONE 20 MG TAB PO SCH (08:54)
[2020-09-10] MEDS: FAMOTIDINE 20 MG TAB PO SCH (08:54)
[2020-09-10] MEDS: MULTIVITAMIN TAB PO SCH (08:55)
[2020-09-10] MEDS: ASPIRIN 81 MG ECTAB PO SCH (08:55)
[2020-09-10] MEDS: dilTIAZem HCL 240 MG CAPCR PO SCH (08:55)
[2020-09-10] MEDS: THIAMINE HCL 100 MG TAB PO SCH (08:55)
[2020-09-10] MEDS: FOLIC ACID 1 MG TAB PO SCH (08:56)
[2020-09-10 09:11] LABS: BUN Creatinine Ratio 19.1 (10-20); Calcium 8.9 mg/dl (8.5-10.1); Creatinine Clr Calc Pharmacy 6.7 ml/min; Est GFR (African American) 8.6; Est GFR (Non-African American) 7.4; Potassium 4.2 mmol/L (3.5-5.1)
--- NOTE | 2020-09-10 10:59 | Progress Notes ---
DATE: 09/10/2020 SUBJECTIVE: Overnight, no new issues. The patient appears to be awake and alert. OBJECTIVE: VITAL SIGNS: Blood pressure is 120/66, pulse rate 90, temperature 99 degree Fahrenheit, oxygen saturation 94% on 3 liters oxygen. CHEST: Bilateral crackles at the bases. CARDIOVASCULAR: S1 and S2, regular. Systolic murmur heard. ABDOMEN: Soft, nontender. EXTREMITIES: Shows no edema. LABORATORY TESTS: From this morning shows creatinine is still rising and it is up to 4.98 with a BUN of 96, calcium 8.9. Sodium 138, potassium 4.2. ASSESSMENT AND PLAN: An 84-year-old female with oliguric acute renal failure. Most likely secondary to acute tubular necrosis. Acute renal failure. She really has not made much urine in the last few days. Despite holding Lasix BUN and creatinine is rising on a consistent basis. This is more consistent with ATN than anything. Given her underlying cardiopulmonary status, I do not think holding Lasix makes any sense at this point. I would give her Lasix 40 mg IV twice daily. Her renal status is getting quite precarious at this time and we do have to make decision about dialysis within the next couple of days. Given her age and her overall condition, I am not sure that doing dialysis is the right approach, but we will have a better discussion about this tomorrow depending on her response to the Lasix.
[2020-09-10] MEDS: FUROSEMIDE 40 MG in SYRINGE 0 ML IV SCH ×2 (11:57→16:56)
--- NOTE | 2020-09-10 15:45 | Hospitalist Progress Note ---
Date of Service September 10, 2020 Assessment & Plan (1) Pneumonia: (2) History of COVID-19: (3) Chronic respiratory failure with hypoxia: Present to the ER with SOB and weakness Patient presenting from home with reports of shortness of breath, generalized weakness, collapse [place] [facility] [place] with [place]. CXR on admission showed bibasilar opacities suggestive of pneumonia Likely superimposed bacterial pneumonia after COVID-19 infection. No treatment for COVID-19 since pt was tested positive about 18 days ago. Completed course of IV ceftriaxone and IV azithromycin Blood cx no growth Continue oxygen supplement, chest PT BID and Hypertonic saline neb BID to do with the chest PT Continue monitor closely (4) Acute kidney injury superimposed on chronic kidney disease: (5) CKD (chronic kidney disease) stage 4, GFR 15-29 ml/min: Previous baseline creatinine ran in the high 1s however with recent hospitalization new baseline seems to be the mid to high 2s Creatinine increased to 4.9 despite lasix has been held for the last 3 days Nephrology on board case discussed with nephrology that recommended to resume IV lasix since the etiology is mostly ATN more consistent with ATN than anything. Given her underlying pulmonary status, Lasix was recommended to resume Continue monitor BMP (6) Acute on chronic systolic CHF (congestive heart failure): CXR on admission showed persistent small to moderate bilateral pleural effusions with bibasilar opacities which may reflect pneumonia or atelectasis. Elevated ProBNP 72723 Most recent echo on 08/12 showed EF 30%, moderate aortic stenosis, mild mitral regurgitation, moderate to severe tricuspid regurgitation Repeat CXR showed cardiomegaly, small pleural effusions, and progressive m ultifocal airspace opacities Lasix 40mg IV BID resume Monitor I/O (7) Aortic stenosis: Continue beta-randell stable (8) Collapse: (9) Elevated troponin: Troponin 0.067 on admission, then trending down to 0.05 Mostly demand ischemia due to respiratory failure Continue Cavedilol, aspirin Stable (10) Abnormal urinalysis: (11) Hematuria: Reports of hematuria in the setting of supratherapeutic INR Continue IV ceftriaxone Hgb 9.3 stable Urology on board no need for any further acute work-up or intervention If her catheter were clogged, flush it as needed Follow-up as an outpatientno further inpatient evaluation required from a urological standpoint (12) Polymyalgia rheumatica: Continue chronic prednisone (13) Atrial fibrillation: Rate controlled on Carvedilol, will continue Anticoagulated on Coumadin, INR 2.7 Stable (14) DVT prophylaxis: On Coumadin with INR 2.7 D/C subq heparin Disposition Will discharge once medically stable Daughter Kristyn ([phone]) requested for update Admission and Anticipated Discharge Date Admission Date: August 31, 2020 Subjective Pt was seen and examined for follow up of respiratory distress and BEVERLEY Lying in bed with no distress Pt said that the breathing treatment helps because his cough is getting loosen Pt said that her breathing slightly better today Denies any chest pain, palpitation, dizziness and fever Physical Exam Physical Exam: General- No acute distress Head- atraumatic Eyes- PERRL, EOMI, ENT- oropharynx clear Neck- supple, no JVD Lungs- +diminished BS Heart- regular rhythm; no murmur Abdomen- normal bowel sounds, soft, nontender Extremities- no calf tenderness Neuro- alert, oriented x 3; PERRL, EOMI; no facial palsy; no dysarthria Skin- warm & dry Results & Data Results & Data ([facility]) Vital Signs (Past 12 Hours) Vital Signs Temp Pulse Pulse Resp BP BP Pulse Ox 09/10/20 15:26 36.2 C L 73 16 107/73 95 09/10/20 15:12 67 09/10/20 11:57 36.4 C L 84 18 116/70 90 09/10/20 08:42 36.5 C 90 20 120/66 941 H 09/10/20 07:28 90 18 94 09/10/20 07:16 82 09/10/20 03:53 36.5 C 68 18 121/68 94 (1) Pneumonia Laterality: bilateral Lung location: lower lobe of lung Pneumonia type: due to unspecified organism Qualified Code(s): J18.9 - Pneumonia, unspecified organism
[2020-09-10] MEDS: WARFARIN SOD 2 MG TAB PO SCH (16:56)
[2020-09-10] MEDS: PANTOprazole 40 MG TAB PO SCH (21:02)
[2020-09-11] MEDS: LEVOTHYROXINE SODIUM 25 MCG TABLET PO SCH (05:33)
[2020-09-11] MEDS: SODIUM CHLOR 7% 4 ML NEB NEB SCH ×2 (07:34→19:56)
[2020-09-11 07:44] LABS: INR 1.1 (0.9-1.1); Prothrombin Time 11.2 Seconds (9.0-12.0)
[2020-09-11 08:04] LABS: BUN Creatinine Ratio 20.2 (10-20); Calcium 8.5 mg/dl (8.5-10.1); Creatinine Clr Calc Pharmacy 6.4 ml/min; Est GFR (African American) 8.2; Potassium 4.2 mmol/L (3.5-5.1)
[2020-09-11] MEDS: carvediloL 6.25 MG TAB PO SCH ×2 (09:04→16:41)
[2020-09-11] MEDS: ASCORBIC ACID 500 MG TAB PO SCH ×3 (09:07→20:07)
[2020-09-11] MEDS: FAMOTIDINE 20 MG TAB PO SCH (09:09)
[2020-09-11] MEDS: dilTIAZem HCL 240 MG CAPCR PO SCH (09:09)
[2020-09-11] MEDS: ASPIRIN 81 MG ECTAB PO SCH (09:09)
[2020-09-11] MEDS: FUROSEMIDE 40 MG in SYRINGE 0 ML IV SCH ×2 (09:09→16:43)
[2020-09-11] MEDS: FOLIC ACID 1 MG TAB PO SCH (09:10)
[2020-09-11] MEDS: MULTIVITAMIN TAB PO SCH (09:10)
[2020-09-11] MEDS: THIAMINE HCL 100 MG TAB PO SCH (09:10)
[2020-09-11] MEDS: predniSONE 20 MG TAB PO SCH (09:10)
--- NOTE | 2020-09-11 10:21 | Progress Notes ---
DATE: 09/11/2020 NEPHROLOGY PROGRESS NOTE SUBJECTIVE: Overnight, no new issues. The patient appears to be fully awake and alert. She is getting progressively weak, does have some shortness of breath. OBJECTIVE: VITAL SIGNS: Blood pressure is 130/62, pulse rate 84, temperature 36 degrees Celsius, 93% on 3 liters nasal cannula. CHEST: Bilaterally decreased breath sounds. Crackles at the bases. CARDIOVASCULAR: S1 and S2 regular. ABDOMEN: Soft, nontender. EXTREMITIES: Show no edema. NEUROLOGIC: Fully awake, alert, oriented and able to have accurate conversation. LABORATORY TESTS: Blood work from this morning shows worsening kidney function, sodium is 138, potassium 4.2, BUN 105, creatinine is 5.2, hemoglobin 9.3, platelet count 131. ASSESSMENT: An 84-year-old female with oliguric acute renal failure. Most likely secondary to acute tubular necrosis. Acute renal failure: She did make slightly more urine with the use of IV Lasix, but not much. BUN and creatinine are rising on a consistent basis for many days, which is very consistent with acute tubular necrosis. Given her underlying cardiopulmonary status, I did restart the Lasix at 40 IV twice daily, which we will continue. She has reached a stage where she needs dialysis. I had a long conversation with the patient about dialysis and she clearly wants dialysis and is not ready to as per patient's own word. PLAN AND RECOMMENDATIONS: 1. Continue Lasix 40 IV twice daily. 2. Vascular surgery consult for dialysis catheter placement. We will defer to vascular surgeon regarding the choice of temporary catheter versus a tunneled catheter due to logistic difficulty given the COVID positive situation.
--- NOTE | 2020-09-11 12:03 | Anesthesiology Consultation ---
Date of Service September 11, 2020 Assessment & Plan (1) Encounter for pre-operative examination: Chart Review Chart Review: Acceptable Risk for Surgery and Patient NOT seen in Pre Admission Testing Consults Requested none Additional Notes Patient's initial positive COVID test per report was done August 13. Vascular team requesting full COVID precautions in operating room. History Surgery Operation Date: 09/11/20 12:10 Proposed Procedures p Perm Catheter Placement - Tutu Bernstein MD Height/Weight Height: 5 ft 2 in Weight: 50.434 kg Allergies Allergy/AdvReac Type Severity Reaction Status Date / Time aspirin Allergy Mild Unknown Verified 08/31/20 11:17 Sulfa (Sulfonamide Allergy Mild Rash Verified 08/31/20 11:17 Antibiotics) Medications Home Medications Medication Instructions Recorded Confirmed Last Taken ascorbic acid (vitamin C) [Vitamin 500 mg PO TID 01/05/19 08/31/20 08/05/20 C] aspirin 81 mg PO DAILY 01/05/19 08/31/20 08/05/20 diltiazem HCl 240 mg PO DAILY 01/05/19 08/31/20 08/05/20 levothyroxine 25 mcg PO DAILYBB 01/05/19 08/31/20 08/05/20 multivitamin 1 tab PO DAILY 01/05/19 08/31/20 08/05/20 omeprazole magnesium [Prilosec OTC] 20 mg PO HS 01/05/19 08/31/20 08/05/20 prednisone 2 mg PO DAILY 01/05/19 08/31/20 08/05/20 prednisone 5 mg PO DAILY 01/05/19 08/31/20 08/05/20 tramadol 50 mg PO Q8H PRN 01/05/19 08/31/20 Unknown Myrbetriq 25 mg PO DAILY 08/05/20 08/31/20 08/05/20 acetaminophen [Tylenol Extra 500 mg PO BID 08/05/20 08/31/20 08/05/20 Strength] carvedilol 6.25 mg PO BIDM 08/05/20 08/31/20 08/05/20 [id number]-[id number]-[id number]-vinegar 1 tab PO BID PRN 08/05/20 08/31/20 08/05/20 torsemide 10 mg PO DAILY 08/05/20 08/31/20 08/05/20 folic acid 1 mg PO QAM #0 tab 08/10/20 08/31/20 Unknown thiamine HCl (vitamin B1) [Vitamin 100 mg PO QAM #0 tab 08/10/20 08/31/20 Unknown B-1] albuterol sulfate 2 puff INHALATION Q4H PRN 08/31/20 08/31/20 Unknown benzonatate [Tessalon Perles] 100 mg PO TID PRN 08/31/20 08/31/20 Unknown famotidine 20 mg PO DAILY 08/31/20 08/31/20 Unknown warfarin 1 mg PO DAILY 08/31/20 08/31/20 Unknown Active Medications Generic Name Dose Route Start Last Admin Trade Name Freq PRN Reason Stop Dose Admin Albuterol 3 ml 09/05/20 10:05 09/06/20 00:41 Albut/Ipratrop 3mg/0.5mg Neb 3 Ml Vial NEB 10/05/20 10:04 3 ml Q4R PRN Administration Shortness Of Breath Or Wheezing Ascorbic Acid 500 mg 08/31/20 17:23 09/11/20 09:07 Ascorbic Acid 500 Mg Tab PO 09/30/20 17:22 500 mg TID DINORA Administration Aspirin 81 mg 09/01/20 09:00 09/11/20 09:09 Aspirin 81 Mg Ectab PO 10/01/20 08:59 81 mg DAILY DINORA Administration Carvedilol 6.25 mg 08/31/20 17:23 09/11/20 09:04 Carvedilol 6.25 Mg Tab PO 09/30/20 17:22 6.25 mg BIDM DINORA Administration Diltiazem HCl 240 mg 09/01/20 09:00 09/11/20 09:09 Diltiazem Hcl 240 Mg Capcr PO 10/01/20 08:59 240 mg DAILY DINORA Administration Famotidine 20 mg 09/01/20 09:00 09/11/20 09:09 Famotidine 20 Mg Tab PO 10/01/20 08:59 20 mg DAILY DINORA Administration Folic Acid 1 mg 09/01/20 09:00 09/11/20 09:10 Folic Acid 1 Mg Tab PO 10/01/20 08:59 1 mg QAM DINORA Administration Furosemide 30 mg/ Syringe 3 mls @ 4 mls/min 09/06/20 01:15 09/06/20 20:07 IV 10/06/20 01:14 4 mls/min BID DINORA Administration Furosemide 40 mg/ Syringe 4 mls @ 4 mls/min 09/10/20 10:33 09/11/20 09:09 IV 10/10/20 10:32 4 mls/min BID17 DINORA Administration Levothyroxine Sodium 25 mcg 09/01/20 06:30 09/11/20 05:33 Levothyroxine Sodium 25 Mcg Tablet PO 10/01/20 06:29 25 mcg DAILYBB DINORA Administration Multivitamins 1 tab 09/01/20 09:00 09/11/20 09:10 Multivitamin Tab PO 10/01/20 08:59 1 tab DAILY DINORA Administration Pantoprazole Sodium 40 mg 08/31/20 21:00 09/10/20 21:02 Pantoprazole 40 Mg Tab PO 09/30/20 20:59 40 mg HS DINORA Administration Protocol Prednisone 5 mg 09/01/20 09:00 09/08/20 08:40 Prednisone 5 Mg Tab PO 10/01/20 08:59 5 mg DAILY DINORA Administration Prednisone 2 mg 09/01/20 09:00 09/08/20 08:40 Prednisone 1 Mg Tab PO 10/01/20 08:59 2 mg DAILY DINORA Administration Prednisone 20 mg 09/08/20 16:30 09/11/20 09:10 Prednisone 20 Mg Tab PO 10/08/20 16:29 20 mg DAILY DINORA Administration Sodium Chloride 4 ml 09/08/20 19:00 09/11/20 07:34 Sodium Chlor 7% 4 Ml Neb NEB 10/08/20 18:59 4 ml BIDR DINORA Administration Thiamine HCl 100 mg 09/01/20 09:00 09/11/20 09:10 Thiamine Hcl 100 Mg Tab PO 10/01/20 08:59 100 mg QAM DINORA Administration Tramadol HCl 50 mg 08/31/20 17:23 09/06/20 16:53 Tramadol Hcl 50 Mg Tablet PO 09/30/20 17:22 50 mg Q8H PRN Administration Pain Warfarin Sodium 2 mg 09/06/20 16:00 09/10/20 16:56 Warfarin Sod 2 Mg Tab PO 10/06/20 15:59 2 mg DAILY@1600 DINORA Administration Past Medical History Medical History Anemia Atrial fibrillation Chronic respiratory failure with hypoxia Chronic systolic CHF (congestive heart failure) CKD (chronic kidney disease) stage 4, GFR 15-29 ml/min Closed left hip fracture Fibromyalgia GERD (gastroesophageal reflux disease) History of COVID-19 HTN (hypertension) Hypothyroid Lower urinary tract symptoms (LUTS) Osteoarthritis Osteoporosis Polymyalgia rheumatica Refusal of blood transfusions as patient is Gnosticism Past Family History Family History Sister Cancer Past Surgical History Surgical History S/P appendectomy S/P cataract extraction S/P tonsillectomy Social History Smoking Status: Never smoker Do You Dip or Chew Tobacco: No Hx Alcohol Use: No Alcohol type: hard liquor alcohol intake frequency: 0-2 drinks per day Hx Substance Use: No substance use type: does not use Physical Exam Vital Signs Last Vital Signs Temp 35.4 C L 09/11/20 09:00 Pulse 84 09/11/20 09:00 Resp 18 09/11/20 09:00 BP 130/62 09/11/20 09:00 Pulse Ox 93 09/11/20 09:00 Testing Laboratory Results 09/07/20 06:47 09/11/20 07:19 PT 11.2 Seconds (9.0-12.0) 09/11/20 07:19 INR 1.1 (0.9-1.1) 09/11/20 07:19 APTT 31.6 Seconds (21.0-31.0) H 09/06/20 01:08 Urine Color Yellow 09/05/20 01:52 Urine Appearance Clear (Clear) 09/05/20 01:52 Urine pH 5.0 (4.5-7.5) 09/05/20 01:52 Ur Specific [place] 1.013 (1.000-1.030) 09/05/20 01:52 Urine Protein Negative (Negative) 09/05/20 01:52 Urine Glucose (UA) Negative (Negative) 09/05/20 01:52 Urine Ketones Negative (Negative) 09/05/20 01:52 Urine Nitrite Negative (Negative) 09/05/20 01:52 Ur Leukocyte Esterase 1+ (Negative) H 09/05/20 01:52 Urine WBC (Auto) >30 /hpf (0-5) H 09/05/20 01:52 Urine RBC (Auto) >30 /hpf (0-4) H 09/05/20 01:52 U Hyaline Cast (Auto) 1-5 /lpf (0-5) 09/05/20 01:52 U Epithel Cells (Auto) 5-10 /lpf (0-5) H 09/05/20 01:52 Urine Bacteria (Auto) Negative (Negative) 09/05/20 01:52 09/05/20 01:52 Urine Culture - Final Urine,Straight Cath Pauline albicans/dubliniensis 08/31/20 11:25 Aerobic Blood Culture - Final Blood No growth in Aerobic bottle after 5 days. Anaerobic Blood Culture - Final 08/31/20 11:47 Aerobic Blood Culture - Final Blood No growth in Aerobic bottle after 5 days. Anaerobic Blood Culture - Final 08/31/20 06:45 Urine Culture - Final Urine,Clean Catch More than three types of organisms present, all moderate counts mixed probable skin eduardo. No further identifications or sensitivities to follow. Electrocardiogram Date: 09/06/20 Findings: + AFIB @ (90) Abnormal ECG When compared with ECG of 05-SEP-2020 14:06, (unconfirmed) Inverted T waves have replaced nonspecific T wave abnormality in Lateral leads Chest X-Ray Date: 09/06/20 FINDINGS: No pneumothorax. Bibasilar and peripheral airspace opacities, right greater than the left, persist. Suspect trace bilateral pleural effusions. The heart remains enlarged. No evidence for pulmonary edema. Emphysema is again noted. IMPRESSION: No change in the bilateral airspace opacities. This likely represents a pneumonia. Other Testing Echocardiogram Date: 08/06/20 LV is grossly normal size LV systolic function is moderately reduced EF 35-40% RV systolic function is normal LA/RA is moderately dilated Mod valvular Mild TR Mod to severe TR
[2020-09-11] MEDS ORDERED: HEPARIN SOD (PORCINE) 5,000 UNITS/ML VIAL ONE (13:51)
[2020-09-11] MEDS ORDERED: LIDOCAINE HCL 1% 20 ML VIAL ONE (13:52)
[2020-09-11] MEDS ORDERED: KETAMINE 50 MG/5 ML SYRINGE ONE (13:52)
[2020-09-11] MEDS ORDERED: fentaNYL citrate 100 MCG/2 ML VIAL ONE (13:52)
[2020-09-11] MEDS ORDERED: PROPOFOL IV EMULSION 10 MG/ML 20 ML VIAL IV ONE (13:52)
[2020-09-11] MEDS ORDERED: LIDOCAINE HCL 2% 2 ML VIAL/AMP(20MG/ML) INFIL ONE (13:52)
[2020-09-11] MEDS ORDERED: MIDAZOLAM HCL 1 MG/ML 2ML VIAL ONE (13:52)
[2020-09-11] MEDS ORDERED: fentaNYL citrate 100 MCG/2 ML VIAL IV PRN (14:17)
[2020-09-11] MEDS ORDERED: ATROPINE SULFATE 0.1 MG/ML 10ML SYR IV PRN (14:17)
[2020-09-11] MEDS ORDERED: ONDANSETRON INJ 2 MG/ML 2 ML VIAL IV PRN (14:17)
[2020-09-11] MEDS ORDERED: ePHEDrine sulfate 50 MG/ML AMP IV PRN (14:17)
--- NOTE | 2020-09-11 14:28 | Consultation ---
Date of Consultation September 11, 2020 Assessment & Plan (1) Acute on chronic renal failure: Pt for permcath insertion today in OR by Dr Bernstein. Pt agreeable. Patient was seen, examined, and chart reviewed. Agree with exam and treatment plan of the Vascular PA. History of Present Illness Reason for Consultation: BEVERLEY Attending Physician: Vianney Jean-Baptiste MD History of Present Illness 84 yo f with multiple medical problems, including CKD, a fib, aortic stenosis, polymyalgia rheumatica, CHF, currently admitted with pneumonia, BEVERLEY, and is positive for covid-19 since 08/13/20, seen in consultation today for permcath insertion for HD initiation. Pt states feeling weak and tired, but OK. On chronic 2L O2. Denies TORRES, fever, chest pain, SOB, abd pain, N/V, rest pain, claudication, other complaints. Allergies Allergy/AdvReac Type Severity Reaction Status Date / Time aspirin Allergy Mild Unknown Verified 08/31/20 11:17 Sulfa (Sulfonamide Allergy Mild Rash Verified 08/31/20 11:17 Antibiotics) Home Medications Medication Instructions Recorded Confirmed Type ascorbic acid (vitamin C) [Vitamin 500 mg PO TID 01/05/19 08/31/20 History C] aspirin 81 mg PO DAILY 01/05/19 08/31/20 History diltiazem HCl 240 mg PO DAILY 01/05/19 08/31/20 History levothyroxine 25 mcg PO DAILYBB 01/05/19 08/31/20 History multivitamin 1 tab PO DAILY 01/05/19 08/31/20 History omeprazole magnesium [Prilosec OTC] 20 mg PO HS 01/05/19 08/31/20 History prednisone 2 mg PO DAILY 01/05/19 08/31/20 History prednisone 5 mg PO DAILY 01/05/19 08/31/20 History tramadol 50 mg PO Q8H PRN 01/05/19 08/31/20 History Myrbetriq 25 mg PO DAILY 08/05/20 08/31/20 History acetaminophen [Tylenol Extra 500 mg PO BID 08/05/20 08/31/20 History Strength] carvedilol 6.25 mg PO BIDM 08/05/20 08/31/20 History jggztdjpyf-jicp-latk-vinegar 1 tab PO BID PRN 08/05/20 08/31/20 History torsemide 10 mg PO DAILY 08/05/20 08/31/20 History folic acid 1 mg PO QAM #0 tab 08/10/20 08/31/20 Rx thiamine HCl (vitamin B1) [Vitamin 100 mg PO QAM #0 tab 08/10/20 08/31/20 Rx B-1] albuterol sulfate 2 puff INHALATION Q4H PRN 08/31/20 08/31/20 History benzonatate [Tessalon Perles] 100 mg PO TID PRN 08/31/20 08/31/20 History famotidine 20 mg PO DAILY 08/31/20 08/31/20 History warfarin 1 mg PO DAILY 08/31/20 08/31/20 History Patient History Medical History Anemia Atrial fibrillation Chronic respiratory failure with hypoxia Chronic systolic CHF (congestive heart failure) CKD (chronic kidney disease) stage 4, GFR 15-29 ml/min Closed left hip fracture Fibromyalgia GERD (gastroesophageal reflux disease) History of COVID-19 HTN (hypertension) Hypothyroid Lower urinary tract symptoms (LUTS) Osteoarthritis Osteoporosis Polymyalgia rheumatica 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 Surgical History S/P appendectomy S/P cataract extraction S/P tonsillectomy Family History Sister Cancer Social History Smoking Status: Never smoker Second Hand Exposure: No; Do You Dip or Chew Tobacco: No; Tobacco Cessation Education Requested by Patient: No Hx Alcohol Use: No Hx Substance Use: No Preferred Language: Bhutanese Communication Ability: Effective 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: No Beliefs That Will Affect Care: Yazidism Yazidism Beliefs: Jehovah Witness - NO BLOOD OR BLOOD PRODUCTS PER PATIENT marital status: / Current Living Situation: Family Current Living Situation Comment: Son lives w/ patient Other Information That Helps Us Care for You: No Feels Safe at Home: Yes Safety Concerns: Feels Safe At This Time Assistive Devices: Walker Review of Systems Review of Systems: All systems reviewed & are unremarkable except as noted in HPI & below Physical Exam Constitutional: WD/WN, vitals as above + thin, cooperative and comfortable; not in distress and not combative Eyes: PERRL, conjunctivae normal, anicteric sclerae ENMT: Ears: no hearing impairment Neck: trachea midline Respiratory: normal respiratory effort, lungs clear to auscultation Auscultation: + diminished lung sounds Cardiovascular: Rate/Rhythm: + irregularly irregular Vessels: posterior tibial pulses present, dorsalis pedis pulses present and brachial pulses present; + abnormal peripheral pulses Extremities: normal capillary refill; no edema Gastrointestinal (Abdomen): normal bowel sounds, soft, nontender, no hepatosplenomegaly Musculoskeletal: no cyanosis or clubbing, extremities motor strength 5/5 Skin: no rashes, warm and dry Neurologic: moves all extremities; no focal motor deficits and not confused Psychiatric: A+Ox3, euthymic affect Results & Data ([facility]) Vital Signs (Past 12 Hours) Vital Signs Temp Pulse Pulse Resp BP BP Pulse Ox 09/11/20 12:01 36.2 C L 93 H 16 100/65 09/11/20 09:00 35.4 C L 84 18 130/62 93 09/11/20 08:07 82 09/11/20 07:36 75 20 93 09/11/20 05:06 36.5 C 79 19 127/72 95
[2020-09-11] MEDS ORDERED: ceFAZolin 1000MG 1,000 MG/7.5 ML SYR IV ONE (14:39)
--- NOTE | 2020-09-11 15:16 | Operative Report ---
Post Operative Report Pre & Post Diagnosis Operation Date: 09/11/20 12:10 Pre-Op Diagnosis: acute renal failure Post-Op Diagnosis: acute renal failure I identified the patient and participated in the time-out.: Yes Procedure Operation Date: 09/11/20 12:10 Actual Procedures p Insertion Of Perm Catheter, Right Internal Jugular Approach, Ultrasound Local ization Of Right Internal Jugular Vein, Fluoroscopy For Positioning(Right) - Tutu Bernstein MD Surgeon Tutu Bernstein MD Diesel Automotive Technician None Estimated Blood Loss 0 Findings Consistent with Post-Op Diagnosis Specimens None Anesthesia Type MAC Complications none Disposition Accompanied Patient To Recovery: No Disposition: Recovery Room Indications This is an 84-year-old female with acute renal failure in need of dialysis. PermCath was recommended. I have discussed the risks options and benefits of the procedure with the patient. The patient understands the risks options and benefits and agrees to the procedure. Description of Procedure Patient was taken to the angio suite and placed in the supine position. The right side of the neck and chest wall were prepped and draped in a sterile manner. The patient was identified and a timeout performed. Local anesthesia was then administered to the appropriate areas of the neck and chest wall. Ultrasound was then used to locate the right internal jugular vein. The vein compressed easily, had no filing defects, and was patent. The vein was then punctured under direct ultrasound imaging. A guidewire was then passed centrally under fluoroscopic imaging. A stab wound was then made in the anterior chest wall and a 19 cm permcath was passed from the stab wound on the chest wall to the puncture site on the neck. The puncture site was then dilated till the 14Fr peel away sheath was inserted. The permcath was then inserted through the sheath to a central position in the distal superior vena cava. The peel away sheath was then removed. The catheter was then sutured in place using nylon sutures. The puncture was then closed using a 4-0 Vicryl subcuticular suture. Dermabond was used for a dressing on the puncture site. Both ports aspirated and flushed easily and were then packed with heparin. A sterile dressing was applied to the catheter. The patient left the operation room in satisfactory condition and tolerated the procedure well. All needle and sponge counts were correct at the end of the procedure. I attest to the content of the Intraoperative Record and any orders documented therein. Any exceptions are noted below.
--- NOTE | 2020-09-11 16:00 | Anesthesiology Progress Note ---
Date of Service September 11, 2020 Anesthesia Post Procedure Vital Signs Vital Signs: Temp Pulse Pulse Pulse Resp BP BP 09/11/20 15:45 36.4 C L 80 14 107/64 09/11/20 15:35 76 18 106/79 09/11/20 15:27 36.3 C L 79 15 89/54 L 09/11/20 14:24 36.4 C L 85 16 109/56 L 09/11/20 12:01 36.2 C L 93 H 16 100/65 09/11/20 09:00 35.4 C L 84 18 130/62 09/11/20 08:07 82 09/11/20 07:36 75 20 09/11/20 05:06 36.5 C 79 19 127/72 09/10/20 23:42 83 09/10/20 23:26 36.6 C 98 H 20 123/77 09/10/20 19:29 86 22 09/10/20 19:11 86 19 131/81 Pulse Ox 09/11/20 15:45 96 09/11/20 15:35 97 09/11/20 15:27 96 09/11/20 14:24 95 09/11/20 12:01 09/11/20 09:00 93 09/11/20 08:07 09/11/20 07:36 93 09/11/20 05:06 95 09/10/20 23:42 09/10/20 23:26 92 09/10/20 19:29 95 09/10/20 19:11 95 Pain Intensity Left Chest: Pain Intensity: 5 Transfer of Care Handoff Completed per policy Notes Mental Status: alert / awake / arousable Patient Amnestic to Procedure: Yes Nausea / Vomiting: adequately controlled Pain: adequately controlled Airway Patency, RR, SpO2: stable & adequate BP & HR: stable & adequate Hydration State: stable & adequate Anesthetic Complications: no major complications apparent
[2020-09-11] MEDS: WARFARIN SOD 2 MG TAB PO SCH (16:43)
--- NOTE | 2020-09-11 18:44 | Hospitalist Progress Note ---
Date of Service September 11, 2020 Assessment & Plan (1) Pneumonia: (2) History of COVID-19: (3) Chronic respiratory failure with hypoxia: Present to the ER with SOB and weakness Patient presenting from home with reports of shortness of breath, generalized weakness, collapse [place] [facility] [place] with dexamethasone. CXR on admission showed bibasilar opacities suggestive of pneumonia Likely superimposed bacterial pneumonia after COVID-19 infection. No treatment for COVID-19 since pt was tested positive about 18 days ago. Completed course of IV ceftriaxone and IV azithromycin Blood cx no growth Continue oxygen supplement, chest PT BID and Hypertonic saline neb BID to do with the chest PT Continue monitor closely (4) Acute kidney injury superimposed on chronic kidney disease: (5) CKD (chronic kidney disease) stage 4, GFR 15-29 ml/min: Previous baseline creatinine ran in the high 1s however with recent hospitalization new baseline seems to be the mid to high 2s Creatinine increased despite lasix was held for 3 days Nephrology on board case discussed with nephrology that recommended to continue IV lasix since the etiology is mostly ATN Worsening BUN 105 and creatinine 5.2 today Nephrology discussed with patient about HD and pt agreed to proceed with dialysis. Daughter was notified Vascular surgery was consulted for dialysis access. Case discussed with dr. Alvarez that recommended to keep NPO today in case if he has any OR space to do the procedure today Continue monitor BMP (6) Acute on chronic systolic CHF (congestive heart failure): CXR on admission showed persistent small to moderate bilateral pleural effusions with bibasilar opacities which may reflect pneumonia or atelectasis. Elevated ProBNP 86807 Most recent echo on 08/12 showed EF 30%, moderate aortic stenosis, mild mitral regurgitation, moderate to severe tricuspid regurgitation Repeat CXR showed cardiomegaly, small pleural effusions, and progressive mult ifocal airspace opacities Continue Lasix 40mg IV BID Plan for HD tomorrow (7) Aortic stenosis: Continue beta-randell stable (8) Collapse: (9) Elevated troponin: Troponin 0.067 on admission, then trending down to 0.05 Mostly demand ischemia due to respiratory failure Continue Cavedilol, aspirin Stable (10) Abnormal urinalysis: (11) Hematuria: Reports of hematuria in the setting of supratherapeutic INR Continue IV ceftriaxone Hgb 9.3 stable Urology on board no need for any further acute work-up or intervention If her catheter were clogged, flush it as needed Follow-up as an outpatientno further inpatient evaluation required from a urological standpoint (12) Polymyalgia rheumatica: Continue chronic prednisone (13) Atrial fibrillation: Rate controlled on Carvedilol, will continue Anticoagulated on Coumadin INR changed from 2.7 to 1.1 today (possible lab error) will repeat PT/INR (14) DVT prophylaxis: On Coumadin with INR 2.7 on 09/10, but decreased to 1.1 today (possible lab error ) If INR not at goal on repeat PT/INR, will consider to start on subq heparin Disposition Daughter Kristyn ([phone]) requests for updates Admission and Anticipated Discharge Date Admission Date: August 31, 2020 Subjective Pt was seen and examined for follow up of respiratory distress and BEVERLEY Lying in bed with no distress watching TV Pt said that her cough is much better She continues to require oxygen supplement Spoke to daughter Kristyn and provided with updates and answered all her questions daughter was notified that pt was agreed to start on HD Denies any chest pain, palpitation, dizziness and fever Physical Exam Physical Exam: General- No acute distress Head- atraumatic Eyes- PERRL, EOMI, ENT- oropharynx clear Neck- supple, no JVD Lungs- +diminished BS Heart- regular rhythm; no murmur Abdomen- normal bowel sounds, soft, nontender Extremities- no calf tenderness Neuro- alert, oriented x 3; PERRL, EOMI; no facial palsy; no dysarthria Skin- warm & dry Results & Data Results & Data ([facility]) Vital Signs (Past 12 Hours) Vital Signs Temp Pulse Pulse Pulse Resp BP BP 09/11/20 18:09 36.4 C L 89 18 94/60 L 09/11/20 17:00 36.2 C L 89 18 102/60 09/11/20 16:48 35.4 C L 91 H 18 109/76 09/11/20 16:22 36.2 C L 63 18 111/65 09/11/20 15:45 36.4 C L 80 14 107/64 09/11/20 15:35 76 18 106/79 09/11/20 15:27 36.3 C L 79 15 89/54 L 09/11/20 14:24 36.4 C L 85 16 109/56 L 09/11/20 12:01 36.2 C L 93 H 16 100/65 09/11/20 09:00 35.4 C L 84 18 130/62 09/11/20 08:07 82 09/11/20 07:36 75 20 Pulse Ox 09/11/20 18:09 90 09/11/20 17:00 92 09/11/20 16:48 93 09/11/20 16:22 98 09/11/20 15:45 96 09/11/20 15:35 97 09/11/20 15:27 96 09/11/20 14:24 95 09/11/20 12:01 09/11/20 09:00 93 09/11/20 08:07 09/11/20 07:36 93 (1) Pneumonia Laterality: bilateral Lung location: lower lobe of lung Pneumonia type: due to unspecified organism Qualified Code(s): J18.9 - Pneumonia, unspecified organism
[2020-09-11 19:44] LABS: INR 4.4 (0.9-1.1); Prothrombin Time 42.4 Seconds (9.0-12.0)
[2020-09-11] MEDS: PANTOprazole 40 MG TAB PO SCH (20:07)
[2020-09-12] MEDS: LEVOTHYROXINE SODIUM 25 MCG TABLET PO SCH (06:11)
[2020-09-12 06:44] LABS: Hematocrit (blood only) 28.3 % (37-47); Hemoglobin 9.3 g/dL (12.0-16.0); Mean Corpuscular Hemoglobin 31.1 pg (25-34); Mean Corpuscular Hgb Conc 32.9 g/dL (32-36); Mean Corpuscular Volume 94.6 fL (80-100); Platelet Count 195 K/uL (130-400); RDW Coefficient of Variation 15.4 % (11.5-14.5); RDW Standard Deviation 51.8 fL (36.4-46.3); Red Blood Count 2.99 M/uL (4.2-5.4); White Blood Count 4.82 K/uL (4.8-10.8)
[2020-09-12] MEDS: SODIUM CHLOR 7% 4 ML NEB NEB SCH (06:58)
[2020-09-12 07:03] LABS: Prothrombin Time 48.2 Seconds (9.0-12.0)
[2020-09-12 07:22] LABS: BUN Creatinine Ratio 19.8 (10-20); Calcium 8.6 mg/dl (8.5-10.1); Creatinine Clr Calc Pharmacy 6.2 ml/min; Est GFR (African American) 7.9; Est GFR (Non-African American) 6.9
[2020-09-12] MEDS: carvediloL 6.25 MG TAB PO SCH ×2 (08:41→17:05)
[2020-09-12] MEDS: FOLIC ACID 1 MG TAB PO SCH (08:41)
[2020-09-12] MEDS: FAMOTIDINE 20 MG TAB PO SCH (08:42)
[2020-09-12] MEDS: ASCORBIC ACID 500 MG TAB PO SCH ×3 (08:42→21:25)
[2020-09-12] MEDS: dilTIAZem HCL 240 MG CAPCR PO SCH (08:43)
[2020-09-12] MEDS: ASPIRIN 81 MG ECTAB PO SCH (08:43)
[2020-09-12] MEDS: predniSONE 20 MG TAB PO SCH (08:43)
[2020-09-12] MEDS: THIAMINE HCL 100 MG TAB PO SCH (08:43)
[2020-09-12] MEDS: MULTIVITAMIN TAB PO SCH (08:43)
--- NOTE | 2020-09-12 08:43 | Hospitalist Progress Note ---
Date of Service September 12, 2020 Assessment & Plan (1) Pneumonia: (2) History of COVID-19: (3) Chronic respiratory failure with hypoxia: Present to the ER with SOB and weakness Patient presenting from home with reports of shortness of breath, generalized weakness, collapse Tested positive for COVID-19 on 08/13 at [facility] [place] and was treated with dexamethasone. CXR on admission showed bibasilar opacities suggestive of pneumonia Likely superimposed bacterial pneumonia after COVID-19 infection. No treatment for COVID-19 since pt was tested positive about 18 days ago. Completed course of IV ceftriaxone and IV azithromycin Blood cx no growth Continue oxygen supplement, chest PT BID and Hypertonic saline neb BID to do with the chest PT Continue monitor closely (4) Acute kidney injury superimposed on chronic kidney disease: (5) CKD (chronic kidney disease) stage 4, GFR 15-29 ml/min: Previous baseline creatinine ran in the high 1s however with recent hospitalization new baseline seems to be the mid to high 2s Creatinine increased despite lasix was held for 3 days Nephrology on board case discussed with nephrology that recommended to continue IV lasix since the etiology is mostly ATN Worsening BUN 105 and creatinine 5.2 Nephrology discussed with patient about HD and pt agreed to proceed with dialysis. Daughter was notified Vascular surgery was consulted for dialysis access, pt now s/p per cath placement w/ Dr. Bernstein (09/11/20) Pt s/p 1st HD treatment 09/12/20 Continue monitor BMP (6) Acute on chronic systolic CHF (congestive heart failure): CXR on admission showed persistent small to moderate bilateral pleural effusions with bibasilar opacities which may reflect pneumonia or atelectasis. Elevated ProBNP 95481 Most recent echo on 08/12 showed EF 30%, moderate aortic stenosis, mild mitral regurgitation, moderate to severe tricuspid regurgitation Repeat CXR showed cardiomegaly, small pleural effusions, and progressive multifocal airspace opacities Continued Lasix 40mg IV BID Started HD 09/12/20 (7) Aortic stenosis: Continue beta-randell stable (8) Collapse: (9) Elevated troponin: Troponin 0.067 on admission, then trending down to 0.05 Mostly demand ischemia due to respiratory failure Continue Cavedilol, aspirin Stable (10) Abnormal urinalysis: (11) Hematuria: Reports of hematuria in the setting of supratherapeutic INR Continue IV ceftriaxone Hgb 9.3 stable Urology on board no need for any further acute work-up or intervention If her catheter were clogged, flush it as needed Follow-up as an outpatientno further inpatient evaluation required from a urological standpoint (12) Polymyalgia rheumatica: Continue chronic prednisone (13) Atrial fibrillation: Rate controlled on Carvedilol, will continue Anticoagulated on Coumadin INR supratherapeutic, will hold warfarin will repeat PT/INR (14) DVT prophylaxis: On Coumadin Disposition Daughter Kristyn can be updated at ([phone]) Admission and Anticipated Discharge Date Admission Date: August 31, 2020 Subjective Pt was seen and examined for follow up of respiratory distress and BEVERLEY Lying in bed in ni distress, she s/p per cath placement yesterday, now on first HD She continues to require oxygen supplement Denies any chest pain, palpitation, dizziness and fever Review of Systems Review of Systems: All systems reviewed & are unremarkable except as noted in HPI & below Constitutional: no fever and no chills Respiratory: + cough and + dyspnea (seems improved subjectively) Cardiovascular: no chest pain and no palpitations Gastrointestinal: no abdominal pain, no nausea and no vomiting Physical Exam Physical Exam: General- elderly female, No acute distress, currently on HD Head- atraumatic Eyes- PERRL, EOMI, ENT- oropharynx clear Neck- supple, no JVD Lungs- +diminished BS Heart- regular rhythm; no murmur Abdomen- normal bowel sounds, soft, nontender Extremities- no calf tenderness Neuro- alert, oriented x 3; PERRL, EOMI; no facial palsy; no dysarthria, moves extremities Skin- warm & dry Results & Data Results & Data ([facility]) Vital Signs (Past 12 Hours) Vital Signs Temp Pulse Pulse Pulse Resp BP BP 09/12/20 07:01 84 18 09/12/20 06:37 36.2 C L 89 22 110/58 L 09/12/20 03:14 36.6 C 87 20 124/70 09/12/20 00:01 88 09/11/20 23:56 36.2 C L 86 18 111/71 09/11/20 22:25 36.5 C 60 18 110/70 Pulse Ox 09/12/20 07:01 948 H 09/12/20 06:37 92 09/12/20 03:14 95 09/12/20 00:01 09/11/20 23:56 94 09/11/20 22:25 95 Laboratory Results 09/12/20 09/12/20 09/12/20 Range/Units 06:12 06:12 06:12 WBC 4.82 (4.8-10.8) K/uL RBC 2.99 L (4.2-5.4) M/uL Hgb 9.3 L (12.0-16.0) g/dL Hct 28.3 L (37-47) % MCV 94.6 (80-100) fL MCH 31.1 (25-34) pg MCHC 32.9 (32-36) g/dL RDW Std Deviation 51.8 H (36.4-46.3) fL RDW Coeff of Caitlin 15.4 H (11.5-14.5) % Plt Count 195 (130-400) K/uL MPV 10.0 (7.4-10.4) fL PT 48.2 H (9.0-12.0) Seconds INR 5.0 H (0.9-1.1) Sodium 138 (136-145) mmol/L Potassium 4.0 (3.5-5.1) mmol/L Chloride 106 (98-107) mmol/L Carbon Dioxide 20 L (21-32) mmol/L Anion Gap 12.0 H (3-11) BUN 106 H (7-18) mg/dl Creatinine 5.32 H* (0.6-1.2) mg/dl Est Cr Clr Drug Dosing 6.2 ml/min Est GFR ( Amer) 7.9 Est GFR (Non-Af Amer) 6.9 BUN/Creatinine Ratio 19.8 (10-20) Glucose 88 (70-99) mg/dl Calcium 8.6 (8.5-10.1) mg/dl 09/11/20 Range/Units 19:12 WBC (4.8-10.8) K/uL RBC (4.2-5.4) M/uL Hgb (12.0-16.0) g/dL Hct (37-47) % MCV (80-100) fL MCH (25-34) pg MCHC (32-36) g/dL RDW Std Deviation (36.4-46.3) fL RDW Coeff of Caitlin (11.5-14.5) % Plt Count (130-400) K/uL MPV (7.4-10.4) fL PT 42.4 H (9.0-12.0) Seconds INR 4.4 H (0.9-1.1) Sodium (136-145) mmol/L Potassium (3.5-5.1) mmol/L Chloride (98-107) mmol/L Carbon Dioxide (21-32) mmol/L Anion Gap (3-11) BUN (7-18) mg/dl Creatinine (0.6-1.2) mg/dl Est Cr Clr Drug Dosing ml/min Est GFR ( Amer) Est GFR (Non-Af Amer) BUN/Creatinine Ratio (10-20) Glucose (70-99) mg/dl Calcium (8.5-10.1) mg/dl Medications Administered Current Inpatient Medications Acetaminophen (Acetaminophen 325 Mg Tab) 650 mg PO Q4H PRN PRN Reason: pain/fever Stop: 09/30/20 17:22 Albuterol (Albut/Ipratrop 3mg/0.5mg Neb 3 Ml Vial) 3 ml NEB Q4R PRN PRN Reason: Shortness Of Breath Or Wheezing Stop: 10/05/20 10:04 Last Admin: 09/06/20 00:41 Dose: 3 ml Documented by: Ascorbic Acid (Ascorbic Acid 500 Mg Tab) 500 mg PO TID COUNT INCLUDES THE [facility] Stop: 09/30/20 17:22 Last Admin: 09/11/20 20:07 Dose: 500 mg Documented by: Aspirin (Aspirin 81 Mg Ectab) 81 mg PO DAILY COUNT INCLUDES THE [facility] Stop: 10/01/20 08:59 Last Admin: 09/11/20 09:09 Dose: 81 mg Documented by: Carvedilol (Carvedilol 6.25 Mg Tab) 6.25 mg PO BIDM COUNT INCLUDES THE [facility] Stop: 09/30/20 17:22 Last Admin: 09/11/20 16:41 Dose: 6.25 mg Documented by: Diltiazem HCl (Diltiazem Hcl 240 Mg Capcr) 240 mg PO DAILY COUNT INCLUDES THE [facility] Stop: 10/01/20 08:59 Last Admin: 09/11/20 09:09 Dose: 240 mg Documented by: Famotidine (Famotidine 20 Mg Tab) 20 mg PO DAILY COUNT INCLUDES THE [facility] Stop: 10/01/20 08:59 Last Admin: 09/11/20 09:09 Dose: 20 mg Documented by: Folic Acid (Folic Acid 1 Mg Tab) 1 mg PO QAM DINORA Stop: 10/01/20 08:59 Last Admin: 09/11/20 09:10 Dose: 1 mg Documented by: Furosemide 30 mg/ Syringe 3 mls @ 4 mls/min IV BID DINORA Stop: 10/06/20 01:14 Last Admin: 09/06/20 20:07 Dose: 4 mls/min Documented by: Furosemide 40 mg/ Syringe 4 mls @ 4 mls/min IV BID17 DINORA Stop: 10/10/20 10:32 Last Admin: 09/11/20 16:43 Dose: 4 mls/min Documented by: Levothyroxine Sodium (Levothyroxine Sodium 25 Mcg Tablet) 25 mcg PO DAILYBB DINORA Stop: 10/01/20 06:29 Last Admin: 09/12/20 06:11 Dose: 25 mcg Documented by: Multivitamins (Multivitamin Tab) 1 tab PO DAILY DINORA Stop: 10/01/20 08:59 Last Admin: 09/11/20 09:10 Dose: 1 tab Documented by: Pantoprazole Sodium (Pantoprazole 40 Mg Tab) 40 mg PO HS COUNT INCLUDES THE [facility]; Protocol Stop: 09/30/20 20:59 Last Admin: 09/11/20 20:07 Dose: 40 mg Documented by: Polyethylene Glycol (Polyethylene (Miralax) 17 Gm Pack) 17 gm PO DAILY PRN PRN Reason: Constipation Stop: 10/04/20 20:11 Prednisone (Prednisone 5 Mg Tab) 5 mg PO DAILY DINORA Stop: 10/01/20 08:59 Last Admin: 09/08/20 08:40 Dose: 5 mg Documented by: Prednisone (Prednisone 1 Mg Tab) 2 mg PO DAILY DINORA Stop: 10/01/20 08:59 Last Admin: 09/08/20 08:40 Dose: 2 mg Documented by: Prednisone (Prednisone 20 Mg Tab) 20 mg PO DAILY DINORA Stop: 10/08/20 16:29 Last Admin: 09/11/20 09:10 Dose: 20 mg Documented by: Sodium Chloride (Sodium Chlor 7% 4 Ml Neb) 4 ml NEB BIDR DINORA Stop: 10/08/20 18:59 Last Admin: 09/12/20 06:58 Dose: 4 ml Documented by: Thiamine HCl (Thiamine Hcl 100 Mg Tab) 100 mg PO QAM COUNT INCLUDES THE [facility] Stop: 10/01/20 08:59 Last Admin: 09/11/20 09:10 Dose: 100 mg Documented by: Tramadol HCl (Tramadol Hcl 50 Mg Tablet) 50 mg PO Q8H PRN PRN Reason: Pain Stop: 09/30/20 17:22 Last Admin: 09/06/20 16:53 Dose: 50 mg Documented by: Warfarin Sodium (Warfarin Sod 2 Mg Tab) 2 mg PO DAILY@1600 COUNT INCLUDES THE [facility] Stop: 10/06/20 15:59 Last Admin: 09/11/20 16:43 Dose: 2 mg Documented by: (1) Pneumonia Laterality: bilateral Lung location: lower lobe of lung Pneumonia type: due to unspecified organism Qualified Code(s): J18.9 - Pneumonia, unspecified [facility]
[2020-09-12] MEDS: FUROSEMIDE 40 MG in SYRINGE 0 ML IV SCH ×2 (10:40→17:07)
[2020-09-12 12:03] LABS: Hepatitis B Surface Ab Quant < 3.10 mIU/mL (>or=10mIU/mL Immune); Hepatitis B Surface Antibody Non-Immune
[2020-09-12 12:13] LABS: Hepatitis B Surface Antigen Neg (Neg)
[2020-09-12] MEDS: PANTOprazole 40 MG TAB PO SCH (21:25)
[2020-09-13] MEDS: LEVOTHYROXINE SODIUM 25 MCG TABLET PO SCH (05:32)
[2020-09-13 07:22] LABS: Hematocrit (blood only) 29.3 % (37-47); Hemoglobin 9.5 g/dL (12.0-16.0); Mean Corpuscular Hemoglobin 31.3 pg (25-34); Mean Corpuscular Hgb Conc 32.4 g/dL (32-36); Mean Corpuscular Volume 96.4 fL (80-100); Mean Platelet Volume 10.3 fL (7.4-10.4); Platelet Count 214 K/uL (130-400); RDW Coefficient of Variation 15.7 % (11.5-14.5); RDW Standard Deviation 54.7 fL (36.4-46.3); Red Blood Count 3.04 M/uL (4.2-5.4); White Blood Count 4.48 K/uL (4.8-10.8)
[2020-09-13 07:40] LABS: INR 3.7 (0.9-1.1); Prothrombin Time 36.4 Seconds (9.0-12.0)
[2020-09-13 07:44] LABS: BUN Creatinine Ratio 15.8 (10-20); Creatinine Clr Calc Pharmacy 8.8 ml/min; Est GFR (Non-African American) 10.4; Magnesium 1.9 mg/dl (1.8-2.4); Phosphorus 4.5 mg/dl (2.5-4.9); Potassium 4.1 mmol/L (3.5-5.1)
[2020-09-13] MEDS: predniSONE 10 MG TABLET PO SCH (09:19)
[2020-09-13] MEDS: MULTIVITAMIN TAB PO SCH (09:20)
[2020-09-13] MEDS: carvediloL 6.25 MG TAB PO SCH ×2 (09:20→17:13)
[2020-09-13] MEDS: THIAMINE HCL 100 MG TAB PO SCH (09:20)
[2020-09-13] MEDS: FUROSEMIDE 40 MG in SYRINGE 0 ML IV SCH ×2 (09:20→17:13)
[2020-09-13] MEDS: ASCORBIC ACID 500 MG TAB PO SCH ×3 (09:20→21:08)
[2020-09-13] MEDS: ASPIRIN 81 MG ECTAB PO SCH (09:21)
[2020-09-13] MEDS: FAMOTIDINE 20 MG TAB PO SCH (09:21)
[2020-09-13] MEDS: dilTIAZem HCL 240 MG CAPCR PO SCH (09:21)
[2020-09-13] MEDS: FOLIC ACID 1 MG TAB PO SCH (09:21)
--- NOTE | 2020-09-13 10:03 | Progress Notes ---
DATE: 09/13/2020 NEPHROLOGY PROGRESS NOTE SUBJECTIVE: Overnight, no new issues: The patient appears to be quite comfortable without any respiratory distress. She had her first dialysis ever yesterday without any problem whatsoever. OBJECTIVE: VITAL SIGNS: Blood pressure 145/73, pulse rate 99, temperature 36.4, 96% on 4 liters nasal cannula. HEENT: Mucous membranes are moist. NECK: Supple. CHEST: Bilateral decreased breath sounds, but very poor inspiratory effort. CARDIOVASCULAR: S1, S2 regular. ABDOMEN: Soft, nontender. EXTREMITIES: Shows no edema. Catheter site appears normal. LABORATORY TESTS: From this morning was reviewed. Creatinine is down to 3.77, BUN is 59, sodium 142, potassium 4.1, chloride 109. Hemoglobin 9.5. ASSESSMENT AND PLAN: An 84-year-old female with oliguric acute renal failure secondary to acute tubular necrosis. Acute renal failure. Her urine output has picked up quite a bit and she is no longer oliguric. She was started on dialysis yesterday and tolerated the first dialysis very well. RECOMMENDATIONS: 1. Continue Lasix 40 twice daily. 2. Arrange for outpatient dialysis when she gets discharged. 3. Her next dialysis will be tomorrow.
--- NOTE | 2020-09-13 13:59 | Hospitalist Progress Note ---
Date of Service September 13, 2020 Assessment & Plan (1) Pneumonia: (2) History of COVID-19: (3) Chronic respiratory failure with hypoxia: Present to the ER with SOB and weakness Patient presenting from home with reports of shortness of breath, generalized weakness, collapse [place] [facility] [place] with [place]. CXR on admission showed bibasilar opacities suggestive of pneumonia Likely superimposed bacterial pneumonia after COVID-19 infection. No treatment for COVID-19 since pt was tested positive about 18 days ago. Completed course of IV ceftriaxone and IV azithromycin Blood cx no growth Continue oxygen supplement, chest PT BID and Hypertonic saline neb BID to do with the chest PT Continue monitor closely (4) Acute kidney injury superimposed on chronic kidney disease: (5) CKD (chronic kidney disease) stage 4, GFR 15-29 ml/min: Previous baseline creatinine ran in the high 1s however with recent hospitalization new baseline seems to be the mid to high 2s Creatinine increased despite lasix was held for 3 days Nephrology on board case discussed with nephrology that recommended to continue IV lasix since the etiology is mostly ATN Worsening BUN 105 and creatinine 5.2 Nephrology discussed with patient about HD and pt agreed to proceed with dialysis. Daughter was notified Vascular surgery was consulted for dialysis access, pt now s/p per cath placement w/ Dr. Bernstein (09/11/20) Pt s/p 1st HD treatment 09/12/20, tolerated well Continue monitor BMP (6) Acute on chronic systolic CHF (congestive heart failure): CXR on admission showed persistent small to moderate bilateral pleural effusions with bibasilar opacities which may reflect pneumonia or atelectasis. Elevated ProBNP 05362 Most recent echo on 08/12 showed EF 30%, moderate aortic stenosis, mild mitral regurgitation, moderate to severe tricuspid regurgitation Repeat CXR showed cardiomegaly, small pleural effusions, and progressive multifocal airspace opacities Continued Lasix 40mg IV BID Started HD 09/12/20 (7) Aortic stenosis: Continue beta-randell stable (8) Collapse: (9) Elevated troponin: Troponin 0.067 on admission, then trending down to 0.05 Mostly demand ischemia due to respiratory failure Continue Cavedilol, aspirin Stable (10) Abnormal urinalysis: (11) Hematuria: Reports of hematuria in the setting of supratherapeutic INR Continued IV ceftriaxone Hgb 9.3 stable Urology on board no need for any further acute work-up or intervention If her catheter were clogged, flush it as needed Follow-up as an outpatientno further inpatient evaluation required from a urological standpoint (12) Polymyalgia rheumatica: Continue chronic prednisone (13) Atrial fibrillation: Rate controlled on Carvedilol, will continue Anticoagulated on Coumadin INR supratherapeutic, will hold warfarin will repeat PT/INR (14) DVT prophylaxis: On Coumadin Disposition Daughter Kristyn can be updated at ([phone]) updated over the phone 09/13 - She is inquiring about possibly visiting her mother in the hospital Admission and Anticipated Discharge Date Admission Date: August 31, 2020 Subjective Pt was seen and examined for follow up of respiratory distress and BEVERLEY Lying in bed in no distress, she s/p per cath placement, and s/p first HD yesterday She continues to require oxygen supplement Denies any chest pain, palpitation, dizziness and fever Review of Systems Review of Systems: All systems reviewed & are unremarkable except as noted in HPI & below Constitutional: no fever and no chills Respiratory: + cough (much improved) and + dyspnea (much improved) Cardiovascular: no chest pain and no palpitations Gastrointestinal: no abdominal pain, no nausea and no vomiting Physical Exam Physical Exam: General- thin elderly female, No acute distress Head- atraumatic Eyes- PERRL, EOMI, ENT- oropharynx clear Neck- supple, no JVD Lungs- +diminished BS Heart- regular rhythm; no murmur Abdomen- normal bowel sounds, soft, nontender Extremities- no calf tenderness Neuro- alert, oriented x 3; PERRL, EOMI; no facial palsy; no dysarthria, moves extremities Skin- warm & dry Results & Data Results & Data ([facility]) Vital Signs (Past 12 Hours) Vital Signs Temp Pulse Pulse Pulse Resp BP BP 09/13/20 11:35 36.3 C L 83 18 90/58 L 09/13/20 08:33 145/73 H 09/13/20 08:30 99 H 09/13/20 07:10 36.4 C L 94 H 20 130/92 09/13/20 04:00 36.8 C 93 H 18 129/72 Pulse Ox 09/13/20 11:35 96 09/13/20 08:33 09/13/20 08:30 09/13/20 07:10 96 09/13/20 04:00 96 Laboratory Results 09/13/20 09/13/20 09/13/20 Range/Units 06:52 06:52 06:52 WBC 4.48 L (4.8-10.8) K/uL RBC 3.04 L (4.2-5.4) M/uL Hgb 9.5 L (12.0-16.0) g/dL Hct 29.3 L (37-47) % MCV 96.4 (80-100) fL MCH 31.3 (25-34) pg MCHC 32.4 (32-36) g/dL RDW Std Deviation 54.7 H (36.4-46.3) fL RDW Coeff of Caitlin 15.7 H (11.5-14.5) % Plt Count 214 (130-400) K/uL MPV 10.3 (7.4-10.4) fL PT 36.4 H (9.0-12.0) Seconds INR 3.7 H (0.9-1.1) Sodium 142 (136-145) mmol/L Potassium 4.1 (3.5-5.1) mmol/L Chloride 109 H (98-107) mmol/L Carbon Dioxide 26 (21-32) mmol/L Anion Gap 7.0 (3-11) BUN 59 H (7-18) mg/dl Creatinine 3.77 H D (0.6-1.2) mg/dl Est Cr Clr Drug Dosing 8.8 ml/min Est GFR ( Amer) 12.0 Est GFR (Non-Af Amer) 10.4 BUN/Creatinine Ratio 15.8 (10-20) Glucose 86 (70-99) mg/dl Calcium 8.0 L (8.5-10.1) mg/dl Phosphorus 4.5 (2.5-4.9) mg/dl Magnesium 1.9 (1.8-2.4) mg/dl Medications Administered Current Inpatient Medications Acetaminophen (Acetaminophen 325 Mg Tab) 650 mg PO Q4H PRN PRN Reason: pain/fever Stop: 09/30/20 17:22 Albuterol (Albut/Ipratrop 3mg/0.5mg Neb 3 Ml Vial) 3 ml NEB Q4R PRN PRN Reason: Shortness Of Breath Or Wheezing Stop: 10/05/20 10:04 Last Admin: 09/06/20 00:41 Dose: 3 ml Documented by: Ascorbic Acid (Ascorbic Acid 500 Mg Tab) 500 mg PO TID [facility] Stop: 09/30/20 17:22 Last Admin: 09/13/20 09:20 Dose: 500 mg Documented by: Aspirin (Aspirin 81 Mg Ectab) 81 mg PO DAILY [facility] Stop: 10/01/20 08:59 Last Admin: 09/13/20 09:21 Dose: 81 mg Documented by: Carvedilol (Carvedilol 6.25 Mg Tab) 6.25 mg PO BIDM [facility] Stop: 09/30/20 17:22 Last Admin: 09/13/20 09:20 Dose: 6.25 mg Documented by: Diltiazem HCl (Diltiazem Hcl 240 Mg Capcr) 240 mg PO DAILY [facility] Stop: 10/01/20 08:59 Last Admin: 09/13/20 09:21 Dose: 240 mg Documented by: Famotidine (Famotidine 20 Mg Tab) 20 mg PO DAILY [facility] Stop: 10/01/20 08:59 Last Admin: 09/13/20 09:21 Dose: 20 mg Documented by: Folic Acid (Folic Acid 1 Mg Tab) 1 mg PO QAM ON [facility] OF [facility] Stop: 10/01/20 08:59 Last Admin: 09/13/20 09:21 Dose: 1 mg Documented by: Furosemide 30 mg/ Syringe 3 mls @ 4 mls/min IV BID [facility] Stop: 10/06/20 01:14 Last Admin: 09/06/20 20:07 Dose: 4 mls/min Documented by: Furosemide 40 mg/ Syringe 4 mls @ 4 mls/min IV BID17 [facility] Stop: 10/10/20 10:32 Last Admin: 09/13/20 09:20 Dose: 4 mls/min Documented by: Levothyroxine Sodium (Levothyroxine Sodium 25 Mcg Tablet) 25 mcg PO DAILYBB ON [facility] OF [facility] Stop: 10/01/20 06:29 Last Admin: 09/13/20 05:32 Dose: 25 mcg Documented by: Multivitamins (Multivitamin Tab) 1 tab PO DAILY [facility] Stop: 10/01/20 08:59 Last Admin: 09/13/20 09:20 Dose: 1 tab Documented by: Pantoprazole Sodium (Pantoprazole 40 Mg Tab) 40 mg PO HS ON LICENSE OF [facility]; Protocol Stop: 09/30/20 20:59 Last Admin: 09/12/20 21:25 Dose: 40 mg Documented by: Polyethylene Glycol (Polyethylene (Miralax) 17 Gm Pack) 17 gm PO DAILY PRN PRN Reason: Constipation Stop: 10/04/20 20:11 Prednisone (Prednisone 5 Mg Tab) 5 mg PO DAILY [facility] Stop: 10/01/20 08:59 Last Admin: 09/08/20 08:40 Dose: 5 mg Documented by: Prednisone (Prednisone 1 Mg Tab) 2 mg PO DAILY [facility] Stop: 10/01/20 08:59 Last Admin: 09/08/20 08:40 Dose: 2 mg Documented by: Prednisone (Prednisone 10 Mg Tablet) 10 mg PO DAILY [facility] Stop: 10/13/20 08:59 Last Admin: 09/13/20 09:19 Dose: 10 mg Documented by: Thiamine HCl (Thiamine Hcl 100 Mg Tab) 100 mg PO QAM ON [facility] Stop: 10/01/20 08:59 Last Admin: 09/13/20 09:20 Dose: 100 mg Documented by: Tramadol HCl (Tramadol Hcl 50 Mg Tablet) 50 mg PO Q8H PRN PRN Reason: Pain Stop: 09/30/20 17:22 Last Admin: 09/06/20 16:53 Dose: 50 mg Documented by: Warfarin Sodium (Warfarin Sod 2 Mg Tab) 2 mg PO DAILY@1600 ON [facility] Stop: 10/06/20 15:59 Last Admin: 09/11/20 16:43 Dose: 2 mg Documented by: (1) Pneumonia Laterality: bilateral Lung location: lower lobe of lung Pneumonia type: due to unspecified organism Qualified Code(s): J18.9 - Pneumonia, unspecified organism
[2020-09-13] MEDS: PANTOprazole 40 MG TAB PO SCH (21:07)
[2020-09-14] MEDS: LEVOTHYROXINE SODIUM 25 MCG TABLET PO SCH (05:51)
[2020-09-14 06:08] LABS: Hematocrit (blood only) 29.1 % (37-47); Hemoglobin 9.3 g/dL (12.0-16.0); Mean Corpuscular Hemoglobin 30.7 pg (25-34); Mean Platelet Volume 9.7 fL (7.4-10.4); Nucleated RBC # (auto) 0.02 K/uL (0-0); Nucleated RBC % (auto) 0.3 %; Platelet Count 208 K/uL (130-400); RDW Coefficient of Variation 15.7 % (11.5-14.5); RDW Standard Deviation 54.1 fL (36.4-46.3); Red Blood Count 3.03 M/uL (4.2-5.4); White Blood Count 4.94 K/uL (4.8-10.8)
[2020-09-14 06:21] LABS: INR 2.6 (0.9-1.1); Prothrombin Time 25.7 Seconds (9.0-12.0)
[2020-09-14 06:34] LABS: BUN Creatinine Ratio 14.9 (10-20); Calcium 8.1 mg/dl (8.5-10.1); Creatinine Clr Calc Pharmacy 7.4 ml/min; Est GFR (African American) 9.7; Est GFR (Non-African American) 8.4; Potassium 4.2 mmol/L (3.5-5.1)
[2020-09-14] MEDS: FUROSEMIDE 40 MG in SYRINGE 0 ML IV SCH ×2 (07:17→16:54)
[2020-09-14] MEDS: FOLIC ACID 1 MG TAB PO SCH (07:18)
[2020-09-14] MEDS: dilTIAZem HCL 240 MG CAPCR PO SCH (07:18)
[2020-09-14] MEDS: FAMOTIDINE 20 MG TAB PO SCH (07:18)
[2020-09-14] MEDS: THIAMINE HCL 100 MG TAB PO SCH (07:18)
[2020-09-14] MEDS: ASCORBIC ACID 500 MG TAB PO SCH ×3 (07:18→20:13)
[2020-09-14] MEDS: carvediloL 6.25 MG TAB PO SCH ×2 (07:18→16:54)
[2020-09-14] MEDS: MULTIVITAMIN TAB PO SCH (07:18)
[2020-09-14] MEDS: predniSONE 10 MG TABLET PO SCH (07:18)
[2020-09-14] MEDS: ASPIRIN 81 MG ECTAB PO SCH (07:18)
--- NOTE | 2020-09-14 08:49 | Hospitalist Progress Note ---
Date of Service September 14, 2020 Assessment & Plan (1) Pneumonia: (2) History of COVID-19: (3) Chronic respiratory failure with hypoxia: Present to the ER with SOB and weakness Patient presenting from home with reports of shortness of breath, generalized weakness, collapse Tested positive for COVID-19 on 08/13 at [facility] [place] and was treated with dexamethasone. CXR on admission showed bibasilar opacities suggestive of pneumonia Likely superimposed bacterial pneumonia after COVID-19 infection. No treatment for COVID-19 since pt was tested positive about 18 days ago. Completed course of IV ceftriaxone and IV azithromycin Blood cx no growth Continue oxygen supplement, chest PT BID and Hypertonic saline neb BID to do with the chest PT Continue monitor closely (4) Acute kidney injury superimposed on chronic kidney disease: (5) CKD (chronic kidney disease) stage 4, GFR 15-29 ml/min: Previous baseline creatinine ran in the high 1s however with recent hospitalization new baseline seems to be the mid to high 2s Creatinine increased despite lasix was held for 3 days Nephrology on board case discussed with nephrology that recommended to continue IV lasix since the etiology is mostly ATN Worsening BUN 105 and creatinine 5.2 Nephrology discussed with patient about HD and pt agreed to proceed with dialysis. Daughter was notified Vascular surgery was consulted for dialysis access, pt now s/p per cath placement w/ Dr. Bernstein (09/11/20) Pt s/p 1st HD treatment 09/12/20, tolerated well Continue monitor BMP (6) Acute on chronic systolic CHF (congestive heart failure): CXR on admission showed persistent small to moderate bilateral pleural effusions with bibasilar opacities which may reflect pneumonia or atelectasis. Elevated ProBNP 68179 Most recent echo on 08/12 showed EF 30%, moderate aortic stenosis, mild mitral regurgitation, moderate to severe tricuspid regurgitation Repeat CXR showed cardiomegaly, small pleural effusions, and progressive multifocal airspace opacities Continued Lasix 40mg IV BID Started HD 09/12/20 (7) Aortic stenosis: Continue beta-randell stable (8) Collapse: (9) Elevated troponin: Troponin 0.067 on admission, then trending down to 0.05 Mostly demand ischemia due to respiratory failure Continue Cavedilol, aspirin Stable (10) Abnormal urinalysis: (11) Hematuria: Reports of hematuria in the setting of supratherapeutic INR Continued IV ceftriaxone Hgb 9.3 stable Urology on board no need for any further acute work-up or intervention If her catheter were clogged, flush it as needed Follow-up as an outpatientno further inpatient evaluation required from a urological standpoint (12) Polymyalgia rheumatica: Continue chronic prednisone (13) Atrial fibrillation: Rate controlled on Carvedilol, will continue Anticoagulated on Coumadin INR supratherapeutic, will hold warfarin will repeat PT/INR (14) DVT prophylaxis: On Coumadin Disposition Daughter Kristyn can be updated at ([phone]) updated over the phone 09/13 - She is inquiring about possibly visiting her mother in the hospital (permission to visit was granted) Admission and Anticipated Discharge Date Admission Date: August 31, 2020 Subjective Pt was seen and examined for follow up of respiratory distress and BEVERLEY Lying in bed in no distress, she s/p per cath placement, and currently undergoing HD treatment She continues to require oxygen supplement Denies any chest pain, palpitation, dizziness or fever Informed pt that her daughter will be visiting (permission granted) Review of Systems Review of Systems: All systems reviewed & are unremarkable except as noted in HPI & below ROS per HPI, all other systems reviewed and negative Constitutional: + fatigue; no fever and no chills Respiratory: + cough (much improved) and + dyspnea (much improved) Cardiovascular: no chest pain and no palpitations Gastrointestinal: no abdominal pain, no nausea and no vomiting Physical Exam Physical Exam: General- thin elderly female, No acute distress, on HD Head- atraumatic Eyes- PERRL, EOMI, ENT- oropharynx clear Neck- supple, no JVD Chest - R upper chest perm cath Lungs- +diminished BS Heart- regular rhythm; no murmur Abdomen- normal bowel sounds, soft, nontender Extremities- no calf tenderness Neuro- alert, oriented x 3; PERRL, EOMI; no facial palsy; no dysarthria, moves extremities Skin- warm & dry Results & Data Results & Data ([facility]) Vital Signs (Past 12 Hours) Vital Signs Temp Pulse Pulse Pulse Resp BP BP 09/14/20 07:36 36.4 C L 105 H 16 145/79 H 09/14/20 04:00 36.5 C 82 18 135/75 09/13/20 23:00 36.4 C L 81 18 109/66 09/13/20 22:20 102 H Pulse Ox 09/14/20 07:36 94 09/14/20 04:00 94 09/13/20 23:00 95 09/13/20 22:20 Laboratory Results 09/14/20 09/14/20 09/14/20 Range/Units 05:45 05:45 05:45 WBC 4.94 (4.8-10.8) K/uL RBC 3.03 L (4.2-5.4) M/uL Hgb 9.3 L (12.0-16.0) g/dL Hct 29.1 L (37-47) % MCV 96.0 (80-100) fL MCH 30.7 (25-34) pg MCHC 32.0 (32-36) g/dL RDW Std Deviation 54.1 H (36.4-46.3) fL RDW Coeff of Caitlin 15.7 H (11.5-14.5) % Plt Count 208 (130-400) K/uL MPV 9.7 (7.4-10.4) fL Absolute Nucleated RBC 0.02 H (0-0) K/uL Nucleated RBC % (auto) 0.3 % PT (9.0-12.0) Seconds INR (0.9-1.1) Sodium 138 (136-145) mmol/L Potassium 4.2 (3.5-5.1) mmol/L Chloride 105 (98-107) mmol/L Carbon Dioxide 24 (21-32) mmol/L Anion Gap 9.0 (3-11) BUN 67 H (7-18) mg/dl Creatinine 4.49 H D (0.6-1.2) mg/dl Est Cr Clr Drug Dosing 7.4 ml/min Est GFR ( Amer) 9.7 Est GFR (Non-Af Amer) 8.4 BUN/Creatinine Ratio 14.9 (10-20) Glucose 81 (70-99) mg/dl Calcium 8.1 L (8.5-10.1) mg/dl Procalcitonin 0.15 (0-0.5) ng/ml 09/14/20 Range/Units 05:45 WBC (4.8-10.8) K/uL RBC (4.2-5.4) M/uL Hgb (12.0-16.0) g/dL Hct (37-47) % MCV (80-100) fL MCH (25-34) pg MCHC (32-36) g/dL RDW Std Deviation (36.4-46.3) fL RDW Coeff of Caitlin (11.5-14.5) % Plt Count (130-400) K/uL MPV (7.4-10.4) fL Absolute Nucleated RBC (0-0) K/uL Nucleated RBC % (auto) % PT 25.7 H (9.0-12.0) Seconds INR 2.6 H (0.9-1.1) Sodium (136-145) mmol/L Potassium (3.5-5.1) mmol/L Chloride (98-107) mmol/L Carbon Dioxide (21-32) mmol/L Anion Gap (3-11) BUN (7-18) mg/dl Creatinine (0.6-1.2) mg/dl Est Cr Clr Drug Dosing ml/min Est GFR ( Amer) Est GFR (Non-Af Amer) BUN/Creatinine Ratio (10-20) Glucose (70-99) mg/dl Calcium (8.5-10.1) mg/dl Procalcitonin (0-0.5) ng/ml Medications Administered Current Inpatient Medications Acetaminophen (Acetaminophen 325 Mg Tab) 650 mg PO Q4H PRN PRN Reason: pain/fever Stop: 09/30/20 17:22 Albuterol (Albut/Ipratrop 3mg/0.5mg Neb 3 Ml Vial) 3 ml NEB Q4R PRN PRN Reason: Shortness Of Breath Or Wheezing Stop: 10/05/20 10:04 Last Admin: 09/06/20 00:41 Dose: 3 ml Documented by: Ascorbic Acid (Ascorbic Acid 500 Mg Tab) 500 mg PO TID [facility] Stop: 09/30/20 17:22 Last Admin: 09/14/20 07:18 Dose: 500 mg Documented by: Aspirin (Aspirin 81 Mg Ectab) 81 mg PO DAILY [facility] Stop: 10/01/20 08:59 Last Admin: 09/14/20 07:18 Dose: 81 mg Documented by: Carvedilol (Carvedilol 6.25 Mg Tab) 6.25 mg PO BIDM [facility] Stop: 09/30/20 17:22 Last Admin: 09/14/20 07:18 Dose: 6.25 mg Documented by: Diltiazem HCl (Diltiazem Hcl 240 Mg Capcr) 240 mg PO DAILY [facility] Stop: 10/01/20 08:59 Last Admin: 09/14/20 07:18 Dose: 240 mg Documented by: Famotidine (Famotidine 20 Mg Tab) 20 mg PO DAILY [facility] Stop: 10/01/20 08:59 Last Admin: 09/14/20 07:18 Dose: 20 mg Documented by: Folic Acid (Folic Acid 1 Mg Tab) 1 mg PO QAM [facility] Stop: 10/01/20 08:59 Last Admin: 09/14/20 07:18 Dose: 1 mg Documented by: Furosemide 30 mg/ Syringe 3 mls @ 4 mls/min IV BID [facility] Stop: 10/06/20 01:14 Last Admin: 09/06/20 20:07 Dose: 4 mls/min Documented by: Furosemide 40 mg/ Syringe 4 mls @ 4 mls/min IV BID17 [facility] Stop: 10/10/20 10:32 Last Admin: 09/14/20 07:17 Dose: 4 mls/min Documented by: Levothyroxine Sodium (Levothyroxine Sodium 25 Mcg Tablet) 25 mcg PO DAILYBB [facility] Stop: 10/01/20 06:29 Last Admin: 09/14/20 05:51 Dose: 25 mcg Documented by: Multivitamins (Multivitamin Tab) 1 tab PO DAILY [facility] Stop: 10/01/20 08:59 Last Admin: 09/14/20 07:18 Dose: 1 tab Documented by: Pantoprazole Sodium (Pantoprazole 40 Mg Tab) 40 mg PO [facility]; Protocol Stop: 09/30/20 20:59 Last Admin: 09/13/20 21:07 Dose: 40 mg Documented by: Polyethylene Glycol (Polyethylene (Miralax) 17 Gm Pack) 17 gm PO DAILY PRN PRN Reason: Constipation Stop: 10/04/20 20:11 Prednisone (Prednisone 5 Mg Tab) 5 mg PO DAILY [facility] Stop: 10/01/20 08:59 Last Admin: 09/08/20 08:40 Dose: 5 mg Documented by: Prednisone (Prednisone 1 Mg Tab) 2 mg PO DAILY [facility] Stop: 10/01/20 08:59 Last Admin: 09/08/20 08:40 Dose: 2 mg Documented by: Prednisone (Prednisone 10 Mg Tablet) 10 mg PO DAILY [facility] Stop: 10/13/20 08:59 Last Admin: 09/14/20 07:18 Dose: 10 mg Documented by: Thiamine HCl (Thiamine Hcl 100 Mg Tab) 100 mg PO QAM [facility] Stop: 10/01/20 08:59 Last Admin: 09/14/20 07:18 Dose: 100 mg Documented by: Tramadol HCl (Tramadol Hcl 50 Mg Tablet) 50 mg PO Q8H PRN PRN Reason: Pain Stop: 09/30/20 17:22 Last Admin: 09/06/20 16:53 Dose: 50 mg Documented by: Warfarin Sodium (Warfarin Sod 2 Mg Tab) 2 mg PO DAILY@1600 [facility] Stop: 10/06/20 15:59 Last Admin: 09/11/20 16:43 Dose: 2 mg Documented by: (1) Pneumonia Laterality: bilateral Lung location: lower lobe of lung Pneumonia type: due to unspecified organism Qualified Code(s): J18.9 - Pneumonia, unspecified organism
--- NOTE | 2020-09-14 10:51 | Progress Notes ---
DATE: 09/14/2020 SUBJECTIVE: Overnight, no new issues. She appears to be quite comfortable and pleasant. She did have her breakfast and she is trying to eat more food. First dialysis went without any problem. She is due for dialysis later today. OBJECTIVE: VITAL SIGNS: Blood pressure is 145/79, pulse rate 105, temperature 36.4, 94% on 3 liter nasal cannula. HEENT: Mucous membranes moist. NECK: Supple. No jugular venous distention. CHEST: Bilateral decreased breath sounds, occasional crackles at the bases. CARDIOVASCULAR: S1, S2, tachycardic, soft systolic murmur heard. ABDOMEN: Soft, nontender. EXTREMITIES: Shows no edema. Catheter site appears clean and dry. LABORATORY TESTS: From this morning shows creatinine did go up from 3.77 yesterday to 4.49 today. Sodium 138, potassium 4.2, bicarbonate 24. Hemoglobin is 9.3. ASSESSMENT AND PLAN: An 84-year-old female with very extensive medical problems as an outpatient including chronic kidney disease stage IV to stage V, now with acute renal failure secondary to acute tubular necrosis in the setting of COVID-19 infection requiring dialysis support. Acute renal failure. Even though this is acute, I have very little hope that she will recover because even prior to COVID-19 infection, her GFR was close to 15 with very extensive list of medical problem. Dialysis today for 3 hours. No fluid off. No medication. Arrangement is being made for discharge to [facility] with dialysis at [facility] unit. Necessary paperwork is being done by the appropriate places. She will not need dialysis this week end, next dialysis will be Thursday either as an inpatient or as an outpatient.
[2020-09-14] MEDS: PANTOprazole 40 MG TAB PO SCH (20:13)
[2020-09-15] MEDS: LEVOTHYROXINE SODIUM 25 MCG TABLET PO SCH (05:38)
[2020-09-15 05:57] LABS: INR 1.8 (0.9-1.1); Prothrombin Time 18.8 Seconds (9.0-12.0)
[2020-09-15 06:15] LABS: BUN Creatinine Ratio 12.1 (10-20); Calcium 7.8 mg/dl (8.5-10.1); Creatinine Clr Calc Pharmacy 10.8 ml/min; Est GFR (African American) 15.4; Est GFR (Non-African American) 13.3; Potassium 4.2 mmol/L (3.5-5.1)
[2020-09-15] MEDS: FAMOTIDINE 20 MG TAB PO SCH (07:25)
[2020-09-15] MEDS: ASCORBIC ACID 500 MG TAB PO SCH ×3 (07:26→20:23)
[2020-09-15] MEDS: MULTIVITAMIN TAB PO SCH (07:26)
[2020-09-15] MEDS: dilTIAZem HCL 240 MG CAPCR PO SCH (07:26)
[2020-09-15] MEDS: THIAMINE HCL 100 MG TAB PO SCH (07:26)
[2020-09-15] MEDS: carvediloL 6.25 MG TAB PO SCH ×2 (07:26→16:40)
[2020-09-15] MEDS: predniSONE 10 MG TABLET PO SCH (07:27)
[2020-09-15] MEDS: ASPIRIN 81 MG ECTAB PO SCH (07:27)
[2020-09-15] MEDS: FOLIC ACID 1 MG TAB PO SCH (07:27)
[2020-09-15] MEDS: FUROSEMIDE 40 MG in SYRINGE 0 ML IV SCH ×2 (10:50→17:17)
[2020-09-15] MEDS: ALBUMIN 25% 12.5 GM/50 ML VIAL IV SCH ×2 (11:29→12:35)
--- NOTE | 2020-09-15 12:10 | Hospitalist Progress Note ---
Date of Service September 15, 2020 Assessment & Plan (1) Pneumonia: (2) History of COVID-19: (3) Chronic respiratory failure with hypoxia: Present to the ER with SOB and weakness Patient presenting from home with reports of shortness of breath, generalized weakness, collapse [place] [facility] [place] with [place]. CXR on admission showed bibasilar opacities suggestive of pneumonia Likely superimposed bacterial pneumonia after COVID-19 infection. No treatment for COVID-19 since pt was tested positive about 18 days ago. Completed course of IV ceftriaxone and IV azithromycin Blood cx no growth Continue oxygen supplement, chest PT BID and Hypertonic saline neb BID to do with the chest PT Continue monitor closely (4) Acute kidney injury superimposed on chronic kidney disease: (5) CKD (chronic kidney disease) stage 4, GFR 15-29 ml/min: Previous baseline creatinine ran in the high 1s however with recent hospitalization new baseline seems to be the mid to high 2s Creatinine increased despite lasix was held for 3 days Nephrology on board case discussed with nephrology that recommended to continue IV lasix since the etiology is mostly ATN Worsening BUN 105 and creatinine 5.2 Nephrology discussed with patient about HD and pt agreed to proceed with dialysis. Daughter was notified Vascular surgery was consulted for dialysis access, pt now s/p per cath placement w/ Dr. Bernstein (09/11/20) Pt s/p 1st HD treatment 09/12/20, tolerated well Pt will need to be set up with outpt HD Continue monitor BMP (6) Acute on chronic systolic CHF (congestive heart failure): CXR on admission showed persistent small to moderate bilateral pleural effusions with bibasilar opacities which may reflect pneumonia or atelectasis. Elevated ProBNP 91742 Most recent echo on 08/12 showed EF 30%, moderate aortic stenosis, mild mitral regurgitation, moderate to severe tricuspid regurgitation Repeat CXR showed cardiomegaly, small pleural effusions, and progressive multifocal airspace opacities Continued Lasix 40mg IV BID Started HD 09/12/20 (7) Aortic stenosis: Continue beta-randell stable (8) Collapse: (9) Elevated troponin: Troponin 0.067 on admission, then trending down to 0.05 Mostly demand ischemia due to respiratory failure Continue Cavedilol, aspirin Stable (10) Abnormal urinalysis: (11) Hematuria: Reports of hematuria in the setting of supratherapeutic INR Continued IV ceftriaxone Hgb 9.3 stable Urology on board no need for any further acute work-up or intervention If her catheter were clogged, flush it as needed Follow-up as an outpatientno further inpatient evaluation required from a urological standpoint (12) Polymyalgia rheumatica: Continue chronic prednisone (13) Atrial fibrillation: Rate controlled on Carvedilol, will continue Anticoagulated on Coumadin INR supratherapeutic, held warfarin, will resume now (09/15) will repeat PT/INR (14) DVT prophylaxis: On Coumadin Disposition Daughter Kristyn can be updated at ([phone]) updated over the phone 09/13 - She was able to visit her mother in the hospital (permission to visit was granted) Admission and Anticipated Discharge Date Admission Date: August 31, 2020 Subjective Pt was seen and examined for follow up of respiratory distress and BEVERLEY on CKD Lying in bed in no distress She continues to require oxygen supplement Denies any chest pain, palpitation, dizziness or fever Daughter was able to visit (permission granted), pt thrilled about able to see her daughter Review of Systems Review of Systems: All systems reviewed & are unremarkable except as noted in HPI & below ROS per HPI, all other systems reviewed and negative Constitutional: + fatigue; no fever and no chills Respiratory: + cough (much improved) and + dyspnea (much improved) Cardiovascular: no chest pain and no palpitations Gastrointestinal: no abdominal pain, no nausea and no vomiting Physical Exam Physical Exam: General- thin elderly female, No acute distress, on HD Head- atraumatic Eyes- PERRL, EOMI, ENT- oropharynx clear Neck- supple, no JVD Chest - R upper chest perm cath Lungs- +diminished BS, no wheezing Heart- regular rhythm; no murmur Abdomen- normal bowel sounds, soft, nontender Extremities- no calf tenderness Neuro- alert, oriented x 3; PERRL, EOMI; no facial palsy; no dysarthria, moves extremities Skin- warm & dry Results & Data Results & Data ([facility]) Vital Signs (Past 12 Hours) Vital Signs Temp Pulse Pulse Pulse Resp BP BP 09/15/20 11:06 36.5 C 103 H 20 96/62 L 09/15/20 10:15 86 18 96/60 L 09/15/20 09:00 90 09/15/20 07:46 36.5 C 88 16 106/63 09/15/20 03:00 36.5 C 81 22 101/67 09/15/20 01:10 90 Pulse Ox 09/15/20 11:06 94 09/15/20 10:15 95 09/15/20 09:00 09/15/20 07:46 94 09/15/20 03:00 92 09/15/20 01:10 Laboratory Results 09/15/20 09/15/20 Range/Units 05:24 05:24 PT 18.8 H (9.0-12.0) Seconds INR 1.8 H (0.9-1.1) Sodium 141 (136-145) mmol/L Potassium 4.2 (3.5-5.1) mmol/L Chloride 107 (98-107) mmol/L Carbon Dioxide 29 (21-32) mmol/L Anion Gap 5.0 (3-11) BUN 37 H (7-18) mg/dl Creatinine 3.08 H D (0.6-1.2) mg/dl Est Cr Clr Drug Dosing 10.8 ml/min Est GFR ( Amer) 15.4 Est GFR (Non-Af Amer) 13.3 BUN/Creatinine Ratio 12.1 (10-20) Glucose 81 (70-99) mg/dl Calcium 7.8 L (8.5-10.1) mg/dl Phosphorus 4.0 (2.5-4.9) mg/dl Magnesium 2.0 (1.8-2.4) mg/dl Specimen Hemolysis Medications Administered Current Inpatient Medications Acetaminophen (Acetaminophen 325 Mg Tab) 650 mg PO Q4H PRN PRN Reason: pain/fever Stop: 09/30/20 17:22 Albuterol (Albut/Ipratrop 3mg/0.5mg Neb 3 Ml Vial) 3 ml NEB Q4R PRN PRN Reason: Shortness Of Breath Or Wheezing Stop: 10/05/20 10:04 Last Admin: 09/06/20 00:41 Dose: 3 ml Documented by: Ascorbic Acid (Ascorbic Acid 500 Mg Tab) 500 mg PO TID [facility] Stop: 09/30/20 17:22 Last Admin: 09/15/20 07:26 Dose: 500 mg Documented by: Aspirin (Aspirin 81 Mg Ectab) 81 mg PO DAILY [facility] Stop: 10/01/20 08:59 Last Admin: 09/15/20 07:27 Dose: 81 mg Documented by: Carvedilol (Carvedilol 6.25 Mg Tab) 6.25 mg PO BIDM [facility] Stop: 09/30/20 17:22 Last Admin: 09/15/20 07:26 Dose: 6.25 mg Documented by: Diltiazem HCl (Diltiazem Hcl 240 Mg Capcr) 240 mg PO DAILY [facility] Stop: 10/01/20 08:59 Last Admin: 09/15/20 07:26 Dose: 240 mg Documented by: Famotidine (Famotidine 20 Mg Tab) 20 mg PO DAILY [facility] Stop: 10/01/20 08:59 Last Admin: 09/15/20 07:25 Dose: 20 mg Documented by: Folic Acid (Folic Acid 1 Mg Tab) 1 mg PO QAM [facility] Stop: 10/01/20 08:59 Last Admin: 09/15/20 07:27 Dose: 1 mg Documented by: Furosemide 30 mg/ Syringe 3 mls @ 4 mls/min IV BID [facility] Stop: 10/06/20 01:14 Last Admin: 09/06/20 20:07 Dose: 4 mls/min Documented by: Furosemide 40 mg/ Syringe 4 mls @ 4 mls/min IV BID17 [facility] Stop: 10/10/20 10:32 Last Admin: 09/15/20 10:50 Dose: Not Given Documented by: Albumin Human (Albumin 25%) 12.5 gm in 50 mls @ 50 mls/hr IV Q1H [facility] Stop: 09/15/20 13:29 Last Admin: 09/15/20 11:29 Dose: 50 mls/hr Documented by: Levothyroxine Sodium (Levothyroxine Sodium 25 Mcg Tablet) 25 mcg PO DAILYBB [facility] Stop: 10/01/20 06:29 Last Admin: 09/15/20 05:38 Dose: 25 mcg Documented by: Multivitamins (Multivitamin Tab) 1 tab PO DAILY [facility] Stop: 10/01/20 08:59 Last Admin: 09/15/20 07:26 Dose: 1 tab Documented by: Pantoprazole Sodium (Pantoprazole 40 Mg Tab) 40 mg PO HS [facility]; Protocol Stop: 09/30/20 20:59 Last Admin: 09/14/20 20:13 Dose: 40 mg Documented by: Polyethylene Glycol (Polyethylene (Miralax) 17 Gm Pack) 17 gm PO DAILY PRN PRN Reason: Constipation Stop: 10/04/20 20:11 Prednisone (Prednisone 5 Mg Tab) 5 mg PO DAILY [facility] Stop: 10/01/20 08:59 Last Admin: 09/08/20 08:40 Dose: 5 mg Documented by: Prednisone (Prednisone 1 Mg Tab) 2 mg PO DAILY [facility] Stop: 10/01/20 08:59 Last Admin: 09/08/20 08:40 Dose: 2 mg Documented by: Prednisone (Prednisone 10 Mg Tablet) 10 mg PO DAILY [facility] Stop: 10/13/20 08:59 Last Admin: 09/15/20 07:27 Dose: 10 mg Documented by: Thiamine HCl (Thiamine Hcl 100 Mg Tab) 100 mg PO QAM [facility] Stop: 10/01/20 08:59 Last Admin: 09/15/20 07:26 Dose: 100 mg Documented by: Tramadol HCl (Tramadol Hcl 50 Mg Tablet) 50 mg PO Q8H PRN PRN Reason: Pain Stop: 09/30/20 17:22 Last Admin: 09/06/20 16:53 Dose: 50 mg Documented by: Warfarin Sodium (Warfarin Sod 2 Mg Tab) 2 mg PO DAILY@1600 [facility] Stop: 10/06/20 15:59 Last Admin: 09/11/20 16:43 Dose: 2 mg Documented by: (1) Pneumonia Laterality: bilateral Lung location: lower lobe of lung Pneumonia type: due to unspecified organism Qualified Code(s): J18.9 - Pneumonia, unspecified organism
[2020-09-15] MEDS: WARFARIN SOD 2 MG TAB PO SCH (16:40)
[2020-09-15] MEDS: PANTOprazole 40 MG TAB PO SCH (20:23)
[2020-09-16] MEDS: LEVOTHYROXINE SODIUM 25 MCG TABLET PO SCH (05:58)
[2020-09-16 06:44] LABS: BUN Creatinine Ratio 13.1 (10-20); Calcium 8.3 mg/dl (8.5-10.1); Creatinine Clr Calc Pharmacy 8.2 ml/min; Est GFR (African American) 11.4; Est GFR (Non-African American) 9.8; Magnesium 1.9 mg/dl (1.8-2.4); Potassium 3.8 mmol/L (3.5-5.1)
[2020-09-16 06:49] LABS: Phosphorus 4.6 mg/dl (2.5-4.9)
[2020-09-16] MEDS: FUROSEMIDE 40 MG in SYRINGE 0 ML IV SCH ×2 (07:47→16:39)
[2020-09-16] MEDS: carvediloL 6.25 MG TAB PO SCH ×2 (07:48→16:38)
[2020-09-16] MEDS: ASPIRIN 81 MG ECTAB PO SCH (07:48)
[2020-09-16] MEDS: dilTIAZem HCL 240 MG CAPCR PO SCH (07:48)
[2020-09-16] MEDS: FOLIC ACID 1 MG TAB PO SCH (07:48)
[2020-09-16] MEDS: MULTIVITAMIN TAB PO SCH (07:49)
[2020-09-16] MEDS: predniSONE 10 MG TABLET PO SCH (07:49)
[2020-09-16] MEDS: FAMOTIDINE 20 MG TAB PO SCH (07:49)
[2020-09-16] MEDS: THIAMINE HCL 100 MG TAB PO SCH (07:49)
[2020-09-16] MEDS: ASCORBIC ACID 500 MG TAB PO SCH ×3 (07:49→20:36)
[2020-09-16] MEDS ORDERED: POTASSIUM CHLORIDE CRTAB 20 MEQ TABCR PO STA (09:46)
--- NOTE | 2020-09-16 11:08 | Hospitalist Progress Note ---
Date of Service September 16, 2020 Assessment & Plan (1) Pneumonia: (2) History of COVID-19: (3) Chronic respiratory failure with hypoxia: Present to the ER with SOB and weakness Patient presenting from home with reports of shortness of breath, generalized weakness, collapse Tested positive for COVID-19 on 08/13 at [facility] and was treated with dexamethasone. CXR on admission showed bibasilar opacities suggestive of pneumonia Likely superimposed bacterial pneumonia after COVID-19 infection. No treatment for COVID-19 since pt was tested positive about 18 days ago. Completed course of IV ceftriaxone and IV azithromycin Blood cx no growth Continue oxygen supplement, chest PT BID Continue monitor closely (4) Acute kidney injury superimposed on chronic kidney disease: (5) CKD (chronic kidney disease) stage 4, GFR 15-29 ml/min: Previous baseline creatinine ran in the high 1s however with recent hospitalization new baseline seems to be the mid to high 2s Creatinine increased despite lasix was held for 3 days Nephrology on board case discussed with nephrology that recommended to continue IV lasix since the etiology is mostly ATN Worsening BUN 105 and creatinine 5.2 Nephrology discussed with patient about HD and pt agreed to proceed with dialysis. Daughter was notified Vascular surgery was consulted for dialysis access, pt now s/p per cath placement w/ Dr. Bernstein (09/11/20) Pt s/p 1st HD treatment 09/12/20, tolerated well Pt will need to be set up with outpt HD Continue monitor BMP (6) Acute on chronic systolic CHF (congestive heart failure): CXR on admission showed persistent small to moderate bilateral pleural effusions with bibasilar opacities which may reflect pneumonia or atelectasis. Elevated ProBNP 53094 Most recent echo on 08/12 showed EF 30%, moderate aortic stenosis, mild mitral regurgitation, moderate to severe tricuspid regurgitation Repeat CXR showed cardiomegaly, small pleural effusions, and progressive multifocal airspace opacities Continued Lasix 40mg IV BID Started HD 09/12/20 (7) Aortic stenosis: Continue beta-randell stable (8) Collapse: (9) Elevated troponin: Troponin 0.067 on admission, then trending down to 0.05 Mostly demand ischemia due to respiratory failure Continue Cavedilol, aspirin Stable (10) Abnormal urinalysis: (11) Hematuria: Reports of hematuria in the setting of supratherapeutic INR Continued IV ceftriaxone Hgb 9.3 stable Urology on board no need for any further acute work-up or intervention If her catheter were clogged, flush it as needed Follow-up as an outpatientno further inpatient evaluation required from a urological standpoint (12) Polymyalgia rheumatica: Continue chronic prednisone (13) Atrial fibrillation: Rate controlled on Carvedilol, will continue Anticoagulated on Coumadin INR supratherapeutic, held warfarin, now resumed (09/15) will repeat PT/INR (14) DVT prophylaxis: On Coumadin Disposition Daughter Kristyn can be updated at ([phone]) updated over the phone 09/13 - She was able to visit her mother in the hospital (permission to visit was granted) Admission and Anticipated Discharge Date Admission Date: August 31, 2020 Subjective Pt was seen and examined for follow up of respiratory distress and BEVERLEY on CKD Lying in bed in no distress She continues to require oxygen supplement Denies any chest pain, palpitation, dizziness or fever Daughter was able to visit (permission granted), pt thrilled about being able to see her daughter Review of Systems Review of Systems: All systems reviewed & are unremarkable except as noted in HPI & below ROS per HPI, all other systems reviewed and negative Constitutional: + fatigue; no fever and no chills Respiratory: + cough (much improved) and + dyspnea (much improved) Cardiovascular: no chest pain and no palpitations Gastrointestinal: no abdominal pain, no nausea and no vomiting Physical Exam Physical Exam: General- thin elderly female, No acute distress Head- atraumatic Eyes- PERRL, EOMI, ENT- oropharynx clear Neck- supple, no JVD Chest - R upper chest perm cath Lungs- +diminished BS, no wheezing, coughs w/ deep inspiration Heart- regular rhythm; no murmur Abdomen- normal bowel sounds, soft, nontender Sanchez - light yellow urine and sediment noted Extremities- no calf tenderness Neuro- alert, oriented x 3; PERRL, EOMI; no facial palsy; no dysarthria, moves extremities Skin- warm & dry Results & Data Results & Data ([facility]) Vital Signs (Past 12 Hours) Vital Signs Temp Pulse Pulse Resp BP Pulse Ox 09/16/20 10:19 95 09/16/20 08:00 89 09/16/20 07:38 36.4 C L 97 H 16 115/64 90 09/16/20 04:00 36.3 C L 98 H 16 107/67 94 09/16/20 00:06 109 H 09/15/20 23:50 36.5 C 104 H 20 101/60 94 Laboratory Results 09/16/20 Range/Units 05:41 Sodium 138 (136-145) mmol/L Potassium 3.8 (3.5-5.1) mmol/L Chloride 103 (98-107) mmol/L Carbon Dioxide 25 (21-32) mmol/L Anion Gap 10.0 (3-11) BUN 52 H (7-18) mg/dl Creatinine 3.95 H D (0.6-1.2) mg/dl Est Cr Clr Drug Dosing 8.2 ml/min Est GFR ( Amer) 11.4 Est GFR (Non-Af Amer) 9.8 BUN/Creatinine Ratio 13.1 (10-20) Glucose 86 (70-99) mg/dl Calcium 8.3 L (8.5-10.1) mg/dl Phosphorus 4.6 (2.5-4.9) mg/dl Magnesium 1.9 (1.8-2.4) mg/dl Medications Administered Current Inpatient Medications Acetaminophen (Acetaminophen 325 Mg Tab) 650 mg PO Q4H PRN PRN Reason: pain/fever Stop: 09/30/20 17:22 Albuterol (Albut/Ipratrop 3mg/0.5mg Neb 3 Ml Vial) 3 ml NEB Q4R PRN PRN Reason: Shortness Of Breath Or Wheezing Stop: 10/05/20 10:04 Last Admin: 09/06/20 00:41 Dose: 3 ml Documented by: Ascorbic Acid (Ascorbic Acid 500 Mg Tab) 500 mg PO TID [facility] Stop: 09/30/20 17:22 Last Admin: 09/16/20 07:49 Dose: 500 mg Documented by: Aspirin (Aspirin 81 Mg Ectab) 81 mg PO DAILY [facility] Stop: 10/01/20 08:59 Last Admin: 09/16/20 07:48 Dose: 81 mg Documented by: Carvedilol (Carvedilol 6.25 Mg Tab) 6.25 mg PO BIDM [facility] Stop: 09/30/20 17:22 Last Admin: 09/16/20 07:48 Dose: 6.25 mg Documented by: Diltiazem HCl (Diltiazem Hcl 240 Mg Capcr) 240 mg PO DAILY [facility] Stop: 10/01/20 08:59 Last Admin: 09/16/20 07:48 Dose: 240 mg Documented by: Famotidine (Famotidine 20 Mg Tab) 20 mg PO DAILY [facility] Stop: 10/01/20 08:59 Last Admin: 09/16/20 07:49 Dose: 20 mg Documented by: Folic Acid (Folic Acid 1 Mg Tab) 1 mg PO QAM [facility] Stop: 10/01/20 08:59 Last Admin: 09/16/20 07:48 Dose: 1 mg Documented by: Furosemide 30 mg/ Syringe 3 mls @ 4 mls/min IV BID [facility] Stop: 10/06/20 01:14 Last Admin: 09/06/20 20:07 Dose: 4 mls/min Documented by: Furosemide 40 mg/ Syringe 4 mls @ 4 mls/min IV BID17 [facility] Stop: 10/10/20 10:32 Last Admin: 09/16/20 07:47 Dose: 4 mls/min Documented by: Levothyroxine Sodium (Levothyroxine Sodium 25 Mcg Tablet) 25 mcg PO DAILYBB [facility] Stop: 10/01/20 06:29 Last Admin: 09/16/20 05:58 Dose: 25 mcg Documented by: Multivitamins (Multivitamin Tab) 1 tab PO DAILY [facility] Stop: 10/01/20 08:59 Last Admin: 09/16/20 07:49 Dose: 1 tab Documented by: Pantoprazole Sodium (Pantoprazole 40 Mg Tab) 40 mg PO [facility]; Protocol Stop: 09/30/20 20:59 Last Admin: 09/15/20 20:23 Dose: 40 mg Documented by: Polyethylene Glycol (Polyethylene (Miralax) 17 Gm Pack) 17 gm PO DAILY PRN PRN Reason: Constipation Stop: 10/04/20 20:11 Prednisone (Prednisone 5 Mg Tab) 5 mg PO DAILY [facility] Stop: 10/01/20 08:59 Last Admin: 09/08/20 08:40 Dose: 5 mg Documented by: Prednisone (Prednisone 1 Mg Tab) 2 mg PO DAILY [facility] Stop: 10/01/20 08:59 Last Admin: 09/08/20 08:40 Dose: 2 mg Documented by: Prednisone (Prednisone 10 Mg Tablet) 10 mg PO DAILY [facility] Stop: 10/13/20 08:59 Last Admin: 09/16/20 07:49 Dose: 10 mg Documented by: Thiamine HCl (Thiamine Hcl 100 Mg Tab) 100 mg PO QAM [facility] Stop: 10/01/20 08:59 Last Admin: 09/16/20 07:49 Dose: 100 mg Documented by: Tramadol HCl (Tramadol Hcl 50 Mg Tablet) 50 mg PO Q8H PRN PRN Reason: Pain Stop: 09/30/20 17:22 Last Admin: 09/06/20 16:53 Dose: 50 mg Documented by: Warfarin Sodium (Warfarin Sod 2 Mg Tab) 2 mg PO DAILY@1600 [facility] Stop: 10/06/20 15:59 Last Admin: 09/15/20 16:40 Dose: 2 mg Documented by: (1) Pneumonia Laterality: bilateral Lung location: lower lobe of lung Pneumonia type: due to unspecified organism Qualified Code(s): J18.9 - Pneumonia, unspecified organism
[2020-09-16] MEDS ORDERED: ALBUMIN 25% 12.5 GM/50 ML VIAL IV ONE (11:56)
[2020-09-16] MEDS: ALBUMIN 25% 12.5 GM/50 ML VIAL IV SCH ×2 (14:15→15:09)
[2020-09-16] MEDS: guaiFENesin 600 MG TABCR PO SCH ×2 (14:15→20:36)
[2020-09-16] MEDS: WARFARIN SOD 2 MG TAB PO SCH (16:33)
[2020-09-16] MEDS: PANTOprazole 40 MG TAB PO SCH (20:37)
[2020-09-16] MEDS ORDERED: guaiFENesin 600 MG TABCR PO SCH (21:00)
[2020-09-17] MEDS: LEVOTHYROXINE SODIUM 25 MCG TABLET PO SCH (05:44)
[2020-09-17] MEDS ORDERED: SODIUM CHLORIDE 0.9% 1000ML 1,000 ML IV PRN (07:51)
[2020-09-17] MEDS ORDERED: EPOETIN ALFA 4,000 UNIT/ML VIAL IV SCH (08:00)
[2020-09-17 08:05] LABS: INR 2.5 (0.9-1.1); Prothrombin Time 24.7 Seconds (9.0-12.0)
[2020-09-17 08:22] LABS: BUN Creatinine Ratio 12.6 (10-20); Calcium 8.2 mg/dl (8.5-10.1); Creatinine Clr Calc Pharmacy 6.6 ml/min; Est GFR (African American) 8.8; Est GFR (Non-African American) 7.6; Potassium 4.8 mmol/L (3.5-5.1)
[2020-09-17] MEDS: FUROSEMIDE 40 MG in SYRINGE 0 ML IV SCH (08:55)
[2020-09-17] MEDS: ASCORBIC ACID 500 MG TAB PO SCH ×3 (08:56→20:49)
[2020-09-17] MEDS: carvediloL 6.25 MG TAB PO SCH ×2 (08:56→16:21)
--- NOTE | 2020-09-17 10:09 | Progress Notes ---
DATE: 09/17/2020 SUBJECTIVE: The patient was seen during dialysis. So far, she is tolerating it very well. Blood pressure is acceptable. Dialysis catheter working fine. PHYSICAL EXAMINATION: VITAL SIGNS: Most recent vital signs are blood pressure 141/105, pulse rate 70, temperature 36.3 degrees Celsius, 91% on 3 liter nasal cannula. HEENT: Mucous membranes moist. NECK: Supple. Patient appears frail and cachectic. CHEST: Bilateral decreased breath sounds, occasional crackles. CARDIOVASCULAR: S1, S2 regular. ABDOMEN: Soft, nontender. EXTREMITIES: Shows no edema. LABORATORY TESTS: From this morning shows BUN 61, creatinine 4.89, sodium 137, potassium 4.8. ASSESSMENT AND PLAN: An 84-year-old female with very extensive medical problems as an outpatient including chronic kidney disease stage IV to stage V, now with acute renal failure secondary to acute tubular necrosis in the setting of COVID-19 infection requiring dialysis support. Acute renal failure. Even though this is acute, I have very little hope that she will recover because prior to COVID-19 infection, her GFR was close to 15 with very extensive list of medical problem. Dialysis today for 3 hours will take half kilo off. We will give her Procrit as well as heparin now that this is the third time of dialysis. Arrangement is being made for discharge to [facility] with dialysis at [facility] unit Thursday, Thursday, Thursday. She still makes a good bit of urine and at this point we can transition her to oral diuretics. I will write for torsemide 100 daily.
[2020-09-17] MEDS: FOLIC ACID 1 MG TAB PO SCH (13:22)
[2020-09-17] MEDS: predniSONE 10 MG TABLET PO SCH (13:22)
[2020-09-17] MEDS: ASPIRIN 81 MG ECTAB PO SCH (13:22)
[2020-09-17] MEDS: MULTIVITAMIN TAB PO SCH (13:23)
[2020-09-17] MEDS: THIAMINE HCL 100 MG TAB PO SCH (13:23)
[2020-09-17] MEDS: dilTIAZem HCL 240 MG CAPCR PO SCH (13:23)
[2020-09-17] MEDS: guaiFENesin 600 MG TABCR PO SCH ×2 (13:23→20:50)
[2020-09-17] MEDS: FAMOTIDINE 20 MG TAB PO SCH (13:24)
[2020-09-17] MEDS: WARFARIN SOD 2 MG TAB PO SCH (16:21)
--- NOTE | 2020-09-17 16:43 | Hospitalist Progress Note ---
Date of Service September 17, 2020 Assessment & Plan (1) Pneumonia: (2) History of COVID-19: (3) Chronic respiratory failure with hypoxia: Present to the ER with SOB and weakness Patient presenting from home with reports of shortness of breath, generalized weakness, collapse Tested positive for COVID-19 on 08/13 at [facility] [place] and was treated with dexamethasone. CXR on admission showed bibasilar opacities suggestive of pneumonia Likely superimposed bacterial pneumonia after COVID-19 infection. No treatment for COVID-19 since pt was tested positive about 18 days ago. Completed course of IV ceftriaxone and IV azithromycin Blood cx no growth Continue oxygen supplement, chest PT BID Continue monitor closely (4) Acute kidney injury superimposed on chronic kidney disease: (5) CKD (chronic kidney disease) stage 4, GFR 15-29 ml/min: Previous baseline creatinine ran in the high 1s however with recent hospitalization new baseline seems to be the mid to high 2s Creatinine increased despite lasix was held for 3 days Nephrology on board case discussed with nephrology that recommended to continue IV lasix since the etiology is mostly ATN Worsening BUN 105 and creatinine 5.2 Nephrology discussed with patient about HD and pt agreed to proceed with dialysis. Daughter was notified Vascular surgery was consulted for dialysis access, pt now s/p per cath placement w/ Dr. Bernstein (09/11/20) Pt s/p 1st HD treatment 09/12/20, tolerated well Pt will need to be set up with outpt HD Continue monitor BMP (6) Acute on chronic systolic CHF (congestive heart failure): CXR on admission showed persistent small to moderate bilateral pleural effusions with bibasilar opacities which may reflect pneumonia or atelectasis. Elevated ProBNP 32609 Most recent echo on 08/12 showed EF 30%, moderate aortic stenosis, mild mitral regurgitation, moderate to severe tricuspid regurgitation Repeat CXR showed cardiomegaly, small pleural effusions, and progressive multifocal airspace opacities Continued Lasix 40mg IV BID Started HD 09/12/20 (7) Aortic stenosis: Continue beta-randell stable (8) Collapse: (9) Elevated troponin: Troponin 0.067 on admission, then trending down to 0.05 Mostly demand ischemia due to respiratory failure Continue Cavedilol, aspirin Stable (10) Abnormal urinalysis: (11) Hematuria: Reports of hematuria in the setting of supratherapeutic INR Continued IV ceftriaxone Hgb 9.3 stable Urology on board no need for any further acute work-up or intervention If her catheter were clogged, flush it as needed Follow-up as an outpatientno further inpatient evaluation required from a urological standpoint (12) Polymyalgia rheumatica: Continue chronic prednisone (13) Atrial fibrillation: Rate controlled on Carvedilol, will continue Anticoagulated on Coumadin INR supratherapeutic, held warfarin, now resumed (09/15) will repeat PT/INR (14) DVT prophylaxis: On Coumadin Disposition Daughter Kristyn can be updated at ([phone]) updated over the phone 09/13 - She was able to visit her mother in the hospital (permission to visit was granted) Admission and Anticipated Discharge Date Admission Date: August 31, 2020 Subjective Pt was seen and examined for follow up of respiratory distress and BEVERLEY on CKD Lying in bed in no distress, currently on HD She continues to require oxygen supplement Denies any chest pain, palpitation, dizziness or fever Daughter was able to visit couple of days ago (permission granted), pt thrilled about being able to see her daughter Review of Systems Review of Systems: All systems reviewed & are unremarkable except as noted in HPI & below ROS per HPI, all other systems reviewed and negative Constitutional: + fatigue; no fever and no chills Respiratory: + cough (much improved) and + dyspnea (improved) Cardiovascular: no chest pain and no palpitations Gastrointestinal: no abdominal pain, no nausea and no vomiting Physical Exam Physical Exam: General - thin elderly female, No acute distress Head - atraumatic Eyes - PERRL, EOMI, ENT- oropharynx clear Neck - supple, no JVD Chest - R upper chest perm cath Lungs - + diminished BS, no wheezing, coughs w/ deep inspiration Heart - regular rhythm; no murmur Abdomen - normal bowel sounds, soft, nontender Sanchez - light yellow urine and sediment noted Extremities- no calf tenderness Neuro - alert, oriented x 3; PERRL, EOMI; no facial palsy; no dysarthria, moves extremities Skin- warm & dry Results & Data Results & Data ([facility]) Vital Signs (Past 12 Hours) Vital Signs Temp Pulse Pulse Pulse Resp BP BP 09/17/20 16:22 100 H 09/17/20 15:59 36.6 C 113 H 20 146/97 H 09/17/20 13:15 108 H 20 09/17/20 12:30 36.4 C L 108 H 108 H 133/78 133/78 09/17/20 12:20 96 H 155/72 H 09/17/20 12:00 66 121/71 09/17/20 11:40 107 H 120/83 09/17/20 11:20 76 132/55 L 09/17/20 11:00 63 122/86 09/17/20 10:40 80 130/86 09/17/20 10:20 103 H 117/83 09/17/20 10:00 65 89/75 L 09/17/20 09:40 70 141/105 H 09/17/20 09:28 36.3 C L 75 75 128/85 09/17/20 08:30 86 09/17/20 07:31 36.5 C 101 H 16 BP Pulse Ox 09/17/20 16:22 111/81 93 09/17/20 15:59 90 09/17/20 13:15 138/71 92 09/17/20 12:30 09/17/20 12:20 09/17/20 12:00 09/17/20 11:40 09/17/20 11:20 09/17/20 11:00 09/17/20 10:40 09/17/20 10:20 09/17/20 10:00 09/17/20 09:40 09/17/20 09:28 09/17/20 08:30 09/17/20 07:31 122/78 91 Laboratory Results 09/17/20 09/17/20 09/17/20 Range/Units 14:35 07:32 06:53 PT 24.7 H (9.0-12.0) Seconds INR 2.5 H (0.9-1.1) Sodium 137 (136-145) mmol/L Potassium 4.8 D (3.5-5.1) mmol/L Chloride 104 (98-107) mmol/L Carbon Dioxide 25 (21-32) mmol/L Anion Gap 8.0 (3-11) BUN 61 H (7-18) mg/dl Creatinine 4.89 H* D (0.6-1.2) mg/dl Est Cr Clr Drug Dosing 6.6 ml/min Est GFR ( Amer) 8.8 Est GFR (Non-Af Amer) 7.6 BUN/Creatinine Ratio 12.6 (10-20) Glucose 81 (70-99) mg/dl Calcium 8.2 L (8.5-10.1) mg/dl SARS-CoV-2 Ag (Rapid) Negative (Negative) Medications Administered Current Inpatient Medications Acetaminophen (Acetaminophen 325 Mg Tab) 650 mg PO Q4H PRN PRN Reason: pain/fever Stop: 09/30/20 17:22 Albuterol (Albut/Ipratrop 3mg/0.5mg Neb 3 Ml Vial) 3 ml NEB Q4R PRN PRN Reason: Shortness Of Breath Or Wheezing Stop: 10/05/20 10:04 Last Admin: 09/06/20 00:41 Dose: 3 ml Documented by: Ascorbic Acid (Ascorbic Acid 500 Mg Tab) 500 mg PO TID [facility] Stop: 09/30/20 17:22 Last Admin: 09/17/20 13:22 Dose: 500 mg Documented by: Aspirin (Aspirin 81 Mg Ectab) 81 mg PO DAILY [facility] Stop: 10/01/20 08:59 Last Admin: 09/17/20 13:22 Dose: 81 mg Documented by: Carvedilol (Carvedilol 6.25 Mg Tab) 6.25 mg PO BIDM [facility] Stop: 09/30/20 17:22 Last Admin: 09/17/20 16:21 Dose: 6.25 mg Documented by: Diltiazem HCl (Diltiazem Hcl 240 Mg Capcr) 240 mg PO DAILY [facility] Stop: 10/01/20 08:59 Last Admin: 09/17/20 13:23 Dose: 240 mg Documented by: Famotidine (Famotidine 20 Mg Tab) 20 mg PO DAILY [facility] Stop: 10/01/20 08:59 Last Admin: 09/17/20 13:24 Dose: 20 mg Documented by: Folic Acid (Folic Acid 1 Mg Tab) 1 mg PO QAM [facility] Stop: 10/01/20 08:59 Last Admin: 09/17/20 13:22 Dose: 1 mg Documented by: Guaifenesin (Guaifenesin 600 Mg Tabcr) 600 mg PO Q12 [facility] Stop: 10/16/20 13:39 Last Admin: 09/17/20 13:23 Dose: 600 mg Documented by: Furosemide 30 mg/ Syringe 3 mls @ 4 mls/min IV BID [facility] Stop: 10/06/20 01:14 Last Admin: 09/06/20 20:07 Dose: 4 mls/min Documented by: Levothyroxine Sodium (Levothyroxine Sodium 25 Mcg Tablet) 25 mcg PO DAILYBB [facility] Stop: 10/01/20 06:29 Last Admin: 09/17/20 05:44 Dose: 25 mcg Documented by: Multivitamins (Multivitamin Tab) 1 tab PO DAILY [facility] Stop: 10/01/20 08:59 Last Admin: 09/17/20 13:23 Dose: 1 tab Documented by: Pantoprazole Sodium (Pantoprazole 40 Mg Tab) 40 mg PO HS [facility]; Protocol Stop: 09/30/20 20:59 Last Admin: 09/16/20 20:37 Dose: 40 mg Documented by: Polyethylene Glycol (Polyethylene (Miralax) 17 Gm Pack) 17 gm PO DAILY PRN PRN Reason: Constipation Stop: 10/04/20 20:11 Prednisone (Prednisone 5 Mg Tab) 5 mg PO DAILY [facility] Stop: 10/01/20 08:59 Last Admin: 09/08/20 08:40 Dose: 5 mg Documented by: Prednisone (Prednisone 1 Mg Tab) 2 mg PO DAILY [facility] Stop: 10/01/20 08:59 Last Admin: 09/08/20 08:40 Dose: 2 mg Documented by: Prednisone (Prednisone 10 Mg Tablet) 10 mg PO DAILY [facility] Stop: 10/13/20 08:59 Last Admin: 09/17/20 13:22 Dose: 10 mg Documented by: Thiamine HCl (Thiamine Hcl 100 Mg Tab) 100 mg PO QAM [facility] Stop: 10/01/20 08:59 Last Admin: 09/17/20 13:23 Dose: 100 mg Documented by: Torsemide (Torsemide 100 Mg Tab) 100 mg PO QAM [facility] Stop: 10/18/20 08:59 Tramadol HCl (Tramadol Hcl 50 Mg Tablet) 50 mg PO Q8H PRN PRN Reason: Pain Stop: 09/30/20 17:22 Last Admin: 09/06/20 16:53 Dose: 50 mg Documented by: Warfarin Sodium (Warfarin Sod 2 Mg Tab) 2 mg PO DAILY@1600 [facility] Stop: 10/06/20 15:59 Last Admin: 09/17/20 16:21 Dose: 2 mg Documented by: (1) Pneumonia Laterality: bilateral Lung location: lower lobe of lung Pneumonia type: due to unspecified organism Qualified Code(s): J18.9 - Pneumonia, unspecified organism
[2020-09-17] MEDS: PANTOprazole 40 MG TAB PO SCH (20:50)
[2020-09-18] MEDS: LEVOTHYROXINE SODIUM 25 MCG TABLET PO SCH (06:14)
--- NOTE | 2020-09-18 08:42 | Hospitalist Progress Note ---
Date of Service September 18, 2020 Assessment & Plan (1) Pneumonia: (2) History of COVID-19: (3) Chronic respiratory failure with hypoxia: Present to the ER with SOB and weakness Patient presenting from home with reports of shortness of breath, generalized weakness, collapse Tested positive for COVID-19 on 08/13 at [facility] [place] and was treated with dexamethasone. CXR on admission showed bibasilar opacities suggestive of pneumonia Likely superimposed bacterial pneumonia after COVID-19 infection. No treatment for COVID-19 since pt was tested positive about 18 days ago. Completed course of IV ceftriaxone and IV azithromycin Blood cx no growth Continue oxygen supplement, chest PT BID Continue monitor closely (4) Acute kidney injury superimposed on chronic kidney disease: (5) CKD (chronic kidney disease) stage 4, GFR 15-29 ml/min: Previous baseline creatinine ran in the high 1s however with recent hospitalization new baseline seems to be the mid to high 2s Creatinine increased despite lasix was held for 3 days Nephrology on board case discussed with nephrology that recommended to continue IV lasix since the etiology is mostly ATN Worsening BUN 105 and creatinine 5.2 Nephrology discussed with patient about HD and pt agreed to proceed with dialysis. Daughter was notified Vascular surgery was consulted for dialysis access, pt now s/p per cath placement w/ Dr. Bernstein (09/11/20) Pt s/p 1st HD treatment 09/12/20, tolerated well Pt will need to be set up with outpt HD Continue monitor BMP Pt no longer wishes for HD and wants to be home with family. Pt to be discharged home w/ hospice tomorrow (09/19). (6) Acute on chronic systolic CHF (congestive heart failure): CXR on admission showed persistent small to moderate bilateral pleural effusions with bibasilar opacities which may reflect pneumonia or atelectasis. Elevated ProBNP 53155 Most recent echo on 08/12 showed EF 30%, moderate aortic stenosis, mild mitral regurgitation, moderate to severe tricuspid regurgitation Repeat CXR showed cardiomegaly, small pleural effusions, and progressive multifocal airspace opacities Continued Lasix 40mg IV BID Started HD 09/12/20 Pt no longer wishes for HD and wants to be home with family. Pt to be discharged home w/ hospice tomorrow (09/19). (7) Aortic stenosis: Continue beta-randell stable (8) Collapse: (9) Elevated troponin: Troponin 0.067 on admission, then trending down to 0.05 Mostly demand ischemia due to respiratory failure Continue Cavedilol, aspirin Stable (10) Abnormal urinalysis: (11) Hematuria: Reports of hematuria in the setting of supratherapeutic INR Continued IV ceftriaxone Hgb 9.3 stable Urology on board no need for any further acute work-up or intervention If her catheter were clogged, flush it as needed Follow-up as an outpatientno further inpatient evaluation required from a urological standpoint (12) Polymyalgia rheumatica: Continue chronic prednisone (13) Atrial fibrillation: Rate controlled on Carvedilol, will continue Anticoagulated on Coumadin INR supratherapeutic, held warfarin, now resumed (09/15) monitor PT/INR (14) DVT prophylaxis: On Coumadin Disposition Daughter Kristyn can be updated at ([phone]) updated over the phone 09/13 - She was able to visit her mother in the hospital (permission to visit was granted) Pt was supposed to be discharged today to [facility], however after further discussion, family and pt decided that it would be better for the pt to come home. Pt understands also the fact that it would be too difficult for her to get to HD and now just wishes to be home with her family. Palliative medicine was also consulted to clarify the goals of care. Pt and family wish for home hospice, pt to be discharged tomorrow (09/19). Admission and Anticipated Discharge Date Admission Date: August 31, 2020 Subjective Pt was seen and examined for follow up of respiratory distress and BEVERLEY on CKD Lying in bed in no distress She continues to require oxygen supplement Denies any chest pain, palpitation, dizziness or fever Daughter was able to visit couple of days ago (permission granted), pt thrilled about being able to see her daughter Pt was supposed to be discharged today to [facility], however after further discussion, family and pt decided that it would be better for the pt to come home. Pt understands also the fact that it would be too difficult for her to get to HD and now just wishes to be home with her family. Palliative medicine w as also consulted to clarify the goals of care. Pt and family wish for home hospice, pt to be discharged tomorrow (09/19). Review of Systems Review of Systems: All systems reviewed & are unremarkable except as noted in HPI & below ROS per HPI, all other systems reviewed and negative Constitutional: + fatigue; no fever and no chills Respiratory: + cough (much improved) and + dyspnea (improved) Cardiovascular: no chest pain and no palpitations Gastrointestinal: no abdominal pain, no nausea and no vomiting Physical Exam Physical Exam: General - thin elderly female, No acute distress Head - atraumatic Eyes - PERRL, EOMI, ENT- oropharynx clear Neck - supple, no JVD Chest - R upper chest perm cath Lungs - + diminished BS, no wheezing, coughs w/ deep inspiration Heart - regular rhythm; no murmur Abdomen - normal bowel sounds, soft, nontender Sanchez - light yellow urine and sediment noted Extremities- no calf tenderness Neuro - alert, oriented x 3; PERRL, EOMI; no facial palsy; no dysarthria, moves extremities Skin- warm & dry Results & Data Results & Data ([facility]) Vital Signs (Past 12 Hours) Vital Signs Temp Pulse Pulse Resp BP Pulse Ox 09/18/20 07:27 36.3 C L 83 20 116/74 94 09/18/20 07:17 104 H 09/18/20 04:02 36.5 C 94 H 17 129/79 94 09/18/20 01:03 122 H 09/17/20 23:04 36.3 C L 98 H 18 122/77 91 Medications Administered Current Inpatient Medications Acetaminophen (Acetaminophen 325 Mg Tab) 650 mg PO Q4H PRN PRN Reason: pain/fever Stop: 09/30/20 17:22 Albuterol (Albut/Ipratrop 3mg/0.5mg Neb 3 Ml Vial) 3 ml NEB Q4R PRN PRN Reason: Shortness Of Breath Or Wheezing Stop: 10/05/20 10:04 Last Admin: 09/06/20 00:41 Dose: 3 ml Documented by: Ascorbic Acid (Ascorbic Acid 500 Mg Tab) 500 mg PO TID [facility] Stop: 09/30/20 17:22 Last Admin: 09/17/20 20:49 Dose: 500 mg Documented by: Aspirin (Aspirin 81 Mg Ectab) 81 mg PO DAILY [facility] Stop: 10/01/20 08:59 Last Admin: 09/17/20 13:22 Dose: 81 mg Documented by: Carvedilol (Carvedilol 6.25 Mg Tab) 6.25 mg PO BIDM [facility] Stop: 09/30/20 17:22 Last Admin: 09/17/20 16:21 Dose: 6.25 mg Documented by: Diltiazem HCl (Diltiazem Hcl 240 Mg Capcr) 240 mg PO DAILY [facility] Stop: 10/01/20 08:59 Last Admin: 09/17/20 13:23 Dose: 240 mg Documented by: Famotidine (Famotidine 20 Mg Tab) 20 mg PO DAILY [facility] Stop: 10/01/20 08:59 Last Admin: 09/17/20 13:24 Dose: 20 mg Documented by: Folic Acid (Folic Acid 1 Mg Tab) 1 mg PO QAM [facility] Stop: 10/01/20 08:59 Last Admin: 09/17/20 13:22 Dose: 1 mg Documented by: Guaifenesin (Guaifenesin 600 Mg Tabcr) 600 mg PO Q12 [facility] Stop: 10/16/20 13:39 Last Admin: 09/17/20 20:50 Dose: 600 mg Documented by: Furosemide 30 mg/ Syringe 3 mls @ 4 mls/min IV BID [facility] Stop: 10/06/20 01:14 Last Admin: 09/06/20 20:07 Dose: 4 mls/min Documented by: Levothyroxine Sodium (Levothyroxine Sodium 25 Mcg Tablet) 25 mcg PO DAILYBB [facility] Stop: 10/01/20 06:29 Last Admin: 09/18/20 06:14 Dose: 25 mcg Documented by: Multivitamins (Multivitamin Tab) 1 tab PO DAILY [facility] Stop: 10/01/20 08:59 Last Admin: 09/17/20 13:23 Dose: 1 tab Documented by: Pantoprazole Sodium (Pantoprazole 40 Mg Tab) 40 mg PO HS [facility]; Protocol Stop: 09/30/20 20:59 Last Admin: 09/17/20 20:50 Dose: 40 mg Documented by: Polyethylene Glycol (Polyethylene (Miralax) 17 Gm Pack) 17 gm PO DAILY PRN PRN Reason: Constipation Stop: 10/04/20 20:11 Prednisone (Prednisone 5 Mg Tab) 5 mg PO DAILY [facility] Stop: 10/01/20 08:59 Last Admin: 09/08/20 08:40 Dose: 5 mg Documented by: Prednisone (Prednisone 1 Mg Tab) 2 mg PO DAILY [facility] Stop: 10/01/20 08:59 Last Admin: 09/08/20 08:40 Dose: 2 mg Documented by: Prednisone (Prednisone 10 Mg Tablet) 10 mg PO DAILY [facility] Stop: 10/13/20 08:59 Last Admin: 09/17/20 13:22 Dose: 10 mg Documented by: Thiamine HCl (Thiamine Hcl 100 Mg Tab) 100 mg PO QAM [facility] Stop: 10/01/20 08:59 Last Admin: 09/17/20 13:23 Dose: 100 mg Documented by: Torsemide ([facility]semide 100 Mg Tab) [facility] [place] Stop: 10/18/20 08:59 Tramadol HCl (Tramadol Hcl 50 Mg Tablet) 50 mg PO Q8H PRN PRN Reason: Pain Stop: 09/30/20 17:22 Last Admin: 09/06/20 16:53 Dose: 50 mg Documented by: Warfarin Sodium (Warfarin Sod 2 Mg Tab) 2 mg PO DAILY@1600 [facility] Stop: 10/06/20 15:59 Last Admin: 09/17/20 16:21 Dose: 2 mg Documented by: (1) Pneumonia Laterality: bilateral Lung location: lower lobe of lung Pneumonia type: due to unspecified organism Qualified Code(s): J18.9 - Pneumonia, unspecified organism
[2020-09-18 08:52] LABS: INR 2.4 (0.9-1.1); Prothrombin Time 24.6 Seconds (9.0-12.0)
[2020-09-18 09:04] LABS: BUN Creatinine Ratio 11.2 (10-20); Calcium 8.8 mg/dl (8.5-10.1); Creatinine Clr Calc Pharmacy 10.1 ml/min; Est GFR (African American) 14.6; Est GFR (Non-African American) 12.6; Potassium 4.5 mmol/L (3.5-5.1)
[2020-09-18] MEDS: ASCORBIC ACID 500 MG TAB PO SCH ×3 (09:49→21:03)
[2020-09-18] MEDS: guaiFENesin 600 MG TABCR PO SCH ×2 (09:49→21:03)
[2020-09-18] MEDS: carvediloL 6.25 MG TAB PO SCH ×2 (09:50→16:58)
[2020-09-18] MEDS: ASPIRIN 81 MG ECTAB PO SCH (09:50)
[2020-09-18] MEDS: TORSEMIDE 100 MG TAB PO SCH (09:50)
[2020-09-18] MEDS: THIAMINE HCL 100 MG TAB PO SCH (09:50)
[2020-09-18] MEDS: MULTIVITAMIN TAB PO SCH (09:50)
[2020-09-18] MEDS: dilTIAZem HCL 240 MG CAPCR PO SCH (09:50)
[2020-09-18] MEDS: predniSONE 10 MG TABLET PO SCH (09:51)
[2020-09-18] MEDS: FAMOTIDINE 20 MG TAB PO SCH (09:51)
[2020-09-18] MEDS: FOLIC ACID 1 MG TAB PO SCH (09:51)
--- NOTE | 2020-09-18 11:08 | Palliative Care Consultation ---
Date of Consultation September 18, 2020 Assessment & Plan (1) Palliative care encounter: I talked with Rosi at bedside and spoke with her daughter, Dinah, by phone at [phone]. Rosi tells me that her wish is to just go home and rest. She asked me what would happen if she stopped dialysis. We discussed progressive somnolence and eventual with uremia. We discussed prognosis which is likely days to weeks. I asked her, knowing that, what was most important to her. She responded that she wanted to be at home and be comfortable until her . We discussed support at home. We discussed hospice care and benefits but added that hospice would not provide 24/7 care at home. She lives with her son, who is not comfortable with being her primary caregiver. Dinah feels that given her short prognosis, she and her sister, Kristyn, may be able to care for her at home with hospice support. I reviewed prognosis and what to expect with Dinah. She asked about Rosi going to SNF for rehab to get stronger prior to going home. I explained that her rehab potential is very limited without dialysis. She is likely as good as she will be if she opts for no further dialysis. They will discuss as a family and decide whether they can manage care at home or prefer to continue with plan for SNF with comfort care. I have completed a POLST and changed her code status to DNR based on our discussion. (2) Acute on chronic systolic CHF (congestive heart failure): (3) Acute on chronic renal failure: (4) Chronic respiratory failure with hypoxia: (5) History of COVID-19: (6) Atrial fibrillation: (7) Pneumonia: Laterality: bilateral Lung location: lower lobe of lung Pneumonia type: due to unspecified organism Qualified Code(s): J18.9 - Pneumonia, unspecified organism (8) Aortic stenosis: History of Present Illness Reason for Consultation: goals of care Requesting Physician: Dr. Mckenzie Attending Physician: Abdi Mckenzie MD History of Present Illness 84 yo lady with CKD, atrial fibrillation and chronic heart failure who is O2 dependent at baseline. She tested positive for Covid19 over a month ago and subsequently was treated for pneumonia with roecephin and azithromycin as well as decadron. She has been hospitalized for management of this for 18 days. During her hospital course she has had progressive renal failure and has been on hemodialysis. She had been scheduled for discharge to [facility] today with continued hemodialysis. Both Rsoi and her daughter, Dinah, have discussed t he possibility of stopping dialysis and changing focus of care for comfort. We have been consulted to assist with goals of care. Allergies Allergy/AdvReac Type Severity Reaction Status Date / Time aspirin Allergy Mild Unknown Verified 08/31/20 11:17 Sulfa (Sulfonamide Allergy Mild Rash Verified 08/31/20 11:17 Antibiotics) Home Medications Medication Instructions Recorded Confirmed Type ascorbic acid (vitamin C) [Vitamin 500 mg PO TID 01/05/19 08/31/20 History C] aspirin 81 mg PO DAILY 01/05/19 08/31/20 History diltiazem HCl 240 mg PO DAILY 01/05/19 08/31/20 History levothyroxine 25 mcg PO DAILYBB 01/05/19 08/31/20 History multivitamin 1 tab PO DAILY 01/05/19 08/31/20 History omeprazole magnesium [Prilosec OTC] 20 mg PO HS 01/05/19 08/31/20 History prednisone 2 mg PO DAILY 01/05/19 08/31/20 History prednisone 5 mg PO DAILY 01/05/19 08/31/20 History tramadol 50 mg PO Q8H PRN 01/05/19 08/31/20 History Myrbetriq 25 mg PO DAILY 08/05/20 08/31/20 History acetaminophen [Tylenol Extra 500 mg PO BID 08/05/20 08/31/20 History Strength] carvedilol 6.25 mg PO BIDM 08/05/20 08/31/20 History gngpeoensq-smbj-lxsx-vinegar 1 tab PO BID PRN 08/05/20 08/31/20 History torsemide 10 mg PO DAILY 08/05/20 08/31/20 History folic acid 1 mg PO QAM #0 tab 08/10/20 08/31/20 Rx thiamine HCl (vitamin B1) [Vitamin 100 mg PO QAM #0 tab 08/10/20 08/31/20 Rx B-1] albuterol sulfate 2 puff INHALATION Q4H PRN 08/31/20 08/31/20 History benzonatate [Tessalon Perles] 100 mg PO TID PRN 08/31/20 08/31/20 History famotidine 20 mg PO DAILY 08/31/20 08/31/20 History warfarin 1 mg PO DAILY 08/31/20 08/31/20 History Patient History Medical History Anemia Atrial fibrillation Chronic respiratory failure with hypoxia Chronic systolic CHF (congestive heart failure) CKD (chronic kidney disease) stage 4, GFR 15-29 ml/min Closed left hip fracture Fibromyalgia GERD (gastroesophageal reflux disease) History of COVID-19 HTN (hypertension) Hypothyroid Lower urinary tract symptoms (LUTS) Osteoarthritis Osteoporosis Polymyalgia rheumatica Refusal of blood transfusions as patient is [employer] Surgical History S/P appendectomy S/P cataract extraction S/P tonsillectomy Family History Sister Cancer Social History Smoking Status: Never smoker Second Hand Exposure: No; Do You Dip or Chew Tobacco: No; Tobacco Cessation Education Requested by Patient: No Hx Alcohol Use: No Hx Substance Use: No Preferred Language: Yi Communication Ability: Effective Educational Fundraising Director Required: No Beliefs That Will Affect Care: Mu-Ism Mu-Ism Beliefs: Jehovah Witness - NO BLOOD OR BLOOD PRODUCTS PER PATIENT marital status: / Current Living Situation: Family Current Living Situation Comment: Son lives w/ patient Other Information That Helps Us Care for You: No Feels Safe at Home: Yes Safety Concerns: Feels Safe At This Time Assistive Devices: Oxygen - Continuous and Walker Review of Systems Review of Systems: Spangle Symptom Assessment Scale Pain 0/3 Dyspnea 1/3 Nausea 0/3 Fatigue 2/3 Anorexia 1/3 Anxiety 0/3 Depression 0/3 Drowsiness 0/3 Palliative Performance Score 40% Physical Exam Constitutional: + frail appearing; no acute distress ENMT: Ears: no hearing impairment Mouth: oral mucous membranes not dry Neck: normal visual inspection Respiratory: normal respiratory effort; no labored breathing Gastrointestinal (Abdomen): Inspection/Auscultation: abdomen not distended Musculoskeletal: Extremities: + muscle atrophy Skin: warm and dry Neurologic: moves all extremities and awake; not confused Psychiatric: Orientation: alert and oriented x 3 Results & Data ([facility]) Vital Signs (Past 12 Hours) Vital Signs Temp Pulse Pulse Resp BP Pulse Ox 09/18/20 07:27 97.3 F L 83 20 116/74 94 09/18/20 07:17 104 H 09/18/20 04:02 97.7 F 94 H 17 129/79 94 09/18/20 01:03 122 H PG Care Time/CCT Total # of Minutes Spent Total Time Spent with Patient: Total time spent is greater than 50% in coordination of care (as documented) at patient's floor/unit and/or counseling patient: Total time spent 120 minutes with more than 50% of time spent on coordination of care, family support and communication, goals of care, hospice and POLST completion. Coding Level of Care Code 56492 Inpt Consult Level 5 Diagnoses Palliative care encounter Z51.5 Acute on chronic systolic CHF (congestive heart failure) I50.23 Acute on chronic renal failure N17.9; N18.9 Chronic respiratory failure with hypoxia J96.11 History of COVID-19 Z86.16 Atrial fibrillation I48.91 Pneumonia J18.9 Laterality: bilateral Lung location: lower lobe of lung Pneumonia type: due to unspecified organism Aortic stenosis I35.0 Time Spent (min) 120
[2020-09-18] MEDS: WARFARIN SOD 2 MG TAB PO SCH (16:58)
[2020-09-18] MEDS: PANTOprazole 40 MG TAB PO SCH (21:03)
[2020-09-19] MEDS: LEVOTHYROXINE SODIUM 25 MCG TABLET PO SCH (06:28)
[2020-09-19] MEDS: ASCORBIC ACID 500 MG TAB PO SCH ×2 (08:19→13:51)
[2020-09-19] MEDS: ASPIRIN 81 MG ECTAB PO SCH (08:19)
[2020-09-19] MEDS: guaiFENesin 600 MG TABCR PO SCH (08:20)
[2020-09-19] MEDS: FOLIC ACID 1 MG TAB PO SCH (08:20)
[2020-09-19] MEDS: dilTIAZem HCL 240 MG CAPCR PO SCH (08:20)
[2020-09-19] MEDS: TORSEMIDE 100 MG TAB PO SCH (08:20)
[2020-09-19] MEDS: FAMOTIDINE 20 MG TAB PO SCH (08:20)
[2020-09-19] MEDS: THIAMINE HCL 100 MG TAB PO SCH (08:20)
[2020-09-19] MEDS: predniSONE 10 MG TABLET PO SCH (08:20)
[2020-09-19] MEDS: carvediloL 6.25 MG TAB PO SCH (08:21)
[2020-09-19] MEDS: MULTIVITAMIN TAB PO SCH (08:21)
--- NOTE | 2020-09-19 11:16 | Progress Notes ---
DATE: 09/19/2020 SUBJECTIVE: Overnight, the patient feels weak and tired and just wants to go home and wanted to start dialysis. Palliative medicine was consulted yesterday and the decision was made to make patient comfort care with hospice and no dialysis. OBJECTIVE: VITAL SIGNS: Blood pressure 133/59, pulse rate 105, temperature 36.3, 94% on 3 liter nasal cannula. HEENT: Mucous membranes moist. NECK: Supple. No jugular venous distention. CHEST: Bilateral decreased breath sounds. CARDIOVASCULAR: S1, S2 regular. ABDOMEN: Soft, nontender. EXTREMITIES: Shows no edema. LABORATORY TESTS: Labs were not done today because of comfort care status. ASSESSMENT AND PLAN: An 84-year-old female with very extensive list of medical problems as an outpatient including chronic kidney disease stage IV to stage V, now with acute renal failure secondary to acute tubular necrosis in the setting of COVID-19 infection requiring dialysis support. Acute renal failure: Even though this is acute, I have very little hope that she will recover because prior to COVID infection, her GFR was close to 15 with very extensive list of medical problem. In any case, the patient and her family has made the decision to stop dialysis and transition to comfort care status in collaboration with palliative medicine. We will respect her wishes and start dialysis. RECOMMENDATIONS: 1. Continue torsemide 100 daily for symptomatic relief from shortness of breath. 2. Remove the tunneled dialysis catheter. 3. We will sign off.
--- NOTE | 2020-09-19 14:10 | Discharge Summary ---
Date of Service September 19, 2020 Admission HPI Per Admitting Provider 84-year-old female with PMH hypothyroidism, CKD stage IV, chronic systolic CHF, atrial fibrillation anticoagulated on Coumadin, aortic stenosis, PMR on chronic steroids, and other problems listed below who presents to the ED for evaluation of shortness of breath, collapse, generalized weakness. Patient recently admitted to [facility] 08/05 through 08/10 for atrial fibrillation with RVR, BEVERLEY, and possible gastric volvulus for which she was transferred to [facility] for further evaluation. While at [facility], patient was evaluated by general surgery who did not recommend intervention given that patient symptoms resolved and there was low clinical suspicion for gastric volvulus. Patient developed acute on chronic systolic heart failure and was given IV diuretics. She then developed BEVERLEY on CKD secondary to aggressive diuresis. BEVERLEY resolved with hydration. Patient's home dose of torsemide was restarted at discharge. On 08/13, patient developed cough and generalized weakness and was found to be COVID-19 positive. She was treated with IV dexamethasone and transition to p.o. to complete course. Patient required oxygen to maintain saturation > 92%. She was discharged on 2 L of oxygen at rest and night and 3 L while ambulating. Patient was also started on warfarin due to new onset A. fib. Patient was discharged home on 08/22. Patient presents to [facility] today for evaluation of shortness of breath. Some h istory was obtained from patient's daughter, Dinah, over the telephone. Patient has remained generally weak since her last hospitalization and was planning on being admitted to [place] today for rehab needs. When patient was ambulating to the car, daughter reports that patient collapsed and had a brief loss of consciousness. EMS was called and patient was brought to the ED for further evaluation. Yesterday, patient developed hematuria with occasional clots. She has had a moist nonproductive cough. No fevers or chills. Denies chest pain and palpitations. No abdominal pain, nausea, vomiting, diarrhea. In the ED, CXR shows Persistent small to moderate bilateral pleural effusions with bibasilar opacities which may reflect pneumonia or atelectasis. Patient is saturating well on 2 L of oxygen via nasal cannula. Troponin mildly elevated 0.067, EKG shows atrial fibrillation with ST depression in the lateral leads. Creatinine 3.3 (recent baseline mid 2's). Patient was given IV azithromycin, IV ceftriaxone, IVF. Admission Exam Per Admitting Provider Gen-AAO x 3, NAD, Afebrile, cachectic, frail, cough Head-NCAT, EOMI, PERRLA, Anicteric Sclera, No Posterior Pharyngeal Erythema Neck-Supple, No JVD, No Thyromegaly, No Masses, No LAD, No Bruits Lungs-B/L Rales R>L, No Rhonchi, No Wheezing, No Crepitus, +cough Chest-No S4, +S1, +S2, No S3, No Murmurs, No Rubs, No Gallops, No Ectopy Abdomen-Soft, Bowel Sounds Present, Non Tender, Non Distended, No Hepatomegaly, No Splenomegaly, No Palpable Masses, No Rebound, No Rigidity, No Guarding Musculoskeletal-Full Range of Motion Bilaterally, No CVAT Extremities-No Cyanosis, No Clubbing, No Edema Nuero-Cranial Nerves II-XII grossly intact, Motor WNL, DTRs WNL, Strength WNL, Non Focal Psych-Normal Mood Principal Diagnosis (1) Pneumonia: (2) History of COVID-19: (3) Chronic respiratory failure with hypoxia: Discharge Exam General: A&Ox3. Chronically ill-appearing female, cachectic HENT: NCAT, MMM, EOMI Eyes: PERRLA Neck: Supple, normal range of motion CVS: normal rate and rhythm Resp: b/l decreased breath sounds, right sided chest central line in place Abdomen: Soft, distended nontender Extremities: Presence of any edema Neuro: face symmetric, strength grossly equal, no focal deficit Skin: warm and dry, no rashes/lesions/errythema MSK: normal ROM, no joint swelling/erythema Discharge Data Allergies Allergy/AdvReac Type Severity Reaction Status Date / Time aspirin Allergy Mild Unknown Verified 08/31/20 11:17 Sulfa (Sulfonamide Allergy Mild Rash Verified 08/31/20 11:17 Antibiotics) Consultations 08/31/20 12:22 ED Decision to Admit Stat 08/31/20 17:23 Consult Case Management - Discharge Planning Routine Consult Nephrology Routine Consult Urology Routine 09/01/20 11:38 Consult Gastroenterology Routine 09/11/20 10:06 Consult Vascular Surgery Routine 09/18/20 09:59 Consult Palliative Care Routine Procedures Performed Operation Date: 09/11/20 12:10 Actual Procedures p Insertion Of Perm Catheter, Right Internal Jugular Approach, Ultrasound Localization Of Right Internal Jugular Vein, Fluoroscopy For Positioning(Right) - Tutu Bernstein MD Ordered Studies 09/11/20 11:08 EV cvc insrt tunnel wo prt/credit report checker Urgent US EV guide vascular access Urgent Hospital Course (1) Pneumonia: (2) History of COVID-19: (3) Chronic respiratory failure with hypoxia: Patient is 84-year-old female who presented with generalized weakness and shortness of breath. She was found to be positive for COVID-19 on August 13. X-ray revealed bibasilar opacities with likely superimposed pneumonia. Patient completed course with ceftriaxone and azithromycin. Blood cultures were negative at the time of discharge. (4) Acute kidney injury superimposed on chronic kidney disease: (5) CKD (chronic kidney disease) stage 4, GFR 15-29 ml/min: Nephrology was on board. They recommended dialysis and patient decided to proceed with it. Had catheter placement for dialysis access. Did undergo dialysis on 09/12. However patient later changed her mind and decided to proceed with hospice care and did not want to proceed with dialysis. Palliative medicine was consulted today. Patient wanted to go home. She was discharged home on hospice care on 09/19/2020. (6) Acute on chronic systolic CHF (congestive heart failure): Patient was requiring oxygenation here. She was diuresed with IV Lasix. Nephrology was on board. She was on torsemide 10 mg daily. However, patient decided to proceed with hospice measures. (7) Aortic stenosis: Continue beta-randell (8) Collapse: (9) Elevated troponin: Nonischemic (10) Abnormal urinalysis: (11) Hematuria: Stable prior to (12) Polymyalgia rheumatica: Continue chronic prednisone (13) Atrial fibrillation: Rate remained controlled. Coumadin was discontinued at discharge due to hospice (14) DVT prophylaxis: Was on Coumadin prior to admission, it was discontinued on discharge Total Time Total Time Spent Total Time Spent (In Minutes): 35 Discharge Plan Discharge Items Patient Disposition: Hospice - Home Reason For Visit: PNEUMONIA, HX OF COVID Discharge Diagnosis: Acute on chronic systolic CHF (congestive heart failure): Acute on chronic renal failure: Chronic respiratory failure with hypoxia:History of COVID-19 Atrial fibrillation: Pneumonia: Activity: Resume your previous activity Non-emergency contact: Ship Purser Call non-emergency contact if: your symptoms worsen Follow-up/Referrals: Irvin Huggins DO [Primary Care Provider] - Diet: Regular and Dialysis Renal Addtl Attending Provider Instructions: You are being discharged on hospice services. Pending Studies at Discharge: No Stand-Alone Forms: My [facility], Smoking Cessation Medications and DC Order Prescriptions: Continued levothyroxine 25 mcg Tablet 25 mcg PO DAILYBB RF: 0 tramadol 50 mg Tablet 50 mg PO Q8H PRN (Reason: Pain) RF: 0 diltiazem HCl 240 mg Capsule,Extended Release 24hr 240 mg PO DAILY RF: 0 prednisone 1 mg Tablet 2 mg PO DAILY RF: 0 prednisone 5 mg Tablet 5 mg PO DAILY RF: 0 aspirin 81 mg Tablet,Delayed Release (Dr/Ec) 81 mg PO DAILY RF: 0 ascorbic acid (vitamin C) [Vitamin C] 500 mg Tablet 500 mg PO TID RF: 0 multivitamin Tablet 1 tab PO DAILY RF: 0 omeprazole magnesium [Prilosec OTC] 20 mg Tablet,Delayed Release (Dr/Ec) 20 mg PO HS RF: 0 carvedilol 6.25 mg Tablet 6.25 mg PO BIDM RF: 0 acetaminophen [Tylenol Extra Strength] 500 mg Tablet 500 mg PO BID RF: 0 jtoqnmosux-hybx-blgi-vinegar Tablet 1 tab PO BID PRN (Reason: Diarrhea) RF: 0 Myrbetriq 25 mg Tablet Extended Release 24 Hr 25 mg PO DAILY RF: 0 thiamine HCl (vitamin B1) [Vitamin B-1] 100 mg Tablet 100 mg PO QAM Qty: 0 RF: 0 folic acid 1 mg Tablet 1 mg PO QAM Qty: 0 RF: 0 famotidine 20 mg Tablet 20 mg PO DAILY RF: 0 benzonatate [Tessalon Perles] 100 mg Capsule 100 mg PO TID PRN (Reason: Cough) RF: 0 albuterol sulfate 90 mcg/actuation HFA aerosol inhaler 2 puff INHALATION Q4H PRN (Reason: Shortness Of Breath Or Wheezing) RF: 0 Changed torsemide 10 mg Tablet 100 mg PO DAILY Qty: 0 RF: 0 Discontinued warfarin 1 mg tablet 1 mg PO DAILY RF: 0 Discharge Orders: Discharge Order (Routine); Ordered 09/19/20 Ordered By: Phong Ribeiro Admission Data Admit Date/Time: 08/31/20 13:06 Attending Provider: Phong Ribeiro Admit Provider: Quoc Murphy Primary Care Provider: Irvin Huggins Other Providers: Quoc Murphy ; Mey Alford ; Fazal Pearson ; Barney Bell ; Angie Shea ; Reinaldo Grant ; Josephine Krishna ; Angelito Mariano ; Bulmaro Fleming ; Siobhan Arreola ; Reg Lucas ; Russ Michael ; Brenda Grayson ; Gisela Lynne ; Abril Bowen ; Kristyn Cho ; Robe Leos ; Tutu Bernstein ; Vianney Jean-Baptiste ; Jeri Purcell ; [facility]
--- NOTE | 2020-09-19 15:02 | Palliative Care Progress Note ---
Date of Service September 19, 2020 Assessment & Plan (1) Palliative care encounter: She has opted not to continue dialysis and to return home with hospice and family support. Anticipate discharge later today. LEWIS on chart. (2) Acute on chronic renal failure: Admission and Anticipated Discharge Date Admission Date: August 31, 2020 Subjective Having some urinary urgency after dior removal. She has had 200cc urine output today. She denies pain or dyspnea. Review of Systems Review of Systems: Ida Symptom Assessment Scale Pain0/3 Dyspnea 0/3 Nausea 0/3 Anxiety 0/3 Drowsiness 0/3 Palliative Performance Score 40% Physical Exam Constitutional: + thin and + frail appearing ENMT: Mouth: + dry oral mucous membranes Respiratory: normal respiratory effort; no labored breathing Gastrointestinal (Abdomen): Inspection/Auscultation: abdomen not distended Musculoskeletal: Extremities: + muscle atrophy Skin: warm and dry Neurologic: moves all extremities and awake Psychiatric: Orientation: alert and oriented x 3 Affect: euthymic affect Results & Data ([facility]) Vital Signs (Past 12 Hours) Vital Signs Temp Pulse Pulse Pulse Resp BP BP 09/19/20 14:22 97.2 F L 80 97 H 109 H 18 128/73 116/68 09/19/20 11:23 97.2 F L 97 H 18 128/73 09/19/20 07:24 97.3 F L 105 H 18 133/59 L Pulse Ox 09/19/20 14:22 95 09/19/20 11:23 95 09/19/20 07:24 94 PG Care Time/CCT Total # of Minutes Spent Total Time Spent with Patient: Total time spent is greater than 50% in coordination of care (as documented) at patient's floor/unit and/or counseling patient: Coding Level of Care Code 90156 Subseq Hosp Care Lvl 2 Diagnoses Palliative care encounter Z51.5 Acute on chronic renal failure N17.9; N18.9
== END 2020-09-19 16:20 | disposition hospice, home (50) | DRG 682 ==
LOC: ED 10:17 → 2S 13:06 → SUATTDRO 13:06 → 2S 15:40 → 2W 09-04 19:30